=== PATIENT | female | born 1955 | race Asian ===

== ENCOUNTER 2019-12-13 16:19 | Inpatient (IN) | payer MEDICARE, OTHER ==
--- NOTE | 2019-12-13 16:52 | PDOC ---
History of Present Illness - General Chief Complaint: Dialysis Shunt Problem Stated Complaint: PICC Line Insertion Time Seen by Provider: 12/13/19 16:32 History Source: Retirement Records Exam Limitations: Clinical Condition (on a Ventilator) - History of Present Illness Initial Comments: Elizabeth jeong is a 64 F with a PMH of Epilepsy, HTN, dysphagia, hx of DVT of right LE, Afib, hypothyroidism, s/p thracheostomy on continuous ventilation, Dialysis dependence CKD, presents from [facility] for malfunctioning(thrombus) of her right port a cath. Patient received her last dialysis on Wednesday, only 200cc of 300cc is completed, unable to flush. PCP: Adalid Restrepo Nephro: Colin Castillo 12/13/19 17:08 12/13/19 17:11 12/13/19 21:10 Past History - Medical History Allergies/Adverse Reactions: Allergies Allergy/AdvReac Type Severity Reaction Status Date / Time No Known Allergies Allergy Verified 12/13/19 16:33 Cardiac Disorders: Yes (afib) CVA: (dysphagia) COPD: No HTN: Yes Seizures: Yes Thyroid Disease: Yes (hypo) Other medical history: rle dvt, tracheostomy - Reproductive History Is Patient Now?: No - Psycho-Social/Smoking History Smoking History: Smoker current status UNK Have you smoked in the past 12 months: No Information on smoking cessation initiated: No - Substance Abuse Hx (Audit-C & DAST Scrn) How often the patient has a drink containing alcohol: Never Score: In Men: 4 or > Positive; In Women: 3 or > Positive: 0 Screen Result (Pos requires Nsg. Audit-10AR): Negative In the last yr the pt used illegal drug/Rx for NonMed reason: No Score: Yes response is considered Positive: 0 Screen Result (Positive result requires Nsg. DAST-10): Negative Review of Systems - Review of Systems Able to Perform ROS?: No (pt is on a ventilator) *Physical Exam - Vital Signs Last Vital Signs Temp Pulse Resp BP Pulse Ox 98.4 F 96 H 16 101/56 L 99 12/13/19 16:36 12/13/19 16:36 12/13/19 16:36 12/13/19 16:36 12/13/19 16:36 - Physical Exam General Appearance: Yes: Thin. No: Apparent Distress HEENT: positive: LAURA. negative: Nasal Congestion, Rhinorrhea Neck: positive: Supple, Other (trach in place). negative: Carotid bruit Respiratory/Chest: positive: Lungs Clear, Normal Breath Sounds, Other (on a ventilator). negative: Respiratory Distress, Crackles, Rales, Rhonchi Cardiovascular: positive: Regular Rhythm, Regular Rate, S1, S2, Other (Perm cath R. upper chest wall). negative: Edema, JVD, Murmur Vascular Pulses: Carotid (R): 2+, Carotid (L): 2+, Dorsalis-Pedis (R): 1+, Doralis-Pedis (L): 1+ Gastrointestinal/Abdominal: positive: Normal Bowel Sounds, Flat, Other (peg tube in place). negative: Tender Musculoskeletal: positive: Other (Contracture of RUE, PICC line LUE) Extremity: negative: Swelling, Calf Tenderness Integumentary: positive: Dry, Warm, Other (2x1.5 sacral wound (s4)- no active bleeding). negative: Rash, Swelling, Bruising Neurologic: positive: Responsive ED Treatment Course - LABORATORY CBC & Chemistry Diagram: 12/13/19 18:25 12/13/19 18:25 Medical Decision Making - Medical Decision Making 64 F with a PMH of Epilepsy, HTN, dysphagia, hx of DVT of right LE, Afib, hypothyroidism, s/p thracheostomy on continuous ventilation, Dialysis dependence CKD, presents from [facility] for malfunctioning(thrombus) of her right port a cath. #perm Cath eval/replacement - HD catheter Tunnelled: Right IJ Vein - CBC: WBC 15.7 - CMP: Na 131, K 5.3 (hemolyzed), BUN/Crea 34.4/1.5 - PT(INR), PTT - CXR: L.effusion w/ L.base infiltrate and/or atelectasis - PCP: Adalid Nolen - will need admission for perm cath evaluation/replacement for HD Dispo: adm 12/13/19 19:54 12/13/19 20:06 12/13/19 20:09 12/13/19 21:11 Discharge - Discharge Information Problems reviewed: Yes Clinical Impression/Diagnosis: Pleural effusion, Pneumonia, Dialysis catheter clot or failure - Admission Yes - Follow up/Referral Referrals: Colin Holm MD [Staff Physician] - - Patient Discharge Instructions - Post Discharge Activity
--- NOTE | 2019-12-13 18:35 | PDOC ---
Documentation entered by Lamar Alvarez SCRIBE, acting as scribe for Cheri Ortega DO. Cheri Ortega, DO: This documentation has been prepared by the Antonio hudson Sydney, SCRIBE, under my direction and personally reviewed by me in its entirety. I confirm that the documentation accurately reflects all work, treatment, procedures, and medical decision making performed by me. Attending Attestation - Resident Resident Name: MarinoKacey - ED Attending Attestation I have performed the following: I have examined & evaluated the patient, The case was reviewed & discussed with the resident, I agree w/resident's findings & plan, Exceptions are as noted - HPI HPI: 12/13/19 16:50 Patient is a 64 year old female with a significant past medical history of dialysis (MWF) who presents to the ED by EMS from [facility] [place] for dialysis complications. As per EMS, the patient successfully completed her dialysis on Wednesday, but presents today secondary to a complication with her dialysis catheter. HPI is limited secondary to the patient's present symptoms. Allergies: NKDA PCP: Dr. Holm - Physicial Exam PE: 12/13/19 18:17 Gen: vented, awake, moaning neck: trach in place heart: +s1s2 reg lungs: cta b/l, perm cath R chest wall abd: soft, peg in place ext: contracted RUE, L arm with picc line in place, pulses intact, no edema - Medical Decision Making 12/13/19 18:17 a/p: 64yo female with chronic trach, vent, HD on // -sent for a clot in the perm cath that failed cathflow today at HD -nephro is Dr. Massey -pt from [facility] -PMD Dr. Soto -will send labs, ekg, cxr -covid swab -will need admission for perm cath replacement and failed HD access 12/13/19 19:49 labs reviewed hemolyzed k, at 5.3 wbc 15, pna on cxr will add blood cultures, vanco/zosyn will need admission pleural effusion on cxr 12/13/19 21:13 resident called [facility] and PMD is Dr. Adalid Soto microblog sent to [facility] case discussed with TIANA Armstrong who accepts pt to service Heart Score/ECG Review - ECG Intrepretation Comment:: 12/13/19 18:19 sinus tach at 102, t wave flattening inferior leads, baseline artifact, no acute st/t wave findings Discharge - Discharge Information Problems reviewed: Yes Clinical Impression/Diagnosis: Pleural effusion, Pneumonia, Dialysis catheter clot or failure - Admission Yes - Follow up/Referral Referrals: Colin Holm MD [Staff Physician] - - Patient Discharge Instructions - Post Discharge Activity
[2019-12-13 19:00] LABS: BASO % 0.1 % (0-2.0); EOS % 0.1 % (0-4.5); HEMATOCRIT 36.7 % (32.4-45.2); HEMOGLOBIN 11.7 GM/dL (10.7-15.3); LYMPH % 10.9 % (8-40); MCH 25.1 pg (25.7-33.7); MCHC 31.8 g/dl (32.0-36.0); MEAN PLT VOLUME 8.6 fl (7.5-11.1); MONO % 7.3 % (3.8-10.2); NEUT % 81.6 % (42.8-82.8); PLATELET COUNT 213 K/MM3 (134-434); RBC 4.65 M/mm3 (3.60-5.2); WHITE BLOOD COUNT 15.7 K/mm3 (4.0-10.0)
[2019-12-13 19:27] LABS: ALBUMIN 2.5 g/dl (3.4-5.0); BILIRUBIN,TOTAL 0.8 mg/dL (0.2-1); BLOOD UREA NITROGEN 34.4 mg/dL (7-18); CALCIUM 9.2 mg/dL (8.5-10.1); CREATININE 1.5 mg/dL (0.55-1.3); MAGNESIUM 2.2 mg/dL (1.8-2.4); POTASSIUM 5.3 mmol/L (3.5-5.1); TOT PROT 8.6 g/dl (6.4-8.2)
[2019-12-13 19:36] LABS: INR 1.02 (0.83-1.09)
[2019-12-13 19:38] LABS: ACTIVATED PTT 37.3 SECONDS (25.2-36.5)
[2019-12-13] MEDS ORDERED: VANCOMYCIN 1,000 MG in DEXTROSE 5%-WATER - 250 ML IVPB ONE (19:51)
[2019-12-13] MEDS ORDERED: PIPERACILLIN/TAZOB 4.5 GM 4.5 GM in DEXTROSE 5%-WATER 100 ML IVPB ONE (19:51)
[2019-12-13 20:03] LABS: ANISOCYTOSIS 2+; MACROCYTOSIS 2+
[2019-12-13] MEDS ORDERED: PIPERACILLIN/TAZOB 4.5 GM 4.5 GM/100 ML BAG IVPB ONE (21:49)
--- NOTE | 2019-12-13 22:25 | HP ---
Admitting History and Physical - Primary Care Physician PCP: Adalid Soto - Admission Chief Complaint: Permacath Clogged History of Present Illness: This is a 64 year old female from [facility] with a significant past medical history of ESRD (MWF), Respiratory Failure trach-vent dependent, Afib, HTN, Hypothyroid, Epilepsy, MDD. Who presents to the ED by EMS from [facility] for dialysis complications. per ED records: As per EMS, the patient successfully completed her dialysis on Wednesday, but presents today secondary to a complication with her dialysis catheter. HPI is limited secondary to the patient's present symptoms. 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 (Epilepsy) Cardiovascular: Yes: AFIB, HTN Pulmonary: Yes: Other (Respiratory Failure- trach- vent dependent) Renal/: Yes: Hemodialysis ...: No Psych: Yes: Depression Endocrine: Yes: Hypothyroidism - Past Surgical History Additional Past Surgical History: PEG Tracheostomy - Smoking History Smoking history: Smoker current status UNK Have you smoked in the past 12 months: No - Alcohol/Substance Use Hx Alcohol Use: No (unknown) History of Substance Use: reports: None - Social History Usual Living Arrangement: Yes: [place]way ADL: Support Services History of Recent Travel: No Home Medications - Allergies Allergies/Adverse Reactions: Allergies Allergy/AdvReac Type Severity Reaction Status Date / Time No Known Allergies Allergy Verified 12/13/19 16:33 - Home Medications Home Medications (free text): (med list verified with [facility] med list faxed to ED). amiodarone 100mg via peg tube QD. amlodipine 5mg via peg tube QD. baclofen 10mg via peg tube HS. levothyroxine 25mcg via peg AM. MVI 1 tablet via peg QD. clonazepam 0.5mg via peg BID. eliquis 2.5mg via peg BID. simethicone 40mg/0.6ml 0.6ml via peg BID. acetaminophen 650mg via peg Q6h prn pain Family Medical History Family History: Unable to Obtain Review of Systems Unable to obtain ROS, reason: Clinical Condition Physical Examination Vital Signs: Vital Signs Temperature 98.4 F 12/13/19 16:36 Pulse Rate 96 H 12/13/19 16:36 Respiratory Rate 21 H 12/13/19 19:56 Blood Pressure 101/56 L 12/13/19 16:36 O2 Sat by Pulse Oximetry (%) 97 12/13/19 18:00 Constitutional: Yes: Thin, Other (trach-vent dependent Non-verbal) Eyes: Yes: Conjunctiva Clear, PERRL HENT: Yes: Atraumatic, Normocephalic Neck: Yes: Supple, Other (trach) Cardiovascular: Yes: Regular Rate and Rhythm, S1, S2 Respiratory: Yes: Diminished, Rhonchi, Other (trach-vent) Gastrointestinal: Yes: Normal Bowel Sounds, Soft, Other (Peg) ...Rectal Exam: Yes: Deferred Renal/: Yes: Incontinence Breast(s): Yes: WNL Musculoskeletal: Yes: Other (contractures) Edema: No Peripheral Pulses WNL: Yes Neurological: Yes: Other (non-verbal) Labs: CBC, BMP 12/13/19 18:25 12/13/19 18:25 Imaging - Results Chest X-ray: Report Reviewed, Image Reviewed EKG: Image Reviewed Problem List - Problems (1) Dialysis catheter clot or failure Assessment/Plan: Appreciate IR consult Nephrology aware- per ED resident Code(s): YFG9660 - (2) Pneumonia Assessment/Plan: will treat for HAP CURB65 Score, 3 severe risk Blood Cultures -pending Urine Cultures-pending Urine Legionella Continue Vancomycin, Zosyn renal dosing Appreciate ID consult Leukocytosis without neutrophilia Monitor CBC, CMP Monitor Vitals Aspiration Precautions Code(s): J18.9 - PNEUMONIA, UNSPECIFIED ORGANISM (3) Pleural effusion Assessment/Plan: Chest Xray showed left pleural effusion with left base infiltrate and or atelectasis Appreciate Pulmonology consult Continue Lasix Monitor vitals Code(s): J90 - PLEURAL EFFUSION, NOT ELSEWHERE CLASSIFIED (4) Afib Assessment/Plan: EKG- Sinus Tachycardia, non-specific ST + T wave abnormality QTc 435 [id number] Continue home meds Code(s): I48.91 - UNSPECIFIED ATRIAL FIBRILLATION (5) ESRD (end stage renal disease) Assessment/Plan: ESRD- M,W,F Appreciate Nephrology consult- HD management Monitor CMP Monitor vitals Code(s): N18.6 - END STAGE RENAL DISEASE (6) Hypothyroid Assessment/Plan: Continue Levothyroxine Code(s): E03.9 - HYPOTHYROIDISM, UNSPECIFIED (7) HTN (hypertension) Assessment/Plan: stable Monitor BP Continue home meds with parameters Monitor renal function Code(s): I10 - ESSENTIAL (PRIMARY) HYPERTENSION (8) Epilepsy Assessment/Plan: stable No seizure activity Continue home meds Seizure Precautions Code(s): G40.909 - EPILEPSY, UNSP, NOT INTRACTABLE, WITHOUT STATUS EPILEPTICUS (9) MDD (major depressive disorder) Assessment/Plan: stable Continue home med Code(s): F32.9 - MAJOR DEPRESSIVE DISORDER, SINGLE EPISODE, UNSPECIFIED (10) Encounter for screening laboratory testing for COVID-19 virus Assessment/Plan: Low Risk Covid PCR-pending Isolation Precautions Code(s): Z11.59 - ENCOUNTER FOR SCREENING FOR OTHER VIRAL DISEASES Assessment/Plan This is a 64 year old female from [facility] with a significant past medical history of ESRD (MWF), Respiratory Failure trach-vent dependent, Afib, HTN, Hy pothyroid, Epilepsy, MDD. Admitted to [facility] for Permacath Clogged or non-working, Pneumonia, Pleural Effusion for further evaluation of their emergent condition. Plan: See Problem List FEN Hold Tube feedings Replete lytes prn Gentle IVF DVT ppx SCDs Continue Eliquis Code Status: Full Code Dispo: Requires Inpatient Care Visit type - Medication Review Med list reviewed for High Risk Meds patients 65 and older: Yes - Emergency Visit Emergency Visit: Yes ED Registration Date: 12/13/19 Care time: The patient presented to the Emergency Department on the above date and was hospitalized for further evaluation of their emergent condition. - New Patient This patient is new to me today: Yes Date on this admission: 12/13/19 - Critical Care Critical Care patient: No
[2019-12-14] MEDS ORDERED: VANCOMYCIN 1 GRAM (PRE-DOCKED) 1,000 MG/250 ML BAG IVPB ONE (01:40)
[2019-12-14] MEDS ORDERED: PIPERACILLIN/TAZOB 4.5 GM 4.5 GM in DEXTROSE 5%-WATER - 50 ML IVPB SCH (06:00)
[2019-12-14 06:47] LABS: BASO % 0.3 % (0-2.0); HEMATOCRIT 34.4 % (32.4-45.2); HEMOGLOBIN 10.8 GM/dL (10.7-15.3); LYMPH % 12.9 % (8-40); MCH 24.6 pg (25.7-33.7); MCHC 31.3 g/dl (32.0-36.0); MEAN CELL VOLUME 78.5 fl (80-96); MEAN PLT VOLUME 7.7 fl (7.5-11.1); MONO % 10.8 % (3.8-10.2); PLATELET COUNT 201 K/MM3 (134-434); RBC 4.38 M/mm3 (3.60-5.2); WHITE BLOOD COUNT 13.5 K/mm3 (4.0-10.0)
[2019-12-14] MEDS ORDERED: PIPERACILLIN/TAZOB 3.375 GM 3.375 GM/50 ML BAG IVPB ONE (06:53)
[2019-12-14 07:12] LABS: ALBUMIN 2.4 g/dl (3.4-5.0); BILIRUBIN,TOTAL 0.7 mg/dL (0.2-1); BLOOD UREA NITROGEN 45.6 mg/dL (7-18); CALCIUM 8.6 mg/dL (8.5-10.1); POTASSIUM 3.4 mmol/L (3.5-5.1); TOT PROT 7.7 g/dl (6.4-8.2)
[2019-12-14] MEDS ORDERED: ACETAMINOPHEN 650 MG/20.3 ML ORAL SOLUTION (CUPS) PEG PRN (07:51)
--- NOTE | 2019-12-14 10:38 | CON.NEP ---
Consult Consult Specialty:: nephrology Reason for Consultation:: esrd - History of Present Illness Chief Complaint: nonfunctioning pc History of Present Illness: This is a 64 year old female from [facility] with a significant past medical history of ESRD (MWF), Respiratory Failure trach-vent dependent, Afib, HTN, Hypothyroid, Epilepsy, MDD. She was sent in from [facility] since her [id number] is not working and we could not send to outpatient facility to replace catheter. 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 (Epilepsy) Cardio/Vascular: Yes: AFIB, HTN Pulmonary: Yes: Other (Respiratory Failure- trach- vent dependent) Renal/: Yes: Hemodialysis ...: No Psych: Yes: Depression Endocrine: Yes: Hypothyroidism - Alcohol/Substance Use Hx Alcohol Use: No (unknown) History of Substance Use: reports: None - Smoking History Smoking history: Smoker current status UNK Have you smoked in the past 12 months: No - Social History ADL: Support Services History of Recent Travel: No Home Medications - Allergies Allergies/Adverse Reactions: Allergies Allergy/AdvReac Type Severity Reaction Status Date / Time No Known Allergies Allergy Verified 12/13/19 16:33 Review of Systems Unable to obtain ROS, reason: trach Nephrology Consult - Height Height: 5 ft 2 in - Weight Weight: 90 lb - BMI Body Mass Index (BMI): 16.5 - Lab Results CBC,BMP: CBC, BMP 12/14/19 06:15 12/14/19 06:15 Anion Gap: Anion Gap Anion Gap 15 MMOL/L (8-16) 12/14/19 06:15 - Imaging Chest X-ray: Report Reviewed (left effusion) - Physical Examination Vital Signs: Vital Signs Temperature 99.5 F 12/14/19 06:52 Pulse Rate 79 12/14/19 06:52 Respiratory Rate 20 12/14/19 07:30 Blood Pressure 155/78 12/14/19 06:52 O2 Sat by Pulse Oximetry (%) 96 12/14/19 07:30 Constitutional: Yes: No Distress, Anxious Eyes: Yes: Conjunctiva Clear HENT: Yes: Atraumatic, Normocephalic, Other (trach) Neck: Yes: Supple, Trachea Midline Cardiovascular: Yes: Regular Rate and Rhythm Respiratory: Yes: Regular, Other (bilat air entry) Gastrointestinal: Yes: Normal Bowel Sounds, Other (PEG) Renal/: No: Bladder Distention Access for Hemodialysis: Permacath Musculoskeletal: Yes: WNL Extremities: Yes: WNL Edema: No Peripheral Pulses WNL: No Neurological: Yes: Alert Psychiatric: Yes: Alert, Oriented Assessment/Plan IMPRESSION ESRD- note low creat may be due to minimal muscle mass s/p cva s/p trach pleural eff PLAN needs vascular eval for new PC no emergent need for hd will need to evaluate residual renal function which may help reduce hd frequency MV
[2019-12-14] MEDS ORDERED: clonazePAM 0.5 MG TABLET ONE (10:43)
[2019-12-14] MEDS ORDERED: amLODIPine BESYLATE 5 MG TABLET (FP) ONE (10:44)
[2019-12-14] MEDS ORDERED: AMIODARONE HCL 200 MG TABLET ONE (10:44)
[2019-12-14] MEDS ORDERED: LEVOTHYROXINE NA 25 MCG TABLET (FP) ONE (10:44)
[2019-12-14] MEDS ORDERED: APIXABAN 2.5 MG TABLET ONE (10:44)
[2019-12-14] MEDS: AMIODARONE HCL 200 MG TABLET PEG SCH (10:45)
[2019-12-14] MEDS: clonazePAM 0.5 MG TABLET PEG SCH (10:45)
[2019-12-14] MEDS: amLODIPine BESYLATE 5 MG TABLET (FP) PEG SCH (10:45)
[2019-12-14] MEDS: APIXABAN 2.5 MG TABLET PEG SCH (10:45)
[2019-12-14] MEDS: LEVOTHYROXINE NA 25 MCG TABLET (FP) PEG SCH (10:45)
[2019-12-14] MEDS: SIMETHICONE 40 MG/0.6 ML BOTTLE PEG SCH (10:46)
--- NOTE | 2019-12-14 11:27 | PN ---
Progress Note (short form) - Note Progress Note: Pt examined in ER frail and cachetic awake baseline per NH notes-- she does follow commands, right hemiparesis Recent admission to [facility]-- s/p CVA, acute respiratory failure, ESRD on HD, Afib She currently has midline in left arm -- was on iv Zosyn for 7 days-- completed on 11/23 for sacral ulcer no distress Vital Signs - 24 hr 12/13/19 12/13/19 12/13/19 16:36 17:00 18:00 Temperature 98.4 F Pulse Rate 96 H Pulse Rate [ Apical] Respiratory 16 20 20 Rate Blood Pressure 101/56 L Blood Pressure [Right Arm] O2 Sat by Pulse 99 99 97 Oximetry (%) 12/13/19 12/13/19 12/13/19 19:56 20:15 21:00 Temperature Pulse Rate Pulse Rate [ 98 H Apical] Respiratory 21 H 23 H 16 Rate Blood Pressure Blood Pressure 148/90 [Right Arm] O2 Sat by Pulse 100 98 Oximetry (%) 12/14/19 12/14/19 12/14/19 00:00 04:04 06:52 Temperature 99.5 F Pulse Rate Pulse Rate [ 79 Apical] Respiratory 20 23 H 18 Rate Blood Pressure Blood Pressure 155/78 [Right Arm] O2 Sat by Pulse 98 100 Oximetry (%) 12/14/19 12/14/19 12/14/19 07:30 08:00 10:00 Temperature 98.2 F Pulse Rate 106 H Pulse Rate [ 81 Apical] Respiratory 20 20 Rate Blood Pressure Blood Pressure 148/82 [Right Arm] O2 Sat by Pulse 96 100 100 Oximetry (%) 12/14/19 12/14/19 12/14/19 11:11 11:14 11:35 Temperature 99.4 F Pulse Rate Pulse Rate [ 78 Apical] Respiratory 20 22 H Rate Blood Pressure Blood Pressure 155/74 [Right Arm] O2 Sat by Pulse 97 99 Oximetry (%) Current Medications Generic Name Dose Route Start Last Admin Trade Name Freq PRN Reason Stop Dose Admin Acetaminophen 650 mg 12/14/19 07:51 Tylenol Oral Solution - PEG Q6H PRN PAIN LEVEL 6-10 Amiodarone HCl 100 mg 12/14/19 10:00 12/14/19 10:45 Cordarone - PEG 100 mg DAILY ARLENE Administration Amlodipine Besylate 5 mg 12/14/19 10:00 12/14/19 10:45 Norvasc - PEG 5 mg DAILY ARLENE Administration Apixaban 2.5 mg 12/14/19 10:00 12/14/19 10:45 Eliquis - PEG 2.5 mg BID ARLENE Administration Baclofen 10 mg 12/14/19 22:00 Lioresal - PEG HS ARLENE Clonazepam 0.5 mg 12/14/19 10:00 12/14/19 10:45 Klonopin - PEG 0.5 mg BID ARLENE Administration Piperacillin Sod/Tazobactam 50 mls @ 100 mls/hr 12/14/19 18:00 Sod 2.25 gm/ Dextrose IVPB Q8H-IV ARLENE Protocol Levothyroxine Sodium 25 mcg 12/14/19 07:00 12/14/19 10:45 Synthroid - PEG 25 mcg DAILY@0700 ARLENE Administration Simethicone 40 mg 12/14/19 10:00 12/14/19 10:46 Mylicon Liquid - PEG 40 mg BID ARLENE Administration Laboratory Results - last 24 hr 12/13/19 12/13/19 12/13/19 18:25 18:25 18:25 WBC 15.7 H RBC 4.65 Hgb 11.7 Hct 36.7 MCV 79.0 L MCH 25.1 L MCHC 31.8 L RDW 25.0 H Plt Count 213 MPV 8.6 Absolute Neuts (auto) 12.8 H Neutrophils % 81.6 Lymphocytes % 10.9 Monocytes % 7.3 Eosinophils % 0.1 Basophils % 0.1 Nucleated RBC % 0 Anisocytosis 2+ Macrocytosis 2+ PT with INR 12.00 INR 1.02 PTT (Actin FS) 37.3 H Sodium 131 L Potassium 5.3 H Chloride 96 L Carbon Dioxide 24 Anion Gap 11 BUN 34.4 H Creatinine 1.5 H Est GFR (CKD-EPI)AfAm 41.94 Est GFR (CKD-EPI)NonAf 36.18 Random Glucose 82 Calcium 9.2 Magnesium 2.2 Total Bilirubin 0.8 AST 141 H ALT 39 Alkaline Phosphatase 237 H Total Protein 8.6 H Albumin 2.5 L Blood Type Antibody Screen 12/13/19 12/14/19 12/14/19 18:25 06:15 06:15 WBC 13.5 H RBC 4.38 Hgb 10.8 Hct 34.4 MCV 78.5 L MCH 24.6 L MCHC 31.3 L RDW 25.0 H Plt Count 201 MPV 7.7 D Absolute Neuts (auto) 10.2 H Neutrophils % 76.0 Lymphocytes % 12.9 Monocytes % 10.8 H Eosinophils % 0.0 D Basophils % 0.3 Nucleated RBC % 0 Anisocytosis Macrocytosis PT with INR INR PTT (Actin FS) Sodium 132 L Potassium 3.4 L Chloride 96 L Carbon Dioxide 22 Anion Gap 15 BUN 45.6 H Creatinine 2.0 H Est GFR (CKD-EPI)AfAm 29.62 Est GFR (CKD-EPI)NonAf 25.55 Random Glucose 111 H Calcium 8.6 Magnesium Total Bilirubin 0.7 AST 52 H ALT 29 Alkaline Phosphatase 173 H Total Protein 7.7 Albumin 2.4 L Blood Type B POSITIVE Antibody Screen Negative S1 s2 irregular trach + right chest wall permacath Lungs decreased abd- soft, NT, peg+ No edema right hemiparesis A/P clotted permacath sacral ulcer Pneumonia -- vascular eval for decloting -- spoke with ID -- dressing changes to sacral wound -- COVID pending -- continue with meds Problem List - Problems (1) Afib Code(s): I48.91 - UNSPECIFIED ATRIAL FIBRILLATION (2) Dialysis catheter clot or failure Code(s): UGT1415 - (3) ESRD (end stage renal disease) Code(s): N18.6 - END STAGE RENAL DISEASE (4) HTN (hypertension) Code(s): I10 - ESSENTIAL (PRIMARY) HYPERTENSION (5) Hypothyroid Code(s): E03.9 - HYPOTHYROIDISM, UNSPECIFIED (6) MDD (major depressive disorder) Code(s): F32.9 - MAJOR DEPRESSIVE DISORDER, SINGLE EPISODE, UNSPECIFIED
--- NOTE | 2019-12-14 13:23 | CON.ID ---
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 (Epilepsy) Cardio/Vascular: Yes: AFIB, HTN Pulmonary: Yes: Other (Respiratory Failure- trach- vent dependent) Renal/: Yes: Hemodialysis ...: No Psych: Yes: Depression Endocrine: Yes: Hypothyroidism - Past Surgical History Additional Surgical History: tracheostomy - Alcohol/Substance Use Hx Alcohol Use: No (unknown) History of Substance Use: reports: None - Smoking History Smoking history: Smoker current status UNK Have you smoked in the past 12 months: No - Social History Usual Living Arrangement: Skilled Nursing ADL: Support Services History of Recent Travel: No Home Medications - Allergies Allergies/Adverse Reactions: Allergies Allergy/AdvReac Type Severity Reaction Status Date / Time No Known Allergies Allergy Verified 12/13/19 16:33 Family Medical History Family History: Unable to Obtain Review of Systems Unable to obtain ROS, reason: unable to obtain Physical Exam Vital Signs: Vital Signs Temperature 99.4 F 12/14/19 11:14 Pulse Rate 78 12/14/19 11:11 Respiratory Rate 22 H 12/14/19 11:35 Blood Pressure 155/74 12/14/19 11:11 O2 Sat by Pulse Oximetry (%) 99 12/14/19 11:35 Constitutional: Yes: Well Nourished, No Distress Eyes: Yes: Conjunctiva Clear HENT: Yes: Atraumatic, Pharyngeal Erythema Neck: Yes: Other (trach) Cardiovascular: Yes: Regular Rate and Rhythm Respiratory: Yes: Regular, Diminished, Other (chest wall permacath no erythema) Gastrointestinal: Yes: Normal Bowel Sounds, Soft, Other (GT) Extremities: Yes: WNL, Other (+picc line) Edema: No Labs: CBC, BMP 12/14/19 06:15 12/14/19 06:15 blood cultures pending Imaging - Results Chest X-ray: Report Reviewed, Image Reviewed Problem List - Problems (1) Leukocytosis Code(s): D72.829 - ELEVATED WHITE BLOOD CELL COUNT, UNSPECIFIED (2) Dialysis catheter clot or failure Code(s): VKL5453 - (3) ESRD (end stage renal disease) Code(s): N18.6 - END STAGE RENAL DISEASE (4) Pneumonia Code(s): J18.9 - PNEUMONIA, UNSPECIFIED ORGANISM Assessment/Plan cannot r/o pneumonia- f/u cultures continue zosyn for now vanco level in am surgery to evaluate clotted permacath
[2019-12-14] MEDS: PIPERACILLIN/TAZOB 4.5 GM 4.5 GM in DEXTROSE 5%-WATER - 50 ML IVPB SCH ×2 (13:42→19:36)
--- NOTE | 2019-12-14 14:13 | HP ---
CHIEF COMPLAINT: PCP: HISTORY OF PRESENT ILLNESS: ER course was notable for: (1) (2) (3) Recent Travel: PAST MEDICAL HISTORY: PAST SURGICAL HISTORY: Social History: Smoking: Alcohol: Drugs: Allergies No Known Allergies Allergy (Verified 12/13/19 16:33) HOME MEDICATIONS: REVIEW OF SYSTEMS CONSTITUTIONAL: Absent: fever, chills, diaphoresis, generalized weakness, malaise, loss of appetite, weight change HEENT: Absent: rhinorrhea, nasal congestion, throat pain, throat swelling, difficulty swallowing, mouth swelling, ear pain, eye pain, visual changes CARDIOVASCULAR: Absent: chest pain, syncope, palpitations, irregular heart rate, lightheadedness, peripheral edema RESPIRATORY: Absent: cough, shortness of breath, dyspnea with exertion, orthopnea, wheezing, stridor, hemoptysis GASTROINTESTINAL: Absent: abdominal pain, abdominal distension, nausea, vomiting, diarrhea, constipation, melena, hematochezia GENITOURINARY: Absent: dysuria, frequency, urgency, hesitancy, hematuria, flank pain, genital pain MUSCULOSKELETAL: Absent: myalgia, arthralgia, joint swelling, back pain, neck pain SKIN: Absent: rash, itching, pallor HEMATOLOGIC/IMMUNOLOGIC: Absent: easy bleeding, easy bruising, lymphadenopathy, frequent infections ENDOCRINE: Absent: unexplained weight gain, unexplained weight loss, heat intolerance, cold intolerance NEUROLOGIC: Absent: headache, focal weakness or paresthesias, dizziness, unsteady gait, seizure, mental status changes, bladder or bowel incontinence PSYCHIATRIC: Absent: anxiety, depression, suicidal or homicidal ideation, hallucinations. PHYSICAL EXAMINATION Vital Signs - 24 hr 12/13/19 12/13/19 12/13/19 16:36 17:00 18:00 Temperature 98.4 F Pulse Rate 96 H Pulse Rate [ Apical] Respiratory 16 20 20 Rate Blood Pressure 101/56 L Blood Pressure [Right Arm] O2 Sat by Pulse 99 99 97 Oximetry (%) 12/13/19 12/13/19 12/13/19 19:56 20:15 21:00 Temperature Pulse Rate Pulse Rate [ 98 H Apical] Respiratory 21 H 23 H 16 Rate Blood Pressure Blood Pressure 148/90 [Right Arm] O2 Sat by Pulse 100 98 Oximetry (%) 12/14/19 12/14/19 12/14/19 00:00 04:04 06:52 Temperature 99.5 F Pulse Rate Pulse Rate [ 79 Apical] Respiratory 20 23 H 18 Rate Blood Pressure Blood Pressure 155/78 [Right Arm] O2 Sat by Pulse 98 100 Oximetry (%) 12/14/19 12/14/19 12/14/19 07:30 08:00 10:00 Temperature 98.2 F Pulse Rate 106 H Pulse Rate [ 81 Apical] Respiratory 20 20 Rate Blood Pressure Blood Pressure 148/82 [Right Arm] O2 Sat by Pulse 96 100 100 Oximetry (%) 12/14/19 12/14/19 12/14/19 11:11 11:14 11:35 Temperature 99.4 F Pulse Rate Pulse Rate [ 78 Apical] Respiratory 20 22 H Rate Blood Pressure Blood Pressure 155/74 [Right Arm] O2 Sat by Pulse 97 99 Oximetry (%) GENERAL: Awake, alert, and fully oriented, in no acute distress. HEAD: Normal with no signs of trauma. EYES: Pupils equal, round and reactive to light, extraocular movements intact, sclera anicteric, conjunctiva clear. No lid lag. EARS, NOSE, THROAT: Ears normal, nares patent, oropharynx clear without exudates. Moist mucous membranes. NECK: Normal range of motion, supple without lymphadenopathy, JVD, or masses. LUNGS: Breath sounds equal, clear to auscultation bilaterally. No wheezes, and no crackles. No accessory muscle use. HEART: Regular rate and rhythm, normal S1 and S2 without murmur, rub or gallop. ABDOMEN: Soft, nontender, not distended, normoactive bowel sounds, no guarding, no rebound, no masses. No hepatomegaly or splenomegaly. MUSCULOSKELETAL: Normal range of motion at all joints. No bony deformities or tenderness. No CVA tenderness. UPPER EXTREMITIES: 2+ pulses, warm, well-perfused. No cyanosis. No clubbing. No peripheral edema. LOWER EXTREMITIES: 2+ pulses, warm, well-perfused. No calf tenderness. No peripheral edema. NEUROLOGICAL: Cranial nerves II-XII intact. Normal speech. Normal gait. PSYCHIATRIC: Cooperative. Good eye contact. Appropriate mood and affect. SKIN: Warm, dry, normal turgor, no rashes or lesions noted, normal capillary refill. Laboratory Results - last 24 hr 12/13/19 12/13/19 12/13/19 18:25 18:25 18:25 WBC 15.7 H RBC 4.65 Hgb 11.7 Hct 36.7 MCV 79.0 L MCH 25.1 L MCHC 31.8 L RDW 25.0 H Plt Count 213 MPV 8.6 Absolute Neuts (auto) 12.8 H Neutrophils % 81.6 Lymphocytes % 10.9 Monocytes % 7.3 Eosinophils % 0.1 Basophils % 0.1 Nucleated RBC % 0 Anisocytosis 2+ Macrocytosis 2+ PT with INR 12.00 INR 1.02 PTT (Actin FS) 37.3 H Sodium 131 L Potassium 5.3 H Chloride 96 L Carbon Dioxide 24 Anion Gap 11 BUN 34.4 H Creatinine 1.5 H Est GFR (CKD-EPI)AfAm 41.94 Est GFR (CKD-EPI)NonAf 36.18 Random Glucose 82 Calcium 9.2 Magnesium 2.2 Total Bilirubin 0.8 AST 141 H ALT 39 Alkaline Phosphatase 237 H Total Protein 8.6 H Albumin 2.5 L Blood Type Antibody Screen 12/13/19 12/14/19 12/14/19 18:25 06:15 06:15 WBC 13.5 H RBC 4.38 Hgb 10.8 Hct 34.4 MCV 78.5 L MCH 24.6 L MCHC 31.3 L RDW 25.0 H Plt Count 201 MPV 7.7 D Absolute Neuts (auto) 10.2 H Neutrophils % 76.0 Lymphocytes % 12.9 Monocytes % 10.8 H Eosinophils % 0.0 D Basophils % 0.3 Nucleated RBC % 0 Anisocytosis Macrocytosis PT with INR INR PTT (Actin FS) Sodium 132 L Potassium 3.4 L Chloride 96 L Carbon Dioxide 22 Anion Gap 15 BUN 45.6 H Creatinine 2.0 H Est GFR (CKD-EPI)AfAm 29.62 Est GFR (CKD-EPI)NonAf 25.55 Random Glucose 111 H Calcium 8.6 Magnesium Total Bilirubin 0.7 AST 52 H ALT 29 Alkaline Phosphatase 173 H Total Protein 7.7 Albumin 2.4 L Blood Type B POSITIVE Antibody Screen Negative ASSESSMENT/PLAN:
--- NOTE | 2019-12-14 14:16 | CONSULT ---
- Consultation REQUESTING PROVIDER: Vascular Surgery -- Ari Fields CONSULT REQUEST: We have been asked to surgically evaluate this patient for rue phlebitis PCP: Remy Palmer History Source: Transfer Record Limitations to Obtaining History: Clinical Condition HPI: Called to nimisha 64 yo female w/ PMHx as noted below. Presents to [facility] ED for evaluation of her clotted permacatheter. ESRD on HD (m-w-f). Sent to via ambulance from [facility] [place]. Last full HD session was 12/11/19. PMHx: Seizure (Epilepsy), AFIB, HTN, Respiratory Failure (trach-vent dependent), Renal Failure on HD, Depression, Hypothyroidism, Afib, MDD PSHx: Trach. PEG. Permacatheter (Rt chest wall) Allergies; NKDA ROS: Unable to obtain secondary to clinical condition. PE: GEN: Non-verbal Eyes: Conjunctiva Clear, PERRL HENT: Atraumatic, Normocephalic Chest: Right chest wall permacatheter Neck: trach on vent : ncontinence/diapers Musculoskeletal: contracted Last Vital Signs Temp Pulse Resp BP Pulse Ox 99.4 F 78 22 H 155/74 99 12/14/19 11:14 12/14/19 11:11 12/14/19 11:35 12/14/19 11:11 12/14/19 11:35 CBC, BMP 12/14/19 06:15 12/14/19 06:15 INR, PTT INR 1.02 (0.83-1.09) 12/13/19 18:25 Serology Test 12/14/19 09:18 COVID-19 (MATTHEW) Pending Problem List - Problems (1) Dialysis catheter clot or failure Assessment/Plan: Monitor BUN/Cr & Potassium Attempt Cathflo Activase 2mg instilled into permacath, may repeat dose in 2 hours if remains clotted. - if this fails, she will need permacatheter exchange Renal following Medical management Covid pending; isolation precaution Above plan discussed with Dr. Fields and agrees. Code(s): [id number] - (2) ESRD (end stage renal disease) Code(s): N18.6 - END STAGE RENAL DISEASE (3) Afib Code(s): I48.91 - UNSPECIFIED ATRIAL FIBRILLATION (4) Epilepsy Code(s): G40.909 - EPILEPSY, UNSP, NOT INTRACTABLE, WITHOUT STATUS EPILEPTICUS (5) Hypothyroid Code(s): E03.9 - HYPOTHYROIDISM, UNSPECIFIED Visit type - Case Type Case Type: ED Admission - Emergency Emergency Visit: Yes ED Registration Date: 12/13/19 Care time: The patient presented to the Emergency Department on the above date and was hospitalized for further evaluation of their emergent condition. - New patient This patient is new to me today: Yes Date on this admission: 12/14/19
--- NOTE | 2019-12-14 14:28 | CON.PULM ---
Consult Consult Specialty:: PULM/CCM Referred by:: JEANNIE Reason for Consultation:: Ventilator dependent - History of Present Illness Chief Complaint: Vascular access complication History of Present Illness: 64 F, SNF resident, ESRD on HD via [facility] Permacath, (MWF), Chronic Respiratory Failure via Trach, Afib, HTN, Hypothyroid, Epilepsy, and MDD. Admitted via the ER from the HD center for apparent complications utilizing her Permacath. Patient seen the ICU. She is awake and vented. She is not able to follow commands. AC Mode of vent. NAD. CXR: Left effusion was associated atelectasis : No previous films for comparison - History Source History Provided By: Medical Record Limitations to Obtaining History: Clinical Condition - Past Medical History MORTGAGE CONSULTANT: Yes: Seizure (Epilepsy) Cardio/Vascular: Yes: AFIB, HTN Pulmonary: Yes: Other (Respiratory Failure- trach- vent dependent) Renal/: Yes: Hemodialysis ...: No Psych: Yes: Depression Endocrine: Yes: Hypothyroidism - Alcohol/Substance Use Hx Alcohol Use: No (unknown) History of Substance Use: reports: None - Smoking History Smoking history: Smoker current status UNK Have you smoked in the past 12 months: No - Social History ADL: Support Services History of Recent Travel: No Home Medications - Allergies Allergies/Adverse Reactions: Allergies Allergy/AdvReac Type Severity Reaction Status Date / Time No Known Allergies Allergy Verified 12/13/19 16:33 Review of Systems Unable to obtain ROS, reason: not able to provide Physical Exam Vital Sings: Vital Signs Temperature 99.4 F 12/14/19 11:14 Pulse Rate 78 12/14/19 11:11 Respiratory Rate 22 H 12/14/19 11:35 Blood Pressure 155/74 12/14/19 11:11 O2 Sat by Pulse Oximetry (%) 99 12/14/19 11:35 Constitutional: Yes: No Distress, Thin Eyes: Yes: Conjunctiva Clear, EOM Intact HENT: Yes: Atraumatic, Normocephalic Neck: Yes: Supple, Trachea Midline, Other (Tracheostomy intact ) Cardiovascular: Yes: Pulse Irregular Respiratory: Yes: Diminished, Mechanically Ventilated, Rhonchi. No: Accessory Muscle Use, Rales, SOB, SOB on Exertion, Stridor, Tachypnea, Wheezes ...Inspection: Yes: WNL ...Clubbing: No Gastrointestinal: Yes: Normal Bowel Sounds, Soft Musculoskeletal: Yes: WNL Extremities: Yes: WNL Edema: No Peripheral Pulses WNL: Yes Integumentary: Yes: WNL Neurological: Yes: Pre-Existing Deficit Labs: CBC, BMP 12/14/19 06:15 12/14/19 06:15 Imaging - Results Chest X-ray: Report Reviewed, Image Reviewed Problem List - Problems (1) Atelectasis Code(s): J98.11 - ATELECTASIS (2) Chronic respiratory failure Code(s): J96.10 - CHRONIC RESPIRATORY FAILURE, UNSP W HYPOXIA OR HYPERCAPNIA (3) Afib Code(s): I48.91 - UNSPECIFIED ATRIAL FIBRILLATION (4) Dialysis catheter clot or failure Code(s): DNP6482 - (5) ESRD (end stage renal disease) Code(s): N18.6 - END STAGE RENAL DISEASE (6) Epilepsy Code(s): G40.909 - EPILEPSY, UNSP, NOT INTRACTABLE, WITHOUT STATUS EPILEPTICUS (7) MDD (major depressive disorder) Code(s): F32.9 - MAJOR DEPRESSIVE DISORDER, SINGLE EPISODE, UNSPECIFIED (8) Pleural effusion Code(s): J90 - PLEURAL EFFUSION, NOT ELSEWHERE CLASSIFIED Assessment/Plan Settings : AC 14 / 400cc / 30% / PEEP 5 Do not suspect PNA or an acute respiratory infection BD TX PRN No indication for systemic steroids Will follow if admitted Thank you. Dr Stearns
[2019-12-14] MEDS ORDERED: ALTEPLASE 2 MG VIAL NR ONE (14:34)
--- NOTE | 2019-12-14 14:56 | EKG ---
Test Reason : Blood Pressure : / mmHG Vent. Rate : 102 BPM Atrial Rate : 102 BPM P-R Int : 154 ms QRS Dur : 090 ms QT Int : 334 ms P-R-T Axes : 016 034 -15 degrees QTc Int : 435 ms POOR DATA QUALITY, INTERPRETATION MAY BE ADVERSELY AFFECTED SINUS TACHYCARDIA NONSPECIFIC ST AND T WAVE ABNORMALITY ABNORMAL ECG NO PREVIOUS ECGS AVAILABLE Confirmed by FLAQUITA JARVIS MD ([id number]) on 12/14/2019 2:55:54 PM Referred By: Confirmed By:FLAQUITA JARVIS MD
[2019-12-14] MEDS: PIPERACILLIN/TAZOB 2.25 GM 2.25 GM in DEXTROSE 5%-WATER - 50 ML IVPB SCH (17:30)
[2019-12-14 20:53] VITALS: BMI 17.7
[2019-12-14] MEDS ORDERED: BACLOFEN 10 MG TABLET (FP) PEG SCH (22:00)
[2019-12-15] MEDS: clonazePAM 0.5 MG TABLET PEG SCH ×3 (00:09→21:45)
[2019-12-15] MEDS: APIXABAN 2.5 MG TABLET PEG SCH ×3 (00:10→21:45)
[2019-12-15] MEDS: SIMETHICONE 40 MG/0.6 ML BOTTLE PEG SCH ×3 (01:10→21:46)
[2019-12-15] MEDS ORDERED: VANCOMYCIN 750 MG in DEXTROSE 5%-WATER - 150 ML IVPB SCH (02:30)
[2019-12-15] MEDS ORDERED: PIPERACILLIN/TAZOBACTAM 2.25 GM VIAL IVPB ONE ×3 (02:52→17:04)
[2019-12-15] MEDS ORDERED: DEXTROSE 5%-WATER - 50 ML IVPB ONE ×3 (02:53→17:04)
[2019-12-15] MEDS: PIPERACILLIN/TAZOB 2.25 GM 2.25 GM in DEXTROSE 5%-WATER - 50 ML IVPB SCH ×3 (02:56→17:18)
[2019-12-15] MEDS: LEVOTHYROXINE NA 25 MCG TABLET (FP) PEG SCH (06:03)
--- NOTE | 2019-12-15 10:25 | PN ---
Progress Note, Physician History of Present Illness: pulmonarry awake on vent support ac mode,-resp distress - Current Medication List Current Medications: Active Medications Acetaminophen (Tylenol Oral Solution -) 650 mg PEG Q6H PRN PRN Reason: PAIN LEVEL 6-10 Amiodarone HCl (Cordarone -) 100 mg PEG DAILY [facility] Last Admin: 12/14/19 10:45 Dose: 100 mg Documented by: Amlodipine Besylate (Norvasc -) 5 mg PEG DAILY [facility] Last Admin: 12/14/19 10:45 Dose: 5 mg Documented by: Apixaban (Eliquis -) 2.5 mg PEG BID [facility] Last Admin: 12/15/19 00:10 Dose: 2.5 mg Documented by: Baclofen (Lioresal -) 10 mg PEG HS [facility] Last Admin: 12/15/19 00:09 Dose: 10 mg Documented by: Clonazepam (Klonopin -) 0.5 mg PEG BID [facility] Last Admin: 12/15/19 00:09 Dose: 0.5 mg Documented by: Piperacillin Sod/Tazobactam (Sod 2.25 gm/ Dextrose) 50 mls @ 100 mls/hr IVPB Q8H-IV [facility]; Protocol Last Admin: 12/15/19 02:56 Dose: 100 mls/hr Documented by: Levothyroxine Sodium (Synthroid -) 25 mcg PEG DAILY@0700 [facility] Last Admin: 12/15/19 06:03 Dose: 25 mcg Documented by: Simethicone (Mylicon Liquid -) 40 mg PEG BID [facility] Last Admin: 12/15/19 01:10 Dose: 40 mg Documented by: - Objective Vital Signs: Vital Signs Temperature 98.3 F 12/15/19 09:56 Pulse Rate 88 12/15/19 09:56 Respiratory Rate 16 12/15/19 09:56 Blood Pressure 132/79 12/15/19 09:56 O2 Sat by Pulse Oximetry (%) 98 12/15/19 09:56 Constitutional: Yes: Calm, Cachectic Eyes: Yes: WNL HENT: Yes: WNL Neck: Yes: Supple (trach) Cardiovascular: Yes: Pulse Irregular, S1, S2 Respiratory: Yes: Diminished Gastrointestinal: Yes: Normal Bowel Sounds, Soft Extremities: Yes: WNL Edema: No Labs: CBC, BMP 12/14/19 06:15 Assessment/Plan Problem List - Problems (1) Atelectasis Code(s): J98.11 - ATELECTASIS (2) Chronic respiratory failure Code(s): J96.10 - CHRONIC RESPIRATORY FAILURE, UNSP W HYPOXIA OR HYPERCAPNIA (3) Afib Code(s): I48.91 - UNSPECIFIED ATRIAL FIBRILLATION (4) Dialysis catheter clot or failure Code(s): [id number] - (5) ESRD (end stage renal disease) Code(s): N18.6 - END STAGE RENAL DISEASE (6) Epilepsy Code(s): G40.909 - EPILEPSY, UNSP, NOT INTRACTABLE, WITHOUT STATUS EPILEPTICUS (7) MDD (major depressive disorder) Code(s): F32.9 - MAJOR DEPRESSIVE DISORDER, SINGLE EPISODE, UNSPECIFIED (8) Pleural effusion Code(s): J90 - PLEURAL EFFUSION, NOT ELSEWHERE CLASSIFIED Assessment/Plan Vent support AC 14 / 400cc / 30% / PEEP 5 Do not suspect PNA or an acute respiratory infection BD TX PRN monitor lytes,renal function f/u chest x-ray DR DE LEON
[2019-12-15] MEDS: amLODIPine BESYLATE 5 MG TABLET (FP) PEG SCH (10:50)
[2019-12-15] MEDS: AMIODARONE HCL 200 MG TABLET PEG SCH (10:50)
--- NOTE | 2019-12-15 11:10 | PN ---
Progress Note (short form) - Note Progress Note: RENAL Pt is awake and alert makes eye contact appears comfortable Last Vital Signs Temp Pulse Resp BP Pulse Ox 98.3 F 88 16 132/79 98 12/15/19 09:56 12/15/19 09:56 12/15/19 09:56 12/15/19 09:56 12/15/19 09:56 lungs bilat air entry cvs s1s2 rr +sema bd soft ext no edema neuro a+ox3 CBC, BMP 12/14/19 06:15 12/14/19 06:15 Current Medications Generic Name Dose Route Start Last Admin Trade Name Freq PRN Reason Stop Dose Admin Acetaminophen 650 mg 12/14/19 07:51 Tylenol Oral Solution - PEG Q6H PRN PAIN LEVEL 6-10 Amiodarone HCl 100 mg 12/14/19 10:00 12/15/19 10:50 Cordarone - PEG Not Given DAILY [facility] Amlodipine Besylate 5 mg 12/14/19 10:00 12/15/19 10:50 Norvasc - PEG Not Given DAILY [facility] Apixaban 2.5 mg 12/14/19 10:00 12/15/19 10:50 Eliquis - PEG Not Given BID [facility] Baclofen 10 mg 12/14/19 22:00 12/15/19 00:09 Lioresal - PEG 10 mg HS [facility] Administration Clonazepam 0.5 mg 12/14/19 10:00 12/15/19 10:50 Klonopin - PEG Not Given BID [facility] Piperacillin Sod/Tazobactam 50 mls @ 100 mls/hr 12/14/19 18:00 12/15/19 10:45 Sod 2.25 gm/ Dextrose IVPB 100 mls/hr Q8H-IV [facility] Administration Protocol Levothyroxine Sodium 25 mcg 12/14/19 07:00 12/15/19 06:03 Synthroid - PEG 25 mcg DAILY@0700 [facility] Administration Simethicone 40 mg 12/14/19 10:00 12/15/19 10:50 Mylicon Liquid - PEG Not Given BID [facility] IMPRESSION esrd seizures s/p cva trach, vent dependent PLAN will have permcath exchange today can dialyze afterwards and possibly send back to half-way pulmonary does not believe she has pneumonia and cultures are neg MV
[2019-12-15] MEDS ORDERED: EPOETIN ALFA-EPBX 2,000 UNIT/ML VIAL SQ ONE ×2 (11:14→18:30)
[2019-12-15] MEDS ORDERED: SODIUM CHLORIDE 250 ML IV PRN ×2 (11:14→14:26)
[2019-12-15] MEDS ORDERED: HEPARIN NA (PORCINE) 5,000 UNITS/ML 1ML VIAL ONE (11:42)
--- NOTE | 2019-12-15 12:12 | PN ---
Progress Note, Physician History of Present Illness: pt seen/ examined chart reviewed awake/ comfortable no distress afebrile - Current Medication List Current Medications: Active Medications Acetaminophen (Tylenol Oral Solution -) 650 mg PEG Q6H PRN PRN Reason: PAIN LEVEL 6-10 Amiodarone HCl (Cordarone -) 100 mg PEG DAILY [facility] Last Admin: 12/15/19 10:50 Dose: Not Given Documented by: Amlodipine Besylate (Norvasc -) 5 mg PEG DAILY [facility] Last Admin: 12/15/19 10:50 Dose: Not Given Documented by: Apixaban (Eliquis -) 2.5 mg PEG BID [facility] Last Admin: 12/15/19 10:50 Dose: Not Given Documented by: Baclofen (Lioresal -) 10 mg PEG HS [facility] Last Admin: 12/15/19 00:09 Dose: 10 mg Documented by: Clonazepam (Klonopin -) 0.5 mg PEG BID [facility] Last Admin: 12/15/19 10:50 Dose: Not Given Documented by: Epoetin Victor Hugo-epbx (Retacrit) 2,000 unit SQ ONCE ONE Stop: 12/15/19 11:15 Piperacillin Sod/Tazobactam (Sod 2.25 gm/ Dextrose) 50 mls @ 100 mls/hr IVPB Q8H-IV [facility]; Protocol Last Admin: 12/15/19 10:45 Dose: 100 mls/hr Documented by: Sodium Chloride (Normal Saline -) 250 mls @ 3,000 mls/hr IV PRN PRN PRN Reason: Hypotension during Dialysis Stop: 12/16/19 11:14 Levothyroxine Sodium (Synthroid -) 25 mcg PEG DAILY@0700 [facility] Last Admin: 12/15/19 06:03 Dose: 25 mcg Documented by: Simethicone (Mylicon Liquid -) 40 mg PEG BID [facility] Last Admin: 12/15/19 10:50 Dose: Not Given Documented by: - Objective Vital Signs: Vital Signs Temperature 98.3 F 12/15/19 09:56 Pulse Rate 88 12/15/19 09:56 Respiratory Rate 16 12/15/19 09:56 Blood Pressure 132/79 12/15/19 09:56 O2 Sat by Pulse Oximetry (%) 98 12/15/19 09:56 Constitutional: Yes: No Distress, Calm Neck: Yes: Supple, Other (s/p trach- vent) Cardiovascular: Yes: Regular Rate and Rhythm Respiratory: Yes: Diminished Gastrointestinal: Yes: Soft, Other (s/p g tube) Edema: No Wound/Incision: Yes: Other (sacral decubitus) Neurological: Yes: Alert Labs: CBC, BMP 12/14/19 06:15 12/14/19 06:15 INR, PTT INR 1.02 (0.83-1.09) 12/13/19 18:25 Problem List - Problems (1) Dialysis catheter clot or failure Code(s): [id number] - (2) ESRD (end stage renal disease) Code(s): N18.6 - END STAGE RENAL DISEASE (3) HTN (hypertension) Code(s): I10 - ESSENTIAL (PRIMARY) HYPERTENSION (4) Pneumonia Code(s): J18.9 - PNEUMONIA, UNSPECIFIED ORGANISM Assessment/Plan Stable nonfunctioning permacath -for replacement today Continue present care Abx - per i/d will follow
--- NOTE | 2019-12-15 12:23 | PN ---
Progress Note (short form) - Note Progress Note: alert trach to vent Vital Signs Period Temp Pulse Resp BP Sys/Rick Pulse Ox Last 24 Hr 97.3 F-98.3 F 79-107 14-26 132-161/78-98 96-100 cor-rrr lungs clear posteriorly abd soft,nt +GT sacral ulcer stage 3 clean ext no edema CBC, BMP 12/14/19 06:15 12/14/19 06:15 Microbiology 12/14/19 09:20 Blood - Peripheral Venous Blood Culture - Preliminary NO GROWTH OBTAINED AFTER 24 HOURS, INCUBATION TO CONTINUE FOR 4 DAYS. 12/14/19 09:20 Blood - Peripheral Venous Blood Culture - Preliminary NO GROWTH OBTAINED AFTER 24 HOURS, INCUBATION TO CONTINUE FOR 4 DAYS. vanco trough 19.8 a/p nonfunctioning permacath -for replacement today sacral ulcer clean- continue local care less likley pneumonia- lungs clear on exam-can d/c zosyn-cxray d/w pulmonary esrd-hd for dialysis after permacath placement today s/p cva Problem List - Problems (1) Leukocytosis Code(s): D72.829 - ELEVATED WHITE BLOOD CELL COUNT, UNSPECIFIED (2) Dialysis catheter clot or failure Code(s): JXC4341 - (3) ESRD (end stage renal disease) Code(s): N18.6 - END STAGE RENAL DISEASE (4) Pneumonia Code(s): J18.9 - PNEUMONIA, UNSPECIFIED ORGANISM
[2019-12-15] MEDS ORDERED: LIDOCAINE HCL 1%, 10 MG/ML (20ML VIAL) PNB ONE (13:25)
[2019-12-15] MEDS ORDERED: ePHEDrine SULFATE 50 MG/1 ML AMPULE ONE (13:49)
--- NOTE | 2019-12-15 14:10 | OP ---
Operative Note - Note: Operative Date: 12/15/19 Pre-Operative Diagnosis: malfunctioning permacath Operation: Permacath exchange. Post-Operative Diagnosis: Same as Pre-op Surgeon: Ari Fields Anesthesia: MAC Estimated Blood Loss (mls): 10 Operative Report Dictated: Yes
[2019-12-15] MEDS: ACETAMINOPHEN 650 MG/20.3 ML ORAL SOLUTION (CUPS) PEG PRN (17:47)
[2019-12-15] MEDS ORDERED: PNEUMOC 13-VAL CONJ-DIP CRM/PF 0.5 ML DISP.SYRIN IM ONE (18:00)
[2019-12-15] MEDS ORDERED: ACETAMINOPHEN 1000 MG/100 ML VIAL (NON FORMULARY) IVPB ONE (18:48)
[2019-12-15] MEDS ORDERED: PT OWN MED DRAWER 7, Y5N ONE (20:35)
[2019-12-15] MEDS: BACLOFEN 10 MG TABLET (FP) PEG SCH (21:45)
[2019-12-16] MEDS: PIPERACILLIN/TAZOB 2.25 GM 2.25 GM in DEXTROSE 5%-WATER - 50 ML IVPB SCH ×3 (02:29→17:31)
[2019-12-16] MEDS ORDERED: DEXTROSE 5%-WATER - 50 ML IVPB ONE ×3 (03:28→16:57)
[2019-12-16] MEDS ORDERED: PIPERACILLIN/TAZOBACTAM 2.25 GM VIAL IVPB ONE ×3 (03:28→16:57)
[2019-12-16] MEDS: LEVOTHYROXINE NA 25 MCG TABLET (FP) PEG SCH (06:05)
--- NOTE | 2019-12-16 07:55 | PN ---
Progress Note, Physician History of Present Illness: PULMONARY NO CHANGE,ON VENT SUPPORT,AC MODE - Current Medication List Current Medications: Active Medications Acetaminophen (Tylenol Oral Solution -) 650 mg PEG Q6H PRN PRN Reason: PAIN LEVEL 6-10 Last Admin: 12/15/19 17:47 Dose: 650 mg Documented by: Amiodarone HCl (Cordarone -) 100 mg PEG DAILY [facility] Amlodipine Besylate (Norvasc -) 5 mg PEG DAILY [facility] Apixaban (Eliquis -) 2.5 mg PEG BID [facility] Last Admin: 12/15/19 21:45 Dose: 2.5 mg Documented by: Baclofen (Lioresal -) 10 mg PEG HS [facility] Last Admin: 12/15/19 21:45 Dose: 10 mg Documented by: Clonazepam (Klonopin -) 0.5 mg PEG BID [facility] Last Admin: 12/15/19 21:45 Dose: 0.5 mg Documented by: Fentanyl (Sublimaze Injection -) 25 mcg IVPUSH [id number] PRN PRN Reason: PAIN-PACU ORDER X 4 DOSES ONLY Piperacillin Sod/Tazobactam (Sod 2.25 gm/ Dextrose) 50 mls @ 100 mls/hr IVPB Q8H-IV [facility]; Protocol Last Admin: 12/16/19 02:29 Dose: 100 mls/hr Documented by: Sodium Chloride (Normal Saline -) 250 mls @ 3,000 mls/hr IV PRN PRN PRN Reason: Hypotension during Dialysis Stop: 12/16/19 11:14 Levothyroxine Sodium (Synthroid -) 25 mcg PEG DAILY@0700 [facility] Last Admin: 12/16/19 06:05 Dose: 25 mcg Documented by: Simethicone (Mylicon Liquid -) 40 mg PEG BID [facility] Last Admin: 12/15/19 21:46 Dose: 40 mg Documented by: - Objective Vital Signs: Vital Signs Temperature 97.4 F L 12/16/19 06:00 Pulse Rate 77 12/16/19 06:00 Respiratory Rate 18 12/16/19 06:00 Blood Pressure 130/83 12/16/19 06:00 O2 Sat by Pulse Oximetry (%) 100 12/16/19 06:00 Constitutional: Yes: Calm, Cachectic Eyes: Yes: WNL HENT: Yes: Other (TRACH) Cardiovascular: Yes: Pulse Irregular, S1, S2 Respiratory: Yes: Diminished Gastrointestinal: Yes: Normal Bowel Sounds, Soft Extremities: Yes: WNL Edema: No Labs: CBC, BMP Assessment/Plan Problem List - Problems (1) Atelectasis Code(s): J98.11 - ATELECTASIS (2) Chronic respiratory failure Code(s): J96.10 - CHRONIC RESPIRATORY FAILURE, UNSP W HYPOXIA OR HYPERCAPNIA (3) Afib Code(s): I48.91 - UNSPECIFIED ATRIAL FIBRILLATION (4) Dialysis catheter clot or failure Code(s): QPE4105 - (5) ESRD (end stage renal disease) Code(s): N18.6 - END STAGE RENAL DISEASE (6) Epilepsy Code(s): G40.909 - EPILEPSY, UNSP, NOT INTRACTABLE, WITHOUT STATUS EPILEPTICUS (7) MDD (major depressive disorder) Code(s): F32.9 - MAJOR DEPRESSIVE DISORDER, SINGLE EPISODE, UNSPECIFIED (8) Pleural effusion Code(s): J90 - PLEURAL EFFUSION, NOT ELSEWHERE CLASSIFIED Assessment/Plan Vent support AC 14 / 400cc / 30% / PEEP 5 Do not suspect PNA or an acute respiratory infection BD TX PRN monitor lytes,renal function f/u chest x-ray DR DE LEON
[2019-12-16] MEDS: clonazePAM 0.5 MG TABLET PEG SCH ×2 (09:03→21:01)
[2019-12-16] MEDS: APIXABAN 2.5 MG TABLET PEG SCH ×2 (09:04→21:01)
[2019-12-16] MEDS: AMIODARONE HCL 200 MG TABLET PEG SCH (09:04)
[2019-12-16] MEDS ORDERED: PT OWN MED DRAWER 7, Y5N ONE (09:16)
[2019-12-16] MEDS: SIMETHICONE 40 MG/0.6 ML BOTTLE PEG SCH ×2 (09:26→21:01)
[2019-12-16] MEDS ORDERED: amLODIPine BESYLATE 5 MG TABLET (FP) PEG SCH (10:00)
--- NOTE | 2019-12-16 10:45 | PN ---
Progress Note (short form) - Note Progress Note: Anesthesia postop note POD#1, S/P perma catheter exchange under MAC anesthesia. Patient with tracheostomy, non verbal with multiple systemic diseases. On vent support, increased FiO2. No change of patient's baseline status since yesterday. No apparent post anesthesia related complications.
--- NOTE | 2019-12-16 12:40 | PN ---
Progress Note (short form) - Note Progress Note: s/p permacath change could not complete dialysis yesterday due to low BP and hypoxic awake and alert not in distress motions that she has a headache Vital Signs - 24 hr 12/15/19 12/15/19 12/15/19 20:30 21:00 22:00 Temperature 98 F Pulse Rate 76 Respiratory 15 17 16 Rate Blood Pressure 114/68 O2 Sat by Pulse 97 99 99 Oximetry (%) 12/16/19 12/16/19 12/16/19 00:00 02:00 04:59 Temperature 97.0 F L Pulse Rate 74 Respiratory 17 18 18 Rate Blood Pressure 134/54 L O2 Sat by Pulse 100 100 100 Oximetry (%) 12/16/19 12/16/19 12/16/19 06:00 08:41 09:00 Temperature 97.4 F L Pulse Rate 77 72 76 Respiratory 18 14 16 Rate Blood Pressure 130/83 106/48 L O2 Sat by Pulse 100 99 100 Oximetry (%) 12/16/19 12/16/19 12/16/19 11:52 11:53 12:00 Temperature Pulse Rate 72 Respiratory 26 H 14 16 Rate Blood Pressure 94/52 L O2 Sat by Pulse 100 100 100 Oximetry (%) 12/16/19 12/16/19 12/16/19 14:00 15:36 18:00 Temperature 97.6 F 97.6 F Pulse Rate 77 75 Respiratory 16 15 14 Rate Blood Pressure 122/50 L 116/51 L O2 Sat by Pulse 100 99 100 Oximetry (%) Current Medications Generic Name Dose Route Start Last Admin Trade Name Freq PRN Reason Stop Dose Admin Acetaminophen 650 mg 12/15/19 14:26 12/15/19 17:47 Tylenol Oral Solution - PEG 650 mg Q6H PRN Administration PAIN LEVEL 6-10 Amiodarone HCl 100 mg 12/16/19 10:00 12/16/19 09:04 Cordarone - PEG Not Given DAILY ARLENE Apixaban 2.5 mg 12/15/19 22:00 12/16/19 09:04 Eliquis - PEG 2.5 mg BID ARLENE Administration Baclofen 10 mg 12/15/19 22:00 12/15/19 21:45 Lioresal - PEG 10 mg HS ARLENE Administration Clonazepam 0.5 mg 12/15/19 22:00 12/16/19 09:03 Klonopin - PEG 0.5 mg BID ARLENE Administration Fentanyl 25 mcg 12/15/19 14:26 Sublimaze Injection - IVPUSH [id number] PRN PAIN-PACU ORDER X 4 DOSES ONLY Piperacillin Sod/Tazobactam 50 mls @ 100 mls/hr 12/15/19 18:00 12/16/19 17:31 Sod 2.25 gm/ Dextrose IVPB 100 mls/hr Q8H-IV ARLENE Administration Protocol Potassium Chloride 10 meq in 100 mls @ 100 mls/hr 12/16/19 19:15 12/16/19 19:37 Potassium Chloride 10 Meq Premix Ivpb - IVPB 12/16/19 21:14 100 mls/hr Q60M ARLENE Administration Levothyroxine Sodium 25 mcg 12/16/19 07:00 12/16/19 06:05 Synthroid - PEG 25 mcg DAILY@0700 ARLENE Administration Simethicone 40 mg 12/15/19 22:00 12/16/19 09:26 Mylicon Liquid - PEG 40 mg BID ARLENE Administration Laboratory Results - last 24 hr 12/16/19 16:00 Sodium 135 L Potassium 2.6 L* Chloride 99 Carbon Dioxide 26 Anion Gap 10 BUN 59.2 H Creatinine 2.3 H Est GFR (CKD-EPI)AfAm 25.01 Est GFR (CKD-EPI)NonAf 21.58 Random Glucose 147 H Calcium 8.0 L S1 s2 irregular trach + right chest wall permacath Lungs decreased abd- soft, NT, peg+ No edema right hemiparesis A/P clotted permacath-- s/p change sacral ulcer h/o CVA -- dc antibiotics per ID -- no pneumonia -- sacral ulcer-->wound care -- replace potassium -- speech therapy eval for passe ross valve Problem List - Problems (1) Afib Code(s): I48.91 - UNSPECIFIED ATRIAL FIBRILLATION (2) Dialysis catheter clot or failure Code(s): JAI4019 - (3) ESRD (end stage renal disease) Code(s): N18.6 - END STAGE RENAL DISEASE (4) HTN (hypertension) Code(s): I10 - ESSENTIAL (PRIMARY) HYPERTENSION (5) Hypothyroid Code(s): E03.9 - HYPOTHYROIDISM, UNSPECIFIED (6) MDD (major depressive disorder) Code(s): F32.9 - MAJOR DEPRESSIVE DISORDER, SINGLE EPISODE, UNSPECIFIED
--- NOTE | 2019-12-16 13:56 | PN ---
Progress Note, Physician Chief Complaint: Dialysis catheter dysfunction History of Present Illness: Seen and examined at the bedside awake and alert on vent via trach s/p dialysis yesterday but it was stopped after about 1.5 hours due to low BP Pt also noted to be more hypoxic overnight and FiO2 was increased currently stable - Current Medication List Current Medications: Active Medications Acetaminophen (Tylenol Oral Solution -) 650 mg PEG Q6H PRN PRN Reason: PAIN LEVEL 6-10 Last Admin: 12/15/19 17:47 Dose: 650 mg Documented by: Amiodarone HCl (Cordarone -) 100 mg PEG DAILY [facility] Last Admin: 12/16/19 09:04 Dose: Not Given Documented by: Amlodipine Besylate (Norvasc -) 5 mg PEG DAILY [facility] Last Admin: 12/16/19 13:24 Dose: Not Given Documented by: Apixaban (Eliquis -) 2.5 mg PEG BID [facility] Last Admin: 12/16/19 09:04 Dose: 2.5 mg Documented by: Baclofen (Lioresal -) 10 mg PEG HS [facility] Last Admin: 12/15/19 21:45 Dose: 10 mg Documented by: Clonazepam (Klonopin -) 0.5 mg PEG BID [facility] Last Admin: 12/16/19 09:03 Dose: 0.5 mg Documented by: Fentanyl (Sublimaze Injection -) 25 mcg IVPUSH [id number] PRN PRN Reason: PAIN-PACU ORDER X 4 DOSES ONLY Piperacillin Sod/Tazobactam (Sod 2.25 gm/ Dextrose) 50 mls @ 100 mls/hr IVPB Q8H-IV ARLENE; Protocol Last Admin: 12/16/19 09:03 Dose: 100 mls/hr Documented by: Levothyroxine Sodium (Synthroid -) 25 mcg PEG DAILY@0700 [facility] Last Admin: 12/16/19 06:05 Dose: 25 mcg Documented by: Simethicone (Mylicon Liquid -) 40 mg PEG BID [facility] Last Admin: 12/16/19 09:26 Dose: 40 mg Documented by: - Objective Vital Signs: Vital Signs Temperature 97.4 F L 12/16/19 06:00 Pulse Rate 72 12/16/19 12:00 Respiratory Rate 16 12/16/19 12:00 Blood Pressure 94/52 L 12/16/19 12:00 O2 Sat by Pulse Oximetry (%) 100 12/16/19 12:00 Constitutional: Yes: No Distress, Calm HENT: Yes: Atraumatic Neck: Yes: Supple Cardiovascular: Yes: Regular Rate and Rhythm Respiratory: Yes: Regular, Mechanically Ventilated Gastrointestinal: Yes: Soft Edema: No Labs: CBC, BMP 12/14/19 06:15 12/14/19 06:15 INR, PTT INR 1.02 (0.83-1.09) 12/13/19 18:25 Assessment/Plan IMPRESSION esrd dialysis catheter dysfunction seizures s/p cva trach, vent dependent PLAN s/p tunneled catheter exchange, tolerated it well and catheter had good flow pt did not complete dialysis session yesterday, will need to check labs today Also will check CXR to ensure there is no worsening HF or congestion that would warrant UF Clinically stable will await labs results to determine if additional dialysis is needed today d/c amlodipine as BP is low Thank you Rich Stock DO
--- NOTE | 2019-12-16 15:19 | PN ---
Progress Note (short form) - Note Progress Note: alert trach to vent permacath replaced ysterday Vital Signs Period Temp Pulse Resp BP Sys/Rick Pulse Ox Last 24 Hr 97.0 F-98.0 F 57-110 14-29 83-137/48-95 96-100 cor-rrr lungs decreased bs at bases abd soft,nt ext noedema +gt CBC, BMP 12/14/19 06:15 12/14/19 06:15 Microbiology 12/14/19 09:20 Blood - Peripheral Venous Blood Culture - Preliminary NO GROWTH OBTAINED AFTER 48 HOURS, INCUBATION TO CONTINUE FOR 3 DAYS. 12/14/19 09:20 Blood - Peripheral Venous Blood Culture - Preliminary NO GROWTH OBTAINED AFTER 48 HOURS, INCUBATION TO CONTINUE FOR 3 DAYS. vanco trough 19.8 a/p permacath replaced sacral ulcer clean- continue local care less likley pneumonia-more likely atelectasis lungs clear on exam-can d/c zosyn- esrd-hd s/p cva Problem List - Problems (1) Leukocytosis Code(s): D72.829 - ELEVATED WHITE BLOOD CELL COUNT, UNSPECIFIED (2) Dialysis catheter clot or failure Code(s): FPV1371 - (3) ESRD (end stage renal disease) Code(s): N18.6 - END STAGE RENAL DISEASE (4) Pneumonia Code(s): J18.9 - PNEUMONIA, UNSPECIFIED ORGANISM
[2019-12-16 18:40] LABS: BLOOD UREA NITROGEN 59.2 mg/dL (7-18); CREATININE 2.3 mg/dL (0.55-1.3)
[2019-12-16 18:56] LABS: POTASSIUM 2.6 mmol/L (3.5-5.1)
[2019-12-16] MEDS ORDERED: POTASSIUM CHLORIDE ORAL LIQUID 20 MEQ/15 ML GT ONE (19:10)
[2019-12-16] MEDS: KCL 10 MEQ IVPB 10 MEQ/100 ML INFUS.BAG IVPB SCH ×2 (19:37→20:34)
[2019-12-16] MEDS: BACLOFEN 10 MG TABLET (FP) PEG SCH (21:01)
[2019-12-17] MEDS ORDERED: PIPERACILLIN/TAZOBACTAM 2.25 GM VIAL IVPB ONE ×2 (01:06→11:08)
[2019-12-17] MEDS ORDERED: DEXTROSE 5%-WATER - 50 ML IVPB ONE ×2 (01:07→11:08)
[2019-12-17] MEDS: PIPERACILLIN/TAZOB 2.25 GM 2.25 GM in DEXTROSE 5%-WATER - 50 ML IVPB SCH ×2 (01:47→11:21)
[2019-12-17] MEDS: LEVOTHYROXINE NA 25 MCG TABLET (FP) PEG SCH (06:01)
--- NOTE | 2019-12-17 07:10 | PN ---
Progress Note, Physician History of Present Illness: pulmonary comfortable on vent suppport ac mode,-resp distress - Current Medication List Current Medications: Active Medications Acetaminophen (Tylenol Oral Solution -) 650 mg PEG Q6H PRN PRN Reason: PAIN LEVEL 6-10 Last Admin: 12/15/19 17:47 Dose: 650 mg Documented by: Amiodarone HCl (Cordarone -) 100 mg PEG DAILY [facility] Last Admin: 12/16/19 09:04 Dose: Not Given Documented by: Apixaban (Eliquis -) 2.5 mg PEG BID [facility] Last Admin: 12/16/19 21:01 Dose: 2.5 mg Documented by: Baclofen (Lioresal -) 10 mg PEG HS [facility] Last Admin: 12/16/19 21:01 Dose: 10 mg Documented by: Clonazepam (Klonopin -) 0.5 mg PEG BID [facility] Last Admin: 12/16/19 21:01 Dose: 0.5 mg Documented by: Fentanyl (Sublimaze Injection -) 25 mcg IVPUSH [id number] PRN PRN Reason: PAIN-PACU ORDER X 4 DOSES ONLY Piperacillin Sod/Tazobactam (Sod 2.25 gm/ Dextrose) 50 mls @ 100 mls/hr IVPB Q8H-IV ARLENE; Protocol Last Admin: 12/17/19 01:47 Dose: 100 mls/hr Documented by: Levothyroxine Sodium (Synthroid -) 25 mcg PEG DAILY@0700 [facility] Last Admin: 12/17/19 06:01 Dose: 25 mcg Documented by: Simethicone (Mylicon Liquid -) 40 mg PEG BID [facility] - Objective Vital Signs: Vital Signs Temperature 98.1 F 12/17/19 06:00 Pulse Rate 69 12/17/19 06:00 Respiratory Rate 18 12/17/19 06:00 Blood Pressure 124/64 12/17/19 06:00 O2 Sat by Pulse Oximetry (%) 96 12/17/19 06:00 Constitutional: Yes: Calm, Thin Eyes: Yes: WNL HENT: Yes: WNL Neck: Yes: Supple (trach) Cardiovascular: Yes: Regular Rate and Rhythm, S1, S2 Respiratory: Yes: Diminished, Mechanically Ventilated Gastrointestinal: Yes: Normal Bowel Sounds, Soft Extremities: Yes: WNL Edema: No Labs: CBC, BMP 12/14/19 06:15 Assessment/Plan Problem List - Problems (1) Atelectasis Code(s): J98.11 - ATELECTASIS (2) Chronic respiratory failure Code(s): J96.10 - CHRONIC RESPIRATORY FAILURE, UNSP W HYPOXIA OR HYPERCAPNIA (3) Afib Code(s): I48.91 - UNSPECIFIED ATRIAL FIBRILLATION (4) Dialysis catheter clot or failure Code(s): DQO1538 - (5) ESRD (end stage renal disease) Code(s): N18.6 - END STAGE RENAL DISEASE (6) Epilepsy Code(s): G40.909 - EPILEPSY, UNSP, NOT INTRACTABLE, WITHOUT STATUS EPILEPTICUS (7) MDD (major depressive disorder) Code(s): F32.9 - MAJOR DEPRESSIVE DISORDER, SINGLE EPISODE, UNSPECIFIED (8) Pleural effusion Code(s): J90 - PLEURAL EFFUSION, NOT ELSEWHERE CLASSIFIED Assessment/Plan Vent support AC 14 / 400cc / 30% / PEEP 5 Do not suspect PNA or an acute respiratory infection BD TX PRN monitor lytes,renal function DR DE LEON
[2019-12-17 07:51] LABS: MEAN CELL VOLUME 80.3 fl (80-96)
[2019-12-17 08:02] LABS: BASO % 0.2 % (0-2.0); BLOOD UREA NITROGEN 67.6 mg/dL (7-18); CALCIUM 8.2 mg/dL (8.5-10.1); CREATININE 2.3 mg/dL (0.55-1.3); HEMATOCRIT 29.7 % (32.4-45.2); HEMOGLOBIN 9.2 GM/dL (10.7-15.3); LYMPH % 13.3 % (8-40); MCH 24.8 pg (25.7-33.7); MCHC 30.9 g/dl (32.0-36.0); MEAN PLT VOLUME 8.3 fl (7.5-11.1); MONO % 8.1 % (3.8-10.2); NEUT % 78.4 % (42.8-82.8); PLATELET COUNT 162 K/MM3 (134-434); POTASSIUM 3.5 mmol/L (3.5-5.1); RBC 3.69 M/mm3 (3.60-5.2); RDW 25.6 % (11.6-15.6); WHITE BLOOD COUNT 12.9 K/mm3 (4.0-10.0)
[2019-12-17] MEDS: SIMETHICONE 40 MG/0.6 ML BOTTLE PEG SCH ×2 (11:21→21:27)
[2019-12-17] MEDS: APIXABAN 2.5 MG TABLET PEG SCH ×2 (11:21→21:27)
[2019-12-17] MEDS: clonazePAM 0.5 MG TABLET PEG SCH ×2 (11:22→21:26)
[2019-12-17] MEDS: AMIODARONE HCL 200 MG TABLET PEG SCH (11:22)
[2019-12-17 12:44] LABS: ANISOCYTOSIS 1+; MACROCYTOSIS 0; PLATELET ESTIMATE NORMAL; TARGET CELLS 1+; TEAR DROP CELLS 1+
--- NOTE | 2019-12-17 13:26 | PN ---
Progress Note, Physician Chief Complaint: Dialysis catheter dysfunction History of Present Illness: Seen and examined at the bedside awake and alert on vent via trach FiO2 is 45% no overnight events - Current Medication List Current Medications: Active Medications Acetaminophen (Tylenol Oral Solution -) 650 mg PEG Q6H PRN PRN Reason: PAIN LEVEL 6-10 Last Admin: 12/15/19 17:47 Dose: 650 mg Documented by: Amiodarone HCl (Cordarone -) 100 mg PEG DAILY [facility] Last Admin: 12/17/19 11:22 Dose: 100 mg Documented by: Apixaban (Eliquis -) 2.5 mg PEG BID [facility] Last Admin: 12/17/19 11:21 Dose: 2.5 mg Documented by: Baclofen (Lioresal -) 10 mg PEG HS [facility] Last Admin: 12/16/19 21:01 Dose: 10 mg Documented by: Clonazepam (Klonopin -) 0.5 mg PEG BID [facility] Last Admin: 12/17/19 11:22 Dose: 0.5 mg Documented by: Fentanyl (Sublimaze Injection -) 25 mcg IVPUSH [id number] PRN PRN Reason: PAIN-PACU ORDER X 4 DOSES ONLY Piperacillin Sod/Tazobactam (Sod 2.25 gm/ Dextrose) 50 mls @ 100 mls/hr IVPB Q8H-IV ARLENE; Protocol Last Admin: 12/17/19 11:21 Dose: 100 mls/hr Documented by: Levothyroxine Sodium (Synthroid -) 25 mcg PEG DAILY@0700 [facility] Last Admin: 12/17/19 06:01 Dose: 25 mcg Documented by: Simethicone (Mylicon Liquid -) 40 mg PEG BID [facility] Last Admin: 12/17/19 11:21 Dose: 40 mg Documented by: - Objective Vital Signs: Vital Signs Temperature 98.1 F 12/17/19 06:00 Pulse Rate 68 12/17/19 10:00 Respiratory Rate 14 12/17/19 12:30 Blood Pressure 134/66 12/17/19 10:00 O2 Sat by Pulse Oximetry (%) 100 12/17/19 12:30 Constitutional: Yes: No Distress, Calm Neck: Yes: Supple Respiratory: Yes: Diminished, Mechanically Ventilated Extremities: No: Cyanosis Edema: No Labs: CBC, BMP 12/17/19 06:50 12/17/19 06:50 INR, PTT INR 1.02 (0.83-1.09) 12/13/19 18:25 Assessment/Plan IMPRESSION esrd dialysis catheter dysfunction seizures s/p cva trach, vent dependent PLAN No acute need for [employer]ER today, next planned dialysis is tomorrow with UF as toelrated Clinically stable will use 3k bath with Hd LAURA to be given with dialysis for anemia Thank you Rich Stock DO
--- NOTE | 2019-12-17 13:38 | PN ---
Progress Note (short form) - Note Progress Note: s/p permacath change not hypoxic awake and alert not in distress Vital Signs - 24 hr 12/16/19 12/16/19 12/16/19 18:00 19:30 20:00 Temperature 97.6 F Pulse Rate 75 87 Respiratory 14 15 Rate Blood Pressure 116/51 L O2 Sat by Pulse 100 100 98 Oximetry (%) 12/16/19 12/16/19 12/17/19 20:29 21:00 00:00 Temperature Pulse Rate 85 Respiratory 14 17 Rate Blood Pressure 122/71 O2 Sat by Pulse 100 100 Oximetry (%) 12/17/19 12/17/19 12/17/19 02:00 04:30 06:00 Temperature 99.0 F 98.1 F Pulse Rate 81 69 Respiratory 20 15 18 Rate Blood Pressure 127/72 124/64 O2 Sat by Pulse 100 96 Oximetry (%) 12/17/19 12/17/19 12/17/19 07:45 09:00 10:00 Temperature Pulse Rate 73 68 Respiratory 15 14 Rate Blood Pressure 134/66 O2 Sat by Pulse 100 100 100 Oximetry (%) 12/17/19 12/17/19 12/17/19 12:30 15:25 16:43 Temperature 97.8 F Pulse Rate 71 Respiratory 14 18 16 Rate Blood Pressure 111/70 O2 Sat by Pulse 100 99 99 Oximetry (%) Current Medications Generic Name Dose Route Start Last Admin Trade Name Freq PRN Reason Stop Dose Admin Acetaminophen 650 mg 12/15/19 14:26 12/15/19 17:47 Tylenol Oral Solution - PEG 650 mg Q6H PRN Administration PAIN LEVEL 6-10 Amiodarone HCl 100 mg 12/16/19 10:00 12/17/19 11:22 Cordarone - PEG 100 mg DAILY [facility] Administration Apixaban 2.5 mg 12/15/19 22:00 12/17/19 11:21 Eliquis - PEG 2.5 mg BID A[facility]ENE Administration Baclofen 10 mg 12/15/19 22:00 12/16/19 21:01 Lioresal - PEG 10 mg HS ARLENE Administration Clonazepam 0.5 mg 12/15/19 22:00 12/17/19 11:22 Klonopin - PEG 0.5 mg BID A[facility]ENE Administration Epoetin Victor Hugo 10,000 unit 12/18/19 06:00 Procrit - IVPUSH 12/18/19 06:01 ONCE ONE Fentanyl 25 mcg 12/15/19 14:26 Sublimaze Injection - IVPUSH [id number] PRN PAIN-PACU ORDER X 4 DOSES ONLY Sodium Chloride 250 mls @ 3,000 mls/hr 12/17/19 13:26 Normal Saline - IV 12/18/19 13:26 PRN PRN Hypotension during Dialysis Levothyroxine Sodium 25 mcg 12/16/19 07:00 12/17/19 06:01 Synthroid - PEG 25 mcg DAILY@0700 ARLENE Administration Simethicone 40 mg 12/16/19 23:25 12/17/19 11:21 Mylicon Liquid - PEG 40 mg BID ARLENE Administration Laboratory Results - last 24 hr 12/16/19 12/17/19 12/17/19 16:00 06:50 06:50 WBC 12.9 H RBC 3.69 Hgb 9.2 L Hct 29.7 L MCV 80.3 MCH 24.8 L MCHC 30.9 L RDW 25.6 H Plt Count 162 MPV 8.3 Absolute Neuts (auto) 10.1 H Neutrophils % 78.4 Lymphocytes % 13.3 Monocytes % 8.1 Eosinophils % 0.0 Basophils % 0.2 Nucleated RBC % 0 Hypochromia 0 Platelet Estimate Normal Platelet Comment Present Polychromasia 1+ Poikilocytosis 1+ Anisocytosis 1+ Microcytosis 1+ Macrocytosis 0 Target Cells 1+ Tear Drop Cells 1+ Joseph Cells 1+ Acanthocytes (Spur) 1+ Sodium 135 L 135 L Potassium 2.6 L* 3.5 Chloride 99 100 Carbon Dioxide 26 25 Anion Gap 10 9 BUN 59.2 H 67.6 H Creatinine 2.3 H 2.3 H Est GFR (CKD-EPI)AfAm 25.01 25.01 Est GFR (CKD-EPI)NonAf 21.58 21.58 Random Glucose 147 H 161 H Calcium 8.0 L 8.2 L S1 s2 irregular trach + right chest wall permacath Lungs decreased abd- soft, NT, peg+ No edema right hemiparesis A/P clotted permacath-- s/p change sacral ulcer h/o CVA -- dc antibiotics per ID -- no pneumonia -- sacral ulcer-->wound care -- replaced potassium -- speech therapy eval for passe ross valve tomorrow -- HD tomorrow, could not complete on Wednesday due to hypoxia and hypotension -- will dc midline upon discharge to [place] Problem List - Problems (1) Afib Code(s): I48.91 - UNSPECIFIED ATRIAL FIBRILLATION (2) Dialysis catheter clot or failure Code(s): [id number] - (3) ESRD (end stage renal disease) Code(s): N18.6 - END STAGE RENAL DISEASE (4) HTN (hypertension) Code(s): I10 - ESSENTIAL (PRIMARY) HYPERTENSION (5) Hypothyroid Code(s): E03.9 - HYPOTHYROIDISM, UNSPECIFIED (6) MDD (major depressive disorder) Code(s): F32.9 - MAJOR DEPRESSIVE DISORDER, SINGLE EPISODE, UNSPECIFIED
[2019-12-17] MEDS ORDERED: PT OWN MED DRAWER 7, Y5N ONE (21:25)
[2019-12-17] MEDS: BACLOFEN 10 MG TABLET (FP) PEG SCH (21:27)
[2019-12-18] MEDS: LEVOTHYROXINE NA 25 MCG TABLET (FP) PEG SCH (06:38)
[2019-12-18] MEDS ORDERED: SODIUM CHLORIDE 250 ML IV PRN (09:28)
[2019-12-18] MEDS ORDERED: EPOETIN ALFA 10,000 UNIT/1 ML VIAL IVPUSH ONE (09:30)
--- NOTE | 2019-12-18 10:28 | CONSULT ---
Admitting History and Physical - Admission History of Present Illness: 64 year old female from [facility] with a significant past medical history of ESRD (MWF), Respiratory Failure trach-vent dependent, Afib, HTN, Hypothyroid, Epilepsy, MDD. She was sent [facility] [place] [facility] since her permcath is not working Selected Entries 12/17/19 12/18/19 12/18/19 11:46 02:00 04:46 Breakfast NPO Temperature 97.1 F L Pulse Rate 67 Respiratory 16 16 Rate Blood Pressure 119/71 Oxygen Delivery Method Fraction of 45 Inspired Oxygen (FIO2) 12/18/19 12/18/19 06:00 08:05 Breakfast Temperature 97.7 F Pulse Rate 64 67 Respiratory 17 15 Rate Blood Pressure 148/73 Oxygen Delivery Mechanical Method Ventilator Fraction of 45 Inspired Oxygen (FIO2) Laboratory Tests 12/14/19 12/17/19 09:18 06:50 WBC 12.9 H COVID-19 (MATTHEW) Not detected TF Nepro First admission to [facility], referred for Passy ross valve evaluation. History Source: Medical Record Limitations to Obtaining History: Clinical Condition - Past Medical History [employer]: Yes: Seizure (Epilepsy) Cardiovascular: Yes: AFIB, HTN Pulmonary: Yes: Other (Respiratory Failure- trach- vent dependent) Renal/: Yes: Hemodialysis ...: No Psych: Yes: Depression Endocrine: Yes: Hypothyroidism - Past Surgical History Additional Past Surgical History: PEG Tracheostomy - Smoking History Smoking history: Smoker current status UNK Have you smoked in the past 12 months: No - Alcohol/Substance Use Hx Alcohol Use: No (unknown) History of Substance Use: reports: None - Social History ADL: Support Services History of Recent Travel: No History - Admission Reason For Visit: PNA,PLEURAL EFFUSION,DIALYSIS CATHETER CLOT OF - Diagnostics X-ray: Report Reviewed - General Mental Status: Confused Attention: Mild Impairment, Moderate Impairment Ability to Follow Directions: Poor (Closes eyes upon command. Shakes head no when asked to verbalize, open mouth, stick out tongue. Apraxia? Aphasia?) Speech Evaluation - Communication Communication: Yes: Non-Communicable Oral Expression Ability: Yes: Non-Verbal, Non-Vocal (on ventilator) - Swallow Evaluation/Bedside Assessment Current Nutritional Intake: G Tube Oral Secretions: Yes: Pooling (saliva in oral cavity) Dentition: Yes: Adequate Lingual Movement: Unable to Perform Laryngeal Movement: Unable to Palpate Recommendations - Speech Evaluation, Impression/Plan Impression: Closes eyes upon command. Shakes head no when asked to verbalize, open mouth, stick out tongue.Pt does not articulate any words spontaneously , upon command, or upon repetition. Apraxia? Aphasia? Some pooling of saliva. Reflexive swallow not demonstrated. - Disposition Discharge to: Retirement Facility - Dysphagia Impressions/Plan Swallowing Skills: Impaired Dysphagia Impressions: Ongoing Evaluation *Silent aspiration: cannot be R/O at bedside Recommendations: Passy [place] Valve (Not indicated at this time), Other (Follow up by [facility] at [facility]) - Recommendations Diet Consistency: NPO Liquids: NPO
[2019-12-18] MEDS ORDERED: PT OWN MED DRAWER 7, Y5N ONE ×2 (11:24→21:57)
[2019-12-18] MEDS: AMIODARONE HCL 200 MG TABLET PEG SCH (11:26)
[2019-12-18] MEDS: SIMETHICONE 40 MG/0.6 ML BOTTLE PEG SCH ×2 (11:27→22:00)
[2019-12-18] MEDS: APIXABAN 2.5 MG TABLET PEG SCH ×2 (11:27→21:59)
[2019-12-18] MEDS: clonazePAM 0.5 MG TABLET PEG SCH ×2 (11:27→21:59)
--- NOTE | 2019-12-18 11:36 | DS ---
Physical Examination Vital Signs: Vital Signs Temperature 97.7 F 12/18/19 06:00 Pulse Rate 67 12/18/19 08:05 Respiratory Rate 15 12/18/19 08:05 Blood Pressure 148/73 12/18/19 06:00 O2 Sat by Pulse Oximetry (%) 100 12/18/19 08:05 Findings/Remarks: patient seen and examined. Chart is reviewed. awake and comfortable No distress Constitutional: Yes: No Distress Eyes: Yes: Conjunctiva Clear Neck: Yes: Supple, Other (Trach--- Vent) Cardiovascular: Yes: Regular Rate and Rhythm Respiratory: Yes: Diminished Gastrointestinal: Yes: Soft Edema: No Wound/Incision: Yes: Other (sacral decubitus) Neurological: Yes: Alert Labs: CBC, BMP 12/17/19 06:50 12/17/19 06:50 Discharge Summary Problems reviewed: Yes Reason For Visit: PNA,PLEURAL EFFUSION,DIALYSIS CATHETER CLOT OF Current Active Problems Afib (Acute) Atelectasis (Acute) Chronic respiratory failure (Acute) Dialysis catheter clot or failure (Acute) ESRD (end stage renal disease) (Acute) Encounter for screening laboratory testing for COVID-19 virus (Acute) Epilepsy (Acute) HTN (hypertension) (Acute) Hypothyroid (Acute) Leukocytosis (Acute) MDD (major depressive disorder) (Acute) Pleural effusion (Acute) Pneumonia (Acute) Hospital Course: patient with extensive past medical history ----sent from [facility]----due to clogged permacath Admitted to the hospital Permacath changed Also given empiric antibiotics Stable Discharge back to care home----after dialysis today Midline to be removed before discharge Medications reconciled Discussed with nursing staff also Condition: Stable - Instructions Referrals: Adalid Soto [Primary Care Provider] - - Home Medications Comprehensive Discharge Medication List: Ambulatory Orders Acetaminophen Oral Solution [Tylenol Oral Solution -] 650 mg PEG Q6H PRN soln.oral 12/18/19 Amiodarone HCl [Cordarone -] 100 mg PEG DAILY tablet 12/18/19 Apixaban [Eliquis -] 2.5 mg PEG BID tablet 12/18/19 Baclofen [Lioresal -] 10 mg PEG HS tablet 12/18/19 Simethicone Liquid [Mylicon Liquid -] 40 mg PEG BID ml 12/18/19 clonazePAM [Klonopin -] 0.5 mg PEG BID tablet 12/18/19
[2019-12-18] MEDS: ACETAMINOPHEN 650 MG/20.3 ML ORAL SOLUTION (CUPS) PEG PRN (11:42)
--- NOTE | 2019-12-18 12:19 | PN ---
Progress Note (short form) - Note Progress Note: PULMONARY Vented, poorly responsive. Vital Signs Period Temp Pulse Resp BP Sys/Rick Pulse Ox Last 24 Hr 97.1 F-97.8 F 64-71 14-18 111-148/59-73 98-100 Gen: vented, poorly responsive Heart: RRR Lung: decreased breath sounds at the bases Abd: soft, nontender Ext: no edema CBC, BMP 12/17/19 06:50 12/17/19 06:50 Active Medications Acetaminophen (Tylenol Oral Solution -) 650 mg PEG Q6H PRN PRN Reason: PAIN LEVEL 6-10 Last Admin: 12/18/19 11:42 Dose: 650 mg Documented by: Amiodarone HCl (Cordarone -) 100 mg PEG DAILY [facility] Last Admin: 12/18/19 11:26 Dose: Not Given Documented by: Apixaban (Eliquis -) 2.5 mg PEG BID [facility] Last Admin: 12/18/19 11:27 Dose: 2.5 mg Documented by: Baclofen (Lioresal -) 10 mg PEG HS [facility] Last Admin: 12/17/19 21:27 Dose: 10 mg Documented by: Clonazepam (Klonopin -) 0.5 mg PEG BID [facility] Last Admin: 12/18/19 11:27 Dose: 0.5 mg Documented by: Fentanyl (Sublimaze Injection -) 25 mcg IVPUSH [id number] PRN PRN Reason: PAIN-PACU ORDER X 4 DOSES ONLY Levothyroxine Sodium (Synthroid -) 25 mcg PEG DAILY@0700 [facility] Last Admin: 12/18/19 06:38 Dose: 25 mcg Documented by: Simethicone (Mylicon Liquid -) 40 mg PEG BID [facility] Last Admin: 12/18/19 11:27 Dose: 40 mg Documented by: A/P Chronic Respiratory Failure Atrial Fibrillation ESRD on HD Atelectasis h/o CVA Hypothyroidism - rate control - continue anticoagulation - HD per renal - continue volume assist control - poor candidate for weaning due to mental status - enteral feeds - DVT/GI prophylaxis
--- NOTE | 2019-12-18 14:03 | PN ---
Progress Note, Physician History of Present Illness: Pt seen and examined at bedside. NO great change in status. - Current Medication List Current Medications: Active Medications Acetaminophen (Tylenol Oral Solution -) 650 mg PEG Q6H PRN PRN Reason: PAIN LEVEL 6-10 Last Admin: 12/18/19 11:42 Dose: 650 mg Documented by: Amiodarone HCl (Cordarone -) 100 mg PEG DAILY [facility] Last Admin: 12/18/19 11:26 Dose: Not Given Documented by: Apixaban (Eliquis -) 2.5 mg PEG BID [facility] Last Admin: 12/18/19 11:27 Dose: 2.5 mg Documented by: Baclofen (Lioresal -) 10 mg PEG HS [facility] Last Admin: 12/17/19 21:27 Dose: 10 mg Documented by: Clonazepam (Klonopin -) 0.5 mg PEG BID [facility] Last Admin: 12/18/19 11:27 Dose: 0.5 mg Documented by: Fentanyl (Sublimaze Injection -) 25 mcg IVPUSH [id number] PRN PRN Reason: PAIN-PACU ORDER X 4 DOSES ONLY Levothyroxine Sodium (Synthroid -) 25 mcg PEG DAILY@0700 [facility] Last Admin: 12/18/19 06:38 Dose: 25 mcg Documented by: Simethicone (Mylicon Liquid -) 40 mg PEG BID [facility] Last Admin: 12/18/19 11:27 Dose: 40 mg Documented by: - Objective Vital Signs: Vital Signs Temperature 97.7 F 12/18/19 06:00 Pulse Rate 68 12/18/19 11:46 Respiratory Rate 15 12/18/19 11:46 Blood Pressure 148/73 12/18/19 06:00 O2 Sat by Pulse Oximetry (%) 99 12/18/19 11:46 Constitutional: Yes: Calm Eyes: Yes: Conjunctiva Clear HENT: Yes: Atraumatic Neck: Yes: Supple Cardiovascular: Yes: S1, S2 Respiratory: Yes: Mechanically Ventilated Gastrointestinal: Yes: Soft Genitourinary: Yes: Incontinence Musculoskeletal: Yes: Muscle Weakness Edema: No Neurological: Yes: Pre-Existing Deficit Labs: CBC, BMP 12/17/19 06:50 12/17/19 06:50 INR, PTT INR 1.02 (0.83-1.09) 12/13/19 18:25 Assessment/Plan Current Medications Generic Name Dose Route Start Last Admin Trade Name Fneg PRN Reason Stop Dose Admin Acetaminophen 650 mg 12/15/19 14:26 12/18/19 11:42 Tylenol Oral Solution - PEG 650 mg Q6H PRN Administration PAIN LEVEL 6-10 Amiodarone HCl 100 mg 12/16/19 10:00 12/18/19 11:26 Cordarone - PEG Not Given DAILY [facility] Apixaban 2.5 mg 12/15/19 22:00 12/18/19 11:27 Eliquis - PEG 2.5 mg BID [facility] Administration Baclofen 10 mg 12/15/19 22:00 12/17/19 21:27 Lioresal - PEG 10 mg HS [facility] Administration Clonazepam 0.5 mg 12/15/19 22:00 12/18/19 11:27 Klonopin - PEG 0.5 mg BID [facility] Administration Fentanyl 25 mcg 12/15/19 14:26 Sublimaze Injection - IVPUSH [id number] PRN PAIN-PACU ORDER X 4 DOSES ONLY Levothyroxine Sodium 25 mcg 12/16/19 07:00 12/18/19 06:38 Synthroid - PEG 25 mcg DAILY@0700 [facility] Administration Simethicone 40 mg 12/16/19 23:25 12/18/19 11:27 Mylicon Liquid - PEG 40 mg BID [facility] Administration IMPRESSION esrd dialysis catheter dysfunction seizures s/p cva trach, vent dependent PLAN - HD today - vent support - monitor bp - 3 k bath on HD - pt on epogen
[2019-12-18 16:10] LABS: HEMATOCRIT 30.1 % (32.4-45.2); HEMOGLOBIN 9.6 GM/dL (10.7-15.3); MCH 25.7 pg (25.7-33.7); MCHC 31.9 g/dl (32.0-36.0); MEAN CELL VOLUME 80.5 fl (80-96); MEAN PLT VOLUME 8.3 fl (7.5-11.1); PLATELET COUNT 186 K/MM3 (134-434); RBC 3.74 M/mm3 (3.60-5.2); RDW 24.7 % (11.6-15.6); WHITE BLOOD COUNT 10.1 K/mm3 (4.0-10.0)
[2019-12-18 16:38] LABS: BLOOD UREA NITROGEN 83.5 mg/dL (7-18); CALCIUM 8.4 mg/dL (8.5-10.1); CREATININE 2.1 mg/dL (0.55-1.3); MAGNESIUM 2.3 mg/dL (1.8-2.4); PHOSPHOROUS 2.9 mg/dL (2.5-4.9); POTASSIUM 3.2 mmol/L (3.5-5.1)
[2019-12-18] MEDS: BACLOFEN 10 MG TABLET (FP) PEG SCH (21:59)
[2019-12-19] MEDS: LEVOTHYROXINE NA 25 MCG TABLET (FP) PEG SCH (06:17)
[2019-12-19] MEDS ORDERED: PT OWN MED DRAWER 7, Y5N ONE (09:57)
[2019-12-19] MEDS ORDERED: AMINO ACIDS/PROTEIN HYDROLYS 30 ML LIQUID.PKT GT SCH (10:00)
[2019-12-19 10:09] VITALS: BP 134/45; PULSE 72; TEMP 97.9
[2019-12-19] MEDS: APIXABAN 2.5 MG TABLET PEG SCH (10:12)
[2019-12-19] MEDS: clonazePAM 0.5 MG TABLET PEG SCH (10:12)
[2019-12-19] MEDS: AMIODARONE HCL 200 MG TABLET PEG SCH (10:12)
[2019-12-19] MEDS: SIMETHICONE 40 MG/0.6 ML BOTTLE PEG SCH (10:13)
--- NOTE | 2019-12-19 11:40 | PN ---
Progress Note, Physician History of Present Illness: PULMONARY ALERT,COMFORTABLE ON VENT SUPPORT AC MODE - Current Medication List Current Medications: Active Medications Acetaminophen (Tylenol Oral Solution -) 650 mg PEG Q6H PRN PRN Reason: PAIN LEVEL 6-10 Last Admin: 12/18/19 11:42 Dose: 650 mg Documented by: Amino Acids (Prosource No Carb Liquid Pkt) 30 ml GT DAILY [facility] Last Admin: 12/19/19 10:10 Dose: 30 ml Documented by: Amiodarone HCl (Cordarone -) 100 mg PEG DAILY [facility] Last Admin: 12/19/19 10:12 Dose: 100 mg Documented by: Apixaban (Eliquis -) 2.5 mg PEG BID [facility] Last Admin: 12/19/19 10:12 Dose: 2.5 mg Documented by: Baclofen (Lioresal -) 10 mg PEG HS [facility] Last Admin: 12/18/19 21:59 Dose: 10 mg Documented by: Clonazepam (Klonopin -) 0.5 mg PEG BID [facility] Last Admin: 12/19/19 10:12 Dose: 0.5 mg Documented by: Fentanyl (Sublimaze Injection -) 25 mcg IVPUSH [id number] PRN PRN Reason: PAIN-PACU ORDER X 4 DOSES ONLY Levothyroxine Sodium (Synthroid -) 25 mcg PEG DAILY@0700 [facility] Last Admin: 12/19/19 06:17 Dose: 25 mcg Documented by: Simethicone (Mylicon Liquid -) 40 mg PEG BID [facility] Last Admin: 12/19/19 10:13 Dose: 40 mg Documented by: - Objective Vital Signs: Vital Signs Temperature 97.9 F 12/19/19 09:00 Pulse Rate 72 12/19/19 09:00 Respiratory Rate 18 12/19/19 09:00 Blood Pressure 134/45 L 12/19/19 09:00 O2 Sat by Pulse Oximetry (%) 100 12/19/19 09:00 Constitutional: Yes: Calm, Thin Eyes: Yes: WNL HENT: Yes: WNL Neck: Yes: Supple (TRACH) Cardiovascular: Yes: Regular Rate and Rhythm, S1, S2 Respiratory: Yes: Diminished Gastrointestinal: Yes: Normal Bowel Sounds, Soft Extremities: Yes: WNL Edema: No Labs: CBC, BMP 12/18/19 15:15 Assessment/Plan Problem List - Problems (1) Atelectasis Code(s): J98.11 - ATELECTASIS (2) Chronic respiratory failure Code(s): J96.10 - CHRONIC RESPIRATORY FAILURE, UNSP W HYPOXIA OR HYPERCAPNIA (3) Afib Code(s): I48.91 - UNSPECIFIED ATRIAL FIBRILLATION (4) Dialysis catheter clot or failure Code(s): VXT2359 - (5) ESRD (end stage renal disease) Code(s): N18.6 - END STAGE RENAL DISEASE (6) Epilepsy Code(s): G40.909 - EPILEPSY, UNSP, NOT INTRACTABLE, WITHOUT STATUS EPILEPTICUS (7) MDD (major depressive disorder) Code(s): F32.9 - MAJOR DEPRESSIVE DISORDER, SINGLE EPISODE, UNSPECIFIED (8) Pleural effusion Code(s): J90 - PLEURAL EFFUSION, NOT ELSEWHERE CLASSIFIED Assessment/Plan Vent support AC 14 / 400cc / 30% / PEEP 5 Do not suspect PNA or an acute respiratory infection BD TX PRN monitor lytes,renal function DR DE LEON
--- NOTE | 2019-12-19 12:55 | PN ---
Problem List - Problems (1) Afib Code(s): I48.91 - UNSPECIFIED ATRIAL FIBRILLATION (2) Dialysis catheter clot or failure Code(s): TBD6823 - (3) ESRD (end stage renal disease) Code(s): N18.6 - END STAGE RENAL DISEASE (4) HTN (hypertension) Code(s): I10 - ESSENTIAL (PRIMARY) HYPERTENSION (5) Hypothyroid Code(s): E03.9 - HYPOTHYROIDISM, UNSPECIFIED (6) MDD (major depressive disorder) Code(s): F32.9 - MAJOR DEPRESSIVE DISORDER, SINGLE EPISODE, UNSPECIFIED
--- NOTE | 2019-12-19 14:57 | PN ---
Progress Note, Physician History of Present Illness: Pt seen and examined at bedside. No great change in status. She tolerated HD yesterday. - Objective Vital Signs: Vital Signs Temperature 97.9 F 12/19/19 09:00 Pulse Rate 72 12/19/19 09:00 Respiratory Rate 15 12/19/19 13:06 Blood Pressure 134/45 L 12/19/19 09:00 O2 Sat by Pulse Oximetry (%) 95 12/19/19 13:06 Constitutional: Yes: Calm Cardiovascular: Yes: S1, S2 Respiratory: Yes: Mechanically Ventilated Gastrointestinal: Yes: Soft Genitourinary: Yes: Incontinence Musculoskeletal: Yes: Muscle Weakness Edema: No Neurological: Yes: Pre-Existing Deficit Labs: CBC, BMP 12/18/19 15:15 12/18/19 15:15 INR, PTT INR 1.02 (0.83-1.09) 12/13/19 18:25 Assessment/Plan Current Medications Generic Name Dose Route Start Last Admin Trade Name Freq PRN Reason Stop Dose Admin Acetaminophen 650 mg 12/15/19 14:26 12/18/19 11:42 Tylenol Oral Solution - PEG 650 mg Q6H PRN Administration PAIN LEVEL 6-10 Amiodarone HCl 100 mg 12/16/19 10:00 12/18/19 11:26 Cordarone - PEG Not Given DAILY [facility] Apixaban 2.5 mg 12/15/19 22:00 12/18/19 11:27 Eliquis - PEG 2.5 mg BID [facility] Administration Baclofen 10 mg 12/15/19 22:00 12/17/19 21:27 Lioresal - PEG 10 mg HS [facility] Administration Clonazepam 0.5 mg 12/15/19 22:00 12/18/19 11:27 Klonopin - PEG 0.5 mg BID [facility] Administration Fentanyl 25 mcg 12/15/19 14:26 Sublimaze Injection - IVPUSH [id number] PRN PAIN-PACU ORDER X 4 DOSES ONLY Levothyroxine Sodium 25 mcg 12/16/19 07:00 12/18/19 06:38 Synthroid - PEG 25 mcg DAILY@0700 [facility] Administration Simethicone 40 mg 12/16/19 23:25 12/18/19 11:27 Mylicon Liquid - PEG 40 mg BID [facility] Administration IMPRESSION esrd dialysis catheter dysfunction seizures s/p cva resp failure - trach, vent dependent PLAN - pt last had HD yesterday - vent support - monitor bp - 3 k bath on HD - pt on epogen for anemia - she has HD set up as outpt
--- NOTE | 2019-12-20 14:06 | OP ---
DATE OF OPERATION: 12/15/2019 PREOPERATIVE DIAGNOSIS: Clotted PermCath. POSTOPERATIVE DIAGNOSIS: Clotted PermCath. PROCEDURE: PermCath exchange. SURGEON: Ari Manuel DO ANESTHESIA: Fractional. BLOOD LOSS: 10 mL. INDICATIONS: Patient is a 64-year-old ventilated patient that comes into the hospital with a clotted PermCath. Vascular Surgery was consulted for PermCath exchange. Patient was cleared by Cardiology. Patient was found to be COVID negative. Consent was obtained from the brother who consented for the procedure understanding all risks, benefits and alternatives. DESCRIPTION OF PROCEDURE: Patient was then taken to the operating room and laid on the operating table in the supine manner. We then went ahead and prepped and draped the right neck and chest in a sterile surgical manner. We then went ahead and injected 10 mL of lidocaine 1% at the cuff of the old catheter. We then dissected out the cuff and the catheter was freed. We then placed a 0.035 guidewire under fluoroscopy through the PermCath and the PermCath was removed. A new 23 PermCath was then placed over the wire which was prepped with Betadine under fluoroscopy and the PermCath was placed into the IVC. Neck of the catheter was nice and smooth. Tip of the catheter was located outside the SVC. We then martina back on each port of the catheter and there was good flow. Heparinized saline was injected and 2000 units of IV heparin were injected into each port. Biosyn 4-0 was used Biosyn and 2 simple stitches were placed around the cuff of the catheter where it exits. Nylon 3-0 sutures used and the catheter was attached to the skin. BIOPATCH, 4 x 4 and Tegaderm were placed. Patient tolerated the procedure with no complications. Patient transferred to PACU in stable condition where a chest x-ray will be obtained. ARI MANUEL DO SHREDDING MACHINE OPERATOR/[id number]
== END 2019-12-19 14:45 | DRG 314 ==
LOC: JER 16:19 → JERBED 19:56 → J5S 12-14 18:00
PROVIDERS: ADMIT Internal Medicine; ATTEND Internal Medicine
PROC: 5A1955Z Respiratory Ventilation, Greater than 96 Consecutive Hours (ICD-10-PCS; 2019-12-13)
PROC: 05HY33Z Insertion of Infusion Device into Upper Vein, Percutaneous Approach (ICD-10-PCS; 2019-12-15)
PROC: 3E033GC Introduction of Other Therapeutic Substance into Peripheral Vein, Percutaneous Approach (ICD-10-PCS; 2019-12-15)
PROC: 05PY33Z Removal of Infusion Device from Upper Vein, Percutaneous Approach (ICD-10-PCS; principal; 2019-12-15 14:00)
DX: T82.868A Thrombosis due to vascular prosthetic devices, implants and grafts, initial encounter (principal); L89.154 Pressure ulcer of sacral region, stage 4; N18.6 End stage renal disease; J90 Pleural effusion, not elsewhere classified; R64 Cachexia; Z68.1 Body mass index [BMI] 19.9 or less, adult; I69.351 Hemiplegia and hemiparesis following cerebral infarction affecting right dominant side; J98.11 Atelectasis; J96.10 Chronic respiratory failure, unspecified whether with hypoxia or hypercapnia; I13.11 Hypertensive heart and chronic kidney disease without heart failure, with stage 5 chronic kidney disease, or end stage renal disease; Z99.11 Dependence on respirator [ventilator] status; Y83.9 Surgical procedure, unspecified as the cause of abnormal reaction of the patient, or of later complication, without mention of misadventure at the time of the procedure; I48.91 Unspecified atrial fibrillation; E03.9 Hypothyroidism, unspecified; G40.909 Epilepsy, unspecified, not intractable, without status epilepticus; F32.9 Major depressive disorder, single episode, unspecified; D72.829 Elevated white blood cell count, unspecified; Z93.0 Tracheostomy status
CPT/HCPCS: 36415; 71045-TC-FY; 76000-TC-FY; 80048; 80053; 83735; 84100; 85025; 85027; 85610; 85730; 86803; 86850; 86900; 86901; 87040; 87340; 90670; 93005; 93010; 94002; 94760; 99285-25; G0480; J0131; J0475; J0885; J1644; Q5106; U0003

== ENCOUNTER 2020-01-17 19:52 | Inpatient (IN) | payer OTHER ==
--- NOTE | 2020-01-17 20:31 | PDOC ---
Attending Attestation - Resident Resident Name: Jairo Bashir - ED Attending Attestation I have performed the following: I have examined & evaluated the patient, The case was reviewed & discussed with the resident, I agree w/resident's findings & plan - HPI HPI: 01/17/20 20:30 see resident hpi - Physicial Exam PE: 01/17/20 20:30 see resident exam - Critical Care Time Total Critical Care Time: 60 Critical Care Statement: The care of this patient involved high complexity decision making to prevent further life threatening deterioration of the patient's condition and/or to evaluate & treat vital organ system(s) failure or risk of failure. - Medical Decision Making 01/17/20 22:36 64-year-old female trach dependent with end-stage renal disease status post hemodialysis earlier today with resulting shortness of breath EKG shows ST segment depressions in multiple leads new when compared to previous There is an elevation of patient's troponin which may be due to renal status though there is no old available for comparison Plan for admission to ICU for serial troponins and further management Cardiology and nephrology consults 01/17/20 22:38 Discharge - Discharge Information Problems reviewed: Yes Clinical Impression/Diagnosis: Acute dyspnea, Elevated troponin, Abnormal EKG, ESRD (end stage renal disease), Tracheostomy dependent - Follow up/Referral - Patient Discharge Instructions - Post Discharge Activity
[2020-01-17 20:52] LABS: BASO % 0.2 % (0-2.0); HEMATOCRIT 44.6 % (32.4-45.2); HEMOGLOBIN 14.4 GM/dL (10.7-15.3); LYMPH % 7.7 % (8-40); MCH 27.3 pg (25.7-33.7); MCHC 32.3 g/dl (32.0-36.0); MEAN CELL VOLUME 84.6 fl (80-96); MEAN PLT VOLUME 8.9 fl (7.5-11.1); MONO % 6.8 % (3.8-10.2); NEUT % 85.3 % (42.8-82.8); PLATELET COUNT 102 K/MM3 (134-434); RBC 5.28 M/mm3 (3.60-5.2)
[2020-01-17 21:32] LABS: ALBUMIN 2.2 g/dl (3.4-5.0); BILIRUBIN,TOTAL 0.2 mg/dL (0.2-1); BLOOD UREA NITROGEN 95.7 mg/dL (7-18); CALCIUM 8.7 mg/dL (8.5-10.1); CREATININE 1.4 mg/dL (0.55-1.3); MAGNESIUM 2.4 mg/dL (1.8-2.4); TOT PROT 7.6 g/dl (6.4-8.2)
[2020-01-17 22:03] LABS: ANISOCYTOSIS 3+; MACROCYTOSIS 0; OVALOCYTE 2+; PLATELET ESTIMATE DECREASED; TEAR DROP CELLS 1+
[2020-01-17 22:12] LABS: POTASSIUM 2.9 mmol/L (3.5-5.1)
[2020-01-17] MEDS ORDERED: POTASSIUM CHLORIDE ORAL LIQUID 20 MEQ/15 ML PO ONE ×2 (22:18→23:54)
--- NOTE | 2020-01-17 22:31 | CONSULT ---
Consultation: REQUESTING PROVIDER: Dr. Srivastava CONSULT REQUEST: We have been asked to medically evaluate this patient for cardiac monitoring of patient with troponin elevation and ekg changes. HISTORY OF PRESENT ILLNESS: This is a 64 year old female with a significant pmhx of ESRD (MWF), respiratory Failure trach-vented, Afib (on eliquis), HTN, Hypothyroid, Epilepsy, MDD, who was BIBEMS from [facility] for dialysis complications. As per EMS, the patient was receiving dialysis but was interrupted due to respiratory complications. Pt was found to be tachypneic (40's), tachycardic (110's) and the dialysis was stopped. Pt had just started her dialysis and was unable to continue. HPI is limited secondary to the patient's inability to verbalize. Call placed to Dr. Garcia who will be seeing patient in AM. Call placed to cardio (Dr. Fay lucas) for elevated troponin and new ST depressions in V4,V5,V6. Likely demand ischemia will rpt trops until peak and pt on eliquis 2.5 no further mgmt at this time. REVIEW OF SYSTEMS: unable to obtain PHYSICAL EXAMINATION Vital Signs - 24 hr 01/17/20 01/17/20 01/17/20 20:05 20:06 22:16 Temperature 97.7 F Pulse Rate 96 H Respiratory 22 H 20 Rate Blood Pressure 107/83 O2 Sat by Pulse 97 96 97 Oximetry (%) GENERAL: Awake, alert, nonverbal, in no acute distress. NECK: RIJ in place LUNGS: trach vented, Breath sounds reduced at left base, mild crackles at bases. No accessory muscle use. HEART: Regular rate and rhythm, normal S1 and S2 without murmur, rub or gallop. ABDOMEN: Soft, nontender, not distended. PEG TUBE in place, no erythema or drainage in area. LOWER EXTREMITIES: 2+ pulses, warm, well-perfused. No peripheral edema. PSYCHIATRIC: Cooperative. Good eye contact. SKIN: Warm, dry, normal turgor, no rashes or lesions noted. Laboratory Results - last 24 hr 01/17/20 01/17/20 20:40 20:40 WBC 16.0 H RBC 5.28 H Hgb 14.4 Hct 44.6 D MCV 84.6 MCH 27.3 MCHC 32.3 RDW 21.0 H Plt Count 102 L D MPV 8.9 Absolute Neuts (auto) 13.7 H Neutrophils % 85.3 H Lymphocytes % 7.7 L D Monocytes % 6.8 Eosinophils % 0.0 Basophils % 0.2 Nucleated RBC % 0 Sodium 138 Potassium 2.9 L* Chloride 101 Carbon Dioxide 26 Anion Gap 11 BUN 95.7 H Creatinine 1.4 H Est GFR (CKD-EPI)AfAm 45.58 Est GFR (CKD-EPI)NonAf 39.33 Random Glucose 105 Calcium 8.7 Magnesium 2.4 Total Bilirubin 0.2 AST 61 H ALT 28 Alkaline Phosphatase 229 H Troponin I 0.54 H Total Protein 7.6 Albumin 2.2 L Active Medications Generic Name Dose Route Start Last Admin Trade Name Freq PRN Reason Stop Dose Admin Chlorhexidine Gluconate 1 applic 01/18/20 22:00 Hibiclens For Decolonization - TP HS [facility] Mupirocin 1 applic 01/17/20 22:15 Bactroban Ointment (For Decolonization) - NS 01/22/20 22:14 BID [facility] ASSESSMENT/PLAN: This is a 64 year old female with a significant pmhx of ESRD (MWF), respiratory Failure trach-vented, Afib (on eliquis), HTN, Hypothyroid, Epilepsy, MDD, who was BIBEMS from [facility] for dialysis complications. #Neuro - Nonverbal, alert - trach vented #Pulm - trach vented - maintaining SaO2>90% - cxr showing LLL pneumonia - started on zosyn at CrCL 40 renal dose - parker cultured - covid pending #Nephrology - CKD on dialysis that was haulted for respiratory complications - renal consulted (Dr. Garcia) who will see pt in AM and assess need for dialysis as pt missed her dialysis today. (M,W,F). - Repleted K with 20 KCL through PEG tube as per renals recs. -IV NS at 50/hr given BUN>100/1.5 Cr with pre-renal azotemia and patient clinically looks hypovolemic. #Cardio - sinus tachycardia with new st depressions in V4-V5-V6 with subsequent troponin elevation - NSTEMI likely 2/2 demand ischemia from tachycardia, initil trop .54 second trop downtrended to 0.5 - cardio consulted and called by ED staff recommending monitoring and trending trops until peak - pt on eliquis 2.5 BID for AFib anticoagulation. Will continue eliquis as per cardios recs. #ID - leukocytosis likely reactive will rpt in AM - afebrile will obtain blood, urine, and sputum cultures - will give one dose of vanco and start zosyn given cxr shows persistent pneumonia in LLL with development of small Lt pleural effusion. - pt's wbc higher than upon dc last month for Rx of pna. - ID consulted in AM will assess need for continuation GI ppx: protonix DVT ppx: Eliquis 2.5bid Dispo: We will continue to follow the patient. Thank you for this consultative opportunity. Visit type - Medication Review Med list reviewed for High Risk Meds patients 65 and older: Yes - Emergency Visit Emergency Visit: Yes ED Registration Date: 01/17/20 Care time: The patient presented to the Emergency Department on the above date and was hospitalized for further evaluation of their emergent condition. - New Patient This patient is new to me today: Yes Date on this admission: 01/18/20 - Critical Care Critical Care patient: Yes Total Critical Care Time (in minutes): 35 Critical Care Statement: The care of this patient involved high complexity decision making to prevent further life threatening deterioration of the patient's condition and/or to evaluate & treat vital organ system(s) failure or risk of failure. ATTENDING PHYSICIAN STATEMENT I saw and evaluated the patient. I reviewed the resident's note and discussed the case with the resident. I agree with the resident's findings and plan as documented. SUBJECTIVE: OBJECTIVE: ASSESSMENT AND PLAN:
[2020-01-17] MEDS ORDERED: POTASSIUM CHLORIDE ORAL LIQUID 20 MEQ/15 ML ONE (22:37)
--- NOTE | 2020-01-17 22:57 | PDOC ---
History of Present Illness - General Chief Complaint: Shortness of Breath Stated Complaint: RESPIRATORY DISTRESS Time Seen by Provider: 01/17/20 20:29 - History of Present Illness Initial Comments: HPI 64 yo F with PMH of ESRD (MWF), respiratory failure trach-vented, Afib (on eliquis), HTN, Hypothyroid, Epilepsy, MDD, who was BIBEMS from [facility] for dialysis complications after about 1 hour of dialysis. As per EMS, the patient was receiving dialysis but was interrupted due to respiratory complications. Pt was found to be tachypneic (40's), tachycardic (110's) and in possible respiratory distress. Pt was oxygenating well at 97% on her vent settings when this occured. Dialysis was stopped and pt was sent to the ED for further eval. HPI is limited secondary to the patient's inability to verbalize. PMHX: as in HPI PSHX: as in HPI Meds: as per [place] chart Allergies: nkda Tob: denies Etoh: denies Rec drugs: denies ROS - limited due to nonverbal status GENERAL/CONSTITUTIONAL: No fever or chills. No weakness. HEAD, EYES, EARS, NOSE AND THROAT: No change in vision. No ear pain or discharge. No sore throat. CARDIOVASCULAR: No chest pain or shortness of breath + tachycardia RESPIRATORY: No cough, wheezing, or hemoptysis. + tachypnea GASTROINTESTINAL: No nausea, vomiting, diarrhea or constipation. GENITOURINARY: No dysuria, frequency, or change in urination. MUSCULOSKELETAL: No joint or muscle swelling or pain. No neck or back pain. SKIN: No rash NEUROLOGIC: No headache, vertigo, loss of consciousness, or change in strength/sensation. ENDOCRINE: No increased thirst. No abnormal weight change HEMATOLOGIC/LYMPHATIC: No anemia, easy bleeding, or history of blood clots. ALLERGIC/IMMUNOLOGIC: No hives or skin allergy. PE GENERAL: Awake, alert, and fully oriented, in no acute distress HEAD: No signs of trauma, normocephalic, atraumatic EYES: PERRLA, EOMI, sclera anicteric, conjunctiva clear ENT: Auricles normal inspection, hearing grossly normal, nares patent, oropharynx clear withoutexudates. Moist mucosa NECK: Normal ROM, supple, no lymphadenopathy, JVD, or masses LUNGS: No distress during examination, pt with crackles bilaterally; no longer with tachypnea HEART: Regular rate and rhythm, normal S1 and S2, no murmurs, rubs or gallops, peripheral pulses normal and equal bilaterally. ABDOMEN: Soft, nontender, normoactive bowel sounds. No guarding, no rebound. No masses EXTREMITIES : Normal inspection, Normal range of motion, no edema. No clubbing or cyanosis. NEUROLOGICAL: awake, alert, could not assess further neuro status d/t nonverbal status SKIN: Warm, Dry, normal turgor, no rashes or lesions noted 01/18/20 00:44 Past History - Medical History Allergies/Adverse Reactions: Allergies Allergy/AdvReac Type Severity Reaction Status Date / Time No Known Allergies Allergy Verified 01/17/20 20:07 Home Medications: Ambulatory Orders Acetaminophen Oral Solution [Tylenol Oral Solution -] 650 mg PEG Q6H PRN soln.oral 12/18/19 Amiodarone HCl [Cordarone -] 100 mg PEG DAILY tablet 12/18/19 Apixaban [Eliquis -] 2.5 mg PEG BID tablet 12/18/19 Baclofen [Lioresal -] 10 mg PEG HS tablet 12/18/19 Simethicone Liquid [Mylicon Liquid -] 40 mg PEG BID ml 12/18/19 clonazePAM [Klonopin -] 0.5 mg PEG BID tablet 12/18/19 Albuterol 2.5/Ipratropium 0.5 [Duoneb -] 1 neb IH QID PRN 01/17/20 Levothyroxine [Synthroid -] 25 mcg PEG DAILY 01/17/20 Multivitamin 1 each PEG DAILY 01/18/20 Cardiac Disorders: Yes (afib) CVA: (dysphagia) COPD: No HTN: Yes Seizures: Yes Thyroid Disease: Yes (hypo) - Psycho-Social/Smoking History Smoking History: Unknown if ever smoked Have you smoked in the past 12 months: No - Substance Abuse Hx (Audit-C & DAST Scrn) How often the patient has a drink containing alcohol: Never Score: In Men: 4 or > Positive; In Women: 3 or > Positive: 0 Screen Result (Pos requires Nsg. Audit-10AR): Negative In the last yr the pt used illegal drug/Rx for NonMed reason: No Score: Yes response is considered Positive: 0 Screen Result (Positive result requires Nsg. DAST-10): Negative *Physical Exam - Vital Signs Last Vital Signs Temp Pulse Resp BP Pulse Ox 97.7 F 95 H 20 126/87 97 01/17/20 20:05 01/17/20 22:48 01/17/20 22:48 01/17/20 22:48 01/17/20 22:48 ED Treatment Course - LABORATORY CBC & Chemistry Diagram: 01/18/20 05:40 01/18/20 01:50 - ADDITIONAL ORDERS Additional order review: Laboratory Results 01/17/20 20:40 Sodium 138 Potassium 2.9 L* Chloride 101 Carbon Dioxide 26 Anion Gap 11 BUN 95.7 H Creatinine 1.4 H Est GFR (CKD-EPI)AfAm 45.58 Est GFR (CKD-EPI)NonAf 39.33 Random Glucose 105 Calcium 8.7 Magnesium 2.4 Total Bilirubin 0.2 AST 61 H ALT 28 Alkaline Phosphatase 229 H Troponin I 0.54 H Total Protein 7.6 Albumin 2.2 L 01/17/20 20:40 RBC 5.28 H MCV 84.6 MCHC 32.3 RDW 21.0 H MPV 8.9 Neutrophils % 85.3 H Lymphocytes % 7.7 L D Monocytes % 6.8 Eosinophils % 0.0 Basophils % 0.2 Medical Decision Making - Medical Decision Making MDM 64 yo F with PMH of ESRD (MWF), respiratory failure trach-vented, Afib (on eliquis), HTN, Hypothyroid, Epilepsy, MDD, who was BIBEMS from [facility] for respiratory complications after about 1 hour of dialysis. DDX including but not limited to: r/o ACS, electrolye abnormalities, r/o pneumonia, W/U: - EKG showing possible ST depressions in V5 and V6 when compared to previous EKG - CXR with persistent left lower lobe consolidation but no interval change - WBC 16 - Initial trop .54 - Discussed case with cardiology (Dr. Askew) - recommended no AC for now, f/u trop level; suspect demand ischemia - Pt with K of 2.9 - Pt vent dependent; will admit to ICU - Attempted to get in touch with Nephrology regarding pt; ICU will assume care and discuss with nephrology regarding questions for pt's dialysis 01/18/20 01:24 - Pt admitted to the ICU. 09/10/20 02:00 Discharge - Discharge Information Problems reviewed: Yes Clinical Impression/Diagnosis: Acute dyspnea, Elevated troponin, Abnormal EKG, ESRD (end stage renal disease), Tracheostomy dependent - Admission Yes - Follow up/Referral - Patient Discharge Instructions - Post Discharge Activity
[2020-01-18] MEDS ORDERED: PIPERACILLIN/TAZOB 2.25 GM 2.25 GM in DEXTROSE 5%-WATER - 50 ML IVPB SCH
[2020-01-18] MEDS ORDERED: APIXABAN 2.5 MG TABLET PO SCH (00:30)
[2020-01-18] MEDS ORDERED: ALBUTEROL SO4 2.5/IPRATROPIUM 0.5 INH SOL 3 ML VIAL.NEB. NEB PRN ×2 (01:29→22:51)
[2020-01-18] MEDS ORDERED: DEXTROSE 5%-WATER - 50 ML IVPB ONE ×5 (01:44→21:13)
[2020-01-18] MEDS ORDERED: PIPERACILLIN/TAZOBACTAM 2.25 GM VIAL IVPB ONE ×5 (01:44→21:13)
[2020-01-18] MEDS: PIPERACILLIN/TAZOB 2.25 GM 2.25 GM in DEXTROSE 5%-WATER - 50 ML IVPB SCH ×5 (01:48→17:57)
[2020-01-18] MEDS: ACETAMINOPHEN 650 MG/20.3 ML ORAL SOLUTION (CUPS) PO PRN ×2 (01:48→22:04)
[2020-01-18 02:43] LABS: ALBUMIN 2.2 g/dl (3.4-5.0); BILIRUBIN,TOTAL 0.5 mg/dL (0.2-1); BLOOD UREA NITROGEN 103.1 mg/dL (7-18); CALCIUM 8.4 mg/dL (8.5-10.1); CREATININE 1.5 mg/dL (0.55-1.3); PHOSPHOROUS 3.7 mg/dL (2.5-4.9); POTASSIUM 3.9 mmol/L (3.5-5.1); TOT PROT 7.5 g/dl (6.4-8.2)
[2020-01-18] MEDS: MUPIROCIN 2% TOPICAL OINTMENT FOR DECOLONIZATION NS SCH ×3 (03:00→22:02)
[2020-01-18] MEDS ORDERED: SODIUM CHLORIDE 1,000 ML IV SCH ×3 (03:30→23:10)
[2020-01-18] MEDS ORDERED: VANCOMYCIN 1 GRAM (PRE-DOCKED) 1,000 MG/250 ML BAG IVPB ONE (03:34)
[2020-01-18 05:58] LABS: BASO % 0.2 % (0-2.0); HEMATOCRIT 42.5 % (32.4-45.2); HEMOGLOBIN 13.5 GM/dL (10.7-15.3); LYMPH % 10.6 % (8-40); MCH 26.7 pg (25.7-33.7); MCHC 31.8 g/dl (32.0-36.0); MEAN CELL VOLUME 83.7 fl (80-96); MEAN PLT VOLUME 9.3 fl (7.5-11.1); MONO % 6.2 % (3.8-10.2); PLATELET COUNT 100 K/MM3 (134-434); RBC 5.07 M/mm3 (3.60-5.2); RDW 21.2 % (11.6-15.6); WHITE BLOOD COUNT 15.8 K/mm3 (4.0-10.0)
[2020-01-18] MEDS ORDERED: HEPARIN NA (PORCINE) 5,000 UNITS/ML 1ML VIAL SQ SCH (06:00)
[2020-01-18] MEDS ORDERED: LEVOTHYROXINE NA 25 MCG TABLET (FP) PEG SCH (07:00)
[2020-01-18 09:19] LABS: BILIRUBIN,TOTAL 0.6 mg/dL (0.2-1); CALCIUM 8.3 mg/dL (8.5-10.1); CREATININE 1.6 mg/dL (0.55-1.3); POTASSIUM 3.4 mmol/L (3.5-5.1); TOT PROT 6.7 g/dl (6.4-8.2)
[2020-01-18] MEDS ORDERED: PT OWN MED DRAWER 7, Y5N ONE ×2 (09:35→21:13)
[2020-01-18] MEDS: APIXABAN 2.5 MG TABLET PEG SCH ×2 (09:37→22:02)
[2020-01-18] MEDS: SIMETHICONE 40 MG/0.6 ML BOTTLE PEG SCH ×3 (09:38→23:52)
[2020-01-18] MEDS: clonazePAM 0.5 MG TABLET PEG SCH ×2 (09:38→22:02)
--- NOTE | 2020-01-18 09:58 | CON.ID ---
Consult Consult Specialty:: infectious diseases Referred by:: Reason for Consultation:: sepsis,resp failure - History of Present Illness Chief Complaint: resp failure History of Present Illness: history obtained from the charts as the patient is intubated 64 yo F with PMH of ESRD (MWF), respiratory failure trach-vented, Afib (on eliquis), HTN, Hypothyroid, Epilepsy, MDD, who was BIBEMS from [facility] for dialysis complications after about 1 hour of dialysis. As per EMS, the patient was receiving dialysis but was interrupted due to respiratory complications. Pt was found to be tachypneic (40's), tachycardic (110's) and in possible respiratory distress. Pt was oxygenating well at 97% on her vent settings when this occured. Dialysis was stopped and pt was sent to the ED for further eval. 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 (Epilepsy) Cardio/Vascular: Yes: AFIB, HTN Pulmonary: Yes: Other (Respiratory Failure- trach- vent dependent) Renal/: Yes: Hemodialysis ...: No Psych: Yes: Depression Endocrine: Yes: Hypothyroidism - Alcohol/Substance Use Hx Alcohol Use: No (unknown) History of Substance Use: reports: None - Smoking History Smoking history: Unknown if ever smoked Have you smoked in the past 12 months: No - Social History Usual Living Arrangement: [facility] ADL: Support Services History of Recent Travel: No Home Medications - Allergies Allergies/Adverse Reactions: Allergies Allergy/AdvReac Type Severity Reaction Status Date / Time No Known Allergies Allergy Verified 01/17/20 20:07 - Home Medications Home Medications: Ambulatory Orders Acetaminophen Oral Solution [Tylenol Oral Solution -] 650 mg PEG Q6H PRN soln.oral 12/18/19 Amiodarone HCl [Cordarone -] 100 mg PEG DAILY tablet 12/18/19 Apixaban [Eliquis -] 2.5 mg PEG BID tablet 12/18/19 Baclofen [Lioresal -] 10 mg PEG HS tablet 12/18/19 Simethicone Liquid [Mylicon Liquid -] 40 mg PEG BID ml 12/18/19 clonazePAM [Klonopin -] 0.5 mg PEG BID tablet 12/18/19 Albuterol 2.5/Ipratropium 0.5 [Duoneb -] 1 neb IH QID PRN 01/17/20 Levothyroxine [Synthroid -] 25 mcg PEG DAILY 01/17/20 Multivitamin 1 each PEG DAILY 01/18/20 Review of Systems Unable to obtain ROS, reason: unable to obtain Physical Exam Vital Signs: Vital Signs Temperature 98 F 01/18/20 04:00 Pulse Rate 65 01/18/20 08:24 Respiratory Rate 14 01/18/20 08:24 Blood Pressure 105/81 01/18/20 08:00 O2 Sat by Pulse Oximetry (%) 100 01/18/20 08:24 Constitutional: Yes: Obese, Other Eyes: Yes: Conjunctiva Clear Neck: Yes: Supple, Trachea Midline Cardiovascular: Yes: Regular Rate and Rhythm Respiratory: Yes: Intubated, Mechanically Ventilated Gastrointestinal: Yes: Normal Bowel Sounds, Soft Musculoskeletal: Yes: WNL Extremities: Yes: Other Neurological: Yes: Other Labs: CBC, BMP 01/18/20 05:40 01/18/20 05:40 Imaging - Results Chest X-ray: Report Reviewed, Image Reviewed Assessment/Plan Chronic Respiratory Failure LLL PNA ESRD on HD (MWF) Afib (on eliquis) HTN Hypothyroid Epilepsy MDD plan will strt on abx resp support as per icu close watch await for all the results rest as per icu cc 40 min
[2020-01-18] MEDS ORDERED: MULTIVITAMINS (DAILY MVI) TABLET (FP) PO SCH (10:00)
[2020-01-18] MEDS ORDERED: AMIODARONE HCL 200 MG TABLET PEG SCH (10:00)
[2020-01-18] MEDS ORDERED: PANTOPRAZOLE SODIUM 40 MG VIAL IVPUSH SCH (10:00)
--- NOTE | 2020-01-18 10:17 | CON.NEP ---
Consult Consult Specialty:: nephrology - History of Present Illness History of Present Illness: This is a 64 year old female with a significant pmhx of ESRD (MWF), respiratory Failure trach-vented, Afib (on eliquis), HTN, Hypothyroid, Epilepsy, MDD, who was BIBEMS from [facility] for dialysis complications. As per EMS, the patient was receiving dialysis but was interrupted due to respiratory complications. Pt was found to be tachypneic (40's), tachycardic (110's) and the dialysis was stopped. Pt had just started her dialysis and was unable to continue. HPI is limited secondary to the patient's inability to verbalize. One hour into her treatment she became tachypneic. Her BP dropped and required fluids. She was restless and HD was terminated and pt sent back to [place] who subsequently called EMS. 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 (Epilepsy) Cardio/Vascular: Yes: AFIB, HTN Pulmonary: Yes: Other (Respiratory Failure- trach- vent dependent) Renal/: Yes: Hemodialysis ...: No Psych: Yes: Depression Endocrine: Yes: Hypothyroidism - Alcohol/Substance Use Hx Alcohol Use: No (unknown) History of Substance Use: reports: None - Smoking History Smoking history: Unknown if ever smoked Have you smoked in the past 12 months: No - Social History Usual Living Arrangement: [place] ADL: Support Services History of Recent Travel: No Home Medications - Allergies Allergies/Adverse Reactions: Allergies Allergy/AdvReac Type Severity Reaction Status Date / Time No Known Allergies Allergy Verified 01/17/20 20:07 - Home Medications Home Medications: Ambulatory Orders Acetaminophen Oral Solution [Tylenol Oral Solution -] 650 mg PEG Q6H PRN soln.oral 12/18/19 Amiodarone HCl [Cordarone -] 100 mg PEG DAILY tablet 12/18/19 Apixaban [Eliquis -] 2.5 mg PEG BID tablet 12/18/19 Baclofen [Lioresal -] 10 mg PEG HS tablet 12/18/19 Simethicone Liquid [Mylicon Liquid -] 40 mg PEG BID ml 12/18/19 clonazePAM [Klonopin -] 0.5 mg PEG BID tablet 12/18/19 Albuterol 2.5/Ipratropium 0.5 [Duoneb -] 1 neb IH QID PRN 01/17/20 Levothyroxine [Synthroid -] 25 mcg PEG DAILY 01/17/20 Multivitamin 1 each PEG DAILY 01/18/20 Review of Systems Unable to obtain ROS, reason: trach Nephrology Consult - Height Height: 5 ft 2 in - Weight Weight: 91 lb 8 oz - BMI Body Mass Index (BMI): 16.7 - Lab Results CBC,BMP: CBC, BMP 01/18/20 05:40 01/18/20 05:40 Anion Gap: Anion Gap Anion Gap 10 MMOL/L (8-16) 01/18/20 01:50 - Imaging Chest X-ray: Report Reviewed (r/o infiltrate in left lower lobe) - Physical Examination Vital Signs: Vital Signs Temperature 98 F 01/18/20 04:00 Pulse Rate 65 01/18/20 08:24 Respiratory Rate 14 01/18/20 08:24 Blood Pressure 105/81 01/18/20 08:00 O2 Sat by Pulse Oximetry (%) 100 01/18/20 08:24 Constitutional: Yes: No Distress, Calm Eyes: Yes: Conjunctiva Clear HENT: Yes: Atraumatic, Normocephalic Neck: Yes: Supple, Trachea Midline Cardiovascular: Yes: Regular Rate and Rhythm Respiratory: Yes: Regular, CTA Bilaterally Gastrointestinal: Yes: Normal Bowel Sounds Access for Hemodialysis: Permacath Extremities: Yes: WNL, Other (cold, left DP palpable) Peripheral Pulses WNL: No (left DP palpable) Wound/Incision: Yes: Clean/Dry Neurological: Yes: Other (trach, does respond to questions) Psychiatric: Yes: Alert Assessment/Plan IMPRESSION 64 year old woman with multiple medical problems who presents with what appears to be a pneumonia though line infection needs to be ruled out. She is unable to give a history. This is not a dialysis complication per se though if its a line infection it can certainly be related to dialysis PLAN no need to hd today monitor urine output kcl replaced overnight does not need LAURA since hemoglobin is over 11 will need to be pancultured and monitored during dialysis again tomorrow for possible recurrence of symptoms MV
[2020-01-18 10:24] LABS: BLOOD UREA NITROGEN 104.8 mg/dL (7-18)
[2020-01-18 10:37] LABS: ANISOCYTOSIS 2+; MACROCYTOSIS 1+; PLATELET ESTIMATE DECREASED
--- NOTE | 2020-01-18 12:14 | CON.CARD ---
Consult Consult Specialty:: Cardiology Referred by:: Hospitalist Reason for Consultation:: Elevated troponin - History of Present Illness Chief Complaint: SOB History of Present Illness: 64 year old woman pmh ESRD on HD, chronic respiratory failure s/p trach on vent, h/o Pafib on eliquis, HTN, hypothyroid, epilepsy, MDD, [place], admitted [place] for SOB, tachypnea, tachycardia, hypotension that occurred during HD. Noted to have possible PNA, mildly elevated troponin with no sig CK elevation, abnl ekg. Pt seen and examined nad. Breathing comfortably. No reported chest pain. No pnd, orthopnea, or LE edema. 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 (Epilepsy) Cardio/Vascular: Yes: AFIB, HTN Pulmonary: Yes: Other (Respiratory Failure- trach- vent dependent) Renal/: Yes: Hemodialysis ...: No Psych: Yes: Depression Endocrine: Yes: Hypothyroidism - Alcohol/Substance Use Hx Alcohol Use: No (unknown) History of Substance Use: reports: None - Smoking History Smoking history: Unknown if ever smoked Have you smoked in the past 12 months: No - Social History Usual Living Arrangement: [facility] ADL: Support Services History of Recent Travel: No Home Medications - Allergies Allergies/Adverse Reactions: Allergies Allergy/AdvReac Type Severity Reaction Status Date / Time No Known Allergies Allergy Verified 01/17/20 20:07 - Home Medications Home Medications: Ambulatory Orders Acetaminophen Oral Solution [Tylenol Oral Solution -] 650 mg PEG Q6H PRN soln.oral 12/18/19 Amiodarone HCl [Cordarone -] 100 mg PEG DAILY tablet 12/18/19 Apixaban [Eliquis -] 2.5 mg PEG BID tablet 12/18/19 Baclofen [Lioresal -] 10 mg PEG HS tablet 12/18/19 Simethicone Liquid [Mylicon Liquid -] 40 mg PEG BID ml 12/18/19 clonazePAM [Klonopin -] 0.5 mg PEG BID tablet 12/18/19 Albuterol 2.5/Ipratropium 0.5 [Duoneb -] 1 neb IH QID PRN 01/17/20 Levothyroxine [Synthroid -] 25 mcg PEG DAILY 01/17/20 Multivitamin 1 each PEG DAILY 01/18/20 Family Medical History Family History: Denies Review of Systems - Review of Systems Constitutional: denies: No Symptoms, Chills, Diaphoresis, Fever, Lethargy, Loss of Appetite, Malaise, Night Sweats, Unintentional Wgt. Loss, Weakness, Other Eyes: denies: No Symptoms, Blind Spots, Blurred Vision, Double Vision, Eye Pain, Floaters, Photophobia, Recent Change in Vision, Other HENT: denies: No Symptoms, Difficult Swallowing, Ear Discharge, Ear Pain, Epistaxis, Gingival Bleeding, Hearing Loss, Mouth Swelling, Nasal Congestion, Ocular Prosthesis, Throat Pain, Toothache, Ringing in Ears, Other Neck: denies: No Symptoms, Decreased ROM, Lumps, Pain on Movement, Stiffness, Swollen Glands, Tenderness, Other Cardiovascular: reports: Shortness of Breath. denies: No Symptoms, Chest Pain, Edema, Palpitations, Other Respiratory: reports: SOB. denies: No Symptoms, Cough, Exercise Intolerance, Hemoptysis, Orthopnea, PND, Snoring, SOB on Exertion, Wheezing, Other Gastrointestinal: denies: No Symptoms, Abdominal Pain, Bloating, Constipation, Diarrhea, Dysphagia, Indigestion, Melena, Nausea, Rectal Bleeding, Vomiting, Vomiting Blood, Other Genitourinary: denies: No Symptoms, Burning, Discharge, Dysuria, Flank Pain, Frequency, Hematuria, Incontinence, Lesions, Menses, Pain, Testicular Mass, Testicular Pain, Testicular Swelling, Urgency, Vaginal Bleeding, Other Breasts: denies: No Symptoms Reported, See HPI, Breast Implants, Discharge from Nipple, Lumps, Pain, Skin Changes, Other Musculoskeletal: denies: No Symptoms, Back Pain, Crepitus, Decreased ROM, Extremity Pain, Joint Pain, Joint Swelling, Muscle Pain, Muscle Cramps, Muscle Weakness, Other Integumentary: denies: No Symptoms, Blister, Bruising, Change in Color, Eczema, Erythema, Incision, Lesions, Lump, Pallor, Pruritis, Rash, Wound, Other Neurological: denies: No Symptoms, Change in LOC, Change in Speech, Confusion, Dizziness, Headache, Incoordination, Numbness, Parasthesia, Pre-Existing Deficit, Seizure, Syncope, Tremors, Unsteady Gait, Weakness, Other Endocrine: denies: No Symptoms, Excessive Sweating, Flushing, Increased Hunger, Increased Thirst, Intolerance to Cold, Intolerance to Heat, Unexplained Weight Gain, Unexplained Weight Loss, Other Hematology/Lymphatic: denies: No Symptoms, Easily Bruised, Excessive Bleeding, Swollen Glands, Other Psychiatric: denies: No Symptoms, Altered Sleep Pattern, Anxiety, Depression, Hallucinations, Panic, Paranoia, Suicidal, Other - Risk Factors Known Risk Factors: Yes: Physical Inactivity Vital Signs: Vital Signs Temperature 97.9 F 01/18/20 10:00 Pulse Rate 65 01/18/20 10:00 Respiratory Rate 14 01/18/20 11:31 Blood Pressure 122/79 01/18/20 10:00 O2 Sat by Pulse Oximetry (%) 100 01/18/20 11:31 Constitutional: Yes: No Distress, Calm Eyes: Yes: Conjunctiva Clear, EOM Intact HENT: Yes: Atraumatic, Normocephalic Neck: Yes: Other (tracheostomy) Respiratory: Yes: Regular, Diminished, Mechanically Ventilated, Other. No: Rales, Rhonchi, SOB, Wheezes Gastrointestinal: Yes: Normal Bowel Sounds Cardiovascular: Yes: Regular Rate and Rhythm. No: Bradycardia, Tachycardia, Pulse Irregular, Gallop, Rub, Varicosities JVD: No Carotid Bruit: No PMI: Non-Displaced Heart Sounds: Yes: S1, S2. No: Split S2, S3, S4, Clicks, Gallop, Rub, Bruit Murmur: No: Systolic Murmur, Diastolic Murmur Musculoskeletal: Yes: Muscle Weakness Edema: No Peripheral Pulses WNL: Yes Neurological: Yes: Alert Psychiatric: Yes: Alert - Other Data Labs, Other Data: CBC, BMP 01/18/20 05:40 01/18/20 05:40 Troponin, BNP 01/17/20 01/18/20 01/18/20 20:40 01:50 05:40 Troponin I 0.54 H 0.50 H 0.38 H Troponin, BNP 01/17/20 01/18/20 01/18/20 20:40 01:50 05:40 Troponin I 0.54 H 0.50 H 0.38 H ekg sinus tach, ST depression v4, v5, v6 Imaging - Results Chest X-ray: Report Reviewed, Image Reviewed EKG: Report Reviewed, Image Reviewed Other: Report Reviewed, Image Reviewed (tele-nsr, apcs, brief psvt) Assessment/Plan 64 year old woman pmh ESRD on HD, chronic respiratory failure s/p trach on vent, h/o Pafib on eliquis, HTN, hypothyroid, epilepsy, MDD, [place], [place] for [place], tachypnea, tachycardia, hypotension that occurred during HD. Noted to have possible PNA, mildly elevated troponin with no sig CK elevation, abnl ekg. Pt seen and examined nad. Breathing comfortably. No reported chest pain. No pnd, orthopnea, or LE edema. tele-NSR, apcs, brief psvt Elevated troponin -mildly elevated and did not trend up, has trended down -ck not sig elevated -most likely c/w demand ischemia in setting of sob, tachypnea, tachycardia, hypotension with possible PNA -check echo to evaluate LV function -would not pursue further ischemic work up at this time. Afib-presume Pafib -SR on admission and on tele -brief episode PSVT on tele -cont home amiodarone and eliquis
--- NOTE | 2020-01-18 12:37 | EKG ---
Test Reason : Blood Pressure : / mmHG Vent. Rate : 096 BPM Atrial Rate : 096 BPM P-R Int : 138 ms QRS Dur : 088 ms QT Int : 354 ms P-R-T Axes : 042 021 198 degrees QTc Int : 447 ms SINUS RHYTHM WITH PREMATURE ATRIAL COMPLEXES LEFT VENTRICULAR HYPERTROPHY WITH REPOLARIZATION ABNORMALITY ABNORMAL ECG WHEN COMPARED WITH ECG OF 13-DEC-2019 16:47, PREMATURE ATRIAL COMPLEXES ARE NOW PRESENT ST MORE DEPRESSED LATERAL LEADS T WAVE INVERSION NOW EVIDENT IN LATERAL LEADS Confirmed by FLAQUITA JARVIS MD ([id number]) on 01/18/2020 12:36:50 PM Referred By: Confirmed By:FLAQUITA JARVIS MD
--- NOTE | 2020-01-18 13:11 | PN ---
Progress Note (short form) - Note Progress Note: This is a 64 year old female with a significant pmhx of ESRD (MWF), respiratory Failure trach-vented, Afib (on eliquis), HTN, Hypothyroid, Epilepsy, MDD, who was BIBEMS from [facility] for dialysis complications. As per EMS, the patient was receiving dialysis but was interrupted due to respiratory complications. Pt was found to be tachypneic (40's), tachycardic (110's) and the dialysis was stopped. Pt had just started her dialysis and was unable to continue. HPI is limited secondary to the patient's inability to verbalize. PT was admitted to ICU due to increased troponin requiring telemetry bed and pt being trached. Pt troponin has trended downward most likely secondary to demand ischemia. Pt now able to be transferred to [address] [place] [address]. PE: GENERAL: Awake, alert, nonverbal, in no acute distress. NECK: RIJ in place LUNGS: trach vented, RHonchi bilaterally HEART: Regular rate and rhythm, normal S1 and S2 without murmur, rub or gallop. ABDOMEN: Soft, nontender, not distended. PEG TUBE in place, no erythema or drainage in area. LOWER EXTREMITIES: 2+ pulses, warm, well-perfused. No peripheral edema. Upper ext: no edema SKIN: Warm, dry, normal turgor, no rashes or lesions noted.
--- NOTE | 2020-01-18 14:59 | PN ---
Progress Note (short form) - Note Progress Note: 64 year old female PMH ESRD (HD MWF), chronic respiratory failure (trached to vent), Afib (on eliquis), HTN, Hypothyroidism, Epilepsy, HTN, MDD, who was BIBEMS from [facility] (nonverbal) who presented with tachypnea, tachycarda and hypotension during HD session on 01/17/20. Was found to have elevated troponins on admission; patient was admitted to ICU for continued telemetry monitoring while on ventilator. Found to also have LLL consolidation, possible PNA. Last Vital Signs Temp Pulse Resp BP Pulse Ox 97.6 F 65 14 94/72 100 01/18/20 14:00 01/18/20 14:00 01/18/20 15:40 01/18/20 14:00 01/18/20 15:40 PE: GEN: lying in bed, nonverbal HEENT: trached to vent, trach site c/d/i PULM: b/l base rhonchi L>R CV: S1S2 wnl no m/r/g ABD: PEG tube in place no signs of infection SKIN: R chest permacath in place c/d/i Plan: #Sepsis 2/2 acute on chronic resp failure, R/o LLL pneumonia -s/p 1 dose vanc, continued on zosyn -f/u final blood & sputum cultures -Vent settings: 400/// -ID Dr. Sanchez consulted -c/w nila prn #Elevated trops -Troponins have been downtrending, likely d/t demand ischemia -f/u echo -cardio Dr. Bledsoe following -telemetry #ESRD -no HD today -renal following -monitor h&h -panculture tomorrow during HD -renal following #Afib -c/w amio, eliquis Dispo: Will accept patient [facility] floor
--- NOTE | 2020-01-18 15:24 | PN ---
Teaching Attending Note Name of Resident: Rahat Ghotra ATTENDING PHYSICIAN STATEMENT I saw and evaluated the patient. I reviewed the resident's note and discussed the case with the resident. I agree with the resident's findings and plan as documented. SUBJECTIVE: Patient seen and examined in the ICU. Lethargic but responsive on AC Mode. No pressors. Troponin decreasing. Intake & Output 01/15/20 01/16/20 01/17/20 01/18/20 23:59 23:59 23:59 23:59 Intake Total 460 Output Total 2 Balance 458 Weight 91 lb 8 oz 91 lb Last Vital Signs Temp Pulse Resp BP Pulse Ox 97.6 F 65 14 94/72 96 01/18/20 14:00 01/18/20 14:00 01/18/20 14:00 01/18/20 14:00 01/18/20 14:00 Active Medications Acetaminophen (Tylenol Oral Solution -) 650 mg PO Q6H PRN PRN Reason: FEVER Last Admin: 01/18/20 01:48 Dose: 650 mg Documented by: Albuterol/Ipratropium (Duoneb -) 1 amp NEB QID PRN PRN Reason: SHORTNESS OF BREATH Amiodarone HCl (Cordarone -) 100 mg PEG DAILY [facility] Last Admin: 01/18/20 09:37 Dose: 100 mg Documented by: Apixaban (Eliquis -) 2.5 mg PEG BID [facility] Last Admin: 01/18/20 09:37 Dose: 2.5 mg Documented by: Baclofen (Lioresal -) 10 mg PEG HS [facility] Chlorhexidine Gluconate (Hibiclens For Decolonization -) 1 applic TP HS [facility] Clonazepam (Klonopin -) 0.5 mg PEG BID [facility] Last Admin: 01/18/20 09:38 Dose: 0.5 mg Documented by: Sodium Chloride (Normal Saline -) 1,000 mls @ 50 mls/hr IV ASDIR [facility] Stop: 01/19/20 03:28 Last Admin: 01/18/20 05:00 Dose: 50 mls/hr Documented by: Piperacillin Sod/Tazobactam (Sod 2.25 gm/ Dextrose) 50 mls @ 100 mls/hr IVPB Q8H-IV ARLENE; Protocol Levothyroxine Sodium (Synthroid -) 25 mcg PEG ACBK [facility] Last Admin: 01/18/20 06:06 Dose: 25 mcg Documented by: Multivitamins/Minerals/Vitamin C (Tab-A-Vit -) 1 tab PO DAILY [facility] Last Admin: 01/18/20 09:37 Dose: 1 tab Documented by: Mupirocin (Bactroban Ointment (For Decolonization) -) 1 applic NS BID [facility] Stop: 01/23/20 00:29 Last Admin: 01/18/20 09:37 Dose: 1 applic Documented by: Pantoprazole Sodium (Protonix Iv) 40 mg IVPUSH DAILY [facility] Last Admin: 01/18/20 09:36 Dose: 40 mg Documented by: Simethicone (Mylicon Liquid -) 40 mg PEG BID [facility] Last Admin: 01/18/20 09:38 Dose: 40 mg Documented by: GENERAL: Vented, NAD NECK: Trach intact LUNGS: vented, diminished with scattered rhonchi at the bases. No accessory muscle use. HEART: Regular rate and rhythm, normal S1 and S2 without murmur, rub or gallop. ABDOMEN: Soft, nontender, not distended. PEG TUBE in place, no erythema or drainage in area. LOWER EXTREMITIES: 2+ pulses, warm, well-perfused. No peripheral edema. PSYCHIATRIC: Cooperative. Good eye contact. SKIN: Warm, dry, normal turgor, no rashes or lesions noted. Laboratory Results - last 24 hr 01/17/20 01/17/20 01/18/20 20:40 20:40 01:50 WBC 16.0 H RBC 5.28 H Hgb 14.4 Hct 44.6 D MCV 84.6 MCH 27.3 MCHC 32.3 RDW 21.0 H Plt Count 102 L D MPV 8.9 Absolute Neuts (auto) 13.7 H Neutrophils % 85.3 H Neutrophils % (Manual) 81.2 Band Neutrophils % 2.0 Lymphocytes % 7.7 L D Lymphocytes % (Manual) 6.9 L Monocytes % 6.8 Monocytes % (Manual) 6 Eosinophils % 0.0 Eosinophils % (Manual) 0.0 Basophils % 0.2 Basophils % (Manual) 0.0 Myelocytes % (Man) 0 Promyelocytes % (Man) 0 Blast Cells % (Manual) 0 Nucleated RBC % 0 Metamyelocytes 2 Hypochromia 0 Platelet Estimate Decreased Polychromasia 1+ Poikilocytosis 2+ Anisocytosis 3+ Microcytosis 3+ Macrocytosis 0 Tear Drop Cells 1+ Ovalocytes 2+ Sodium 138 138 Potassium 2.9 L* 3.9 Chloride 101 102 Carbon Dioxide 26 25 Anion Gap 11 10 BUN 95.7 H 103.1 H Creatinine 1.4 H 1.5 H Est GFR (CKD-EPI)AfAm 45.58 41.94 Est GFR (CKD-EPI)NonAf 39.33 36.18 Random Glucose 105 107 H Calcium 8.7 8.4 L Phosphorus 3.7 Magnesium 2.4 Total Bilirubin 0.2 0.5 AST 61 H 98 H ALT 28 29 Alkaline Phosphatase 229 H 180 H Creatine Kinase Troponin I 0.54 H 0.50 H Total Protein 7.6 7.5 Albumin 2.2 L 2.2 L 01/18/20 01/18/20 05:40 05:40 WBC 15.8 H RBC 5.07 Hgb 13.5 Hct 42.5 MCV 83.7 MCH 26.7 MCHC 31.8 L RDW 21.2 H Plt Count 100 L MPV 9.3 Absolute Neuts (auto) 13.1 H Neutrophils % 83.0 H Neutrophils % (Manual) 82.8 Band Neutrophils % 0.0 Lymphocytes % 10.6 D Lymphocytes % (Manual) 11.1 D Monocytes % 6.2 Monocytes % (Manual) 6 Eosinophils % 0.0 Eosinophils % (Manual) 0.0 Basophils % 0.2 Basophils % (Manual) 0.0 Myelocytes % (Man) 0 Promyelocytes % (Man) 0 Blast Cells % (Manual) 0 Nucleated RBC % 1 H Metamyelocytes 0 D Hypochromia 0 Platelet Estimate Decreased Polychromasia 0 Poikilocytosis 0 Anisocytosis 2+ Microcytosis 0 Macrocytosis 1+ Tear Drop Cells Ovalocytes Sodium 139 Potassium 3.4 L Chloride 105 Carbon Dioxide 22 Anion Gap 12 BUN 104.8 H* Creatinine 1.6 H Est GFR (CKD-EPI)AfAm 38.79 Est GFR (CKD-EPI)NonAf 33.47 Random Glucose 133 H Calcium 8.3 L Phosphorus Magnesium Total Bilirubin 0.6 AST 54 H ALT 25 Alkaline Phosphatase 153 H Creatine Kinase 54 Troponin I 0.38 H Total Protein 6.7 Albumin 2.0 L ASSESSMENT/PLAN: Chronic Respiratory Failure R/O LLL PNA ESRD on HD (MWF) Afib (on eliquis) HTN Hypothyroid Epilepsy MDD ID evaluation IVF AC Mode of vent Castellano-culture VTE prophylaxis HD per Renal Eliquis Vent floor monitoring Dr Stearns
[2020-01-18] MEDS ORDERED: CHLORHEXIDINE GLUCONATE 4% CLEANSER FOR DECOLONIZATION TP SCH (22:00)
[2020-01-18] MEDS ORDERED: BACLOFEN 10 MG TABLET (FP) PEG SCH (22:00)
[2020-01-18] MEDS ORDERED: ACETAMINOPHEN 650 MG/20.3 ML ORAL SOLUTION (CUPS) PO PRN ×2 (22:51→23:10)
[2020-01-18] MEDS: BACLOFEN 10 MG TABLET (FP) PEG SCH (23:50)
[2020-01-19] MEDS ORDERED: PIPERACILLIN/TAZOB 2.25 GM 2.25 GM in DEXTROSE 5%-WATER - 50 ML IVPB SCH (02:00)
[2020-01-19] MEDS ORDERED: DEXTROSE 5%-WATER - 50 ML IVPB ONE ×3 (02:18→18:03)
[2020-01-19] MEDS ORDERED: PIPERACILLIN/TAZOBACTAM 2.25 GM VIAL IVPB ONE ×3 (02:18→18:03)
[2020-01-19] MEDS: PIPERACILLIN/TAZOB 2.25 GM 2.25 GM in DEXTROSE 5%-WATER - 50 ML IVPB SCH ×3 (02:41→18:12)
[2020-01-19] MEDS: LEVOTHYROXINE NA 25 MCG TABLET (FP) PEG SCH (06:23)
[2020-01-19 06:29] LABS: EPI CELLS 14 /uL (0-25.1); HYALINE CASTS 12 /uL (0-3.1); URINE APPEARANCE CLOUDY; URINE BACTERIA 4 /uL (0-1359); URINE BILIRUBIN NEGATIVE (NEGATIVE); URINE COLOR YELLOW; URINE GLUCOSE (UA) NEGATIVE (NEGATIVE); URINE KETONE NEGATIVE (NEGATIVE); URINE LEUK ESTERASE TRACE (NEGATIVE); URINE NITRITE NEGATIVE (NEGATIVE); URINE PROTEIN TRACE (NEGATIVE); URINE UROBILINOGEN 0.2 mg/dL (0.2-1.0); URINE WBC 10 /uL (0-25.8)
[2020-01-19] MEDS ORDERED: LEVOTHYROXINE NA 25 MCG TABLET (FP) PEG SCH (07:00)
[2020-01-19 07:24] LABS: URINE RBC 389.8 /uL (0-23.9); YEAST NON SEEN (NEGATIVE)
[2020-01-19 08:14] LABS: BASO % 0.1 % (0-2.0); HEMATOCRIT 41.1 % (32.4-45.2); HEMOGLOBIN 13.3 GM/dL (10.7-15.3); LYMPH % 11.2 % (8-40); MCH 27.4 pg (25.7-33.7); MCHC 32.5 g/dl (32.0-36.0); MEAN CELL VOLUME 84.4 fl (80-96); MEAN PLT VOLUME 9.2 fl (7.5-11.1); MONO % 7.9 % (3.8-10.2); NEUT % 80.8 % (42.8-82.8); PLATELET COUNT 103 K/MM3 (134-434); RBC 4.86 M/mm3 (3.60-5.2); WHITE BLOOD COUNT 12.1 K/mm3 (4.0-10.0)
[2020-01-19 08:29] LABS: ALBUMIN 1.9 g/dl (3.4-5.0); BILIRUBIN,TOTAL 0.4 mg/dL (0.2-1); BLOOD UREA NITROGEN 98.3 mg/dL (7-18); CALCIUM 8.5 mg/dL (8.5-10.1); CREATININE 1.9 mg/dL (0.55-1.3)
[2020-01-19 08:30] LABS: TOT PROT 6.6 g/dl (6.4-8.2)
[2020-01-19 09:19] LABS: POTASSIUM 2.7 mmol/L (3.5-5.1)
[2020-01-19] MEDS ORDERED: APIXABAN 2.5 MG TABLET PEG SCH (10:00)
[2020-01-19] MEDS ORDERED: MULTIVITAMINS (DAILY MVI) TABLET (FP) PO SCH (10:00)
[2020-01-19] MEDS ORDERED: PANTOPRAZOLE SODIUM 40 MG VIAL IVPUSH SCH (10:00)
[2020-01-19] MEDS ORDERED: SIMETHICONE 40 MG/0.6 ML BOTTLE PEG SCH ×2 (10:00)
[2020-01-19] MEDS ORDERED: MUPIROCIN 2% TOPICAL OINTMENT FOR DECOLONIZATION NS SCH (10:00)
[2020-01-19] MEDS ORDERED: clonazePAM 0.5 MG TABLET PEG SCH (10:00)
[2020-01-19] MEDS ORDERED: AMIODARONE HCL 200 MG TABLET PEG SCH (10:00)
--- NOTE | 2020-01-19 10:11 | PN ---
Progress Note (short form) - Note Progress Note: RENAL pt awake and alert appears comfortable Last Vital Signs Temp Pulse Resp BP Pulse Ox 97.6 F 59 L 18 117/72 99 01/19/20 06:00 01/19/20 06:00 01/19/20 06:00 01/19/20 06:00 01/19/20 06:00 trach bilat air entry abd soft ext no edema neuro a+o skin no lesions CBC, BMP 01/19/20 07:35 01/19/20 07:35 Current Medications Generic Name Dose Route Start Last Admin Trade Name Freq PRN Reason Stop Dose Admin Acetaminophen 650 mg 01/18/20 23:10 Tylenol Oral Solution - PO Q6H PRN FEVER Albuterol/Ipratropium 1 amp 01/18/20 23:10 Duoneb - NEB QID PRN SHORTNESS OF BREATH Amiodarone HCl 100 mg 01/19/20 10:00 Cordarone - PEG DAILY [facility] Apixaban 2.5 mg 01/19/20 10:00 Eliquis - PEG BID [facility] Baclofen 10 mg 01/18/20 23:45 01/18/20 23:50 Lioresal - PEG 10 mg HS [facility] Administration Clonazepam 0.5 mg 01/19/20 10:00 Klonopin - PEG BID [facility] Piperacillin Sod/Tazobactam 50 mls @ 100 mls/hr 01/19/20 02:00 01/19/20 02:41 Sod 2.25 gm/ Dextrose IVPB 100 mls/hr Q8H-IV [facility] Administration Protocol Levothyroxine Sodium 25 mcg 01/19/20 07:00 01/19/20 06:23 Synthroid - PEG 25 mcg ACBK [facility] Administration Multivitamins/Minerals/Vitamin C 1 tab 01/19/20 10:00 Tab-A-Vit - PO DAILY [facility] Pantoprazole Sodium 40 mg 01/19/20 10:00 Protonix Iv IVPUSH DAILY [facility] Simethicone 40 mg 01/18/20 23:45 01/18/20 23:52 Mylicon Liquid - PEG 40 mg BID [facility] Administration IMPRESSION esrd vent dependence pneumonia malnutrition PLAN will dialyze today no darshan necessary 3k bath abx per id MV
[2020-01-19] MEDS ORDERED: ALBUTEROL SO4 2.5/IPRATROPIUM 0.5 INH SOL 3 ML VIAL.NEB. NEB PRN (10:29)
--- NOTE | 2020-01-19 10:40 | PN ---
Progress Note, Physician History of Present Illness: pt seen and evaluated this am in nad. receiving HD. no overnight events. no new complaints. - Current Medication List Current Medications: Active Medications Acetaminophen (Tylenol Oral Solution -) 650 mg PO Q6H PRN PRN Reason: FEVER Albuterol/Ipratropium (Duoneb -) 1 amp NEB QID PRN PRN Reason: SHORTNESS OF BREATH Amiodarone HCl (Cordarone -) 100 mg PEG DAILY [facility] Apixaban (Eliquis -) 2.5 mg PEG BID [facility] Baclofen (Lioresal -) 10 mg PEG HS [facility] Last Admin: 01/18/20 23:50 Dose: 10 mg Documented by: Clonazepam (Klonopin -) 0.5 mg PEG BID [facility] Piperacillin Sod/Tazobactam (Sod 2.25 gm/ Dextrose) 50 mls @ 100 mls/hr IVPB Q8H-IV [facility]; Protocol Last Admin: 01/19/20 02:41 Dose: 100 mls/hr Documented by: Sodium Chloride (Normal Saline -) 250 mls @ 3,000 mls/hr IV PRN PRN PRN Reason: Hypotension during Dialysis Stop: 01/20/20 10:12 Levothyroxine Sodium (Synthroid -) 25 mcg PEG ACBK [facility] Last Admin: 01/19/20 06:23 Dose: 25 mcg Documented by: Multivitamins/Minerals/Vitamin C (Tab-A-Vit -) 1 tab PO DAILY [facility] Pantoprazole Sodium (Protonix Iv) 40 mg IVPUSH DAILY [facility] Simethicone (Mylicon Liquid -) 40 mg PEG BID [facility] Last Admin: 01/18/20 23:52 Dose: 40 mg Documented by: - Objective Vital Signs: Vital Signs Temperature 97.6 F 01/19/20 06:00 Pulse Rate 69 01/19/20 07:45 Respiratory Rate 14 01/19/20 07:45 Blood Pressure 117/72 01/19/20 06:00 O2 Sat by Pulse Oximetry (%) 99 01/19/20 07:45 Constitutional: Yes: No Distress, Calm Eyes: Yes: Conjunctiva Clear, EOM Intact HENT: Yes: Atraumatic, Normocephalic Neck: Yes: Supple, Trachea Midline Cardiovascular: Yes: Regular Rate and Rhythm, S1, S2. No: Bradycardia, Tachycardia, Pulse Irregular, Bruit, JVD, Gallop, Murmur, Rub, S3, S4, Varicosities Respiratory: Yes: Regular, Mechanically Ventilated. No: Rales, Rhonchi, SOB Gastrointestinal: Yes: Normal Bowel Sounds, Soft Musculoskeletal: Yes: Muscle Weakness Edema: No Peripheral Pulses WNL: Yes Neurological: Yes: Alert Psychiatric: Yes: Alert Labs: CBC, BMP 01/19/20 07:35 01/19/20 07:35 - ....Imaging Chest X-ray: Report Reviewed, Image Reviewed EKG: Report Reviewed, Image Reviewed Other: Report Reviewed, Image Reviewed Assessment/Plan 64 year old woman pmh ESRD on HD, chronic respiratory failure s/p trach on vent, h/o Pafib on eliquis, HTN, hypothyroid, epilepsy, MDD, [place] resident, admitted from [place] for SOB, tachypnea, tachycardia, hypotension that occurred during HD. Noted to have possible PNA, mildly elevated troponin with no sig CK elevation, abnl ekg. Pt seen and examined nad. Breathing comfortably. No reported chest pain. No pnd, orthopnea, or LE edema. tele-NSR, apcs, brief psvt Elevated troponin -mildly elevated and did not trend up, has trended down -ck not sig elevated -most likely c/w demand ischemia in setting of sob, tachypnea, tachycardia, hypotension with possible PNA -can check echo to evaluate LV function but would not global climate change analyst at this time, pt is not a candidate for invasive cardiac work up at this time. -would not pursue further ischemic work up at this time. Afib-presume Pafib -SR on admission and on tele -brief episode PSVT on tele -cont home amiodarone and eliquis Please call with any questions.
[2020-01-19] MEDS: AMIODARONE HCL 200 MG TABLET PEG SCH (11:18)
[2020-01-19] MEDS: APIXABAN 2.5 MG TABLET PEG SCH ×2 (11:30→22:23)
[2020-01-19] MEDS: clonazePAM 0.5 MG TABLET PEG SCH ×2 (11:30→22:23)
[2020-01-19] MEDS: PANTOPRAZOLE SODIUM 40 MG VIAL IVPUSH SCH (11:30)
[2020-01-19] MEDS: SIMETHICONE 40 MG/0.6 ML BOTTLE PEG SCH ×2 (11:33→22:26)
[2020-01-19] MEDS: MULTIVITAMINS (DAILY MVI) TABLET (FP) PO SCH (11:34)
--- NOTE | 2020-01-19 11:51 | PN ---
Progress Note (short form) - Note Progress Note: PULMONARY CHART REVIEWED UNDERGOING HD/0.5 KG'S TO BE REMOVED A/C MODE 14/VT 400CC/FIO2 21%/PEEP 5/SPO2 99% VSS/AFEBRILE GENERAL: Vented, NAD NECK: Trach intact LUNGS: vented, diminished with scattered rhonchi at the bases. No accessory muscle use. HEART: Regular rate and rhythm, normal S1 and S2 without murmur, rub or gallop. ABDOMEN: Soft, nontender, not distended. PEG TUBE in place, no erythema or drainage in area. LOWER EXTREMITIES: 2+ pulses, warm, well-perfused. No peripheral edema. PSYCHIATRIC: Cooperative. Good eye contact. SKIN: Warm, dry, normal turgor, no rashes or lesions noted. LABS/MEDS/IMAGES REVIEWED ASSESSMENT/PLAN: Chronic Respiratory Failure R/O LLL PNA ESRD on HD (MWF) Afib (on eliquis) HTN Hypothyroid Epilepsy MDD ID evaluation IVF AC Mode of vent Castellano-culture VTE prophylaxis HD per Renal Eliquis Vent floor monitoring Bruna DAVIS MD
--- NOTE | 2020-01-19 12:01 | PN ---
Progress Note, Physician History of Present Illness: continues to be vented being dialyzed - Current Medication List Current Medications: Active Medications Acetaminophen (Tylenol Oral Solution -) 650 mg PO Q6H PRN PRN Reason: FEVER Albuterol/Ipratropium (Duoneb -) 1 amp NEB QID PRN PRN Reason: SHORTNESS OF BREATH Amiodarone HCl (Cordarone -) 100 mg PEG DAILY [facility] Last Admin: 01/19/20 11:18 Dose: Not Given Documented by: Apixaban (Eliquis -) 2.5 mg PEG BID [facility] Last Admin: 01/19/20 11:30 Dose: 2.5 mg Documented by: Baclofen (Lioresal -) 10 mg PEG HS [facility] Last Admin: 01/18/20 23:50 Dose: 10 mg Documented by: Clonazepam (Klonopin -) 0.5 mg PEG BID [facility] Last Admin: 01/19/20 11:30 Dose: 0.5 mg Documented by: Piperacillin Sod/Tazobactam (Sod 2.25 gm/ Dextrose) 50 mls @ 100 mls/hr IVPB Q8H-IV [facility]; Protocol Last Admin: 01/19/20 11:35 Dose: 100 mls/hr Documented by: Sodium Chloride (Normal Saline -) 250 mls @ 3,000 mls/hr IV PRN PRN PRN Reason: Hypotension during Dialysis Stop: 01/20/20 10:12 Levothyroxine Sodium (Synthroid -) 25 mcg PEG ACBK [facility] Last Admin: 01/19/20 06:23 Dose: 25 mcg Documented by: Multivitamins/Minerals/Vitamin C (Tab-A-Vit -) 1 tab PO DAILY [facility] Last Admin: 01/19/20 11:34 Dose: 1 tab Documented by: Pantoprazole Sodium (Protonix Iv) 40 mg IVPUSH DAILY [facility] Last Admin: 01/19/20 11:30 Dose: 40 mg Documented by: Simethicone (Mylicon Liquid -) 40 mg PEG BID [facility] Last Admin: 01/19/20 11:33 Dose: 40 mg Documented by: - Objective Vital Signs: Vital Signs Temperature 97.6 F 01/19/20 06:00 Pulse Rate 69 01/19/20 07:45 Respiratory Rate 14 01/19/20 07:45 Blood Pressure 117/72 01/19/20 06:00 O2 Sat by Pulse Oximetry (%) 99 01/19/20 07:45 Constitutional: Yes: No Distress, Calm Cardiovascular: Yes: S1, S2 Respiratory: Yes: Mechanically Ventilated, Other (trach in place) Gastrointestinal: Yes: Normal Bowel Sounds, Soft Musculoskeletal: Yes: WNL Extremities: Yes: WNL Neurological: Yes: Alert Psychiatric: Yes: Alert Labs: CBC, BMP 01/19/20 07:35 01/19/20 07:35 Assessment/Plan Chronic Respiratory Failure LLL PNA ESRD on HD (MWF) Afib (on eliquis) HTN Hypothyroid Epilepsy MDD plan abx resp support dialysis' nutrition rest as per the team
[2020-01-19] MEDS ORDERED: SODIUM CHLORIDE 250 ML IV PRN (14:44)
--- NOTE | 2020-01-19 19:32 | ECHO ---
Version: 1 Name: SUREKHA MORGAN Exam: Adult Echocardiogram Study Date: 01/19/2020, 4:13 PM Age: 64 Years MMode/2D Measurements & Calculations IVSd: 1.00 cm LVIDs: 2.46 cm LVIDd: 3.6 cm LVPWd: 1.08 cm ACS: 1.39 cm Ao root diam: 2.6 cm LVOT diam: 1.96 cm LA dimension: 2.9 cm Doppler Measurements & Calculations MV E max destin: 87.2 cm/sec MVA(VTI): 1.30 cm MV A max destin: 128.3 cm/sec MV V2 max: 138.5 cm/sec MV mean P.0 mmHg MV max P.7 mmHg MV E/A: 0.68 Med E/e': 29.8 Lat E/e': 23.5 Med Peak E' Destin: 2.9 cm/sec Lat Peak E' Destin: 3.7 cm/sec Ao max P.0 mmHg HUY(I,D): 2.9 cm Ao mean P.52 mmHg LV V1 mean: 49.5 cm/sec Ao V2 max: 98.6 cm/sec LV V1 mean P.18 mmHg TR max destin: 236.9 cm/sec TR max P.5 mmHg Procedure The study was technically difficult with many images being suboptimal in quality. Left Ventricle There is mild concentric left ventricular hypertrophy. Left ventricular systolic function is normal. Ejection Fraction = 55-60%. The transmitral spectral Doppler flow pattern is suggestive of impaired LV relaxa tion. Right Ventricle The right ventricle is normal in size and function. Atria Borderline left atrial enlargement. Mitral Valve Severely thickened mitral valve with restricted motion of the posterior leaflet. Mitral valve leafle ts appear rheumatic. There is mild mitral stenosis. Tricuspid Valve The tricuspid valve is not well visualized, but is grossly normal. There is mild tricuspid regurgita tion. Aortic Valve The aortic valve opens well. No hemodynamically significant valvular aortic stenosis. No aortic regu rgitation is present. Pulmonic Valve The pulmonic valve is not well seen, but is grossly normal. Great Vessels The aortic root is normal size. Pericardium/Pleura Small pericardial effusion (<1cm). Tech Comments TDS. Patient trached and scanned slightly sitting up. Summary Statements The study was technically difficult with many images being suboptimal in quality. There is mild concentric left ventricular hypertrophy. Left ventricular systolic function is normal. Ejection Fraction = 55-60%. The transmitral spectral Doppler flow pattern is suggestive of impaired LV relaxation. Borderline left atrial enlargement. Severely thickened mitral valve with restricted motion of the posterior leaflet. Mitral valve leafle ts appear rheumatic. There is mild mitral stenosis. There is mild tricuspid regurgitation. No hemodynamically significant valvular aortic stenosis. Small pericardial effusion (<1cm) MD Epstein *Josh 01/19/2020, 7:31 PM Ordering Physician: Jai Bledsoe Referring Physician: JAI BLEDSOE Performed By: Kimberlee Dejesus
[2020-01-19] MEDS ORDERED: CHLORHEXIDINE GLUCONATE 4% CLEANSER FOR DECOLONIZATION TP SCH (22:00)
[2020-01-19] MEDS ORDERED: BACLOFEN 10 MG TABLET (FP) PEG SCH ×2 (22:00)
[2020-01-19] MEDS: BACLOFEN 10 MG TABLET (FP) PEG SCH (22:23)
[2020-01-19] MEDS ORDERED: PT OWN MED DRAWER 7, Y5N ONE (22:25)
[2020-01-19 23:39] LABS: BILIRUBIN,TOTAL 0.5 mg/dL (0.2-1); CALCIUM 8.5 mg/dL (8.5-10.1); CREATININE 1.1 mg/dL (0.55-1.3); TOT PROT 6.7 g/dl (6.4-8.2)
[2020-01-19 23:42] LABS: BLOOD UREA NITROGEN 33.9 mg/dL (7-18)
[2020-01-19 23:45] LABS: POTASSIUM 2.6 mmol/L (3.5-5.1)
[2020-01-20] MEDS: KCL 10 MEQ IVPB 10 MEQ/100 ML INFUS.BAG IVPB SCH ×2 (00:17→02:13)
[2020-01-20] MEDS ORDERED: DEXTROSE 5%-WATER - 50 ML IVPB ONE ×3 (01:14→17:07)
[2020-01-20] MEDS ORDERED: PIPERACILLIN/TAZOBACTAM 2.25 GM VIAL IVPB ONE ×3 (01:14→17:07)
[2020-01-20] MEDS: PIPERACILLIN/TAZOB 2.25 GM 2.25 GM in DEXTROSE 5%-WATER - 50 ML IVPB SCH ×3 (01:52→17:17)
[2020-01-20] MEDS: LEVOTHYROXINE NA 25 MCG TABLET (FP) PEG SCH (06:10)
[2020-01-20 10:00] LABS: BLOOD UREA NITROGEN 45.5 mg/dL (7-18); CALCIUM 8.2 mg/dL (8.5-10.1)
[2020-01-20 10:04] LABS: CREATININE 1.4 mg/dL (0.55-1.3); TOT PROT 6.6 g/dl (6.4-8.2)
[2020-01-20] MEDS ORDERED: PT OWN MED DRAWER 7, Y5N ONE (10:05)
[2020-01-20] MEDS: AMIODARONE HCL 200 MG TABLET PEG SCH (10:17)
[2020-01-20] MEDS: MULTIVITAMINS (DAILY MVI) TABLET (FP) PO SCH (10:17)
[2020-01-20] MEDS: PANTOPRAZOLE SODIUM 40 MG VIAL IVPUSH SCH (10:17)
[2020-01-20] MEDS: SIMETHICONE 40 MG/0.6 ML BOTTLE PEG SCH ×2 (10:17→22:33)
[2020-01-20] MEDS: clonazePAM 0.5 MG TABLET PEG SCH ×2 (10:17→22:32)
[2020-01-20 10:20] LABS: POTASSIUM 2.8 mmol/L (3.5-5.1)
[2020-01-20] MEDS ORDERED: POTASSIUM CHLORIDE ORAL LIQUID 20 MEQ/15 ML PO ONE (12:45)
--- NOTE | 2020-01-20 12:54 | PN ---
Progress Note, Physician Chief Complaint: Acute on chronic respiratory failure Hypokalemia ESRD Severe protein calorie malnutrition History of Present Illness: This is a 64 year old female with a significant pmhx of ESRD (MWF), respiratory Failure trach-vented, Afib (on eliquis), HTN, Hypothyroid, Epilepsy, MDD, who was BIBEMS from [facility] for dialysis complications. As per EMS, the patient was receiving dialysis but was interrupted due to respiratory complications. Pt was found to be tachypneic (40's), tachycardic (110's) and the dialysis was stopped. Pt had just started her dialysis and was unable to continue. HPI is limited secondary to the patient's inability to verbalize. - Current Medication List Current Medications: Active Medications Acetaminophen (Tylenol Oral Solution -) 650 mg PO Q6H PRN PRN Reason: FEVER Albuterol/Ipratropium (Duoneb -) 1 amp NEB QID PRN PRN Reason: SHORTNESS OF BREATH Amiodarone HCl (Cordarone -) 100 mg PEG DAILY [facility] Last Admin: 01/20/20 10:17 Dose: 100 mg Documented by: Apixaban (Eliquis -) 2.5 mg PEG BID [facility] Last Admin: 01/19/20 22:23 Dose: 2.5 mg Documented by: Baclofen (Lioresal -) 10 mg PEG HS [facility] Last Admin: 01/19/20 22:23 Dose: 10 mg Documented by: Clonazepam (Klonopin -) 0.5 mg PEG BID [facility] Last Admin: 01/20/20 10:17 Dose: 0.5 mg Documented by: Piperacillin Sod/Tazobactam (Sod 2.25 gm/ Dextrose) 50 mls @ 100 mls/hr IVPB Q8H-IV [facility]; Protocol Last Admin: 01/20/20 10:17 Dose: 100 mls/hr Documented by: Sodium Chloride (Normal Saline -) 250 mls @ 3,000 mls/hr IV PRN PRN PRN Reason: Hypotension during Dialysis Stop: 01/20/20 14:43 Levothyroxine Sodium (Synthroid -) 25 mcg PEG ACBK [facility] Last Admin: 01/20/20 06:10 Dose: 25 mcg Documented by: Multivitamins/Minerals/Vitamin C (Tab-A-Vit -) 1 tab PO DAILY [facility] Last Admin: 01/20/20 10:17 Dose: 1 tab Documented by: Pantoprazole Sodium (Protonix Iv) 40 mg IVPUSH DAILY [facility] Last Admin: 01/20/20 10:17 Dose: 40 mg Documented by: Simethicone (Mylicon Liquid -) 40 mg PEG BID [facility] Last Admin: 01/20/20 10:17 Dose: 40 mg Documented by: - Objective Vital Signs: Vital Signs Temperature 98.2 F 01/20/20 10:00 Pulse Rate 65 01/20/20 10:00 Respiratory Rate 15 01/20/20 11:58 Blood Pressure 110/47 L 01/20/20 10:00 O2 Sat by Pulse Oximetry (%) 931 H 01/20/20 11:58 Constitutional: Yes: No Distress, Cachectic Labs: CBC, BMP 01/19/20 07:35 01/20/20 08:52 Problem List - Problems (1) Acute on chronic respiratory failure Assessment/Plan: -Mech vent -Pulmonary consult Problems reviewed: Yes Code(s): J96.20 - ACUTE AND CHR RESP FAILURE, UNSP W HYPOXIA OR HYPERCAPNIA (2) ESRD (end stage renal disease) Assessment/Plan: -Nephrology on board -HD as per nephrology Problems reviewed: Yes Code(s): N18.6 - END STAGE RENAL DISEASE (3) Afib Assessment/Plan: -Continue Eliquis 2.5 mg Problems reviewed: Yes Code(s): I48.91 - UNSPECIFIED ATRIAL FIBRILLATION (4) Pneumonia Assessment/Plan: -LLL pne -ID consult -IV zosyn -Pulmonary consult -COVID 19 PCR negative Problems reviewed: Yes Code(s): J18.9 - PNEUMONIA, UNSPECIFIED ORGANISM (5) Hypokalemia Assessment/Plan: -Received KCl 40 meq GT today -Nephrology to address Problems reviewed: Yes Code(s): E87.6 - HYPOKALEMIA Assessment/Plan See problem list
[2020-01-20] MEDS: APIXABAN 2.5 MG TABLET PEG SCH ×2 (13:12→22:32)
--- NOTE | 2020-01-20 13:58 | PN ---
Progress Note, Physician History of Present Illness: Pt seen and examined. She is awake. - Current Medication List Current Medications: Active Medications Acetaminophen (Tylenol Oral Solution -) 650 mg PO Q6H PRN PRN Reason: FEVER Albuterol/Ipratropium (Duoneb -) 1 amp NEB QID PRN PRN Reason: SHORTNESS OF BREATH Amiodarone HCl (Cordarone -) 100 mg PEG DAILY [facility] Last Admin: 01/20/20 10:17 Dose: 100 mg Documented by: Apixaban (Eliquis -) 2.5 mg PEG BID [facility] Last Admin: 01/20/20 13:12 Dose: 2.5 mg Documented by: Baclofen (Lioresal -) 10 mg PEG HS [facility] Last Admin: 01/19/20 22:23 Dose: 10 mg Documented by: Clonazepam (Klonopin -) 0.5 mg PEG BID [facility] Last Admin: 01/20/20 10:17 Dose: 0.5 mg Documented by: Famotidine (Pepcid) 20 mg PEG DAILY [facility] Piperacillin Sod/Tazobactam (Sod 2.25 gm/ Dextrose) 50 mls @ 100 mls/hr IVPB Q8H-IV [facility]; Protocol Last Admin: 01/20/20 10:17 Dose: 100 mls/hr Documented by: Sodium Chloride (Normal Saline -) 250 mls @ 3,000 mls/hr IV PRN PRN PRN Reason: Hypotension during Dialysis Stop: 01/20/20 14:43 Levothyroxine Sodium (Synthroid -) 25 mcg PEG ACBK [facility] Last Admin: 01/20/20 06:10 Dose: 25 mcg Documented by: Multivitamins/Minerals/Vitamin C (Tab-A-Vit -) 1 tab PO DAILY [facility] Last Admin: 01/20/20 10:17 Dose: 1 tab Documented by: Simethicone (Mylicon Liquid -) 40 mg PEG BID [facility] Last Admin: 01/20/20 10:17 Dose: 40 mg Documented by: - Objective Vital Signs: Vital Signs Temperature 98.2 F 01/20/20 10:00 Pulse Rate 65 01/20/20 10:00 Respiratory Rate 15 01/20/20 11:58 Blood Pressure 110/47 L 01/20/20 10:00 O2 Sat by Pulse Oximetry (%) 931 H 01/20/20 11:58 Constitutional: Yes: Calm, Cachectic Neck: Yes: Other (trache) Cardiovascular: Yes: S1, S2 Respiratory: Yes: Mechanically Ventilated Gastrointestinal: Yes: Soft, Other (peg) Genitourinary: Yes: Incontinence Edema: No Neurological: No: Other (awake) Labs: CBC, BMP 01/19/20 07:35 01/20/20 08:52 Assessment/Plan Current Medications Generic Name Dose Route Start Last Admin Trade Name Freq PRN Reason Stop Dose Admin Acetaminophen 650 mg 01/18/20 23:10 Tylenol Oral Solution - PO Q6H PRN FEVER Albuterol/Ipratropium 1 amp 01/19/20 10:29 Duoneb - NEB QID PRN SHORTNESS OF BREATH Amiodarone HCl 100 mg 01/19/20 10:00 01/20/20 10:17 Cordarone - PEG 100 mg DAILY [facility] Administration Apixaban 2.5 mg 01/19/20 10:00 01/20/20 13:12 Eliquis - PEG 2.5 mg BID [facility] Administration Baclofen 10 mg 01/18/20 23:45 01/19/20 22:23 Lioresal - PEG 10 mg HS [facility] Administration Clonazepam 0.5 mg 01/19/20 10:00 01/20/20 10:17 Klonopin - PEG 0.5 mg BID [facility] Administration Famotidine 20 mg 01/21/20 10:00 Pepcid PEG DAILY [facility] Piperacillin Sod/Tazobactam 50 mls @ 100 mls/hr 01/19/20 02:00 01/20/20 10:17 Sod 2.25 gm/ Dextrose IVPB 100 mls/hr Q8H-IV [facility] Administration Protocol Sodium Chloride 250 mls @ 3,000 mls/hr 01/19/20 14:44 Normal Saline - IV 01/20/20 14:43 PRN PRN Hypotension during Dialysis Levothyroxine Sodium 25 mcg 01/19/20 07:00 01/20/20 06:10 Synthroid - PEG 25 mcg ACBK [facility] Administration Multivitamins/Minerals/Vitamin C 1 tab 01/19/20 10:00 01/20/20 10:17 Tab-A-Vit - PO 1 tab DAILY [facility] Administration Simethicone 40 mg 01/18/20 23:45 01/20/20 10:17 Mylicon Liquid - PEG 40 mg BID [facility] Administration IMPRESSION esrd vent dependence pneumonia malnutrition hypokalemia PLAN - pt had hd yesterday - replace potassium - repeat labs in am - next HD Wednesday - 3 k bath on hd
--- NOTE | 2020-01-20 14:25 | PN ---
Progress Note, Physician History of Present Illness: Pt is alert, responsive, without distress. - Current Medication List Current Medications: Active Medications Acetaminophen (Tylenol Oral Solution -) 650 mg PO Q6H PRN PRN Reason: FEVER Albuterol/Ipratropium (Duoneb -) 1 amp NEB QID PRN PRN Reason: SHORTNESS OF BREATH Amiodarone HCl (Cordarone -) [address] [facility] Last Admin: 01/20/20 10:17 Dose: 100 mg Documented by: Apixaban (Eliquis -) 2.[address] [facility] Last Admin: 01/20/20 13:12 Dose: 2.5 mg Documented by: Baclofen (Lioresal -) [address] [facility] Last Admin: 01/19/20 22:23 Dose: 10 mg Documented by: Clonazepam (Klonopin -) 0.[address] [facility] Last Admin: 01/20/20 10:17 Dose: 0.5 mg Documented by: Famotidine (Pepcid) [address] [facility] Piperacillin Sod/Tazobactam (Sod 2.25 gm/ Dextrose) 50 mls @ 100 mls/hr IVPB Q8H-IV [facility]; Protocol Last Admin: 01/20/20 10:17 Dose: 100 mls/hr Documented by: Sodium Chloride (Normal Saline -) 250 mls @ 3,000 mls/hr IV PRN PRN PRN Reason: Hypotension during Dialysis Stop: 01/20/20 14:43 Levothyroxine Sodium (Synthroid -) [address] [facility] Last Admin: 01/20/20 06:10 Dose: 25 mcg Documented by: Multivitamins/Minerals/Vitamin C (Tab-A-Vit -) [address] [facility] Last Admin: 01/20/20 10:17 Dose: 1 tab Documented by: Simethicone (Mylicon Liquid -) [address] [facility] Last Admin: 01/20/20 10:17 Dose: 40 mg Documented by: - Objective Vital Signs: Vital Signs Temperature 98.2 F 01/20/20 10:00 Pulse Rate 65 01/20/20 10:00 Respiratory Rate 15 01/20/20 11:58 Blood Pressure 110/47 L 01/20/20 10:00 O2 Sat by Pulse Oximetry (%) 931 H 01/20/20 11:58 Constitutional: Yes: No Distress, Calm Eyes: Yes: Conjunctiva Clear Neck: Yes: Other (+trach) Cardiovascular: Yes: Regular Rate and Rhythm Respiratory: Yes: Regular, Mechanically Ventilated Gastrointestinal: Yes: Normal Bowel Sounds, Soft Genitourinary: Yes: WNL Extremities: Yes: WNL Integumentary: Yes: WNL Neurological: Yes: Alert Labs: CBC, BMP 01/19/20 07:35 01/20/20 08:52 Microbiology 01/18/20 06:00 Sputum - Endotrachea Suction/Ventilator Gram Stain - Final 01/18/20 06:00 Sputum - Endotrachea Suction/Ventilator Sputum Culture - Final Pseudomonas Aeruginosa 01/19/20 04:00 Urine - Urine - Catheterized Urine Culture - Final NO GROWTH OBTAINED 01/17/20 22:40 Blood - Peripheral Venous Blood Culture - Preliminary NO GROWTH OBTAINED AFTER 48 HOURS, INCUBATION TO CONTINUE FOR 3 DAYS. 01/17/20 22:40 Blood - Peripheral Venous Blood Culture - Preliminary NO GROWTH OBTAINED AFTER 48 HOURS, INCUBATION TO CONTINUE FOR 3 DAYS. - ....Imaging Chest X-ray: Report Reviewed Problem List - Problems (1) Acute on chronic respiratory failure Code(s): J96.20 - ACUTE AND CHR RESP FAILURE, UNSP W HYPOXIA OR HYPERCAPNIA (2) ESRD (end stage renal disease) Code(s): N18.6 - END STAGE RENAL DISEASE (3) Hypokalemia Code(s): E87.6 - HYPOKALEMIA (4) 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 - TRACHEOSTOMY STATUS (5) Afib Code(s): I48.91 - UNSPECIFIED ATRIAL FIBRILLATION (6) Epilepsy Code(s): G40.909 - EPILEPSY, UNSP, NOT INTRACTABLE, WITHOUT STATUS EPILEPTICUS (7) HTN (hypertension) Code(s): I10 - ESSENTIAL (PRIMARY) HYPERTENSION (8) Hypothyroid Code(s): E03.9 - HYPOTHYROIDISM, UNSPECIFIED (9) MDD (major depressive disorder) Code(s): F32.9 - MAJOR DEPRESSIVE DISORDER, SINGLE EPISODE, UNSPECIFIED (10) Pneumonia Code(s): J18.9 - PNEUMONIA, UNSPECIFIED ORGANISM (11) Leukocytosis Code(s): D72.829 - ELEVATED WHITE BLOOD CELL COUNT, UNSPECIFIED Assessment/Plan Acute on chronic resp failure -trach/MV Possible LLL PNA Leukocytosis ESRD on HD AFIB Hypothyroidism MDD Epilepsy -- resp culture +Pseudomonas -- continue Zosyn -- wbc trending down, vitals stable, afebrile -- continue monitor
--- NOTE | 2020-01-20 14:31 | PN ---
Progress Note (short form) - Note Progress Note: Awake on AC Mode of vent. No acute events overnight. Intake & Output 01/17/20 01/18/20 01/19/20 01/20/20 23:59 23:59 23:59 23:59 Intake Total 1090 1275 650 Output Total 2 2104 200 Balance 1088 -829 450 Weight 91 lb 8 oz 102 lb 8 oz 102 lb 8 oz 97 lb 12.8 oz Last Vital Signs Temp Pulse Resp BP Pulse Ox 98.2 F 65 15 110/47 L 931 H 01/20/20 10:00 01/20/20 10:00 01/20/20 11:58 01/20/20 10:00 01/20/20 11:58 Active Medications Acetaminophen (Tylenol Oral Solution -) 650 mg PO Q6H PRN PRN Reason: FEVER Albuterol/Ipratropium (Duoneb -) 1 amp NEB QID PRN PRN Reason: SHORTNESS OF BREATH Amiodarone HCl (Cordarone -) 100 mg PEG DAILY [facility] Last Admin: 01/20/20 10:17 Dose: 100 mg Documented by: Apixaban (Eliquis -) 2.5 mg PEG BID [facility] Last Admin: 01/20/20 13:12 Dose: 2.5 mg Documented by: Baclofen (Lioresal -) 10 mg PEG HS [facility] Last Admin: 01/19/20 22:23 Dose: 10 mg Documented by: Clonazepam (Klonopin -) 0.5 mg PEG BID [facility] Last Admin: 01/20/20 10:17 Dose: 0.5 mg Documented by: Famotidine (Pepcid) 20 mg PEG DAILY [facility] Piperacillin Sod/Tazobactam (Sod 2.25 gm/ Dextrose) 50 mls @ 100 mls/hr IVPB Q8H-IV [facility]; Protocol Last Admin: 01/20/20 10:17 Dose: 100 mls/hr Documented by: Sodium Chloride (Normal Saline -) 250 mls @ 3,000 mls/hr IV PRN PRN PRN Reason: Hypotension during Dialysis Stop: 01/20/20 14:43 Levothyroxine Sodium (Synthroid -) 25 mcg PEG ACBK [facility] Last Admin: 01/20/20 06:10 Dose: 25 mcg Documented by: Multivitamins/Minerals/Vitamin C (Tab-A-Vit -) 1 tab PO DAILY [facility] Last Admin: 01/20/20 10:17 Dose: 1 tab Documented by: Simethicone (Mylicon Liquid -) 40 mg PEG BID [facility] Last Admin: 01/20/20 10:17 Dose: 40 mg Documented by: GENERAL: Vented, NAD NECK: Trach intact LUNGS: vented, diminished with scattered rhonchi at the bases. No accessory muscle use. HEART: Regular rate and rhythm, normal S1 and S2 without murmur, rub or gallop. ABDOMEN: Soft, nontender, not distended. PEG TUBE in place, no erythema or drainage in area. LOWER EXTREMITIES: 2+ pulses, warm, well-perfused. No peripheral edema. PSYCHIATRIC: Cooperative. Good eye contact. SKIN: Warm, dry, normal turgor, no rashes or lesions noted. Laboratory Results - last 24 hr 01/19/20 01/20/20 21:55 08:52 Sodium 141 139 Potassium 2.6 L* 2.8 L* Chloride 104 102 Carbon Dioxide 29 27 Anion Gap 8 10 BUN 33.9 H 45.5 H Creatinine 1.1 1.4 H Est GFR (CKD-EPI)AfAm 61.01 45.58 Est GFR (CKD-EPI)NonAf 52.64 39.33 Random Glucose 100 131 H Calcium 8.5 8.2 L Total Bilirubin 0.5 1.0 AST 36 37 ALT 20 23 Alkaline Phosphatase 137 H 159 H Total Protein 6.7 6.6 Albumin 2.0 L 2.0 L ASSESSMENT/PLAN: Chronic Respiratory Failure LLL PNA ESRD on HD (MWF) Afib (on eliquis) HTN Hypothyroid Epilepsy MDD ABX per ID IVF AC Mode of vent Follow cultures VTE prophylaxis HD per Renal Eliquis Dr Stearns
[2020-01-20] MEDS: BACLOFEN 10 MG TABLET (FP) PEG SCH (22:32)
[2020-01-21] MEDS ORDERED: DEXTROSE 5%-WATER - 50 ML IVPB ONE ×3 (01:29→16:58)
[2020-01-21] MEDS ORDERED: PIPERACILLIN/TAZOBACTAM 2.25 GM VIAL IVPB ONE ×3 (01:29→16:58)
[2020-01-21] MEDS: PIPERACILLIN/TAZOB 2.25 GM 2.25 GM in DEXTROSE 5%-WATER - 50 ML IVPB SCH ×3 (02:01→18:18)
[2020-01-21] MEDS: LEVOTHYROXINE NA 25 MCG TABLET (FP) PEG SCH (06:04)
[2020-01-21] MEDS ORDERED: FAMOTIDINE 40 MG/5 ML ORAL SUSPENSION PEG SCH (10:00)
[2020-01-21 10:03] LABS: BASO % 0.2 % (0-2.0); HEMATOCRIT 39.9 % (32.4-45.2); HEMOGLOBIN 12.7 GM/dL (10.7-15.3); LYMPH % 14.9 % (8-40); MCH 26.9 pg (25.7-33.7); MCHC 31.8 g/dl (32.0-36.0); MEAN CELL VOLUME 84.5 fl (80-96); MEAN PLT VOLUME 9.2 fl (7.5-11.1); MONO % 7.8 % (3.8-10.2); NEUT % 77.1 % (42.8-82.8); PLATELET COUNT 131 K/MM3 (134-434); RBC 4.72 M/mm3 (3.60-5.2); RDW 19.9 % (11.6-15.6); WHITE BLOOD COUNT 10.4 K/mm3 (4.0-10.0)
[2020-01-21 10:19] LABS: ALBUMIN 1.8 g/dl (3.4-5.0); BLOOD UREA NITROGEN 52.3 mg/dL (7-18); CALCIUM 8.6 mg/dL (8.5-10.1); CREATININE 1.5 mg/dL (0.55-1.3); MAGNESIUM 2.3 mg/dL (1.8-2.4)
[2020-01-21 10:21] LABS: BILIRUBIN,TOTAL 0.4 mg/dL (0.2-1)
--- NOTE | 2020-01-21 10:34 | PN ---
Progress Note, Physician Chief Complaint: Acute on chronic respiratory failure Hypokalemia ESRD Severe protein calorie malnutrition History of Present Illness: This is a 64 year old female with a significant pmhx of ESRD (MWF), respiratory Failure trach-vented, Afib (on eliquis), HTN, Hypothyroid, Epilepsy, MDD, who was BIBEMS from [facility] for dialysis complications. As per EMS, the patient was receiving dialysis but was interrupted due to respiratory complications. Pt was found to be tachypneic (40's), tachycardic (110's) and the dialysis was stopped. Pt had just started her dialysis and was unable to continue. HPI is limited secondary to the patient's inability to verbalize. NAD On mech vent Non verbal, cachetic, contracted GT clogged, nursing unable to unclog with declogger - Current Medication List Current Medications: Active Medications Acetaminophen (Tylenol Oral Solution -) 650 mg PO Q6H PRN PRN Reason: FEVER Albuterol/Ipratropium (Duoneb -) 1 amp NEB QID PRN PRN Reason: SHORTNESS OF BREATH Amiodarone HCl (Cordarone -) 100 mg PEG DAILY [facility] Last Admin: 01/20/20 10:17 Dose: 100 mg Documented by: Apixaban (Eliquis -) 2.5 mg PEG BID [facility] Last Admin: 01/20/20 22:32 Dose: 2.5 mg Documented by: Baclofen (Lioresal -) 10 mg PEG HS [facility] Last Admin: 01/20/20 22:32 Dose: 10 mg Documented by: Clonazepam (Klonopin -) 0.5 mg PEG BID [facility] Last Admin: 01/20/20 22:32 Dose: 0.5 mg Documented by: Famotidine (Pepcid) 20 mg PEG DAILY [facility] Piperacillin Sod/Tazobactam (Sod 2.25 gm/ Dextrose) 50 mls @ 100 mls/hr IVPB Q8H-IV [facility]; Protocol Last Admin: 01/21/20 02:01 Dose: 100 mls/hr Documented by: Levothyroxine Sodium (Synthroid -) 25 mcg PEG ACBK [facility] Last Admin: 01/21/20 06:04 Dose: 25 mcg Documented by: Multivitamins/Minerals/Vitamin C (Tab-A-Vit -) 1 tab PO DAILY [facility] Last Admin: 01/20/20 10:17 Dose: 1 tab Documented by: Simethicone (Mylicon Liquid -) 40 mg PEG BID [facility] Last Admin: 01/20/20 22:33 Dose: 40 mg Documented by: - Objective Vital Signs: Vital Signs Temperature 97.8 F 01/21/20 06:00 Pulse Rate 74 01/21/20 06:00 Respiratory Rate 14 01/21/20 07:58 Blood Pressure 154/67 01/21/20 06:00 O2 Sat by Pulse Oximetry (%) 100 01/21/20 07:58 Constitutional: Yes: No Distress, Calm, Cachectic Cardiovascular: Yes: Regular Rate and Rhythm Respiratory: Yes: Regular, Mechanically Ventilated, Rhonchi (diffuse) Gastrointestinal: Yes: Normal Bowel Sounds, Soft Genitourinary: Yes: Incontinence Musculoskeletal: Yes: Muscle Weakness Extremities: Yes: Other (generalized atrophy) Edema: No Peripheral Pulses WNL: Yes Neurological: Yes: Pre-Existing Deficit Labs: CBC, BMP 01/21/20 09:08 01/21/20 09:08 Problem List - Problems (1) Acute on chronic respiratory failure Assessment/Plan: -Mech vent -Pulmonary consult -Not a candidate for weaning at this time Problems reviewed: Yes Code(s): J96.20 - ACUTE AND CHR RESP FAILURE, UNSP W HYPOXIA OR HYPERCAPNIA (2) ESRD (end stage renal disease) Assessment/Plan: -Nephrology on board -HD as per nephrology Problems reviewed: Yes Code(s): N18.6 - END STAGE RENAL DISEASE (3) Afib Assessment/Plan: -Continue Eliquis 2.5 mg BID when GT replaced Problems reviewed: Yes Code(s): I48.91 - UNSPECIFIED ATRIAL FIBRILLATION (4) Pneumonia Assessment/Plan: -LLL pne -ID consult -IV zosyn -Pulmonary consult -COVID 19 PCR negative Problems reviewed: Yes Code(s): J18.9 - PNEUMONIA, UNSPECIFIED ORGANISM (5) Hypokalemia Assessment/Plan: -K+ hemolyzed this AM -monitor labs daily -Nephrology to address Problems reviewed: Yes Code(s): E87.6 - HYPOKALEMIA Assessment/Plan See problem list Return to [facility] once stable
[2020-01-21] MEDS ORDERED: PT OWN MED DRAWER 7, Y5N ONE (11:02)
[2020-01-21 11:03] LABS: TOT PROT 7.2 g/dl (6.4-8.2)
[2020-01-21] MEDS ORDERED: ACETAMINOPHEN 650 MG SUPP.RECT RC PRN (11:51)
--- NOTE | 2020-01-21 12:16 | PN ---
Progress Note, Physician History of Present Illness: Pt seen and examined at bedside. She appears comfortable. - Current Medication List Current Medications: Active Medications Acetaminophen (Tylenol Suppository -) 650 mg RC Q4H PRN PRN Reason: FEVER Albuterol/Ipratropium (Duoneb -) 1 amp NEB QID PRN PRN Reason: SHORTNESS OF BREATH Amiodarone HCl (Cordarone -) 100 mg PEG DAILY [facility] Last Admin: 01/20/20 10:17 Dose: 100 mg Documented by: Apixaban (Eliquis -) 2.5 mg PEG BID [facility] Last Admin: 01/20/20 22:32 Dose: 2.5 mg Documented by: Baclofen (Lioresal -) 10 mg PEG HS [facility] Last Admin: 01/20/20 22:32 Dose: 10 mg Documented by: Piperacillin Sod/Tazobactam (Sod 2.25 gm/ Dextrose) 50 mls @ 100 mls/hr IVPB Q8H-IV [facility]; Protocol Last Admin: 01/21/20 02:01 Dose: 100 mls/hr Documented by: Famotidine/Sodium Chloride (Pepcid 20 Mg Premixed Ivpb -) 20 mg in 50 mls @ 100 mls/hr IVPB BID [facility] Levothyroxine Sodium (Synthroid Injection -) 12.5 mcg IVPUSH DAILY [facility] Lorazepam (Ativan Injection -) 0.5 mg IVPUSH BID [facility] Multivitamins/Minerals/Vitamin C (Tab-A-Vit -) 1 tab PO DAILY [facility] Last Admin: 01/20/20 10:17 Dose: 1 tab Documented by: Simethicone (Mylicon Liquid -) 40 mg PEG BID [facility] Last Admin: 01/20/20 22:33 Dose: 40 mg Documented by: - Objective Vital Signs: Vital Signs Temperature 98.1 F 01/21/20 10:00 Pulse Rate 66 01/21/20 10:00 Respiratory Rate 14 01/21/20 12:02 Blood Pressure 151/56 L 01/21/20 10:00 O2 Sat by Pulse Oximetry (%) 93 L 01/21/20 12:02 Constitutional: Yes: Calm Eyes: Yes: Conjunctiva Clear HENT: Yes: Atraumatic Neck: Yes: Supple Cardiovascular: Yes: S1, S2 Respiratory: Yes: Mechanically Ventilated Gastrointestinal: Yes: Soft Genitourinary: Yes: Incontinence Musculoskeletal: Yes: Muscle Weakness Edema: No Labs: CBC, BMP 01/21/20 09:08 01/21/20 09:08 Assessment/Plan Current Medications Generic Name Dose Route Start Last Admin Trade Name Feng PRN Reason Stop Dose Admin Acetaminophen 650 mg 01/21/20 11:51 Tylenol Suppository - RC Q4H PRN FEVER Albuterol/Ipratropium 1 amp 01/19/20 10:29 Duoneb - NEB QID PRN SHORTNESS OF BREATH Amiodarone HCl 100 mg 01/19/20 10:00 01/20/20 10:17 Cordarone - PEG 100 mg DAILY [facility] Administration Apixaban 2.5 mg 01/19/20 10:00 01/20/20 22:32 Eliquis - PEG 2.5 mg BID [facility] Administration Baclofen 10 mg 01/18/20 23:45 01/20/20 22:32 Lioresal - PEG 10 mg HS [facility] Administration Piperacillin Sod/Tazobactam 50 mls @ 100 mls/hr 01/19/20 02:00 01/21/20 02:01 Sod 2.25 gm/ Dextrose IVPB 100 mls/hr Q8H-IV [facility] Administration Protocol Famotidine/Sodium Chloride 20 mg in 50 mls @ 100 mls/hr 01/21/20 12:00 Pepcid 20 Mg Premixed Ivpb - IVPB BID [facility] Levothyroxine Sodium 12.5 mcg 01/22/20 10:00 Synthroid Injection - IVPUSH DAILY [facility] Lorazepam 0.5 mg 01/21/20 12:00 Ativan Injection - IVPUSH BID [facility] Multivitamins/Minerals/Vitamin C 1 tab 01/19/20 10:00 01/20/20 10:17 Tab-A-Vit - PO 1 tab DAILY [facility] Administration Simethicone 40 mg 01/18/20 23:45 01/20/20 22:33 Mylicon Liquid - PEG 40 mg BID [facility] Administration IMPRESSION esrd vent dependence pneumonia malnutrition hypokalemia PLAN - HD tomorrow - potassium improved - will use 3 k bath on hd - cont vent support
[2020-01-21] MEDS: clonazePAM 0.5 MG TABLET PEG SCH (12:17)
[2020-01-21] MEDS: LORazepam 2 MG/ML SDV VIAL IVPUSH SCH ×2 (12:23→21:49)
[2020-01-21] MEDS: FAMOTIDINE 20 MG/50 ML IVPB 20 MG/50 ML MG IVPB SCH ×2 (12:26→21:48)
[2020-01-21] MEDS: MULTIVITAMINS (DAILY MVI) TABLET (FP) PO SCH (12:26)
[2020-01-21] MEDS: APIXABAN 2.5 MG TABLET PEG SCH ×2 (12:27→21:46)
[2020-01-21] MEDS: AMIODARONE HCL 200 MG TABLET PEG SCH (12:27)
[2020-01-21] MEDS: SIMETHICONE 40 MG/0.6 ML BOTTLE PEG SCH ×2 (12:27→21:47)
--- NOTE | 2020-01-21 13:10 | PN ---
Progress Note (short form) - Note Progress Note: Awake on AC Mode of vent. No acute events overnight. Intake & Output 01/18/20 01/19/20 01/20/20 01/21/20 23:59 23:59 23:59 23:59 Intake Total 1090 1275 650 Output Total 2 2104 200 Balance 1088 -829 450 Weight 102 lb 8 oz 102 lb 8 oz 97 lb 12.8 oz Last Vital Signs Temp Pulse Resp BP Pulse Ox 98.1 F 66 14 151/56 L 93 L 01/21/20 10:00 01/21/20 10:00 01/21/20 12:02 01/21/20 10:00 01/21/20 12:02 Active Medications Acetaminophen (Tylenol Suppository -) 650 mg RC Q4H PRN PRN Reason: FEVER Albuterol/Ipratropium (Duoneb -) 1 amp NEB QID PRN PRN Reason: SHORTNESS OF BREATH Amiodarone HCl (Cordarone -) 100 mg PEG DAILY [facility] Last Admin: 01/21/20 12:27 Dose: Not Given Documented by: Apixaban (Eliquis -) 2.5 mg PEG BID [facility] Last Admin: 01/21/20 12:27 Dose: Not Given Documented by: Baclofen (Lioresal -) 10 mg PEG HS [facility] Last Admin: 01/20/20 22:32 Dose: 10 mg Documented by: Piperacillin Sod/Tazobactam (Sod 2.25 gm/ Dextrose) 50 mls @ 100 mls/hr IVPB Q8H-IV [facility]; Protocol Last Admin: 01/21/20 12:23 Dose: 100 mls/hr Documented by: Famotidine/Sodium Chloride (Pepcid 20 Mg Premixed Ivpb -) 20 mg in 50 mls @ 100 mls/hr IVPB BID [facility] Last Admin: 01/21/20 12:26 Dose: 100 mls/hr Documented by: Sodium Chloride (Normal Saline -) 250 mls @ 3,000 mls/hr IV PRN PRN PRN Reason: Hypotension during Dialysis Stop: 01/22/20 12:17 Levothyroxine Sodium (Synthroid Injection -) 12.5 mcg IVPUSH DAILY [facility] Lorazepam (Ativan Injection -) 0.5 mg IVPUSH BID [facility] Last Admin: 01/21/20 12:23 Dose: 0.5 mg Documented by: Multivitamins/Minerals/Vitamin C (Tab-A-Vit -) 1 tab PO DAILY [facility] Last Admin: 01/21/20 12:26 Dose: Not Given Documented by: Simethicone (Mylicon Liquid -) 40 mg PEG BID [facility] Last Admin: 01/21/20 12:27 Dose: Not Given Documented by: GENERAL: Vented, NAD NECK: Trach intact LUNGS: vented, diminished with scattered rhonchi at the bases. No accessory muscle use. HEART: Regular rate and rhythm, normal S1 and S2 without murmur, rub or gallop. ABDOMEN: Soft, nontender, not distended. PEG TUBE in place, no erythema or drainage in area. LOWER EXTREMITIES: 2+ pulses, warm, well-perfused. No peripheral edema. PSYCHIATRIC: Cooperative. Good eye contact. SKIN: Warm, dry, normal turgor, no rashes or lesions noted. Laboratory Results - last 24 hr 01/21/20 01/21/20 09:08 09:08 WBC 10.4 H RBC 4.72 Hgb 12.7 Hct 39.9 MCV 84.5 MCH 26.9 MCHC 31.8 L RDW 19.9 H Plt Count 131 L D MPV 9.2 Absolute Neuts (auto) 8.0 Neutrophils % 77.1 Lymphocytes % 14.9 D Monocytes % 7.8 Eosinophils % 0.0 Basophils % 0.2 Nucleated RBC % 0 Sodium 139 Potassium 4.0 Chloride 104 Carbon Dioxide 27 Anion Gap 8 BUN 52.3 H Creatinine 1.5 H Est GFR (CKD-EPI)AfAm 41.94 Est GFR (CKD-EPI)NonAf 36.18 Random Glucose 89 Calcium 8.6 Magnesium 2.3 Total Bilirubin 0.4 AST 48 H ALT 21 Alkaline Phosphatase 149 H Total Protein 7.2 Albumin 1.8 L ASSESSMENT/PLAN: Chronic Respiratory Failure LLL PNA ESRD on HD (MWF) Afib (on eliquis) HTN Hypothyroid Epilepsy MDD ABX per ID IVF AC Mode of vent Follow cultures VTE prophylaxis HD per Renal Eliquis Dr Stearns
--- NOTE | 2020-01-21 14:29 | PN ---
Progress Note, Physician History of Present Illness: Pt alert and responsive, comfortable. Remains afebrile. - Current Medication List Current Medications: Active Medications Acetaminophen (Tylenol Suppository -) 650 mg RC Q4H PRN PRN Reason: FEVER Albuterol/Ipratropium (Duoneb -) 1 amp NEB QID PRN PRN Reason: SHORTNESS OF BREATH Amiodarone HCl (Cordarone -) 100 mg PEG DAILY [facility] Last Admin: 01/21/20 12:27 Dose: Not Given Documented by: Apixaban (Eliquis -) 2.5 mg PEG BID [facility] Last Admin: 01/21/20 12:27 Dose: Not Given Documented by: Baclofen (Lioresal -) 10 mg PEG HS [facility] Last Admin: 01/20/20 22:32 Dose: 10 mg Documented by: Piperacillin Sod/Tazobactam (Sod 2.25 gm/ Dextrose) 50 mls @ 100 mls/hr IVPB Q8H-IV [facility]; Protocol Last Admin: 01/21/20 12:23 Dose: 100 mls/hr Documented by: Famotidine/Sodium Chloride (Pepcid 20 Mg Premixed Ivpb -) 20 mg in 50 mls @ 100 mls/hr IVPB BID [facility] Last Admin: 01/21/20 12:26 Dose: 100 mls/hr Documented by: Sodium Chloride (Normal Saline -) 250 mls @ 3,000 mls/hr IV PRN PRN PRN Reason: Hypotension during Dialysis Stop: 01/22/20 12:17 Levothyroxine Sodium (Synthroid Injection -) 12.5 mcg IVPUSH DAILY [facility] Lorazepam (Ativan Injection -) 0.5 mg IVPUSH BID [facility] Last Admin: 01/21/20 12:23 Dose: 0.5 mg Documented by: Multivitamins/Minerals/Vitamin C (Tab-A-Vit -) 1 tab PO DAILY [facility] Last Admin: 01/21/20 12:26 Dose: Not Given Documented by: Simethicone (Mylicon Liquid -) 40 mg PEG BID [facility] Last Admin: 01/21/20 12:27 Dose: Not Given Documented by: - Objective Vital Signs: Vital Signs Temperature 98.1 F 01/21/20 10:00 Pulse Rate 66 01/21/20 10:00 Respiratory Rate 14 09/13/20 12:02 Blood Pressure 151/56 L 01/21/20 10:00 O2 Sat by Pulse Oximetry (%) 93 L 01/21/20 12:02 Constitutional: Yes: No Distress, Calm Cardiovascular: Yes: Regular Rate and Rhythm Respiratory: Yes: Regular, Mechanically Ventilated Gastrointestinal: Yes: Normal Bowel Sounds, Soft Genitourinary: Yes: WNL Extremities: Yes: WNL Neurological: Yes: Alert Labs: CBC, BMP 01/21/20 09:08 01/21/20 09:08 Problem List - Problems (1) Acute on chronic respiratory failure Code(s): J96.20 - ACUTE AND CHR RESP FAILURE, UNSP W HYPOXIA OR HYPERCAPNIA (2) ESRD (end stage renal disease) Code(s): N18.6 - END STAGE RENAL DISEASE (3) Hypokalemia Code(s): E87.6 - HYPOKALEMIA (4) 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 - TRACHEOSTOMY STATUS (5) Afib Code(s): I48.91 - UNSPECIFIED ATRIAL FIBRILLATION (6) Epilepsy Code(s): G40.909 - EPILEPSY, UNSP, NOT INTRACTABLE, WITHOUT STATUS EPILEPTICUS (7) HTN (hypertension) Code(s): I10 - ESSENTIAL (PRIMARY) HYPERTENSION (8) Hypothyroid Code(s): E03.9 - HYPOTHYROIDISM, UNSPECIFIED (9) MDD (major depressive disorder) Code(s): F32.9 - MAJOR DEPRESSIVE DISORDER, SINGLE EPISODE, UNSPECIFIED (10) Pneumonia Code(s): J18.9 - PNEUMONIA, UNSPECIFIED ORGANISM (11) Leukocytosis Code(s): D72.829 - ELEVATED WHITE BLOOD CELL COUNT, UNSPECIFIED Assessment/Plan Acute on chronic resp failure -trach/MV Possible LLL PNA Leukocytosis ESRD on HD AFIB Hypothyroidism MDD Epilepsy -- resp culture +Pseudomonas -- continue Zosyn -- wbc trend down to normal, afebrile -- continue monitor
[2020-01-21] MEDS: BACLOFEN 10 MG TABLET (FP) PEG SCH (21:46)
[2020-01-22] MEDS ORDERED: DEXTROSE 5%-WATER - 50 ML IVPB ONE ×3 (02:18→17:49)
[2020-01-22] MEDS ORDERED: PIPERACILLIN/TAZOBACTAM 2.25 GM VIAL IVPB ONE ×3 (02:18→17:49)
[2020-01-22] MEDS: PIPERACILLIN/TAZOB 2.25 GM 2.25 GM in DEXTROSE 5%-WATER - 50 ML IVPB SCH ×3 (03:01→18:18)
[2020-01-22] MEDS ORDERED: SODIUM CHLORIDE 250 ML IV PRN (07:50)
--- NOTE | 2020-01-22 08:14 | PN ---
Progress Note, Physician Chief Complaint: EVENTS AND NOTES REVIEWED IN BED IN DISTRESS - Current Medication List Current Medications: Active Medications Acetaminophen (Tylenol Suppository -) 650 mg RC Q4H PRN PRN Reason: FEVER Last Admin: 01/21/20 21:57 Dose: 650 mg Documented by: Albuterol/Ipratropium (Duoneb -) 1 amp NEB QID PRN PRN Reason: SHORTNESS OF BREATH Amiodarone HCl (Cordarone -) 100 mg PEG DAILY [facility] Last Admin: 01/21/20 12:27 Dose: Not Given Documented by: Apixaban (Eliquis -) 2.5 mg PEG BID [facility] Last Admin: 01/21/20 21:46 Dose: Not Given Documented by: Baclofen (Lioresal -) 10 mg PEG HS [facility] Last Admin: 01/21/20 21:46 Dose: Not Given Documented by: Piperacillin Sod/Tazobactam (Sod 2.25 gm/ Dextrose) 50 mls @ 100 mls/hr IVPB Q8H-IV [facility]; Protocol Last Admin: 01/22/20 03:01 Dose: 100 mls/hr Documented by: Famotidine/Sodium Chloride (Pepcid 20 Mg Premixed Ivpb -) 20 mg in 50 mls @ 100 mls/hr IVPB BID [facility] Last Admin: 01/21/20 21:48 Dose: 100 mls/hr Documented by: Levothyroxine Sodium (Synthroid Injection -) 12.5 mcg IVPUSH DAILY [facility] Lorazepam (Ativan Injection -) 0.5 mg IVPUSH BID [facility] Last Admin: 01/21/20 21:49 Dose: 0.5 mg Documented by: Multivitamins/Minerals/Vitamin C (Tab-A-Vit -) 1 tab PO DAILY [facility] Last Admin: 01/21/20 12:26 Dose: Not Given Documented by: Simethicone (Mylicon Liquid -) 40 mg PEG BID [facility] Last Admin: 01/21/20 21:47 Dose: Not Given Documented by: - Objective Vital Signs: Vital Signs Temperature 98.2 F 01/22/20 07:10 Pulse Rate 58 L 01/22/20 07:45 Respiratory Rate 14 01/22/20 07:45 Blood Pressure 125/82 01/22/20 07:45 O2 Sat by Pulse Oximetry (%) 94 L 01/22/20 06:00 Constitutional: Yes: Moderate Distress Cardiovascular: Yes: Pulse Irregular Respiratory: Yes: Mechanically Ventilated Gastrointestinal: Yes: Other (FEEDING TUBE) Genitourinary: Yes: Chin Present Musculoskeletal: Yes: Muscle Weakness Wound/Incision: Yes: Dressing Dry and Intact Neurological: Yes: Pre-Existing Deficit Labs: CBC, BMP 01/21/20 09:08 01/21/20 09:08 Problem List - Problems (1) Acute dyspnea Code(s): R06.00 - DYSPNEA, UNSPECIFIED (2) Acute on chronic respiratory failure Code(s): J96.20 - ACUTE AND CHR RESP FAILURE, UNSP W HYPOXIA OR HYPERCAPNIA (3) ESRD (end stage renal disease) Code(s): N18.6 - END STAGE RENAL DISEASE (4) Elevated troponin Code(s): R79.89 - OTHER SPECIFIED ABNORMAL FINDINGS OF BLOOD CHEMISTRY (5) Hypokalemia Code(s): E87.6 - HYPOKALEMIA (6) 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 - TRACHEOSTOMY STATUS (7) Afib Code(s): I48.91 - UNSPECIFIED ATRIAL FIBRILLATION (8) Chronic respiratory failure Code(s): J96.10 - CHRONIC RESPIRATORY FAILURE, UNSP W HYPOXIA OR HYPERCAPNIA (9) HTN (hypertension) Code(s): I10 - ESSENTIAL (PRIMARY) HYPERTENSION (10) Hypothyroid Code(s): E03.9 - HYPOTHYROIDISM, UNSPECIFIED (11) Leukocytosis Code(s): D72.829 - ELEVATED WHITE BLOOD CELL COUNT, UNSPECIFIED (12) MDD (major depressive disorder) Code(s): F32.9 - MAJOR DEPRESSIVE DISORDER, SINGLE EPISODE, UNSPECIFIED (13) Pneumonia Code(s): J18.9 - PNEUMONIA, UNSPECIFIED ORGANISM Assessment/Plan IV ABX PER ID RENAL EVAL FOR HD REPLETE KCL NEBS CHIN GTUBE WAS DISLODGED BY GI CHECK LABS DC PLANNING
[2020-01-22 08:41] LABS: BASO % 0.2 % (0-2.0); HEMATOCRIT 40.6 % (32.4-45.2); HEMOGLOBIN 13.1 GM/dL (10.7-15.3); LYMPH % 7.4 % (8-40); MCH 27.6 pg (25.7-33.7); MCHC 32.2 g/dl (32.0-36.0); MEAN CELL VOLUME 85.7 fl (80-96); MEAN PLT VOLUME 9.1 fl (7.5-11.1); MONO % 4.4 % (3.8-10.2); PLATELET COUNT 160 K/MM3 (134-434); RBC 4.74 M/mm3 (3.60-5.2)
[2020-01-22 09:08] LABS: BILIRUBIN,TOTAL 0.8 mg/dL (0.2-1); BLOOD UREA NITROGEN 48.8 mg/dL (7-18); CALCIUM 8.5 mg/dL (8.5-10.1); CREATININE 1.6 mg/dL (0.55-1.3); TOT PROT 6.8 g/dl (6.4-8.2)
[2020-01-22 09:11] LABS: POTASSIUM 2.9 mmol/L (3.5-5.1)
[2020-01-22] MEDS ORDERED: POTASSIUM CHLORIDE TABS 20 MEQ TABLET.ER (FP) PO ONE (10:33)
--- NOTE | 2020-01-22 10:33 | PN ---
Progress Note (short form) - Note Progress Note: RENAL pt awake and alert appears comfortable was just dialyzed Last Vital Signs Temp Pulse Resp BP Pulse Ox 98.2 F 82 14 94/64 94 L 01/22/20 07:10 01/22/20 08:45 01/22/20 08:45 01/22/20 08:45 01/22/20 06:00 trach bilat air entry abd soft ext no edema, some cyanosis neuro a+o skin no lesions CBC, BMP 01/22/20 07:15 01/22/20 07:15 Current Medications Generic Name Dose Route Start Last Admin Trade Name Freq PRN Reason Stop Dose Admin Acetaminophen 650 mg 01/21/20 11:51 01/21/20 21:57 Tylenol Suppository - RC 650 mg Q4H PRN Administration FEVER Albuterol/Ipratropium 1 amp 01/19/20 10:29 Duoneb - NEB QID PRN SHORTNESS OF BREATH Amiodarone HCl 100 mg 01/19/20 10:00 01/21/20 12:27 Cordarone - PEG Not Given DAILY [facility] Apixaban 2.5 mg 01/19/20 10:00 01/21/20 21:46 Eliquis - PEG Not Given BID [facility] Baclofen 10 mg 01/18/20 23:45 01/21/20 21:46 Lioresal - PEG Not Given HS [facility] Piperacillin Sod/Tazobactam 50 mls @ 100 mls/hr 01/19/20 02:00 01/22/20 03:01 Sod 2.25 gm/ Dextrose IVPB 100 mls/hr Q8H-IV [facility] Administration Protocol Famotidine/Sodium Chloride 20 mg in 50 mls @ 100 mls/hr 01/21/20 12:00 01/21/20 21:48 Pepcid 20 Mg Premixed Ivpb - IVPB 100 mls/hr BID [facility] Administration Levothyroxine Sodium 12.5 mcg 01/22/20 10:00 Synthroid Injection - IVPUSH DAILY [facility] Lorazepam 0.5 mg 01/21/20 12:00 01/21/20 21:49 Ativan Injection - IVPUSH 0.5 mg BID [facility] Administration Multivitamins/Minerals/Vitamin C 1 tab 01/19/20 10:00 01/21/20 12:26 Tab-A-Vit - PO Not Given DAILY [facility] Simethicone 40 mg 01/18/20 23:45 01/21/20 21:47 Mylicon Liquid - PEG Not Given BID [facility] IMPRESSION esrd vent dependence pneumonia malnutrition PLAN will dialyze today no darshan necessary 3k bath abx per id MV
[2020-01-22] MEDS: AMIODARONE HCL 200 MG TABLET PEG SCH (11:01)
[2020-01-22] MEDS: APIXABAN 2.5 MG TABLET PEG SCH ×2 (11:01→22:03)
[2020-01-22] MEDS: MULTIVITAMINS (DAILY MVI) TABLET (FP) PO SCH (11:03)
[2020-01-22] MEDS ORDERED: POTASSIUM CHLORIDE ORAL LIQUID 20 MEQ/15 ML PO ONE (11:15)
[2020-01-22] MEDS: SIMETHICONE 40 MG/0.6 ML BOTTLE PEG SCH ×2 (12:09→22:03)
[2020-01-22] MEDS: LEVOTHYROXINE SODIUM 100 MCG VIAL IVPUSH SCH (12:15)
[2020-01-22] MEDS: LORazepam 2 MG/ML SDV VIAL IVPUSH SCH ×2 (12:20→22:04)
[2020-01-22] MEDS: FAMOTIDINE 20 MG/50 ML IVPB 20 MG/50 ML MG IVPB SCH ×2 (12:29→22:03)
--- NOTE | 2020-01-22 13:06 | PN ---
Progress Note, Physician History of Present Illness: stable comfortable wbc has jumped up - Current Medication List Current Medications: Active Medications Acetaminophen (Tylenol Suppository -) 650 mg RC Q4H PRN PRN Reason: FEVER Last Admin: 01/21/20 21:57 Dose: 650 mg Documented by: Albuterol/Ipratropium (Duoneb -) 1 amp NEB QID PRN PRN Reason: SHORTNESS OF BREATH Amiodarone HCl (Cordarone -) 100 mg PEG DAILY [facility] Last Admin: 01/22/20 11:01 Dose: 100 mg Documented by: Apixaban (Eliquis -) 2.5 mg PEG BID [facility] Last Admin: 01/22/20 11:01 Dose: 2.5 mg Documented by: Baclofen (Lioresal -) 10 mg PEG HS [facility] Last Admin: 01/21/20 21:46 Dose: Not Given Documented by: Piperacillin Sod/Tazobactam (Sod 2.25 gm/ Dextrose) 50 mls @ 100 mls/hr IVPB Q8H-IV [facility]; Protocol Last Admin: 01/22/20 11:00 Dose: 100 mls/hr Documented by: Famotidine/Sodium Chloride (Pepcid 20 Mg Premixed Ivpb -) 20 mg in 50 mls @ 100 mls/hr IVPB BID [facility] Last Admin: 01/22/20 12:29 Dose: 100 mls/hr Documented by: Levothyroxine Sodium (Synthroid Injection -) 12.5 mcg IVPUSH DAILY [facility] Last Admin: 01/22/20 12:15 Dose: 12.5 mcg Documented by: Lorazepam (Ativan Injection -) 0.5 mg IVPUSH BID [facility] Last Admin: 01/22/20 12:20 Dose: 0.5 mg Documented by: Multivitamins/Minerals/Vitamin C (Tab-A-Vit -) 1 tab PO DAILY [facility] Last Admin: 01/22/20 11:03 Dose: 1 tab Documented by: Simethicone (Mylicon Liquid -) 40 mg PEG BID [facility] Last Admin: 01/22/20 12:09 Dose: 40 mg Documented by: - Objective Vital Signs: Vital Signs Temperature 98.2 F 01/22/20 07:10 Pulse Rate 60 01/22/20 10:30 Respiratory Rate 14 01/22/20 12:00 Blood Pressure 122/60 01/22/20 10:30 O2 Sat by Pulse Oximetry (%) 95 01/22/20 12:00 Constitutional: Yes: No Distress, Calm Cardiovascular: Yes: S1 Respiratory: Yes: Mechanically Ventilated, Other (trach) Gastrointestinal: Yes: Normal Bowel Sounds, Soft Musculoskeletal: Yes: WNL Extremities: Yes: WNL Neurological: Yes: Alert, Oriented Psychiatric: Yes: Alert, Oriented Labs: CBC, BMP 01/22/20 07:15 01/22/20 07:15 Assessment/Plan Problem List - Problems (1) Acute on chronic respiratory failure Code(s): J96.20 - ACUTE AND CHR RESP FAILURE, UNSP W HYPOXIA OR HYPERCAPNIA (2) ESRD (end stage renal disease) Code(s): N18.6 - END STAGE RENAL DISEASE (3) Hypokalemia Code(s): E87.6 - HYPOKALEMIA (4) 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 - TRACHEOSTOMY STATUS (5) Afib Code(s): I48.91 - UNSPECIFIED ATRIAL FIBRILLATION (6) Epilepsy Code(s): G40.909 - EPILEPSY, UNSP, NOT INTRACTABLE, WITHOUT STATUS EPILEPTICUS (7) HTN (hypertension) Code(s): I10 - ESSENTIAL (PRIMARY) HYPERTENSION (8) Hypothyroid Code(s): E03.9 - HYPOTHYROIDISM, UNSPECIFIED (9) MDD (major depressive disorder) Code(s): F32.9 - MAJOR DEPRESSIVE DISORDER, SINGLE EPISODE, UNSPECIFIED (10) Pneumonia Code(s): J18.9 - PNEUMONIA, UNSPECIFIED ORGANISM (11) Leukocytosis Code(s): D72.829 - ELEVATED WHITE BLOOD CELL COUNT, UNSPECIFIED Assessment/Plan Acute on chronic resp failure -trach/MV Possible LLL PNA Leukocytosis ESRD on HD AFIB Hypothyroidism MDD Epilepsy -- resp culture +Pseudomonas -- continue Zosyn wbc has increased suctioning if needed
--- NOTE | 2020-01-22 13:41 | PN ---
Progress Note (short form) - Note Progress Note: Awake on AC Mode of vent. RN having difficulty measuring O2 saturation. Comfortable. No acute events overnight. Intake & Output 01/19/20 01/20/20 01/21/20 01/22/20 23:59 23:59 23:59 23:59 Intake Total 1275 650 400 Output Total 2104 200 5602 Balance -829 450 -5202 Weight 102 lb 8 oz 97 lb 12.8 oz 95 lb 6.4 oz Last Vital Signs Temp Pulse Resp BP Pulse Ox 98.2 F 60 14 122/60 95 01/22/20 07:10 01/22/20 10:30 01/22/20 12:00 01/22/20 10:30 01/22/20 12:00 Active Medications Acetaminophen (Tylenol Suppository -) 650 mg RC Q4H PRN PRN Reason: FEVER Last Admin: 01/21/20 21:57 Dose: 650 mg Documented by: Albuterol/Ipratropium (Duoneb -) 1 amp NEB QID PRN PRN Reason: SHORTNESS OF BREATH Amiodarone HCl (Cordarone -) 100 mg PEG DAILY [facility] Last Admin: 01/22/20 11:01 Dose: 100 mg Documented by: Apixaban (Eliquis -) 2.5 mg PEG BID [facility] Last Admin: 01/22/20 11:01 Dose: 2.5 mg Documented by: Baclofen (Lioresal -) 10 mg PEG HS [facility] Last Admin: 01/21/20 21:46 Dose: Not Given Documented by: Piperacillin Sod/Tazobactam (Sod 2.25 gm/ Dextrose) 50 mls @ 100 mls/hr IVPB Q8H-IV [facility]; Protocol Last Admin: 01/22/20 11:00 Dose: 100 mls/hr Documented by: Famotidine/Sodium Chloride (Pepcid 20 Mg Premixed Ivpb -) 20 mg in 50 mls @ 100 mls/hr IVPB BID [facility] Last Admin: 01/22/20 12:29 Dose: 100 mls/hr Documented by: Levothyroxine Sodium (Synthroid Injection -) 12.5 mcg IVPUSH DAILY [facility] Last Admin: 01/22/20 12:15 Dose: 12.5 mcg Documented by: Lorazepam (Ativan Injection -) 0.5 mg IVPUSH BID [facility] Last Admin: 01/22/20 12:20 Dose: 0.5 mg Documented by: Multivitamins/Minerals/Vitamin C (Tab-A-Vit -) 1 tab PO DAILY [facility] Last Admin: 01/22/20 11:03 Dose: 1 tab Documented by: Simethicone (Mylicon Liquid -) 40 mg PEG BID [facility] Last Admin: 01/22/20 12:09 Dose: 40 mg Documented by: GENERAL: Vented, NAD NECK: Trach intact LUNGS: vented, diminished with scattered rhonchi at the bases. No accessory muscle use. HEART: Regular rate and rhythm, normal S1 and S2 without murmur, rub or gallop. ABDOMEN: Soft, nontender, not distended. PEG TUBE in place, no erythema or drainage in area. LOWER EXTREMITIES: 2+ pulses, warm, well-perfused. No peripheral edema. PSYCHIATRIC: Cooperative. Good eye contact. SKIN: Warm, dry, normal turgor, no rashes or lesions noted. Laboratory Results - last 24 hr 01/22/20 01/22/20 07:15 07:15 WBC 16.0 H RBC 4.74 Hgb 13.1 Hct 40.6 MCV 85.7 MCH 27.6 MCHC 32.2 RDW 20.0 H Plt Count 160 D MPV 9.1 Absolute Neuts (auto) 14.0 H Neutrophils % 88.0 H Lymphocytes % 7.4 L D Monocytes % 4.4 Eosinophils % 0.0 Basophils % 0.2 Nucleated RBC % 0 Sodium 142 Potassium 2.9 L* Chloride 106 Carbon Dioxide 26 Anion Gap 10 BUN 48.8 H Creatinine 1.6 H Est GFR (CKD-EPI)AfAm 38.79 Est GFR (CKD-EPI)NonAf 33.47 Random Glucose 68 L Calcium 8.5 Total Bilirubin 0.8 AST 34 ALT 20 Alkaline Phosphatase 118 H Total Protein 6.8 Albumin 2.0 L ASSESSMENT/PLAN: Chronic Respiratory Failure LLL PNA ESRD on HD (MW) Afib (on eliquis) HTN Hypothyroid Epilepsy MDD ABX per ID IVF AC Mode of vent Follow cultures VTE prophylaxis HD per Renal Eliquis Dr Stearns
[2020-01-22 14:35] VITALS: BMI 17.4
--- NOTE | 2020-01-22 15:22 | PN ---
Progress Note (short form) - Note Progress Note: Called by Nurse to evaluate malfunctioning G-Tube. 18Fr. balloon gastrostomy tube in place. It flushed well and aspirated back gastric contents. G-Tube seems to be working. Advise: Resume feeds Flush G-tube with 30cc water after meds/feeds Aspiration precautions. Keep head of bed elevated 35 degrees at all times Recall as needed
[2020-01-22] MEDS: BACLOFEN 10 MG TABLET (FP) PEG SCH (22:03)
[2020-01-23] MEDS ORDERED: PIPERACILLIN/TAZOBACTAM 2.25 GM VIAL IVPB ONE ×3 (00:51→17:54)
[2020-01-23] MEDS ORDERED: DEXTROSE 5%-WATER - 50 ML IVPB ONE ×3 (00:52→17:54)
[2020-01-23] MEDS: PIPERACILLIN/TAZOB 2.25 GM 2.25 GM in DEXTROSE 5%-WATER - 50 ML IVPB SCH ×3 (01:35→18:09)
[2020-01-23 08:11] LABS: BASO % 0.1 % (0-2.0); HEMATOCRIT 40.5 % (32.4-45.2); HEMOGLOBIN 12.8 GM/dL (10.7-15.3); LYMPH % 11.6 % (8-40); MCH 26.8 pg (25.7-33.7); MCHC 31.6 g/dl (32.0-36.0); MEAN CELL VOLUME 84.6 fl (80-96); MEAN PLT VOLUME 8.9 fl (7.5-11.1); MONO % 6.4 % (3.8-10.2); NEUT % 81.9 % (42.8-82.8); PLATELET COUNT 167 K/MM3 (134-434); RBC 4.78 M/mm3 (3.60-5.2); RDW 19.7 % (11.6-15.6); WHITE BLOOD COUNT 12.9 K/mm3 (4.0-10.0)
--- NOTE | 2020-01-23 08:33 | PN ---
Progress Note, Physician History of Present Illness: stable wbc trending down - Current Medication List Current Medications: Active Medications Acetaminophen (Tylenol Suppository -) 650 mg RC Q4H PRN PRN Reason: FEVER Last Admin: 01/21/20 21:57 Dose: 650 mg Documented by: Albuterol/Ipratropium (Duoneb -) 1 amp NEB QID PRN PRN Reason: SHORTNESS OF BREATH Amiodarone HCl (Cordarone -) 100 mg PEG DAILY [facility] Last Admin: 01/22/20 11:01 Dose: 100 mg Documented by: Apixaban (Eliquis -) 2.5 mg PEG BID [facility] Last Admin: 01/22/20 22:03 Dose: 2.5 mg Documented by: Baclofen (Lioresal -) 10 mg PEG HS [facility] 234 [facility]EDS AT [facility] Last Admin: 01/22/20 22:03 Dose: 10 mg Documented by: Piperacillin Sod/Tazobactam (Sod 2.25 gm/ Dextrose) 50 mls @ 100 mls/hr IVPB Q8H-IV [facility]; Protocol Last Admin: 01/23/20 01:35 Dose: 100 mls/hr Documented by: Famotidine/Sodium Chloride (Pepcid 20 Mg Premixed Ivpb -) 20 mg in 50 mls @ 100 mls/hr IVPB BID [facility] Last Admin: 01/22/20 22:03 Dose: 100 mls/hr Documented by: Levothyroxine Sodium (Synthroid Injection -) 12.5 mcg IVPUSH DAILY [facility] Last Admin: 01/22/20 12:15 Dose: 12.5 mcg Documented by: Lorazepam (Ativan Injection -) 0.5 mg IVPUSH BID [facility]S [facility] Last Admin: 01/22/20 22:04 Dose: 0.5 mg Documented by: Multivitamins/Minerals/Vitamin C (Tab-A-Vit -) 1 tab PO DAILY [facility]S [facility] Last Admin: 01/22/20 11:03 Dose: 1 tab Documented by: Simethicone (Mylicon Liquid -) 40 mg PEG BID [facility]S [facility] Last Admin: 01/22/20 22:03 Dose: 40 mg Documented by: - Objective Vital Signs: Vital Signs Temperature 98.5 F 01/23/20 06:00 Pulse Rate 89 01/23/20 06:00 Respiratory Rate 18 01/23/20 06:00 Blood Pressure 156/65 01/23/20 06:00 O2 Sat by Pulse Oximetry (%) 96 01/23/20 06:00 Constitutional: Yes: No Distress, Calm Cardiovascular: Yes: S1, S2 Respiratory: Yes: Mechanically Ventilated, Other (trach) Gastrointestinal: Yes: Normal Bowel Sounds, Soft Musculoskeletal: Yes: WNL Extremities: Yes: WNL Neurological: Yes: Alert Psychiatric: Yes: Alert Labs: CBC, BMP 01/23/20 07:36 Assessment/Plan Problem List - Problems (1) Acute on chronic respiratory failure Code(s): J96.20 - ACUTE AND CHR RESP FAILURE, UNSP W HYPOXIA OR HYPERCAPNIA (2) ESRD (end stage renal disease) Code(s): N18.6 - END STAGE RENAL DISEASE (3) Hypokalemia Code(s): E87.6 - HYPOKALEMIA (4) 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 - TRACHEOSTOMY STATUS (5) Afib Code(s): I48.91 - UNSPECIFIED ATRIAL FIBRILLATION (6) Epilepsy Code(s): G40.909 - EPILEPSY, UNSP, NOT INTRACTABLE, WITHOUT STATUS EPILEPTICUS (7) HTN (hypertension) Code(s): I10 - ESSENTIAL (PRIMARY) HYPERTENSION (8) Hypothyroid Code(s): E03.9 - HYPOTHYROIDISM, UNSPECIFIED (9) MDD (major depressive disorder) Code(s): F32.9 - MAJOR DEPRESSIVE DISORDER, SINGLE EPISODE, UNSPECIFIED (10) Pneumonia Code(s): J18.9 - PNEUMONIA, UNSPECIFIED ORGANISM (11) Leukocytosis Code(s): D72.829 - ELEVATED WHITE BLOOD CELL COUNT, UNSPECIFIED Assessment/Plan Acute on chronic resp failure -trach/MV Possible LLL PNA Leukocytosis ESRD on HD AFIB Hypothyroidism MDD Epilepsy -- resp culture +Pseudomonas -- continue Zosyn wbc has increased suctioning if needed
[2020-01-23 08:45] LABS: BILIRUBIN,TOTAL 0.3 mg/dL (0.2-1); BLOOD UREA NITROGEN 33.1 mg/dL (7-18); CREATININE 1.7 mg/dL (0.55-1.3); POTASSIUM 3.4 mmol/L (3.5-5.1); TOT PROT 6.8 g/dl (6.4-8.2)
--- NOTE | 2020-01-23 10:44 | PN ---
Progress Note, Physician Chief Complaint: Acute on chronic respiratory failure Hypokalemia ESRD Severe protein calorie malnutrition History of Present Illness: This is a 64 year old female with a significant pmhx of ESRD (MWF), respiratory Failure trach-vented, Afib (on eliquis), HTN, Hypothyroid, Epilepsy, MDD, who was BIBEMS from [facility] for dialysis complications. As per EMS, the patient was receiving dialysis but was interrupted due to respiratory complications. Pt was found to be tachypneic (40's), tachycardic (110's) and the dialysis was stopped. Pt had just started her dialysis and was unable to continue. HPI is limited secondary to the patient's inability to verbalize. [facility] Non verbal, cachetic, contracted G tube functioning well now - Current Medication List Current Medications: Active Medications Acetaminophen (Tylenol Suppository -) 650 mg RC Q4H PRN PRN Reason: FEVER Last Admin: 01/21/20 21:57 Dose: 650 mg Documented by: Albuterol/Ipratropium (Duoneb -) 1 amp NEB QID PRN PRN Reason: SHORTNESS OF BREATH Amiodarone HCl (Cordarone -) 100 mg PEG DAILY [facility] Last Admin: 01/22/20 11:01 Dose: 100 mg Documented by: Apixaban (Eliquis -) 2.5 mg PEG BID [facility] Last Admin: 01/22/20 22:03 Dose: 2.5 mg Documented by: Baclofen (Lioresal -) 10 mg PEG HS [facility] Last Admin: 01/22/20 22:03 Dose: 10 mg Documented by: Piperacillin Sod/Tazobactam (Sod 2.25 gm/ Dextrose) 50 mls @ 100 mls/hr IVPB Q8H-IV [facility]; Protocol Last Admin: 01/23/20 01:35 Dose: 100 mls/hr Documented by: Famotidine/Sodium Chloride (Pepcid 20 Mg Premixed Ivpb -) 20 mg in 50 mls @ 100 mls/hr IVPB BID [facility] Last Admin: 01/22/20 22:03 Dose: 100 mls/hr Documented by: Levothyroxine Sodium (Synthroid Injection -) 12.5 mcg IVPUSH DAILY [facility] Last Admin: 01/22/20 12:15 Dose: 12.5 mcg Documented by: Lorazepam (Ativan Injection -) 0.5 mg IVPUSH BID [facility] Last Admin: 01/22/20 22:04 Dose: 0.5 mg Documented by: Multivitamins/Minerals/Vitamin C (Tab-A-Vit -) 1 tab PO DAILY [facility] Last Admin: 01/22/20 11:03 Dose: 1 tab Documented by: Simethicone (Mylicon Liquid -) 40 mg PEG BID [facility] Last Admin: 01/22/20 22:03 Dose: 40 mg Documented by: - Objective Vital Signs: Vital Signs Temperature 98.5 F 01/23/20 06:00 Pulse Rate 89 01/23/20 06:00 Respiratory Rate 15 01/23/20 08:30 Blood Pressure 156/65 01/23/20 06:00 O2 Sat by Pulse Oximetry (%) 95 01/23/20 08:30 Constitutional: Yes: No Distress, Calm, Cachectic Cardiovascular: Yes: Regular Rate and Rhythm Respiratory: Yes: Regular, CTA Bilaterally, Mechanically Ventilated Gastrointestinal: Yes: Normal Bowel Sounds, Soft Genitourinary: Yes: Incontinence Musculoskeletal: Yes: Muscle Weakness Extremities: Yes: Other (contracted) Edema: No Peripheral Pulses WNL: Yes Neurological: Yes: Other Labs: CBC, BMP 01/23/20 07:36 01/23/20 07:36 Problem List - Problems (1) Acute on chronic respiratory failure Assessment/Plan: -Mech vent -Pulmonary consult -Not a candidate for weaning at this time Problems reviewed: Yes Code(s): J96.20 - ACUTE AND CHR RESP FAILURE, UNSP W HYPOXIA OR HYPERCAPNIA (2) ESRD (end stage renal disease) Assessment/Plan: -Nephrology on board -HD as per nephrology Problems reviewed: Yes Code(s): N18.6 - END STAGE RENAL DISEASE (3) Afib Assessment/Plan: -Continue Eliquis 2.5 mg BID Problems reviewed: Yes Code(s): I48.91 - UNSPECIFIED ATRIAL FIBRILLATION (4) Pneumonia Assessment/Plan: -LLL pne -ID consult -IV zosyn -Pulmonary consult -COVID 19 PCR negative Problems reviewed: Yes Code(s): J18.9 - PNEUMONIA, UNSPECIFIED ORGANISM (5) Hypokalemia Assessment/Plan: -monitor labs daily -Nephrology to address Problems reviewed: Yes Code(s): E87.6 - HYPOKALEMIA (6) Severe protein-calorie malnutrition Assessment/Plan: -Multivitamin Problems reviewed: Yes Code(s): E43 - UNSPECIFIED SEVERE PROTEIN-CALORIE MALNUTRITION (7) PEG tube malfunction Assessment/Plan: -resolved -resume feeding Problems reviewed: Yes Code(s): K94.23 - GASTROSTOMY MALFUNCTION Assessment/Plan See problem list
--- NOTE | 2020-01-23 10:49 | PN ---
Progress Note, Physician History of Present Illness: PULMONARY DROWSY,AROUSABLE ON VENT SUPPORT AC MODE,-RESP DISTRESS - Current Medication List Current Medications: Active Medications Acetaminophen (Tylenol Suppository -) 650 mg RC Q4H PRN PRN Reason: FEVER Last Admin: 01/21/20 21:57 Dose: 650 mg Documented by: Albuterol/Ipratropium (Duoneb -) 1 amp NEB QID PRN PRN Reason: SHORTNESS OF BREATH Amiodarone HCl (Cordarone -) 100 mg PEG DAILY [facility] Last Admin: 01/22/20 11:01 Dose: 100 mg Documented by: Apixaban (Eliquis -) 2.5 mg PEG BID [facility] Last Admin: 01/22/20 22:03 Dose: 2.5 mg Documented by: Baclofen (Lioresal -) 10 mg PEG HS [facility] Last Admin: 01/22/20 22:03 Dose: 10 mg Documented by: Piperacillin Sod/Tazobactam (Sod 2.25 gm/ Dextrose) 50 mls @ 100 mls/hr IVPB Q8H-IV [facility]; Protocol Last Admin: 01/23/20 01:35 Dose: 100 mls/hr Documented by: Famotidine/Sodium Chloride (Pepcid 20 Mg Premixed Ivpb -) 20 mg in 50 mls @ 100 mls/hr IVPB BID [facility] Last Admin: 01/22/20 22:03 Dose: 100 mls/hr Documented by: Levothyroxine Sodium (Synthroid Injection -) 12.5 mcg IVPUSH DAILY [facility] Last Admin: 01/22/20 12:15 Dose: 12.5 mcg Documented by: Lorazepam (Ativan Injection -) 0.5 mg IVPUSH BID [facility] Last Admin: 01/22/20 22:04 Dose: 0.5 mg Documented by: Multivitamins/Minerals/Vitamin C (Tab-A-Vit -) 1 tab PO DAILY [facility] Last Admin: 01/22/20 11:03 Dose: 1 tab Documented by: Simethicone (Mylicon Liquid -) 40 mg PEG BID [facility] Last Admin: 01/22/20 22:03 Dose: 40 mg Documented by: - Objective Vital Signs: Vital Signs Temperature 98.5 F 01/23/20 06:00 Pulse Rate 89 01/23/20 06:00 Respiratory Rate 15 01/23/20 08:30 Blood Pressure 156/65 01/23/20 06:00 O2 Sat by Pulse Oximetry (%) 95 01/23/20 08:30 Constitutional: Yes: Calm, Cachectic Eyes: Yes: WNL HENT: Yes: WNL Neck: Yes: Supple (TRACH) Cardiovascular: Yes: Pulse Irregular, S1, S2 Respiratory: Yes: Diminished Gastrointestinal: Yes: Normal Bowel Sounds, Soft Extremities: Yes: WNL Edema: No Labs: CBC, BMP 01/23/20 07:36 01/23/20 07:36 Assessment/Plan SSESSMENT/PLAN: Chronic Respiratory Failure LLL PNA ESRD on HD (MWF) Afib (on eliquis) HTN Hypothyroid Epilepsy MDD ABX per ID IVF AC Mode of vent VTE prophylaxis HD per Renal Eliquis DR DE LEON
[2020-01-23] MEDS: AMIODARONE HCL 200 MG TABLET PEG SCH (11:05)
[2020-01-23] MEDS: SIMETHICONE 40 MG/0.6 ML BOTTLE PEG SCH ×2 (11:06→22:17)
[2020-01-23] MEDS: MULTIVITAMINS (DAILY MVI) TABLET (FP) PO SCH (11:06)
[2020-01-23] MEDS: FAMOTIDINE 20 MG/50 ML IVPB 20 MG/50 ML MG IVPB SCH (11:06)
[2020-01-23] MEDS: LORazepam 2 MG/ML SDV VIAL IVPUSH SCH (11:06)
[2020-01-23] MEDS: APIXABAN 2.5 MG TABLET PEG SCH ×2 (11:06→22:17)
[2020-01-23] MEDS: LEVOTHYROXINE SODIUM 100 MCG VIAL IVPUSH SCH (11:07)
[2020-01-23] MEDS ORDERED: PT OWN MED DRAWER 7, Y5N ONE (11:08)
--- NOTE | 2020-01-23 11:51 | PN ---
Progress Note (short form) - Note Progress Note: RENAL pt awake and alert appears comfortable Last Vital Signs Temp Pulse Resp BP Pulse Ox 98.5 F 89 15 156/65 95 01/23/20 06:00 01/23/20 06:00 01/23/20 08:30 01/23/20 06:00 01/23/20 08:30 trach bilat air entry abd soft ext no edema, some cyanosis neuro a+o skin no lesions CBC, BMP 01/23/20 07:36 01/23/20 07:36 Current Medications Generic Name Dose Route Start Last Admin Trade Name Freq PRN Reason Stop Dose Admin Acetaminophen 650 mg 01/21/20 11:51 01/21/20 21:57 Tylenol Suppository - RC 650 mg Q4H PRN Administration FEVER Albuterol/Ipratropium 1 amp 01/19/20 10:29 Duoneb - NEB QID PRN SHORTNESS OF BREATH Amiodarone HCl 100 mg 01/19/20 10:00 01/23/20 11:05 Cordarone - PEG 100 mg DAILY [facility] Administration Apixaban 2.5 mg 01/19/20 10:00 01/23/20 11:06 Eliquis - PEG 2.5 mg BID [facility] Administration Baclofen 10 mg 01/18/20 23:45 01/22/20 22:03 Lioresal - PEG 10 mg HS [facility] Administration Piperacillin Sod/Tazobactam 50 mls @ 100 mls/hr 01/19/20 02:00 01/23/20 11:06 Sod 2.25 gm/ Dextrose IVPB 100 mls/hr Q8H-IV [facility] Administration Protocol Famotidine/Sodium Chloride 20 mg in 50 mls @ 100 mls/hr 01/21/20 12:00 01/23/20 11:06 Pepcid 20 Mg Premixed Ivpb - IVPB 100 mls/hr BID [facility] Administration Levothyroxine Sodium 12.5 mcg 01/22/20 10:00 01/23/20 11:07 Synthroid Injection - IVPUSH 12.5 mcg DAILY [facility] Administration Lorazepam 0.5 mg 01/21/20 12:00 01/23/20 11:06 Ativan Injection - IVPUSH 0.5 mg BID [facility] Administration Multivitamins/Minerals/Vitamin C 1 tab 01/19/20 10:00 01/23/20 11:06 Tab-A-Vit - PO 1 tab DAILY [facility] Administration Simethicone 40 mg 01/18/20 23:45 01/23/20 11:06 Mylicon Liquid - PEG 40 mg BID [facility] Administration IMPRESSION esrd vent dependence pneumonia malnutrition hypokalemia PLAN will dialyze tomorrow no darshan necessary 3k bath abx per id adjust diet to increase potassium intake MV
[2020-01-23] MEDS ORDERED: ACETAMINOPHEN 160 MG/5 ML *Children Solution GT PRN (14:32)
[2020-01-23] MEDS ORDERED: ACETAMINOPHEN 650 MG/20.3 ML ORAL SOLUTION (CUPS) GT PRN (14:46)
[2020-01-23] MEDS: BACLOFEN 10 MG TABLET (FP) PEG SCH (22:17)
[2020-01-23] MEDS: LORazepam 0.5 MG TABLET GT SCH (22:18)
[2020-01-24] MEDS ORDERED: PIPERACILLIN/TAZOBACTAM 2.25 GM VIAL IVPB ONE ×4 (00:59→17:39)
[2020-01-24] MEDS ORDERED: DEXTROSE 5%-WATER - 50 ML IVPB ONE ×3 (00:59→17:39)
[2020-01-24] MEDS: PIPERACILLIN/TAZOB 2.25 GM 2.25 GM in DEXTROSE 5%-WATER - 50 ML IVPB SCH ×3 (01:11→17:42)
[2020-01-24] MEDS: LEVOTHYROXINE NA 25 MCG TABLET (FP) PO SCH (06:26)
--- NOTE | 2020-01-24 10:08 | PN ---
Progress Note, Physician History of Present Illness: pulmonary awake,comfortable on vent support,ac mode -resp distress - Current Medication List Current Medications: Active Medications Acetaminophen (Tylenol Oral Solution -) 650 mg GT Q4H PRN PRN Reason: FEVER Albuterol/Ipratropium (Duoneb -) 1 amp NEB QID PRN PRN Reason: SHORTNESS OF BREATH Amiodarone HCl (Cordarone -) 100 mg PEG DAILY [facility] Last Admin: 01/23/20 11:05 Dose: 100 mg Documented by: Apixaban (Eliquis -) 2.5 mg PEG BID [facility] Last Admin: 01/23/20 22:17 Dose: 2.5 mg Documented by: Baclofen (Lioresal -) 10 mg PEG HS [facility] Last Admin: 01/23/20 22:17 Dose: 10 mg Documented by: Famotidine (Pepcid) 20 mg PEG DAILY [facility] Piperacillin Sod/Tazobactam (Sod 2.25 gm/ Dextrose) 50 mls @ 100 mls/hr IVPB Q8H-IV [facility]; Protocol Last Admin: 01/24/20 01:11 Dose: 100 mls/hr Documented by: Levothyroxine Sodium (Synthroid -) 25 mcg PO DAILY@0700 [facility] Last Admin: 01/24/20 06:26 Dose: 25 mcg Documented by: Lorazepam (Ativan -) 0.5 mg GT BID [facility] Last Admin: 01/23/20 22:18 Dose: Not Given Documented by: Multivitamins/Minerals/Vitamin C (Tab-A-Vit -) 1 tab PO DAILY [facility] Last Admin: 01/23/20 11:06 Dose: 1 tab Documented by: Simethicone (Mylicon Liquid -) 40 mg PEG BID [facility] Last Admin: 01/23/20 22:17 Dose: 40 mg Documented by: - Objective Vital Signs: Vital Signs Temperature 98.2 F 01/24/20 06:00 Pulse Rate 72 01/24/20 06:00 Respiratory Rate 14 01/24/20 08:00 Blood Pressure 155/87 01/24/20 06:00 O2 Sat by Pulse Oximetry (%) 98 01/24/20 08:00 Constitutional: Yes: Calm, Cachectic Eyes: Yes: WNL HENT: Yes: WNL Neck: Yes: Supple (trach) Cardiovascular: Yes: Pulse Irregular, S1, S2 Respiratory: Yes: Diminished Gastrointestinal: Yes: Normal Bowel Sounds, Soft Extremities: Yes: WNL Edema: No Labs: CBC, BMP - ....Imaging Chest X-ray: Report Reviewed, Image Reviewed Assessment/Plan SSESSMENT/PLAN: Chronic Respiratory Failure LLL PNA ESRD on HD (MWF) Afib (on eliquis) HTN Hypothyroid Epilepsy MDD ABX per ID AC Mode of vent VTE prophylaxis HD per Renal Eliquis DR DE LEON
--- NOTE | 2020-01-24 10:26 | PN ---
Progress Note, Physician Chief Complaint: Acute on chronic respiratory failure Hypokalemia ESRD Severe protein calorie malnutrition History of Present Illness: This is a 64 year old female with a significant pmhx of ESRD (MWF), respiratory Failure trach-vented, Afib (on eliquis), HTN, Hypothyroid, Epilepsy, MDD, who was BIBEMS from [facility] for dialysis complications. As per EMS, the patient was receiving dialysis but was interrupted due to respiratory complications. Pt was found to be tachypneic (40's), tachycardic (110's) and the dialysis was stopped. Pt had just started her dialysis and was unable to continue. HPI is limited secondary to the patient's inability to verbalize. [facility] Non verbal, cachetic, contracted Tube feeding changed to perative from nepro - Current Medication List Current Medications: Active Medications Acetaminophen (Tylenol Oral Solution -) 650 mg GT Q4H PRN PRN Reason: FEVER Albuterol/Ipratropium (Duoneb -) 1 amp NEB QID PRN PRN Reason: SHORTNESS OF BREATH Amiodarone HCl (Cordarone -) 100 mg PEG DAILY [facility] Last Admin: 01/23/20 11:05 Dose: 100 mg Documented by: Apixaban (Eliquis -) 2.5 mg PEG BID [facility] Last Admin: 01/23/20 22:17 Dose: 2.5 mg Documented by: Baclofen (Lioresal -) 10 mg PEG HS [facility] Last Admin: 01/23/20 22:17 Dose: 10 mg Documented by: Famotidine (Pepcid) 20 mg PEG DAILY [facility] Piperacillin Sod/Tazobactam (Sod 2.25 gm/ Dextrose) 50 mls @ 100 mls/hr IVPB Q8H-IV [facility]; Protocol Last Admin: 01/24/20 01:11 Dose: 100 mls/hr Documented by: Levothyroxine Sodium (Synthroid -) 25 mcg PO DAILY@0700 [facility] Last Admin: 01/24/20 06:26 Dose: 25 mcg Documented by: Lorazepam (Ativan -) 0.5 mg GT BID [facility] Last Admin: 01/23/20 22:18 Dose: Not Given Documented by: Multivitamins/Minerals/Vitamin C (Tab-A-Vit -) 1 tab PO DAILY [facility] Last Admin: 01/23/20 11:06 Dose: 1 tab Documented by: Simethicone (Mylicon Liquid -) 40 mg PEG BID [facility] Last Admin: 01/23/20 22:17 Dose: 40 mg Documented by: - Objective Vital Signs: Vital Signs Temperature 98.2 F 01/24/20 06:00 Pulse Rate 72 01/24/20 06:00 Respiratory Rate 14 01/24/20 08:00 Blood Pressure 155/87 01/24/20 06:00 O2 Sat by Pulse Oximetry (%) 98 01/24/20 08:00 Constitutional: Yes: No Distress, Cachectic, Moderate Distress Cardiovascular: Yes: Regular Rate and Rhythm Respiratory: Yes: Regular, CTA Bilaterally, Mechanically Ventilated Gastrointestinal: Yes: Normal Bowel Sounds, Soft Genitourinary: Yes: Incontinence Musculoskeletal: Yes: Muscle Weakness Extremities: Yes: Other (contracted) Edema: No Peripheral Pulses WNL: Yes Neurological: Yes: Pre-Existing Deficit Labs: CBC, BMP 01/23/20 07:36 01/23/20 07:36 Problem List - Problems (1) Acute on chronic respiratory failure Assessment/Plan: -Mech vent -Pulmonary consult -Not a candidate for weaning at this time Problems reviewed: Yes Code(s): J96.20 - ACUTE AND CHR RESP FAILURE, UNSP W HYPOXIA OR HYPERCAPNIA (2) ESRD (end stage renal disease) Assessment/Plan: -Nephrology on board -HD as per nephrology Problems reviewed: Yes Code(s): N18.6 - END STAGE RENAL DISEASE (3) Afib Assessment/Plan: -Continue Eliquis 2.5 mg BID Problems reviewed: Yes Code(s): I48.91 - UNSPECIFIED ATRIAL FIBRILLATION (4) Pneumonia Assessment/Plan: -LLL pne -ID consult -IV zosynfor another 48 hours -Pulmonary consult -COVID 19 PCR negative Problems reviewed: Yes Code(s): J18.9 - PNEUMONIA, UNSPECIFIED ORGANISM (5) Hypokalemia Assessment/Plan: -monitor labs daily, repeat labs pending -Nephrology on borad -TF changed from nepro to perative Problems reviewed: Yes Code(s): E87.6 - HYPOKALEMIA (6) Severe protein-calorie malnutrition Assessment/Plan: -Multivitamin -Prosource Problems reviewed: Yes Code(s): E43 - UNSPECIFIED SEVERE PROTEIN-CALORIE MALNUTRITION (7) PEG tube malfunction Assessment/Plan: -resolved -tolerating TF well Problems reviewed: Yes Code(s): K94.23 - GASTROSTOMY MALFUNCTION Assessment/Plan See problem list
--- NOTE | 2020-01-24 10:29 | PN ---
Progress Note, Physician History of Present Illness: stable no new issues - Current Medication List Current Medications: Active Medications Acetaminophen (Tylenol Oral Solution -) 650 mg GT Q4H PRN PRN Reason: FEVER Albuterol/Ipratropium (Duoneb -) 1 amp NEB QID PRN PRN Reason: SHORTNESS OF BREATH Amino Acids (Prosource No Carb Liquid Pkt) 30 ml PO BID@0800,1730 [facility] Amiodarone HCl (Cordarone -) 100 mg PEG DAILY [facility] Last Admin: 01/23/20 11:05 Dose: 100 mg Documented by: Apixaban (Eliquis -) 2.5 mg PEG BID [facility] Last Admin: 01/23/20 22:17 Dose: 2.5 mg Documented by: Baclofen (Lioresal -) 10 mg PEG HS [facility] Last Admin: 01/23/20 22:17 Dose: 10 mg Documented by: Famotidine (Pepcid) 20 mg PEG DAILY [facility] Piperacillin Sod/Tazobactam (Sod 2.25 gm/ Dextrose) 50 mls @ 100 mls/hr IVPB Q8H-IV [facility]; Protocol Last Admin: 01/24/20 01:11 Dose: 100 mls/hr Documented by: Levothyroxine Sodium (Synthroid -) 25 mcg PO DAILY@0700 [facility] Last Admin: 01/24/20 06:26 Dose: 25 mcg Documented by: Lorazepam (Ativan -) 0.5 mg GT BID [facility] Last Admin: 01/23/20 22:18 Dose: Not Given Documented by: Multivitamins/Minerals/Vitamin C (Tab-A-Vit -) 1 tab PO DAILY [facility] Last Admin: 01/23/20 11:06 Dose: 1 tab Documented by: Simethicone (Mylicon Liquid -) 40 mg PEG BID [facility] Last Admin: 01/23/20 22:17 Dose: 40 mg Documented by: - Objective Vital Signs: Vital Signs Temperature 98.2 F 01/24/20 06:00 Pulse Rate 72 01/24/20 06:00 Respiratory Rate 14 01/24/20 08:00 Blood Pressure 155/87 01/24/20 06:00 O2 Sat by Pulse Oximetry (%) 98 01/24/20 08:00 Constitutional: Yes: No Distress, Calm Cardiovascular: Yes: S1, S2 Respiratory: Yes: Regular, Other (trach in place) Gastrointestinal: Yes: Normal Bowel Sounds, Soft Musculoskeletal: Yes: WNL Labs: CBC, BMP 01/23/20 07:36 01/23/20 07:36 Assessment/Plan Problem List - Problems (1) Acute on chronic respiratory failure Code(s): J96.20 - ACUTE AND CHR RESP FAILURE, UNSP W HYPOXIA OR HYPERCAPNIA (2) ESRD (end stage renal disease) Code(s): N18.6 - END STAGE RENAL DISEASE (3) Hypokalemia Code(s): E87.6 - HYPOKALEMIA (4) 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 - TRACHEOSTOMY STATUS (5) Afib Code(s): I48.91 - UNSPECIFIED ATRIAL FIBRILLATION (6) Epilepsy Code(s): G40.909 - EPILEPSY, UNSP, NOT INTRACTABLE, WITHOUT STATUS EPILEPTICUS (7) HTN (hypertension) Code(s): I10 - ESSENTIAL (PRIMARY) HYPERTENSION (8) Hypothyroid Code(s): E03.9 - HYPOTHYROIDISM, UNSPECIFIED (9) MDD (major depressive disorder) Code(s): F32.9 - MAJOR DEPRESSIVE DISORDER, SINGLE EPISODE, UNSPECIFIED (10) Pneumonia Code(s): J18.9 - PNEUMONIA, UNSPECIFIED ORGANISM (11) Leukocytosis Code(s): D72.829 - ELEVATED WHITE BLOOD CELL COUNT, UNSPECIFIED Assessment/Plan Acute on chronic resp failure -trach/MV Possible LLL PNA Leukocytosis ESRD on HD AFIB Hypothyroidism MDD Epilepsy -- resp culture +Pseudomonas -- continue Zosyn
[2020-01-24] MEDS ORDERED: PT OWN MED DRAWER 7, Y5N ONE ×2 (10:34→21:31)
[2020-01-24] MEDS: AMINO ACIDS/PROTEIN HYDROLYS 30 ML LIQUID.PKT PO SCH ×2 (10:50→17:42)
[2020-01-24] MEDS: AMIODARONE HCL 200 MG TABLET PEG SCH (10:51)
[2020-01-24] MEDS: MULTIVITAMINS (DAILY MVI) TABLET (FP) PO SCH (10:51)
[2020-01-24] MEDS: LORazepam 0.5 MG TABLET GT SCH ×2 (10:51→21:32)
[2020-01-24] MEDS: APIXABAN 2.5 MG TABLET PEG SCH ×2 (10:52→21:32)
[2020-01-24] MEDS: FAMOTIDINE 40 MG/5 ML ORAL SUSPENSION PEG SCH (10:52)
[2020-01-24] MEDS: SIMETHICONE 40 MG/0.6 ML BOTTLE PEG SCH ×2 (10:52→21:33)
[2020-01-24 13:24] LABS: BASO % 0.3 % (0-2.0); HEMATOCRIT 40.3 % (32.4-45.2); HEMOGLOBIN 12.9 GM/dL (10.7-15.3); MCH 27.5 pg (25.7-33.7); MCHC 32.1 g/dl (32.0-36.0); MEAN CELL VOLUME 85.6 fl (80-96); MEAN PLT VOLUME 8.9 fl (7.5-11.1); MONO % 7.1 % (3.8-10.2); NEUT % 81.6 % (42.8-82.8); PLATELET COUNT 159 K/MM3 (134-434); RBC 4.71 M/mm3 (3.60-5.2); RDW 19.7 % (11.6-15.6); WHITE BLOOD COUNT 12.7 K/mm3 (4.0-10.0)
[2020-01-24 14:04] LABS: ALBUMIN 1.8 g/dl (3.4-5.0); BILIRUBIN,TOTAL 0.3 mg/dL (0.2-1); BLOOD UREA NITROGEN 51.1 mg/dL (7-18); CREATININE 1.7 mg/dL (0.55-1.3); POTASSIUM 3.1 mmol/L (3.5-5.1); TOT PROT 6.6 g/dl (6.4-8.2)
--- NOTE | 2020-01-24 15:32 | PN ---
Progress Note (short form) - Note Progress Note: RENAL pt awake and alert appears comfortable currently on hemodialysis Last Vital Signs Temp Pulse Resp BP Pulse Ox 98.1 F 84 14 110/79 95 01/24/20 11:36 01/24/20 14:45 01/24/20 14:45 01/24/20 14:45 01/24/20 14:20 trach bilat air entry abd soft ext no edema, some cyanosis neuro a+o skin no lesions CBC, BMP 01/24/20 12:27 01/24/20 12:27 Generic Name Dose Route Start Last Admin Trade Name Freq PRN Reason Stop Dose Admin Acetaminophen 650 mg 01/21/20 11:51 01/21/20 21:57 Tylenol Suppository - RC 650 mg Q4H PRN Administration FEVER Albuterol/Ipratropium 1 amp 01/19/20 10:29 Duoneb - NEB QID PRN SHORTNESS OF BREATH Amiodarone HCl 100 mg 01/19/20 10:00 01/23/20 11:05 Cordarone - PEG 100 mg DAILY [facility] Administration Apixaban 2.5 mg 01/19/20 10:00 01/23/20 11:06 Eliquis - PEG 2.5 mg BID [facility] Administration Baclofen 10 mg 01/18/20 23:45 01/22/20 22:03 Lioresal - PEG 10 mg HS [facility] Administration Piperacillin Sod/Tazobactam 50 mls @ 100 mls/hr 01/19/20 02:00 01/23/20 11:06 Sod 2.25 gm/ Dextrose IVPB 100 mls/hr Q8H-IV [facility] Administration Protocol Famotidine/Sodium Chloride 20 mg in 50 mls @ 100 mls/hr 01/21/20 12:00 01/23/20 11:06 Pepcid 20 Mg Premixed Ivpb - IVPB 100 mls/hr BID [facility] Administration Levothyroxine Sodium 12.5 mcg 01/22/20 10:00 01/23/20 11:07 Synthroid Injection - IVPUSH 12.5 mcg DAILY [facility] Administration Lorazepam 0.5 mg 01/21/20 12:00 01/23/20 11:06 Ativan Injection - IVPUSH 0.5 mg BID [facility] Administration Multivitamins/Minerals/Vitamin C 1 tab 01/19/20 10:00 01/23/20 11:06 Tab-A-Vit - PO 1 tab DAILY [facility] Administration Simethicone 40 mg 01/18/20 23:45 01/23/20 11:06 Mylicon Liquid - PEG 40 mg BID [facility] Administration IMPRESSION esrd vent dependence pneumonia malnutrition hypokalemia has some peripheral cyanosis PLAN being dialyzed now no darshan necessary 3k bath abx per id monitor k MV
[2020-01-24] MEDS: BACLOFEN 10 MG TABLET (FP) PEG SCH (21:32)
[2020-01-25] MEDS ORDERED: DEXTROSE 5%-WATER - 50 ML IVPB ONE ×2 (00:50→09:59)
[2020-01-25] MEDS ORDERED: PIPERACILLIN/TAZOBACTAM 2.25 GM VIAL IVPB ONE ×2 (00:50→09:59)
[2020-01-25] MEDS: PIPERACILLIN/TAZOB 2.25 GM 2.25 GM in DEXTROSE 5%-WATER - 50 ML IVPB SCH ×2 (01:31→10:36)
[2020-01-25] MEDS: LEVOTHYROXINE NA 25 MCG TABLET (FP) PO SCH (06:06)
[2020-01-25 09:10] LABS: BASO % 0.1 % (0-2.0); HEMATOCRIT 37.4 % (32.4-45.2); LYMPH % 15.6 % (8-40); MCH 27.1 pg (25.7-33.7); MCHC 31.9 g/dl (32.0-36.0); MEAN CELL VOLUME 84.8 fl (80-96); MEAN PLT VOLUME 8.8 fl (7.5-11.1); NEUT % 76.3 % (42.8-82.8); PLATELET COUNT 160 K/MM3 (134-434); RBC 4.41 M/mm3 (3.60-5.2); RDW 19.1 % (11.6-15.6); WHITE BLOOD COUNT 9.8 K/mm3 (4.0-10.0)
--- NOTE | 2020-01-25 09:50 | PN ---
Progress Note (short form) - Note Progress Note: RENAL pt awake and alert appears comfortable Last Vital Signs Temp Pulse Resp BP Pulse Ox 97.9 F 80 15 123/69 98 01/25/20 06:00 01/25/20 06:00 01/25/20 08:35 01/25/20 06:00 01/25/20 08:35 trach bilat air entry abd soft ext no edema, some cyanosis neuro a+o skin no lesions CBC, BMP 01/25/20 08:34 Current Medications Generic Name Dose Route Start Last Admin Trade Name Freq PRN Reason Stop Dose Admin Acetaminophen 650 mg 01/23/20 14:46 Tylenol Oral Solution - GT Q4H PRN FEVER Albuterol/Ipratropium 1 amp 01/19/20 10:29 Duoneb - NEB QID PRN SHORTNESS OF BREATH Amino Acids 30 ml 01/24/20 10:25 01/24/20 17:42 Prosource No Carb Liquid Pkt PO 30 ml BID@0800,1730 [facility] Administration Amiodarone HCl 100 mg 01/19/20 10:00 01/24/20 10:51 Cordarone - PEG 100 mg DAILY [facility] Administration Apixaban 2.5 mg 01/19/20 10:00 01/24/20 21:32 Eliquis - PEG 2.5 mg BID [facility] Administration Baclofen 10 mg 01/18/20 23:45 01/24/20 21:32 Lioresal - PEG 10 mg HS [facility] Administration Famotidine 20 mg 01/24/20 10:00 01/24/20 10:52 Pepcid PEG 20 mg DAILY [facility] Administration Piperacillin Sod/Tazobactam 50 mls @ 100 mls/hr 01/19/20 02:00 01/25/20 01:31 Sod 2.25 gm/ Dextrose IVPB 100 mls/hr Q8H-IV [facility] Administration Protocol Levothyroxine Sodium 25 mcg 01/24/20 07:00 01/25/20 06:06 Synthroid - PO 25 mcg DAILY@0700 [facility] Administration Lorazepam 0.5 mg 01/23/20 22:00 01/24/20 21:32 Ativan - GT 0.5 mg BID [facility] Administration Multivitamins/Minerals/Vitamin C 1 tab 01/19/20 10:00 01/24/20 10:51 Tab-A-Vit - PO 1 tab DAILY [facility] Administration Simethicone 40 mg 01/18/20 23:45 01/24/20 21:33 Mylicon Liquid - PEG 40 mg BID [facility] Administration IMPRESSION esrd vent dependence pneumonia malnutrition hypokalemia has some peripheral cyanosis PLAN no darshan necessary 3k bath abx per id monitor k MV
[2020-01-25 09:57] LABS: POTASSIUM 3.1 mmol/L (3.5-5.1)
[2020-01-25] MEDS ORDERED: PT OWN MED DRAWER 7, Y5N ONE (09:59)
[2020-01-25 10:07] LABS: ALBUMIN 1.8 g/dl (3.4-5.0); BLOOD UREA NITROGEN 42.3 mg/dL (7-18); CALCIUM 7.7 mg/dL (8.5-10.1); CREATININE 1.3 mg/dL (0.55-1.3); TOT PROT 6.2 g/dl (6.4-8.2)
[2020-01-25 10:09] LABS: BILIRUBIN,TOTAL 0.2 mg/dL (0.2-1)
--- NOTE | 2020-01-25 10:27 | DS ---
Physical Examination Vital Signs: Vital Signs Temperature 97.9 F 01/25/20 06:00 Pulse Rate 80 01/25/20 06:00 Respiratory Rate 15 01/25/20 08:35 Blood Pressure 123/69 01/25/20 06:00 O2 Sat by Pulse Oximetry (%) 98 01/25/20 08:35 Findings/Remarks: 64 yo F with PMH of ESRD (MWF), respiratory failure trach-vented, Afib (on eliquis), HTN, Hypothyroid, Epilepsy, MDD, who was BIBEMS from [facility] for acute respiratory distress and tachycardia during dialysis. Upon evaluation, pt was found to be septic secondary to LLL pneumonia, was treated with IV Zosyn. Tube feeding was changed from nepro to Perative 2/2 to persistent hypokalemia. (1) Acute on chronic respiratory failure Assessment/Plan: -Mech vent -Pulmonary consult -Wean as tolerated Problems reviewed: Yes Code(s): J96.20 - ACUTE AND CHR RESP FAILURE, UNSP W HYPOXIA OR HYPERCAPNIA (2) ESRD (end stage renal disease) Assessment/Plan: -Nephrology on board -HD-MWF Problems reviewed: Yes Code(s): N18.6 - END STAGE RENAL DISEASE (3) Afib Assessment/Plan: -Continue Eliquis 2.5 mg BID Problems reviewed: Yes Code(s): I48.91 - UNSPECIFIED ATRIAL FIBRILLATION (4) Pneumonia Assessment/Plan: -LLL pne -ID consult -IV zosyn--->transition to Levaquin 250 mg Q48H for another 5 doses -Repeat CBC/CMP in 1 week -Pulmonary consult -COVID 19 PCR negative Problems reviewed: Yes Code(s): J18.9 - PNEUMONIA, UNSPECIFIED ORGANISM (5) Hypokalemia Assessment/Plan: -monitor labs daily, repeat labs pending -Nephrology on borad -TF changed from nepro to perative Problems reviewed: Yes Code(s): E87.6 - HYPOKALEMIA (6) Severe protein-calorie malnutrition Assessment/Plan: -Multivitamin -Prosource Problems reviewed: Yes Code(s): E43 - UNSPECIFIED SEVERE PROTEIN-CALORIE MALNUTRITION (7) PEG tube malfunction Assessment/Plan: -resolved -tolerating TF well Problems reviewed: Yes Code(s): K94.23 - GASTROSTOMY MALFUNCTION Assessment/Plan See problem list Constitutional: Yes: No Distress, Calm, Cachectic Cardiovascular: Yes: Regular Rate and Rhythm Respiratory: Yes: Regular, Mechanically Ventilated Gastrointestinal: Yes: Normal Bowel Sounds, Soft Renal/: Yes: Incontinence Musculoskeletal: Yes: Muscle Weakness Extremities: Yes: Other (contracted) Edema: No Peripheral Pulses WNL: Yes Neurological: Yes: Aphasia, Pre-Existing Deficit, Other (opens her eyes to verba l stimuli) Labs: CBC, BMP 01/25/20 08:34 01/25/20 08:34 Discharge Summary Problems reviewed: Yes Reason For Visit: ATRIAL FIBRILLATION,ACUTE CORONARY SYNDROME Current Active Problems Abnormal EKG (Acute) Acute dyspnea (Acute) Acute on chronic respiratory failure (Acute) ESRD (end stage renal disease) (Acute) Elevated troponin (Acute) Hypokalemia (Acute) PEG tube malfunction (Acute) Severe protein-calorie malnutrition (Acute) Tracheostomy dependent (Acute) Condition: Stable - Instructions Diet, Activity, Other Instructions: Tube feeding perative at 48 cc /hr with additional 10 cc of waterfor 24 hours Dialysis MWF KCL 20 meq GT daily Recheck CBC/CMP in 1 week LEVAQUIN 250 MG Q48H FOR 5 DOSES Disposition: LONG TERM FACILITY - Home Medications Comprehensive Discharge Medication List: Ambulatory Orders Acetaminophen Oral Solution [Tylenol Oral Solution -] 650 mg PEG Q6H PRN soln.oral 12/18/19 Amiodarone HCl [Cordarone -] 100 mg PEG DAILY tablet 12/18/19 Apixaban [Eliquis -] 2.5 mg PEG BID tablet 12/18/19 Baclofen [Lioresal -] 10 mg PEG HS tablet 12/18/19 Simethicone Liquid [Mylicon Liquid -] 40 mg PEG BID ml 12/18/19 Albuterol 2.5/Ipratropium 0.5 [Duoneb -] 1 neb IH QID PRN 01/17/20 Levothyroxine [Synthroid -] 25 mcg PEG DAILY 01/17/20 Multivitamin 1 each PEG DAILY 01/18/20 Acetaminophen Oral Solution [Tylenol Oral Solution -] 650 mg GT Q4H PRN soln.oral 01/25/20 Amino Acids/Protein Hydrolys [Prosource No Carb Liquid Pkt] 30 ml PO BID@0800,1730 packet 09/17/20 Famotidine [Pepcid] 20 mg PEG DAILY oral.susp 01/25/20 LORazepam [Ativan] 0.5 mg GT BID tablet 01/25/20 Levothyroxine [Synthroid -] 25 mcg PO DAILY@0700 tablet 01/25/20 Potassium Chloride [Potassium Chloride Oral Liquid] 20 meq PO DAILY cup 01/25/20 levoFLOXacin [Levaquin -] 250 mg PO Q48H #5 tablet 01/25/20 Prescription Drug Monitoring Program (I-STOP) results: I-STOP reviewed and no issues identified
[2020-01-25] MEDS: AMINO ACIDS/PROTEIN HYDROLYS 30 ML LIQUID.PKT PO SCH (10:33)
[2020-01-25] MEDS: LORazepam 0.5 MG TABLET GT SCH (10:33)
[2020-01-25] MEDS: APIXABAN 2.5 MG TABLET PEG SCH (10:34)
[2020-01-25] MEDS: AMIODARONE HCL 200 MG TABLET PEG SCH (10:34)
[2020-01-25] MEDS: FAMOTIDINE 40 MG/5 ML ORAL SUSPENSION PEG SCH (10:35)
[2020-01-25] MEDS: MULTIVITAMINS (DAILY MVI) TABLET (FP) PO SCH (10:35)
[2020-01-25] MEDS: SIMETHICONE 40 MG/0.6 ML BOTTLE PEG SCH (10:39)
[2020-01-25] MEDS ORDERED: POTASSIUM CHLORIDE ORAL LIQUID 20 MEQ/15 ML PO SCH (12:00)
[2020-01-25 13:01] VITALS: BP 128/61; PULSE 77; TEMP 98.4
--- NOTE | 2020-01-25 13:07 | PN ---
Progress Note (short form) - Note Progress Note: Awake on AC Mode of vent. Comfortable. No acute events overnight. Intake & Output 01/22/20 01/23/20 01/24/20 01/25/20 23:59 23:59 23:59 23:59 Intake Total 649 481 9232 730 Output Total 5602 300 8776 Balance -5059 170 -2097 733 Weight 95 lb 6.4 oz 92 lb 4.8 oz 90 lb 1.6 oz Last Vital Signs Temp Pulse Resp BP Pulse Ox 98.4 F 77 14 128/61 99 01/25/20 10:00 01/25/20 10:00 01/25/20 12:18 01/25/20 10:00 01/25/20 12:18 Active Medications Acetaminophen (Tylenol Oral Solution -) 650 mg GT Q4H PRN PRN Reason: FEVER Albuterol/Ipratropium (Duoneb -) 1 amp NEB QID PRN PRN Reason: SHORTNESS OF BREATH Amino Acids (Prosource No Carb Liquid Pkt) 30 ml PO BID@0800,1730 [facility] Last Admin: 01/25/20 10:33 Dose: 30 ml Documented by: Amiodarone HCl (Cordarone -) 100 mg PEG DAILY [facility] Last Admin: 01/25/20 10:34 Dose: 100 mg Documented by: Apixaban (Eliquis -) 2.5 mg PEG BID [facility] Last Admin: 01/25/20 10:34 Dose: 2.5 mg Documented by: Baclofen (Lioresal -) 10 mg PEG HS [facility] Last Admin: 01/24/20 21:32 Dose: 10 mg Documented by: Famotidine (Pepcid) 20 mg PEG DAILY [facility] Last Admin: 01/25/20 10:35 Dose: 20 mg Documented by: Piperacillin Sod/Tazobactam (Sod 2.25 gm/ Dextrose) 50 mls @ 100 mls/hr IVPB Q8H-IV [facility]; Protocol Last Admin: 01/25/20 10:36 Dose: 100 mls/hr Documented by: Levothyroxine Sodium (Synthroid -) 25 mcg PO DAILY@0700 [facility] Last Admin: 01/25/20 06:06 Dose: 25 mcg Documented by: Lorazepam (Ativan -) 0.5 mg GT BID [facility] Last Admin: 01/25/20 10:33 Dose: 0.5 mg Documented by: Multivitamins/Minerals/Vitamin C (Tab-A-Vit -) 1 tab PO DAILY [facility] Last Admin: 01/25/20 10:35 Dose: 1 tab Documented by: Potassium Chloride (Potassium Chloride Oral Liquid) 20 meq PO DAILY [facility] Last Admin: 01/25/20 12:11 Dose: 20 meq Documented by: Simethicone (Mylicon Liquid -) 40 mg PEG BID [facility] Last Admin: 01/25/20 10:39 Dose: 40 mg Documented by: GENERAL: Vented, NAD NECK: Trach intact LUNGS: vented, diminished with scattered rhonchi at the bases. No accessory muscle use. HEART: Regular rate and rhythm, normal S1 and S2 without murmur, rub or gallop. ABDOMEN: Soft, nontender, not distended. PEG TUBE in place, no erythema or drainage in area. LOWER EXTREMITIES: 2+ pulses, warm, well-perfused. No peripheral edema. PSYCHIATRIC: Cooperative. Good eye contact. SKIN: Warm, dry, normal turgor, no rashes or lesions noted. Laboratory Results - last 24 hr 01/22/20 01/24/20 01/24/20 07:15 12:27 12:27 WBC 12.7 H RBC 4.71 Hgb 12.9 Hct 40.3 MCV 85.6 MCH 27.5 MCHC 32.1 RDW 19.7 H Plt Count 159 MPV 8.9 Absolute Neuts (auto) 10.3 H Neutrophils % 81.6 Lymphocytes % 11.0 Monocytes % 7.1 Eosinophils % 0.0 Basophils % 0.3 Nucleated RBC % 0 Sodium 140 Potassium 3.1 L Chloride 107 Carbon Dioxide 24 Anion Gap 9 BUN 51.1 H Creatinine 1.7 H Est GFR (CKD-EPI)AfAm 36.05 Est GFR (CKD-EPI)NonAf 31.10 Random Glucose 74 Calcium 8.0 L Total Bilirubin 0.3 AST 36 ALT 19 Alkaline Phosphatase 122 H Total Protein 6.6 Albumin 1.8 L Hep Bs Antigen Negative 01/25/20 01/25/20 08:34 08:34 WBC 9.8 RBC 4.41 Hgb 12.0 Hct 37.4 MCV 84.8 MCH 27.1 MCHC 31.9 L RDW 19.1 H Plt Count 160 MPV 8.8 Absolute Neuts (auto) 7.4 Neutrophils % 76.3 Lymphocytes % 15.6 D Monocytes % 8.0 Eosinophils % 0.0 Basophils % 0.1 Nucleated RBC % 0 Sodium 137 Potassium 3.1 L Chloride 102 Carbon Dioxide 27 Anion Gap 9 BUN 42.3 H Creatinine 1.3 Est GFR (CKD-EPI)AfAm 49.86 Est GFR (CKD-EPI)NonAf 43.02 Random Glucose 155 H Calcium 7.7 L Total Bilirubin 0.2 AST 33 ALT 17 Alkaline Phosphatase 116 Total Protein 6.2 L Albumin 1.8 L Hep Bs Antigen ASSESSMENT/PLAN: Chronic Respiratory Failure LLL PNA ESRD on HD (MWF) Afib (on eliquis) HTN Hypothyroid Epilepsy MDD AC Mode of vent HD per Renal Eliquis DC planning Dr Stearns
--- NOTE | 2020-01-25 13:21 | PN ---
Progress Note, Physician History of Present Illness: stable no new issues - Current Medication List Current Medications: Active Medications Acetaminophen (Tylenol Oral Solution -) 650 mg GT Q4H PRN PRN Reason: FEVER Albuterol/Ipratropium (Duoneb -) 1 amp NEB QID PRN PRN Reason: SHORTNESS OF BREATH Amino Acids (Prosource No Carb Liquid Pkt) 30 ml PO BID@0800,1730 [facility] Last Admin: 01/25/20 10:33 Dose: 30 ml Documented by: Amiodarone HCl (Cordarone -) 100 mg PEG DAILY [facility] Last Admin: 01/25/20 10:34 Dose: 100 mg Documented by: Apixaban (Eliquis -) 2.5 mg PEG BID [facility] Last Admin: 01/25/20 10:34 Dose: 2.5 mg Documented by: Baclofen (Lioresal -) 10 mg PEG HS [facility] Last Admin: 01/24/20 21:32 Dose: 10 mg Documented by: Famotidine (Pepcid) 20 mg PEG DAILY [facility] Last Admin: 01/25/20 10:35 Dose: 20 mg Documented by: Piperacillin Sod/Tazobactam (Sod 2.25 gm/ Dextrose) 50 mls @ 100 mls/hr IVPB Q8H-IV [facility]; Protocol Last Admin: 01/25/20 10:36 Dose: 100 mls/hr Documented by: Levothyroxine Sodium (Synthroid -) 25 mcg PO DAILY@0700 [facility] Last Admin: 01/25/20 06:06 Dose: 25 mcg Documented by: Lorazepam (Ativan -) 0.5 mg GT BID [facility] Last Admin: 01/25/20 10:33 Dose: 0.5 mg Documented by: Multivitamins/Minerals/Vitamin C (Tab-A-Vit -) 1 tab PO DAILY [facility] Last Admin: 01/25/20 10:35 Dose: 1 tab Documented by: Potassium Chloride (Potassium Chloride Oral Liquid) 20 meq PO DAILY [facility] Last Admin: 01/25/20 12:11 Dose: 20 meq Documented by: Simethicone (Mylicon Liquid -) 40 mg PEG BID [facility] Last Admin: 01/25/20 10:39 Dose: 40 mg Documented by: - Objective Vital Signs: Vital Signs Temperature 98.4 F 01/25/20 10:00 Pulse Rate 77 01/25/20 10:00 Respiratory Rate 14 01/25/20 12:18 Blood Pressure 128/61 01/25/20 10:00 O2 Sat by Pulse Oximetry (%) 99 01/25/20 12:18 Constitutional: Yes: No Distress, Calm Cardiovascular: Yes: S1, S2 Respiratory: Yes: Regular, CTA Bilaterally Gastrointestinal: Yes: Normal Bowel Sounds, Soft Musculoskeletal: Yes: WNL Extremities: Yes: WNL Neurological: Yes: Alert, Oriented Psychiatric: Yes: Alert, Oriented Labs: CBC, BMP 01/25/20 08:34 01/25/20 08:34 Assessment/Plan Problem List - Problems (1) Acute on chronic respiratory failure Code(s): J96.20 - ACUTE AND CHR RESP FAILURE, UNSP W HYPOXIA OR HYPERCAPNIA (2) ESRD (end stage renal disease) Code(s): N18.6 - END STAGE RENAL DISEASE (3) Hypokalemia Code(s): E87.6 - HYPOKALEMIA (4) 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 - TRACHEOSTOMY STATUS (5) Afib Code(s): I48.91 - UNSPECIFIED ATRIAL FIBRILLATION (6) Epilepsy Code(s): G40.909 - EPILEPSY, UNSP, NOT INTRACTABLE, WITHOUT STATUS EPILEPTICUS (7) HTN (hypertension) Code(s): I10 - ESSENTIAL (PRIMARY) HYPERTENSION (8) Hypothyroid Code(s): E03.9 - HYPOTHYROIDISM, UNSPECIFIED (9) MDD (major depressive disorder) Code(s): F32.9 - MAJOR DEPRESSIVE DISORDER, SINGLE EPISODE, UNSPECIFIED (10) Pneumonia Code(s): J18.9 - PNEUMONIA, UNSPECIFIED ORGANISM (11) Leukocytosis Code(s): D72.829 - ELEVATED WHITE BLOOD CELL COUNT, UNSPECIFIED Assessment/Plan Acute on chronic resp failure -trach/MV Possible LLL PNA Leukocytosis ESRD on HD AFIB Hypothyroidism MDD Epilepsy -- resp culture +Pseudomonas -- continue Zosyn can stop abx after todays
== END 2020-01-25 15:15 | DRG 870 ==
LOC: JER 19:52 → JERBED 21:58 → JICU 01-18 00:11 → J5S 01-18 22:57
PROVIDERS: ADMIT Internal Medicine Pulmonary Disease; ATTEND Family Medicine
PROC: 5A1955Z Respiratory Ventilation, Greater than 96 Consecutive Hours (ICD-10-PCS; principal; 2020-01-17)
PROC: 5A1D70Z Performance of Urinary Filtration, Intermittent, Less than 6 Hours Per Day (ICD-10-PCS; 2020-01-24)
DX: A41.9 Sepsis, unspecified organism (principal); J18.9 Pneumonia, unspecified organism; N18.6 End stage renal disease; J96.20 Acute and chronic respiratory failure, unspecified whether with hypoxia or hypercapnia; E43 Unspecified severe protein-calorie malnutrition; I13.11 Hypertensive heart and chronic kidney disease without heart failure, with stage 5 chronic kidney disease, or end stage renal disease; Z68.1 Body mass index [BMI] 19.9 or less, adult; I24.8 Other forms of acute ischemic heart disease; J90 Pleural effusion, not elsewhere classified; K94.23 Gastrostomy malfunction; R64 Cachexia; Z99.11 Dependence on respirator [ventilator] status; Z93.0 Tracheostomy status; Z93.1 Gastrostomy status; I48.0 Paroxysmal atrial fibrillation; E03.9 Hypothyroidism, unspecified; G40.909 Epilepsy, unspecified, not intractable, without status epilepticus; F32.9 Major depressive disorder, single episode, unspecified; D72.829 Elevated white blood cell count, unspecified; E87.6 Hypokalemia
CPT/HCPCS: 36415; 71045-TC-FY; 80048; 80053; 81003; 82550; 83735; 84100; 84484; 85025; 86803; 87040; 87070; 87086; 87186; 87205; 87340; 93005; 93010; 93306-TC; 94002; 99291; J0475; U0003

== ENCOUNTER 2020-02-02 14:10 | Emergency (ER) | payer OTHER ==
[2020-02-02 14:34] VITALS: TEMP 98.2; BMI 17.1
--- NOTE | 2020-02-02 14:58 | PDOC ---
History of Present Illness - General Chief Complaint: Trach Tube Replacement Stated Complaint: BROKEN TRACH Time Seen by Provider: 02/02/20 14:48 Past History - Medical History Allergies/Adverse Reactions: Allergies Allergy/AdvReac Type Severity Reaction Status Date / Time No Known Allergies Allergy Verified 01/17/20 20:07 Home Medications: Ambulatory Orders Acetaminophen Oral Solution [Tylenol Oral Solution -] 650 mg PEG Q6H PRN soln.oral 12/18/19 Amiodarone HCl [Cordarone -] 100 mg PEG DAILY tablet 12/18/19 Apixaban [Eliquis -] 2.5 mg PEG BID tablet 12/18/19 Baclofen [Lioresal -] 10 mg PEG HS tablet 12/18/19 Simethicone Liquid [Mylicon Liquid -] 40 mg PEG BID ml 12/18/19 Albuterol 2.5/Ipratropium 0.5 [Duoneb -] 1 neb IH QID PRN 01/17/20 Levothyroxine [Synthroid -] 25 mcg PEG DAILY 01/17/20 Multivitamin 1 each PEG DAILY 01/18/20 Acetaminophen Oral Solution [Tylenol Oral Solution -] 650 mg GT Q4H PRN soln.oral 01/25/20 Amino Acids/Protein Hydrolys [Prosource No Carb Liquid Pkt] 30 ml PO BID@0800,1730 packet 01/25/20 Famotidine [Pepcid] 20 mg PEG DAILY oral.susp 01/25/20 LORazepam [Ativan] 0.5 mg GT BID tablet 01/25/20 Levothyroxine [Synthroid -] 25 mcg PO DAILY@0700 tablet 01/25/20 Potassium Chloride [Potassium Chloride Oral Liquid] 20 meq PO DAILY cup 01/25/20 levoFLOXacin [Levaquin -] 250 mg PO Q48H #5 tablet 01/25/20 Cardiac Disorders: Yes (afib) CVA: (dysphagia) COPD: No Dementia: Yes HTN: Yes Seizures: Yes Thyroid Disease: Yes (hypo) Other medical history: VENT DEPENDENT - Reproductive History Is Patient Now?: No - Psycho-Social/Smoking History Smoking History: Smoker current status UNK Have you smoked in the past 12 months: No Information on smoking cessation initiated: No - Substance Abuse Hx (Audit-C & DAST Scrn) How often the patient has a drink containing alcohol: Never Score: In Men: 4 or > Positive; In Women: 3 or > Positive: 0 Screen Result (Pos requires Nsg. Audit-10AR): Negative In the last yr the pt used illegal drug/Rx for NonMed reason: No Score: Yes response is considered Positive: 0 Screen Result (Positive result requires Nsg. DAST-10): Negative *Physical Exam - Vital Signs Last Vital Signs Temp Pulse Resp BP Pulse Ox 98.2 F 101 H 15 144/99 96 02/02/20 14:27 02/02/20 14:27 02/02/20 14:49 02/02/20 14:27 02/02/20 14:49 Discharge - Discharge Information Problems reviewed: Yes Clinical Impression/Diagnosis: Tracheostomy complication Qualifiers: Tracheostomy complication: unspecified Qualified Code(s): J95.00 - Unspecified tracheostomy complication Condition: Stable Disposition: HOME - Admission No - Follow up/Referral Referrals: Adalid Soto [Primary Care Provider] - - Patient Discharge Instructions Patient Printed Discharge Instructions: How to Take Care of a Tracheostomy Additional Instructions: You were seen in the ED for tracheostomy replacement. In the ED you were evaluated with neck xray, and tracheostomy was replaced. There does not appear to be an acute need for immediate hospitalization. You are advised to follow up with your Primary Care Physician within 1 week. Return to the ED immediately if you experience displacement of the tracheostomy. - Post Discharge Activity
--- NOTE | 2020-02-02 16:25 | PDOC ---
Documentation entered by Tamika Barajas SCRIBE, acting as scribe for Oumou Carranza MD. Oumou Carranza MD: This documentation has been prepared by the scribe, Tamika Barajas SCRIBE, under my direction and personally reviewed by me in its entirety. I confirm that the documentation accurately reflects all work, treatment, procedures, and medical decision making performed by me. Attending Attestation - Resident Resident Name: Enzo Childers - ED Attending Attestation I have performed the following: I have examined & evaluated the patient, The case was reviewed & discussed with the resident, I agree w/resident's findings & plan, Exceptions are as noted - HPI HPI: 02/02/20 15:41 The patient is a 64 year old female with past medical history significant for ESRD (on HD M, W, F), Afib (on Eliquis), HTN, hypothyroidism, MDD and respiratory failure trach vented who presents to the emergency department from [facility] for broken tracheostomy piece. - Physicial Exam PE: 02/02/20 16:16 General: well appearing Chest: equal BS b/l, good air entry, mechanically ventilated, no bleeding from trach site - Medical Decision Making 02/02/20 16:17 64 yo F ehre for trach replacement for broken flange from trach but otherwise no other issues, patient ventilating well with current trach. Plan: -xray neck -replace trach -anticipate d/c back with return precautions and PMD f/u This clinical encounter is taking place during a federal and state health care emergency attributable to the novel Du Virus pandemic. The [place] of the Department of Health and Human Services has declared, pursuant to the Public Health Service Act 319F-3 (42 U.S.C. 247d-6d), that a covered persons activities related to medical countermeasures against COVID-19 will be immune from liability under Federal and State law. Pt. signed out to incoming team. Discharge - Discharge Information Problems reviewed: Yes Clinical Impression/Diagnosis: Tracheostomy complication Qualifiers: Tracheostomy complication: unspecified Qualified Code(s): J95.00 - Unspecified tracheostomy complication Condition: Stable Disposition: HOME - Follow up/Referral Referrals: Adalid Soto [Primary Care Provider] - - Patient Discharge Instructions Patient Printed Discharge Instructions: How to Take Care of a Tracheostomy Additional Instructions: You were seen in the ED for tracheostomy replacement. In the ED you were evaluated with neck xray, and tracheostomy was replaced. There does not appear to be an acute need for immediate hospitalization. You are advised to follow up with your Primary Care Physician within 1 week. Return to the ED immediately if you experience displacement of the tracheostomy. - Post Discharge Activity
[2020-02-02] MEDS ORDERED: RAPID SEQUENCE INTUBATION KIT NR ONE (18:45)
[2020-02-02] MEDS ORDERED: MIDAZOLAM HCL 2 MG/2 ML SINGLE DOSE VIAL ONE (18:51)
[2020-02-02 19:15] VITALS: BP 127/83; PULSE 82
--- NOTE | 2020-02-02 20:27 | PDOC ---
*Physical Exam - Vital Signs Last Vital Signs Temp Pulse Resp BP Pulse Ox 98.2 F 82 18 127/83 97 02/02/20 14:27 02/02/20 18:50 02/02/20 19:15 02/02/20 18:50 02/02/20 18:55 - Physical Exam 02/02/20 20:26 awake alert lungs clear bilat trachin place. broken collar peice, detached from cannulus. otherwise stoma, clear no erythema. heart rrr on mrg pt awake alert can nod yes and no. Medical Decision Making - Medical Decision Making 02/02/20 20:23 64 yo F h/o ESRD (on HD M, W, F), Afib (on Eliquis), HTN, hypothyroidism, MDD and respiratory failure trach here with broken trach cuff. seen by prior attending, pending xray neck xray obtained. trach intact. collar peice broken. 7.0 cuffed ET tube replaced at bedside. no complications. dc back to facility. pt tolerated well. Discharge - Discharge Information Problems reviewed: Yes Clinical Impression/Diagnosis: Tracheostomy complication Qualifiers: Tracheostomy complication: unspecified Qualified Code(s): J95.00 - Unspecified tracheostomy complication Condition: Stable Disposition: HOME - Follow up/Referral Referrals: Adalid Soto [Primary Care Provider] - - Patient Discharge Instructions Patient Printed Discharge Instructions: How to Take Care of a Tracheostomy Additional Instructions: You were seen in the ED for tracheostomy replacement. In the ED you were evaluated with neck xray, and tracheostomy was replaced. There does not appear to be an acute need for immediate hospitalization. You are advised to follow up with your Primary Care Physician within 1 week. Return to the ED immediately if you experience displacement of the tracheostomy. - Post Discharge Activity
== END 2020-02-02 21:00 | disposition home or self-care (01) ==
LOC: JER 14:10
DX: J95.00 Unspecified tracheostomy complication (principal)
CPT/HCPCS: 70360-TC-FY; 99285-25

== ENCOUNTER 2020-02-12 14:01 | Inpatient (IN) | payer OTHER ==
[2020-02-12] MEDS ORDERED: LORazepam 2 MG/ML SDV VIAL ONE (14:12)
[2020-02-12] MEDS ORDERED: dilTIAZem HCL 125 MG/25 ML - 25 ML VIAL ONE (14:19)
[2020-02-12] MEDS ORDERED: SODIUM CHLORIDE 500 ML IV STA (14:22)
[2020-02-12] MEDS ORDERED: dilTIAZem HCL 50 MG/10 ML - 10 ML VIAL IVPUSH ONE (14:22)
--- NOTE | 2020-02-12 15:30 | PDOC ---
Documentation entered by El Schmidt SCRIBE, acting as scribe for Darlene Weeks MD. Darlene Weeks MD: This documentation has been prepared by the scribe, El Schmidt SCRIBE, under my direction and personally reviewed by me in its entirety. I confirm that the documentation accurately reflects all work, treatment, procedures, and medical decision making performed by me. Attending Attestation - Resident Resident Name: Luiz Ghotraison - ED Attending Attestation I have performed the following: I have examined & evaluated the patient, The case was reviewed & discussed with the resident, I agree w/resident's findings & plan, Exceptions are as noted - HPI HPI: 02/12/20 14:48 The patient is a year old female with a significant past medical history of respiratory failure trach vented, ESRD (on HD M, W, F), Afib (on Eliquis), hypothyroidism, MDD and HTN who presents to the emergency department, [facility] from [facility], for cessation of breathing and suspected cardiac arrest. The p mara received CPR by EMS, down for a total of 15 minutes, before once again breathing on her own. The following medications were given in the ED: 14:07 2 doses of Ativan 14:09 Calcium 14:10 Bicarb 14:13 2 doses of Ativan Allergies: NKA - Physicial Exam PE: 02/12/20 14:29 GENERAL: Awake, alert, and fully oriented, in no acute distress HEAD: No signs of trauma EYES: PERRLA, EOMI, sclera anicteric, conjunctiva clear ENT: Auricles normal inspection, hearing grossly normal, nares patent, oropharynx clear without exudates. Moist mucosa NECK: Normal ROM, supple, no lymphadenopathy, JVD, or masses LUNGS: Breath sounds equal, clear to auscultation bilaterally. No wheezes, and no crackles HEART: Regular rate and rhythm, normal S1 and S2, no murmurs, rubs or gallops ABDOMEN: Soft, nontender, normoactive bowel sounds. No guarding, no rebound. No masses EXTREMITIES: Normal range of motion, no edema. No clubbing or cyanosis. No cords, erythema, or tenderness NEUROLOGICAL: Cranial nerves II through XII grossly intact. Normal speech, normal gait SKIN: Warm, Dry, normal turgor, no rashes or lesions noted. - Medical Decision Making 02/12/20 15:07 Late entry. Patient arrived after ROSC, was answering questions on arrival in resus room. She subsequently developed seizure activity in ED, given ativan via IO access to L leg, in place from EMS. Initially with improvement, then started to seize again, then improved with second dose of ativan. She was also found to be in rapid afib (has history of afib per MD records). She was given cardizem with some improvement in HR. Very difficult IV access- multiple attempts, veins were difficult to cannulate and would infiltrate quickly. Patient forms large hematomas quickly, as well. Will place central line to femoral vein- will not use IJ or subclavian as they are not easily compressible. IJs were both small on ultrasound, and patient has scarring to R neck (?CEA in the past?). Safest access while she is coagulopathic would be femoral. Will send blood samples from central line, as we have been unable to butterfly peripherally. Discharge - Discharge Information Problems reviewed: Yes Clinical Impression/Diagnosis: Cardiac arrest Sepsis Qualifiers: Sepsis type: sepsis due to unspecified organism Sepsis acute organ dysfunction status: unspecified Qualified Code(s): A41.9 - Sepsis, unspecified organism Condition: Critical - Follow up/Referral - Patient Discharge Instructions - Post Discharge Activity
--- NOTE | 2020-02-12 16:25 | PDOC ---
History of Present Illness - General Chief Complaint: Cardiac Arrest Stated Complaint: UNRESPONSIVE Time Seen by Provider: 02/12/20 14:21 - History of Present Illness Initial Comments: 02/12/20 18:21 64 yo female with PMH of ESRD on HD, respiratory failure trach-vented, Afib (on eliquis), HTN, Hypothyroid, Epilepsy, MDD brought into the ED for cardiac arrest that occurred earlier today. Pt according to EMS was found unresponsive in [facility] dialysis. 15 minutes of chest compression were done and no medications were given. Pt pulse returned. Pt at the ED had a irregular tachycardia and was seizing. Pt was given 2 of ativan but continued to seize so gave 2 more of ativan. Pt also received calcium and bicarb due to dialysis and possible hyperkalemia. Pt was also given diltiazem 10mg for rapid afib 134 HR. Pt has known pneumonitis due to aspiratoin which is being treated with levaquin. PMH: ESRD (MWF), respiratory failure trach-vented, Afib (on eliquis), HTN, Hypothyroid, Epilepsy, MDD Meds: eliquis 2.5 mg, simethicone 40mg, acetaminophen 35 mg, lorazepam .5mg, KCL 10meq, levaquin 250mg every 2 days, santyl 250 unit (FROM [facility] CHART) Allergies: NKA Social: [facility] dialysis and NH PCP: Arely Souza PCP: Dr. Mehta Nephrology: Dr. Holm Past History - Medical History Allergies/Adverse Reactions: Allergies Allergy/AdvReac Type Severity Reaction Status Date / Time No Known Allergies Allergy Verified 02/12/20 14:05 Home Medications: Ambulatory Orders Amiodarone HCl [Cordarone -] 100 mg PEG DAILY tablet 12/18/19 Apixaban [Eliquis -] 2.5 mg PEG BID tablet 12/18/19 Baclofen [Lioresal -] 10 mg PEG HS tablet 12/18/19 Simethicone Liquid [Mylicon Liquid -] 40 mg PEG BID ml 12/18/19 Levothyroxine [Synthroid -] 25 mcg PEG DAILY 01/17/20 Multivitamin 1 each PEG DAILY 01/18/20 Amino Acids/Protein Hydrolys [Prosource No Carb Liquid Pkt] 30 ml PO BID@0800,1730 packet 01/25/20 Famotidine [Pepcid] 20 mg PEG DAILY oral.susp 01/25/20 LORazepam [Ativan] 0.5 mg GT BID tablet 01/25/20 levoFLOXacin [Levaquin -] 250 mg PO Q48H #5 tablet 01/25/20 Acetaminophen [Tylenol] 2 tab PO Q6H PRN 02/12/20 Collagenase Clostridium Hist. [Santyl] 1 applic TP DAILY 02/12/20 Ipratropium/Albuterol Sulfate [Iprat-Albut 0.5-3(2.5) mg/3 ml] 3 ml IH Q6H PRN 02/12/20 Potassium Chloride [K-Dur -] 20 meq PO BID 02/12/20 Cardiac Disorders: Yes (afib) CVA: (dysphagia) COPD: No Dementia: Yes HTN: Yes Seizures: Yes Thyroid Disease: Yes (hypo) - Reproductive History Is Patient Now?: No - Psycho-Social/Smoking History Smoking History: Smoker current status UNK Have you smoked in the past 12 months: No Information on smoking cessation initiated: No - Substance Abuse Hx (Audit-C & DAST Scrn) How often the patient has a drink containing alcohol: Never Score: In Men: 4 or > Positive; In Women: 3 or > Positive: 0 Screen Result (Pos requires Nsg. Audit-10AR): Negative Review of Systems - Review of Systems Able to Perform ROS?: No (Unresponsive) *Physical Exam - Vital Signs Last Vital Signs Temp Pulse Resp BP Pulse Ox 149 H 43 H 0/0 L 100 02/12/20 14:20 02/12/20 14:20 02/12/20 14:05 02/12/20 14:20 - Physical Exam 02/12/20 19:15 GENERAL: Awake, alert, and only responsive to stimuli HEAD: No signs of trauma, normocephalic, atraumatic EYES: Eyes fixed upward ENT: Auricles normal inspection, NECK: Trached and vented no ulcers noted LUNGS: Pt trached and vented with rhonchi bilaterally HEART: Irregular rate and rhythm. Pt has dialysis cath on right side. ABDOMEN: Soft with G tube in place EXTREMITIES :No edema. Cold on all four ext. 2+ pulses upper ext 1+ pulses bilateral lower ext. Heart Score/ECG Review - ECG Impressions Comment:: 02/13/20 00:17 Irregular rate and rhythm at 135 bpm No acute ischemic changes ED Treatment Course - LABORATORY CBC & Chemistry Diagram: 02/13/20 06:00 02/13/20 06:00 - Medications Given in the ED: ED Medications Discontinued Medications Generic Name Dose Route Start Last Admin Trade Name Feng PRN Reason Stop Dose Admin Diltiazem HCl 10 mg 02/12/20 14:22 02/12/20 14:12 Cardizem Injection - IVPUSH 02/12/20 14:23 10 mg ONCE ONE Administration Sodium Chloride 500 mls @ 500 mls/hr 02/12/20 14:22 02/12/20 16:00 Normal Saline - IV 02/12/20 15:21 500 mls/hr ASDIR STA Administration Lorazepam 2 mg 02/12/20 14:22 02/12/20 14:09 Ativan Injection - IVPUSH 02/12/20 14:23 2 mg ONCE ONE Administration Medical Decision Making - Medical Decision Making 64 yo female with PMH of ESRD (MWF), respiratory failure trach-vented, Afib (on eliquis), HTN, Hypothyroid, Epilepsy, MDD brought into the ED for cardiac arrest. Pt according to EMS was found unresponsive in [facility] dialysis. 15 minutes of chest compression were done. Pt pulse returned. Pt at the ED had a pulse and was seizing. Pt was given 2 of ativan but continued to seize so gave2 more of ativan. Pt also received calcium and bicarb due to dialysis and possible hyperkalemia. Pt was also given diltiazem 10mg for rapid afib 134 HR. Pt left femoral central line placed due to difficulty obtaining labs. Will get CT scan of head to rule out head bleed .ill get cbc, cmp, cardiac enzymes, lactate, mg, phos, ekg, chest xray. Will admit to ICU for post cardiac arrest. 02/12/20 17:59 Pt elevated WBC was given vanc, zosyn, and 500 LR due to ESRD. 02/12/20 18:34 Elevated trop to .[address] Andrew was consult in tube conversion technician for Dr. Rakan duarte. Nothing to be done currently just track troponin. Pt history and ED course was discussed with ICU team and ICU accepted admission Discharge - Discharge Information Problems reviewed: Yes Clinical Impression/Diagnosis: Cardiac arrest Sepsis Qualifiers: Sepsis type: sepsis due to unspecified organism Sepsis acute organ dysfunction status: unspecified Qualified Code(s): A41.9 - Sepsis, unspecified organism Condition: Critical - Admission Yes - Follow up/Referral - Patient Discharge Instructions - Post Discharge Activity
[2020-02-12 16:39] LABS: BASO % 0.3 % (0-2.0); HEMATOCRIT 41.1 % (32.4-45.2); HEMOGLOBIN 13.2 GM/dL (10.7-15.3); LYMPH % 2.6 % (8-40); MCH 27.4 pg (25.7-33.7); MEAN CELL VOLUME 85.4 fl (80-96); MEAN PLT VOLUME 8.5 fl (7.5-11.1); MONO % 6.2 % (3.8-10.2); NEUT % 90.9 % (42.8-82.8); PLATELET COUNT 131 K/MM3 (134-434); RBC 4.81 M/mm3 (3.60-5.2); RDW 17.3 % (11.6-15.6)
[2020-02-12 16:43] LABS: WHITE BLOOD COUNT 33.5 K/mm3 (4.0-10.0)
[2020-02-12 16:44] LABS: INR 1.13 (0.83-1.09); PROTHROMBIN TIME (PATIENT) 13.4 SEC (9.7-13.0)
[2020-02-12 16:47] LABS: ACTIVATED PTT 30.1 SECONDS (25.2-36.5)
[2020-02-12] MEDS ORDERED: PIPERACILLIN/TAZOB 2.25 GM 2.25 GM in DEXTROSE 5%-WATER - 50 ML IVPB ONE (17:27)
[2020-02-12] MEDS ORDERED: VANCOMYCIN 1 GM in D5W (PRE-DOCKED) 1,000 MG/250 ML IVPB ONE (17:27)
[2020-02-12] MEDS ORDERED: LACTATED RINGERS SOLUTION 1000 ML INFUS.BAG IV ONE (17:29)
[2020-02-12 17:55] LABS: BILIRUBIN,TOTAL 0.3 mg/dL (0.2-1); BLOOD UREA NITROGEN 62.1 mg/dL (7-18); CALCIUM 10.1 mg/dL (8.5-10.1); CREATININE 1.2 mg/dL (0.55-1.3); POTASSIUM 3.3 mmol/L (3.5-5.1); TOT PROT 7.1 g/dl (6.4-8.2)
[2020-02-12 18:39] LABS: ANISOCYTOSIS 0; PLATELET ESTIMATE DECREASED
[2020-02-12] MEDS ORDERED: KCL 10 MEQ IVPB 10 MEQ/100 ML INFUS.BAG IVPB SCH (18:45)
[2020-02-12] MEDS ORDERED: SODIUM BICARBONATE 8.4% 50 MEQ/50 ML DISP.SYRIN IVPUSH ONE (19:03)
[2020-02-12] MEDS ORDERED: CALCIUM CHLORIDE 1 GM/10 ML *DISP.SYRIN IVPUSH ONE (19:03)
[2020-02-12] MEDS ORDERED: PIPERACILLIN/TAZOB 2.25 GM 2.25 GM/50 ML BAG IVPB ONE (19:23)
[2020-02-12] MEDS ORDERED: VANCOMYCIN 500 MG VIAL (RESTRICTED TO ID ONLY) ONE (20:04)
[2020-02-12] MEDS ORDERED: LORazepam 2 MG/ML SDV VIAL IVPUSH PRN (20:40)
[2020-02-12] MEDS ORDERED: ACETAMINOPHEN 325 MG TABLET (FP) PO PRN (21:51)
--- NOTE | 2020-02-12 21:52 | HP ---
CHIEF COMPLAINT: PCP: PCP: Arely Souza PCP: Dr. Mehta Nephrology: Dr. Vallejo HISTORY OF PRESENT ILLNESS: Patient is a 64 YO F with PMH of HTN, afib (on eliquis), hypothyroidism, chronic respiratory failure (trach vented), ESRD (dialysis MWF), epilepsy, and anxiety was brought in for cardiac arrest. While in [facility] dialysis, patient was found to be unresponsive. After 15 minutes of chest compressions were performed, her pulse returned and she began breathing on her own again. EMS inserted IO access in Left leg. Upon arrival to the ED, the patient had a pulse, but started seizing. She was given 2 mg ativan. However, she continued to seize, so she received another 2 mg of ativan, which stopped the seizures. ED gave calcium and bicarb due to dialysis. She was also found to have rapid afib 134 bpm and given diltiazem 10 mg. Femoral line was inserted due to difficult access. (b/l IJ s were small on ultrasound). CT scan of head was ordered by ED to rule out head bleed due to horizontal gaze deviation. Recent Travel: none PAST MEDICAL HISTORY: HTN, afib (on eliquis), hypothyroidism, chronic respiratory failure (trach vented), ESRD (dialysis MWF), epilepsy, and anxiety PAST SURGICAL HISTORY: peg, tracheostomy Social History: Smoking: unknown given patient's mental status Alcohol: unknown given patient's mental status Drugs: unknown given patient's mental status Allergies No Known Allergies Allergy (Verified 02/12/20 14:05) HOME MEDICATIONS: Home Medications Medication Instructions Recorded Amiodarone HCl [Cordarone -] 100 mg PEG DAILY tablet 12/18/19 Apixaban [Eliquis -] 2.5 mg PEG BID tablet 12/18/19 Baclofen [Lioresal -] 10 mg PEG HS tablet 12/18/19 Simethicone Liquid [Mylicon Liquid 40 mg PEG BID ml 12/18/19 -] Levothyroxine [Synthroid -] 25 mcg PEG DAILY 01/17/20 Multivitamin 1 each PEG DAILY 01/18/20 Amino Acids/Protein Hydrolys 30 ml PO BID@0800,1730 packet 01/25/20 [Prosource No Carb Liquid Pkt] Famotidine [Pepcid] 20 mg PEG DAILY oral.susp 01/25/20 LORazepam [Ativan] 0.5 mg GT BID tablet 01/25/20 levoFLOXacin [Levaquin -] 250 mg PO Q48H #5 tablet 01/25/20 Acetaminophen [Tylenol] 2 tab PO Q6H PRN 02/12/20 Collagenase Clostridium Hist. 1 applic TP DAILY 02/12/20 [Santyl] Ipratropium/Albuterol Sulfate 3 ml IH Q6H PRN 02/12/20 [Iprat-Albut 0.5-3(2.5) mg/3 ml] Potassium Chloride [K-Dur -] 20 meq PO BID 02/12/20 REVIEW OF SYSTEMS unable to obtain given patient's mental status PHYSICAL EXAMINATION Vital Signs - 24 hr 02/12/20 02/12/20 02/12/20 14:01 14:05 14:20 Temperature 100.5 F H Pulse Rate 135 H 0 L 149 H Pulse Rate [ Apical] Respiratory 22 H 0 L 43 H Rate Blood Pressure 135/88 0/0 L Blood Pressure [Right Arm] O2 Sat by Pulse 100 100 Oximetry (%) 02/12/20 02/12/20 02/12/20 18:29 19:48 20:55 Temperature Pulse Rate 87 Pulse Rate [ 94 H Apical] Respiratory 15 14 14 Rate Blood Pressure Blood Pressure 103/85 [Right Arm] O2 Sat by Pulse 100 100 100 Oximetry (%) GENERAL: Awake. Not oriented. no acute distress. HEENT: Normal with no signs of trauma. PERRL. dry mucous membranes. NECK: No JVD LUNGS: Breath sounds equal, clear to auscultation bilaterally. No wheezes, and no crackles. No accessory muscle use. HEART: irregular rate, normal S1 and S2 without murmur, rub or gallop. R upper chest hemodialysis catheter ABDOMEN: Soft, nontender, not distended, normoactive bowel sounds, no guarding, no rebound. PEG tube UPPER EXTREMITIES: 2+ pulses, cold, No peripheral edema. LOWER EXTREMITIES: 1+ pulses, cold, No peripheral edema. IV on Left foot. IO on left leg. Left femoral central catheter NEUROLOGICAL: unable to assess given pt's mental status. SKIN: stage 4 sacral ulcer Laboratory Results - last 24 hr 02/12/20 02/12/20 02/12/20 16:15 16:15 16:15 WBC 33.5 H* RBC 4.81 Hgb 13.2 Hct 41.1 MCV 85.4 MCH 27.4 MCHC 32.0 RDW 17.3 H Plt Count 131 L MPV 8.5 Absolute Neuts (auto) 30.5 H Neutrophils % 90.9 H Neutrophils % (Manual) 77.8 Band Neutrophils % 7.1 Lymphocytes % 2.6 L D Lymphocytes % (Manual) 0.0 L Monocytes % 6.2 Monocytes % (Manual) 6 Eosinophils % 0.0 Eosinophils % (Manual) 0.0 Basophils % 0.3 Basophils % (Manual) 0.0 Myelocytes % (Man) 4 H D Promyelocytes % (Man) 0 Blast Cells % (Manual) 0 Nucleated RBC % 0 Metamyelocytes 5 H D Hypochromia 0 Platelet Estimate Decreased Polychromasia 1+ Poikilocytosis 0 Anisocytosis 0 Microcytosis 0 PT with INR 13.40 H INR 1.13 H PTT (Actin FS) 30.1 Sodium 139 Potassium 3.3 L Chloride 102 Carbon Dioxide 27 Anion Gap 11 BUN 62.1 H Creatinine 1.2 Est GFR (CKD-EPI)AfAm 54.92 Est GFR (CKD-EPI)NonAf 47.39 Random Glucose 105 Lactic Acid Calcium 10.1 Total Bilirubin 0.3 AST 228 H ALT 123 H Alkaline Phosphatase 182 H Troponin I 0.60 H Total Protein 7.1 Albumin 2.0 L 02/12/20 16:15 WBC RBC Hgb Hct MCV MCH MCHC RDW Plt Count MPV Absolute Neuts (auto) Neutrophils % Neutrophils % (Manual) Band Neutrophils % Lymphocytes % Lymphocytes % (Manual) Monocytes % Monocytes % (Manual) Eosinophils % Eosinophils % (Manual) Basophils % Basophils % (Manual) Myelocytes % (Man) Promyelocytes % (Man) Blast Cells % (Manual) Nucleated RBC % Metamyelocytes Hypochromia Platelet Estimate Polychromasia Poikilocytosis Anisocytosis Microcytosis PT with INR INR PTT (Actin FS) Sodium Potassium Chloride Carbon Dioxide Anion Gap BUN Creatinine Est GFR (CKD-EPI)AfAm Est GFR (CKD-EPI)NonAf Random Glucose Lactic Acid 3.3 H* Calcium Total Bilirubin AST ALT Alkaline Phosphatase Troponin I Total Protein Albumin ASSESSMENT/PLAN: Patient is a 64 YO F with PMH of HTN, afib (on eliquis), hypothyroidism, chronic respiratory failure (trach vented), ESRD (dialysis MWF), epilepsy, and anxiety was brought in for cardiac arrest. Found to have rapid afib s/p diltiazem and seizures in ED s/p ativan. Admitted to ICU for further monitoring. Neuro -non-verbal. Awake. -called mother & son, but call went straight to voicemail. Spoke to Arely [place], who endorsed that at her mental base line, the baseline is able to wave yes and no to questions & able to follow simple commands -restart home baclofen 10 mg daily for back muscle spasm -acetaminophen 650 mg Q6H for pain #Epilepsy -seizure in ED. s/p 4 doses of ativan. 1 mg IV push Q6H PRN for seizures -f/u neuro consult #CVA Hx CTH: no acute pathology Left middle cerebral artery territory encephalomalacia/chronic infarct. Focal low-attenuation density in Right frontal high convexity. #Anxiety Cardio #HTN #Afib (on eliquis 2.5 mg BID) Will hold Amiodarone 100 mg Daily give LFTs #s/p Cardiac arrest -EKG: Sinus tachycardia, LVH, vent rate 134 bpm, QTC 448 -Lactic acid 3.3. Will trend lactic acid -troponin : 0.6. Will trend troponin -ED discussed with cardio. Recommended current medical management. Pulm #Chronic Respiratory Failure -trach to vent - maintain SaO2>90% #Pneumonitis per [facility]. Possible aspiration PNA from seizure -CXR (02/11): dense Left base compatible with atelectasis and/or fluid --Leukocytosis: WBCs 33.5, 100.5 F -on levaquin 250 Q48H in [facility] -s/p vanc 1 gm & zosyn 2.25 gm in ED -zosyn 2.25 gm Q6 H -f/u ID consult -f/u blood cx, UA, urine cx, sputum cx -f/u vanc level Renal #ESRD (dialysis MWF) -[facility] Long-Term Hemodialysis double lumen catheter (Implanted 12/15/2019) -f/u renal consult (Dr. vallejo) ID #Pneumonitis per [facility]. Possible aspiration PNA from seizure -CXR (02/11): dense Left base compatible with atelectasis and/or fluid --Leukocytosis: WBCs 33.5, 100.5 F -on levaquin 250 Q48H in [facility] -s/p vanc 1 gm & zosyn 2.25 gm in ED -zosyn 2.25 gm Q6 H -f/u ID consult -f/u blood cx, UA, urine cx, sputum cx -f/u vanc level GI #Transaminitis -AST/ALT: 228/123 -likely 2/2 amiodarone use vs hypoperfusion -f/u hep panel Heme #Leukocytosis: WBCs 33.5 #Thrombocytopenia: Plt 131 Endo #Hypothyroidism -restart home dose levothyroxine 25 mcg daily DVT PPX eliquis 2.5 mg BID FEN monitor lytes consult dietary Lines Left IO Left femoral central catheter Left IV on foot ATTENDING PHYSICIAN STATEMENT I saw and evaluated the patient. I reviewed the resident's note and discussed the case with the resident. I agree with the resident's findings and plan as documented. SUBJECTIVE: OBJECTIVE: ASSESSMENT AND PLAN:
[2020-02-12] MEDS: MUPIROCIN 2% TOPICAL OINTMENT FOR DECOLONIZATION NS SCH (22:37)
[2020-02-12] MEDS: CHLORHEXIDINE GLUCONATE 4% CLEANSER FOR DECOLONIZATION TP SCH (22:37)
[2020-02-12] MEDS: APIXABAN 2.5 MG TABLET PEG SCH (23:39)
[2020-02-13] MEDS ORDERED: PIPERACILLIN/TAZOBACTAM 2.25 GM VIAL IVPB ONE ×4 (02:01→20:43)
[2020-02-13] MEDS ORDERED: DEXTROSE 5%-WATER - 50 ML IVPB ONE ×4 (02:01→20:44)
[2020-02-13] MEDS: PIPERACILLIN/TAZOB 2.25 GM 2.25 GM in DEXTROSE 5%-WATER - 50 ML IVPB SCH ×7 (02:05→22:08)
[2020-02-13 02:12] LABS: EPI CELLS 7 /uL (0-25.1); HYALINE CASTS 4 /uL (0-3.1); URINE APPEARANCE CLOUDY; URINE BACTERIA 3 /uL (0-1359); URINE BILIRUBIN NEGATIVE (NEGATIVE); URINE COLOR YELLOW; URINE GLUCOSE (UA) NEGATIVE (NEGATIVE); URINE KETONE NEGATIVE (NEGATIVE); URINE LEUK ESTERASE 1+ (NEGATIVE); URINE NITRITE NEGATIVE (NEGATIVE); URINE PROTEIN 1+ (NEGATIVE); URINE UROBILINOGEN 0.2 mg/dL (0.2-1.0); URINE WBC 38 /uL (0-25.8)
[2020-02-13 03:16] LABS: URINE RBC 2 /uL (0-23.9)
[2020-02-13] MEDS: LEVOTHYROXINE NA 25 MCG TABLET (FP) PEG SCH (06:45)
[2020-02-13 07:30] LABS: HEMATOCRIT 32.6 % (32.4-45.2); HEMOGLOBIN 10.6 GM/dL (10.7-15.3); MCH 27.2 pg (25.7-33.7); MCHC 32.7 g/dl (32.0-36.0); MEAN CELL VOLUME 83.1 fl (80-96); PLATELET COUNT 85 K/MM3 (134-434); RBC 3.92 M/mm3 (3.60-5.2); RDW 17.1 % (11.6-15.6); WHITE BLOOD COUNT 15.8 K/mm3 (4.0-10.0)
[2020-02-13 07:51] LABS: ALBUMIN 1.7 g/dl (3.4-5.0); BILIRUBIN,TOTAL 0.4 mg/dL (0.2-1); BLOOD UREA NITROGEN 78.7 mg/dL (7-18); CALCIUM 8.4 mg/dL (8.5-10.1); CREATININE 1.5 mg/dL (0.55-1.3); MAGNESIUM 1.8 mg/dL (1.8-2.4); PHOSPHOROUS 2.9 mg/dL (2.5-4.9); POTASSIUM 4.2 mmol/L (3.5-5.1); TOT PROT 5.8 g/dl (6.4-8.2)
--- NOTE | 2020-02-13 08:54 | CON.CARD ---
Consult Consult Specialty:: Cardiology Referred by:: Jinny Reason for Consultation:: cardiac arrest - History of Present Illness Chief Complaint: cardiac arrest History of Present Illness: 64 year old woman pmh ESRD on HD, chronic respiratory failure s/p trach on vent, h/o Pafib on eliquis, HTN, hypothyroid, epilepsy, MDD, [place], [place] for SOB, tachypnea, tachycardia, recently admitted with PNA, mildly elev ated troponin with no sig CK elevation, abnl ekg managed medically now admitted after cardiac arrest in [facility] HD, CPR for 15 minutes with ROSC. ER course complicated for seizures, PAF with RVR. Now unresponsive on ventilator in the ICU. Cannot obtain history. 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 (Epilepsy) Cardio/Vascular: Yes: AFIB, HTN Pulmonary: Yes: Other (Respiratory Failure- trach- vent dependent) Renal/: Yes: Hemodialysis ...: No Psych: Yes: Depression Endocrine: Yes: Hypothyroidism - Alcohol/Substance Use Hx Alcohol Use: No (unknown) History of Substance Use: reports: None - Smoking History Smoking history: Smoker current status UNK Have you smoked in the past 12 months: No - Social History Usual Living Arrangement: Senior Living ADL: Support Services History of Recent Travel: No Home Medications - Allergies Allergies/Adverse Reactions: Allergies Allergy/AdvReac Type Severity Reaction Status Date / Time No Known Allergies Allergy Verified 02/12/20 14:05 - Home Medications Home Medications: Ambulatory Orders Amiodarone HCl [Cordarone -] 100 mg PEG DAILY tablet 12/18/19 Apixaban [Eliquis -] 2.5 mg PEG BID tablet 12/18/19 Baclofen [Lioresal -] 10 mg PEG HS tablet 12/18/19 Simethicone Liquid [Mylicon Liquid -] 40 mg PEG BID ml 12/18/19 Levothyroxine [Synthroid -] 25 mcg PEG DAILY 01/17/20 Multivitamin 1 each PEG DAILY 01/18/20 Amino Acids/Protein Hydrolys [Prosource No Carb Liquid Pkt] 30 ml PO BID@0800,1730 packet 01/25/20 Famotidine [Pepcid] 20 mg PEG DAILY oral.susp 01/25/20 LORazepam [Ativan] 0.5 mg GT BID tablet 01/25/20 levoFLOXacin [Levaquin -] 250 mg PO Q48H #5 tablet 01/25/20 Acetaminophen [Tylenol] 2 tab PO Q6H PRN 02/12/20 Collagenase Clostridium Hist. [Santyl] 1 applic TP DAILY 02/12/20 Ipratropium/Albuterol Sulfate [Iprat-Albut 0.5-3(2.5) mg/3 ml] 3 ml IH Q6H PRN 02/12/20 Potassium Chloride [K-Dur -] 20 meq PO BID 02/12/20 Vital Signs: Vital Signs Temperature 98.6 F 02/13/20 06:00 Pulse Rate 74 02/13/20 06:00 Respiratory Rate 14 02/13/20 08:41 Blood Pressure 81/54 L 02/13/20 06:00 O2 Sat by Pulse Oximetry (%) 100 02/13/20 06:00 Constitutional: Yes: Calm Eyes: Yes: Conjunctiva Clear, EOM Intact HENT: Yes: Atraumatic, Normocephalic Neck: Yes: Trachea Midline, Other (tracheostomy) Respiratory: Yes: Mechanically Ventilated Gastrointestinal: Yes: Normal Bowel Sounds, Soft Cardiovascular: Yes: Regular Rate and Rhythm JVD: Yes Carotid Bruit: No PMI: Non-Displaced Heart Sounds: Yes: S1, S2 Extremities: Yes: WNL Edema: No Peripheral Pulses WNL: Yes - Other Data Labs, Other Data: CBC, BMP 02/13/20 06:00 02/13/20 06:00 INR, PTT INR 1.13 (0.83-1.09) H 02/12/20 16:15 Troponin, BNP 02/12/20 02/12/20 02/13/20 16:15 22:51 02:00 Troponin I 0.60 H 0.98 H* 0.94 H* 02/13/20 06:00 Troponin I 0.73 H* Troponin, BNP 02/12/20 02/12/20 02/13/20 16:15 22:51 02:00 Troponin I 0.60 H 0.98 H* 0.94 H* 02/13/20 06:00 Troponin I 0.73 H* Imaging - Results Chest X-ray: Report Reviewed EKG: Report Reviewed Assessment/Plan 64 year old woman pmh ESRD on HD, chronic respiratory failure s/p trach on vent, h/o Pafib on eliquis, HTN, hypothyroid, epilepsy, MDD, [place], [place], tachypnea, tachycardia, recently admitted with PNA, mildly elevated troponin with no sig CK elevation, abnl ekg managed medically now admitted after cardiac arrest in [facility] HD, CPR for 15 minutes with ROSC. ER course complicated for seizures, PAF with RVR. Now unresponsive on ventilator in the ICU. Cannot obtain history. Echo 01/19/20: LVH normal EF, small pericardial effusion, mild MS, mild TR Cardiac Arrest -unclear etiology at this point. -her neurologic and poor functional status limits her cardiac workup at present. -prognosis is very poor. -hold amiodarone for now given elevated LFT's from shock liver -continue eliquis for now but if INR rises would also hold. -not a candidate for cardiac workup unless her neurologic status improves. Would not repeat echo at this point as it will not change clinical decision making. -would pursue goals of care discussion.
[2020-02-13] MEDS ORDERED: SODIUM CHLORIDE 250 ML IV STA (10:00)
[2020-02-13] MEDS ORDERED: PT OWN MED DRAWER 7, Y5N ONE ×2 (10:01→21:57)
--- NOTE | 2020-02-13 10:28 | PN ---
Physical Exam: SUBJECTIVE: Patient seen and examined. Febrile at 100.1F at 21:31 yesterday evening. No pressors OBJECTIVE: Vital Signs Period Temp Pulse Resp BP Sys/Rick Pulse Ox Last 24 Hr 98.6 F-100.5 F 0-149 0-43 0-135/0-88 97-100 GENERAL: Awake. Not oriented. no acute distress. HEENT: Normal with no signs of trauma. PERRL. dry mucous membranes. NECK: No JVD LUNGS: Breath sounds equal, clear to auscultation bilaterally. No wheezes, and no crackles. No accessory muscle use. HEART: irregular rate, normal S1 and S2 without murmur, rub or gallop. R upper chest hemodialysis catheter ABDOMEN: Soft, nontender, not distended, normoactive bowel sounds, no guarding, no rebound. PEG tube UPPER EXTREMITIES: 2+ pulses, cold, No peripheral edema. LOWER EXTREMITIES: 1+ pulses, cold, No peripheral edema. IV on Left foot. Left femoral central catheter NEUROLOGICAL: unable to assess given pt's mental status. SKIN: stage 4 sacral ulcer Laboratory Results - last 24 hr 02/12/20 02/12/20 02/12/20 16:15 16:15 16:15 WBC 33.5 H* RBC 4.81 Hgb 13.2 Hct 41.1 MCV 85.4 MCH 27.4 MCHC 32.0 RDW 17.3 H Plt Count 131 L MPV 8.5 Absolute Neuts (auto) 30.5 H Neutrophils % 90.9 H Neutrophils % (Manual) 77.8 Band Neutrophils % 7.1 Lymphocytes % 2.6 L D Lymphocytes % (Manual) 0.0 L Monocytes % 6.2 Monocytes % (Manual) 6 Eosinophils % 0.0 Eosinophils % (Manual) 0.0 Basophils % 0.3 Basophils % (Manual) 0.0 Myelocytes % (Man) 4 H D Promyelocytes % (Man) 0 Blast Cells % (Manual) 0 Nucleated RBC % 0 Metamyelocytes 5 H D Hypochromia 0 Platelet Estimate Decreased Polychromasia 1+ Poikilocytosis 0 Anisocytosis 0 Microcytosis 0 PT with INR 13.40 H INR 1.13 H PTT (Actin FS) 30.1 Sodium 139 Potassium 3.3 L Chloride 102 Carbon Dioxide 27 Anion Gap 11 BUN 62.1 H Creatinine 1.2 Est GFR (CKD-EPI)AfAm 54.92 Est GFR (CKD-EPI)NonAf 47.39 Random Glucose 105 Lactic Acid Calcium 10.1 Phosphorus Magnesium Total Bilirubin 0.3 AST 228 H ALT 123 H Alkaline Phosphatase 182 H Creatine Kinase Troponin I 0.60 H Total Protein 7.1 Albumin 2.0 L Urine Color Urine Appearance Urine pH Ur Specific [place] Urine Protein Urine Glucose (UA) Urine Ketones Urine Blood Urine Nitrite Urine Bilirubin Urine Urobilinogen Ur Leukocyte Esterase Urine WBC (Auto) Urine RBC (Auto) Urine Casts (Auto) U Epithel Cells (Auto) Urine Bacteria (Auto) Urine Yeast (Auto) Random Vancomycin 02/12/20 02/12/20 02/12/20 16:15 19:50 20:20 WBC RBC Hgb Hct MCV MCH MCHC RDW Plt Count MPV Absolute Neuts (auto) Neutrophils % Neutrophils % (Manual) Band Neutrophils % Lymphocytes % Lymphocytes % (Manual) Monocytes % Monocytes % (Manual) Eosinophils % Eosinophils % (Manual) Basophils % Basophils % (Manual) Myelocytes % (Man) Promyelocytes % (Man) Blast Cells % (Manual) Nucleated RBC % Metamyelocytes Hypochromia Platelet Estimate Polychromasia Poikilocytosis Anisocytosis Microcytosis PT with INR INR PTT (Actin FS) Sodium Potassium Chloride Carbon Dioxide Anion Gap BUN Creatinine Est GFR (CKD-EPI)AfAm Est GFR (CKD-EPI)NonAf Random Glucose Lactic Acid 3.3 H* 2.2 H* Calcium Phosphorus Magnesium Total Bilirubin AST ALT Alkaline Phosphatase Creatine Kinase Troponin I Total Protein Albumin Urine Color Yellow Urine Appearance Cloudy Urine pH 5.0 Ur Specific [place] 1.015 Urine Protein 1+ H Urine Glucose (UA) Negative Urine Ketones Negative Urine Blood 3+ H Urine Nitrite Negative Urine Bilirubin Negative Urine Urobilinogen 0.2 Ur Leukocyte Esterase 1+ H Urine WBC (Auto) 38 Urine RBC (Auto) 2 Urine Casts (Auto) 4 U Epithel Cells (Auto) 7 Urine Bacteria (Auto) 3 Urine Yeast (Auto) present Random Vancomycin 02/12/20 02/13/20 02/13/20 22:51 02:00 06:00 WBC RBC Hgb Hct MCV MCH MCHC RDW Plt Count MPV Absolute Neuts (auto) Neutrophils % Neutrophils % (Manual) Band Neutrophils % Lymphocytes % Lymphocytes % (Manual) Monocytes % Monocytes % (Manual) Eosinophils % Eosinophils % (Manual) Basophils % Basophils % (Manual) Myelocytes % (Man) Promyelocytes % (Man) Blast Cells % (Manual) Nucleated RBC % Metamyelocytes Hypochromia Platelet Estimate Polychromasia Poikilocytosis Anisocytosis Microcytosis PT with INR INR PTT (Actin FS) Sodium Potassium Chloride Carbon Dioxide Anion Gap BUN Creatinine Est GFR (CKD-EPI)AfAm Est GFR (CKD-EPI)NonAf Random Glucose Lactic Acid Calcium Phosphorus Magnesium Total Bilirubin AST ALT Alkaline Phosphatase Creatine Kinase 138 Troponin I 0.98 H* 0.94 H* Total Protein Albumin Urine Color Urine Appearance Urine pH Ur Specific [place] Urine Protein Urine Glucose (UA) Urine Ketones Urine Blood Urine Nitrite Urine Bilirubin Urine Urobilinogen Ur Leukocyte Esterase Urine WBC (Auto) Urine RBC (Auto) Urine Casts (Auto) U Epithel Cells (Auto) Urine Bacteria (Auto) Urine Yeast (Auto) Random Vancomycin 24.4 02/13/20 02/13/20 02/13/20 06:00 06:00 06:00 WBC 15.8 H RBC 3.92 Hgb 10.6 L Hct 32.6 D MCV 83.1 MCH 27.2 MCHC 32.7 RDW 17.1 H Plt Count 85 L D MPV 9.0 Absolute Neuts (auto) Neutrophils % Neutrophils % (Manual) Band Neutrophils % Lymphocytes % Lymphocytes % (Manual) Monocytes % Monocytes % (Manual) Eosinophils % Eosinophils % (Manual) Basophils % Basophils % (Manual) Myelocytes % (Man) Promyelocytes % (Man) Blast Cells % (Manual) Nucleated RBC % Metamyelocytes Hypochromia Platelet Estimate Polychromasia Poikilocytosis Anisocytosis Microcytosis PT with INR INR PTT (Actin FS) Sodium 137 Potassium 4.2 Chloride 104 Carbon Dioxide 24 Anion Gap 9 BUN 78.7 H Creatinine 1.5 H Est GFR (CKD-EPI)AfAm 41.94 Est GFR (CKD-EPI)NonAf 36.18 Random Glucose 87 Lactic Acid 1.3 Calcium 8.4 L Phosphorus 2.9 Magnesium 1.8 Total Bilirubin 0.4 AST 131 H ALT 82 H Alkaline Phosphatase 124 H Creatine Kinase Troponin I 0.73 H* Total Protein 5.8 L Albumin 1.7 L Urine Color Urine Appearance Urine pH Ur Specific [place] Urine Protein Urine Glucose (UA) Urine Ketones Urine Blood Urine Nitrite Urine Bilirubin Urine Urobilinogen Ur Leukocyte Esterase Urine WBC (Auto) Urine RBC (Auto) Urine Casts (Auto) U Epithel Cells (Auto) Urine Bacteria (Auto) Urine Yeast (Auto) Random Vancomycin Active Medications Generic Name Dose Route Start Last Admin Trade Name Freq PRN Reason Stop Dose Admin Acetaminophen 650 mg 02/12/20 21:51 Tylenol - PO Q6H PRN FEVER Apixaban 2.5 mg 02/12/20 22:45 02/12/20 23:39 Eliquis - PEG 2.5 mg BID ARLENE Administration Baclofen 10 mg 02/13/20 22:00 Lioresal - PEG HS ARLENE Chlorhexidine Gluconate 1 applic 02/12/20 22:00 02/12/20 22:37 Hibiclens For Decolonization - TP 1 applic HS ARLENE Administration Piperacillin Sod/Tazobactam 50 mls @ 100 mls/hr 02/13/20 09:00 Sod 2.25 gm/ Dextrose IVPB Q6H-IV ARLENE Protocol Piperacillin Sod/Tazobactam 50 mls @ 100 mls/hr 02/13/20 03:00 02/13/20 02:05 Sod 2.25 gm/ Dextrose IVPB 02/13/20 15:29 100 mls/hr Q6H-IV ARLENE Administration Protocol Sodium Chloride 250 mls @ 250 mls/hr 02/13/20 10:00 Normal Saline - IV 02/13/20 10:59 ASDIR STA Levothyroxine Sodium 25 mcg 02/13/20 07:00 02/13/20 06:45 Synthroid - PEG 25 mcg ACBK ARLENE Administration Lorazepam 1 mg 02/12/20 20:40 Ativan Injection - IVPUSH Q6H PRN SEIZURES Multivitamins/Minerals/Vitamin C 1 tab 02/13/20 10:00 Tab-A-Vit - PO DAILY ARLENE Mupirocin 1 applic 02/12/20 22:00 02/12/20 22:37 Bactroban Ointment (For Decolonization) - NS 02/17/20 21:59 1 applic BID ARLENE Administration ASSESSMENT/PLAN: Patient is a 64 YO F with PMH of HTN, afib (on eliquis), hypothyroidism, chronic respiratory failure (trach vented), ESRD (dialysis MWF), epilepsy, and anxiety was brought in for cardiac arrest. Found to have rapid afib s/p diltiazem and seizures in ED s/p ativan. Admitted to ICU for further monitoring. Neuro -non-verbal. Awake and alert. Able to follow simple commands. Waves yes or no to simple questions. -continue with home baclofen 10 mg daily for back muscle spasm -acetaminophen 650 mg Q6H for pain #Epilepsy -seizure in ED. s/p 4 doses of ativan. 1 mg IV push Q6H PRN for seizures -neuro consult appreciated. EEG and keppra 750 mg IV BID - supportive care #CVA Hx CTH: no acute pathology Left middle cerebral artery territory encephalomalacia/chronic infarct. Focal low-attenuation density in Right frontal high convexity. #Anxiety Cardio #HTN #Afib (on eliquis 2.5 mg BID) Will hold Amiodarone 100 mg Daily given elevated LFTs from shock liver. Stop eliquis if INR rises #s/p Cardiac arrest -EKG: Sinus tachycardia, LVH, vent rate 134 bpm, QTC 448 -Lactic acid downtrended from 3.3>2.2>1.3 -troponin downtrended from 0.98>0.94>0.73 -cardio consult appreciated. Would not benefit from repeat echo as it would not alter clinical decisions. Not a candidate for cardiac workup until her mental status improves. Pulm #Chronic Respiratory Failure -trach to vent - maintain SaO2>90% -rate 14, TV 400, FIO2 60%, PEEP 5, Plat 20 #Pneumonitis per [facility]. Possible aspiration PNA from seizure -CXR (02/11): dense Left base compatible with atelectasis and/or fluid --Leukocytosis: WBCs 33.5, 100.5 F -on levaquin 250 Q48H in [facility] -s/p vanc 1 gm & zosyn 2.25 gm in ED -zosyn 2.25 gm Q6 H -f/u ID consult -f/u blood cx, UA, urine cx, sputum cx -f/u vanc level Renal #ESRD (dialysis MWF) -[employer] X[facility] Long-Term Hemodialysis double lumen catheter (Implanted 12/15/2019) -f/u renal consult (Dr. vallejo) -BUN/Cr worsened from 62.1/1.2 to 78.7/1.5 -only 30 cc's urine overnight -UA: 1+ protein, 1+ leukoesterase, 3+ blood, 2 RBCs, but Cr kinase is WNL at 138 -nephro consult appreciated. will dialyze again tomorrow if stable ID #Pneumonitis per [facility]. Possible aspiration PNA from seizure -CXR (02/11): dense Left base compatible with atelectasis and/or fluid --Leukocytosis: WBCs 33.5, 100.5 F -on levaquin 250 Q48H in [facility] -s/p vanc 1 gm & zosyn 2.25 gm in ED -random vanc: 24.4 -ID consult appreciated. continue with zosyn 2.25 gm Q6 H -f/u blood cx, urine cx, sputum cx GI #Transaminitis -AST/ALT: 228/123 improved to 131/82 -likely 2/2 amiodarone use vs hypoperfusion (Shock Liver) -f/u hep panel Heme #Leukocytosis: WBCs 33.5 >15.8 #Thrombocytopenia: Plt 131> 85 #Anemia: 13.2>10.6 likely 2/2 dilution as all her cells are decreased. patient received fluids in ED after the initial labs were drawn Endo #Hypothyroidism -continue with home dose levothyroxine 25 mcg daily DVT PPX eliquis 2.5 mg BID Stop eliquis if INR rises FEN 250 NS bolus ordered monitor lytes consult dietary Lines Left IO was removed overnight. Left femoral central catheter removed today IV inserted in Right hand DISPO transfer to med surg ATTENDING PHYSICIAN STATEMENT I saw and evaluated the patient. I reviewed the resident's note and discussed the case with the resident. I agree with the resident's findings and plan as documented. SUBJECTIVE: OBJECTIVE: ASSESSMENT AND PLAN:
[2020-02-13] MEDS: APIXABAN 2.5 MG TABLET PEG SCH ×2 (10:36→22:11)
[2020-02-13] MEDS: MUPIROCIN 2% TOPICAL OINTMENT FOR DECOLONIZATION NS SCH ×2 (10:36→22:11)
[2020-02-13] MEDS: MULTIVITAMINS (DAILY MVI) TABLET (FP) PO SCH (10:41)
--- NOTE | 2020-02-13 10:46 | CON.NEP ---
Consult Consult Specialty:: nephrology Reason for Consultation:: esrd - History of Present Illness Chief Complaint: s/p code History of Present Illness: Patient is a 64 YO F with PMH of HTN, afib (on eliquis), hypothyroidism, chronic respiratory failure (trach vented), ESRD (dialysis MWF), epilepsy, and anxiety was brought in for cardiac arrest. While in [facility] dialysis, patient was found to be unresponsive. After 15 minutes of chest compressions were performed, she came back. She was being dialyzed at the time. She had 2 hours of dialysis and had been dialyzed wednesday last week as well. She also seized last night and had a ct scan done. 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 (Epilepsy) Cardio/Vascular: Yes: AFIB, HTN Pulmonary: Yes: Other (Respiratory Failure- trach- vent dependent) Renal/: Yes: Hemodialysis ...: No Psych: Yes: Depression Endocrine: Yes: Hypothyroidism - Alcohol/Substance Use Hx Alcohol Use: No (unknown) History of Substance Use: reports: None - Smoking History Smoking history: Smoker current status UNK Have you smoked in the past 12 months: No - Social History Usual Living Arrangement: Shelter ADL: Support Services History of Recent Travel: No Home Medications - Allergies Allergies/Adverse Reactions: Allergies Allergy/AdvReac Type Severity Reaction Status Date / Time No Known Allergies Allergy Verified 02/12/20 14:05 - Home Medications Home Medications: Ambulatory Orders Amiodarone HCl [Cordarone -] 100 mg PEG DAILY tablet 12/18/19 Apixaban [Eliquis -] 2.5 mg PEG BID tablet 12/18/19 Baclofen [Lioresal -] 10 mg PEG HS tablet 12/18/19 Simethicone Liquid [Mylicon Liquid -] 40 mg PEG BID ml 12/18/19 Levothyroxine [Synthroid -] 25 mcg PEG DAILY 01/17/20 Multivitamin 1 each PEG DAILY 01/18/20 Amino Acids/Protein Hydrolys [Prosource No Carb Liquid Pkt] 30 ml PO BID@0800,1730 packet 01/25/20 Famotidine [Pepcid] 20 mg PEG DAILY oral.susp 01/25/20 LORazepam [Ativan] 0.5 mg GT BID tablet 01/25/20 levoFLOXacin [Levaquin -] 250 mg PO Q48H #5 tablet 01/25/20 Acetaminophen [Tylenol] 2 tab PO Q6H PRN 02/12/20 Collagenase Clostridium Hist. [Santyl] 1 applic TP DAILY 02/12/20 Ipratropium/Albuterol Sulfate [Iprat-Albut 0.5-3(2.5) mg/3 ml] 3 ml IH Q6H PRN 02/12/20 Potassium Chloride [K-Dur -] 20 meq PO BID 02/12/20 Review of Systems Unable to obtain ROS, reason: trach Nephrology Consult - Height Height: 5 ft - Weight Weight: 97 lb 12.8 oz - BMI Body Mass Index (BMI): 19.1 - Lab Results CBC,BMP: CBC, BMP 02/13/20 06:00 02/13/20 06:00 Anion Gap: Anion Gap Anion Gap 9 MMOL/L (8-16) 02/13/20 06:00 - Imaging Chest X-ray: Report Reviewed - Physical Examination Vital Signs: Vital Signs Temperature 98.6 F 02/13/20 06:00 Pulse Rate 74 02/13/20 06:00 Respiratory Rate 14 02/13/20 08:41 Blood Pressure 81/54 L 02/13/20 06:00 O2 Sat by Pulse Oximetry (%) 100 02/13/20 06:00 Constitutional: Yes: No Distress, Anxious, Thin Eyes: Yes: Conjunctiva Clear HENT: Yes: Atraumatic, Normocephalic Neck: Yes: Supple, Trachea Midline Cardiovascular: Yes: Regular Rate and Rhythm Respiratory: Yes: Regular, CTA Bilaterally Gastrointestinal: Yes: Normal Bowel Sounds Access for Hemodialysis: Permacath Musculoskeletal: Yes: Muscle Weakness Edema: No Integumentary: Yes: WNL Neurological: Yes: Alert Psychiatric: Yes: Alert Assessment/Plan IMPRESSION ESRD low creat due to very low muscle mass leukocytosis- r/o line sepsis vs pneumonia lactic acidosis PLAN will dialyze again tomorrow, preferably in the icu neuro eval cultures so far negative- broad spectrum antibiotics MV
--- NOTE | 2020-02-13 12:26 | EKG ---
Test Reason : Blood Pressure : / mmHG Vent. Rate : 134 BPM Atrial Rate : 134 BPM P-R Int : 152 ms QRS Dur : 086 ms QT Int : 300 ms P-R-T Axes : 000 028 224 degrees QTc Int : 448 ms SINUS TACHYCARDIA LEFT VENTRICULAR HYPERTROPHY WITH REPOLARIZATION ABNORMALITY ABNORMAL ECG WHEN COMPARED WITH ECG OF 17-JAN-2020 20:58, PREMATURE ATRIAL COMPLEXES ARE NO LONGER PRESENT T WAVE INVERSION MORE EVIDENT IN INFERIOR LEADS Confirmed by Chris Andrew ([id number]) on 02/13/2020 12:26:28 PM Referred By: Confirmed By:Chris Andrew
--- NOTE | 2020-02-13 12:26 | EKG ---
Test Reason : Blood Pressure : / mmHG Vent. Rate : 096 BPM Atrial Rate : 096 BPM P-R Int : 136 ms QRS Dur : 088 ms QT Int : 370 ms P-R-T Axes : 065 029 179 degrees QTc Int : 467 ms SINUS RHYTHM WITH PREMATURE ATRIAL COMPLEXES LEFT VENTRICULAR HYPERTROPHY WITH REPOLARIZATION ABNORMALITY ABNORMAL ECG WHEN COMPARED WITH ECG OF 17-JAN-2020 20:58, NO SIGNIFICANT CHANGE WAS FOUND Confirmed by Chris Andrew ([id number]) on 02/13/2020 12:26:24 PM Referred By: Confirmed By:Chris Andrew
[2020-02-13 12:58] VITALS: BMI 18.9
--- NOTE | 2020-02-13 13:48 | CON.ID ---
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 (Epilepsy) Cardio/Vascular: Yes: AFIB, HTN Pulmonary: Yes: Other (Respiratory Failure- trach- vent dependent) Renal/: Yes: Hemodialysis ...: No Psych: Yes: Depression Endocrine: Yes: Hypothyroidism - Alcohol/Substance Use Hx Alcohol Use: No (unknown) History of Substance Use: reports: None - Smoking History Smoking history: Smoker current status UNK Have you smoked in the past 12 months: No - Social History Usual Living Arrangement: Jail ADL: Support Services History of Recent Travel: No Home Medications - Allergies Allergies/Adverse Reactions: Allergies Allergy/AdvReac Type Severity Reaction Status Date / Time No Known Allergies Allergy Verified 02/12/20 14:05 - Home Medications Home Medications: Ambulatory Orders Amiodarone HCl [Cordarone -] 100 mg PEG DAILY tablet 12/18/19 Apixaban [Eliquis -] 2.5 mg PEG BID tablet 12/18/19 Baclofen [Lioresal -] 10 mg PEG HS tablet 12/18/19 Simethicone Liquid [Mylicon Liquid -] 40 mg PEG BID ml 12/18/19 Levothyroxine [Synthroid -] 25 mcg PEG DAILY 01/17/20 Multivitamin 1 each PEG DAILY 01/18/20 Amino Acids/Protein Hydrolys [Prosource No Carb Liquid Pkt] 30 ml PO BID@0800,1730 packet 01/25/20 Famotidine [Pepcid] 20 mg PEG DAILY oral.susp 01/25/20 LORazepam [Ativan] 0.5 mg GT BID tablet 01/25/20 levoFLOXacin [Levaquin -] 250 mg PO Q48H #5 tablet 01/25/20 Acetaminophen [Tylenol] 2 tab PO Q6H PRN 02/12/20 Collagenase Clostridium Hist. [Santyl] 1 applic TP DAILY 02/12/20 Ipratropium/Albuterol Sulfate [Iprat-Albut 0.5-3(2.5) mg/3 ml] 3 ml IH Q6H PRN 02/12/20 Potassium Chloride [K-Dur -] 20 meq PO BID 02/12/20 Physical Exam Vital Signs: Vital Signs Temperature 98.6 F 02/13/20 06:00 Pulse Rate 74 02/13/20 06:00 Respiratory Rate 14 02/13/20 12:22 Blood Pressure 81/54 L 02/13/20 06:00 O2 Sat by Pulse Oximetry (%) 100 02/13/20 06:00 Labs: CBC, BMP 02/13/20 06:00 02/13/20 06:00
--- NOTE | 2020-02-13 13:57 | HOSP ---
Physical Examination Vital Signs: Vital Signs Temperature 98.6 F 02/13/20 06:00 Pulse Rate 74 02/13/20 06:00 Respiratory Rate 14 02/13/20 12:22 Blood Pressure 81/54 L 02/13/20 06:00 O2 Sat by Pulse Oximetry (%) 100 02/13/20 06:00 Constitutional: Yes: No Distress HENT: Yes: Atraumatic, Normocephalic, Other (dry Mucous membrane) Cardiovascular: Yes: Pulse Irregular, S1, S2 Gastrointestinal: Yes: Normal Bowel Sounds, Other (peg) Extremities: Yes: Cool Edema: LLE: 1+, RLE: 1+ Integumentary: Yes: Pressure Ulcer (stage 4 sacral ulcer) Labs: CBC, BMP 02/13/20 06:00 02/13/20 06:00 Hospitalist Encounter Assessment: Patient is a 64 YO F with PMH of HTN, afib (on eliquis), hypothyroidism, chronic respiratory failure (trach vented), ESRD (dialysis MWF), epilepsy, and anxiety was brought in for cardiac arrest. While in [facility] dialysis, patient was found to be unresponsive. After 15 minutes of chest compressions were performed, her pulse returned and she began breathing on her own again. EMS inserted IO access in Left leg. Upon arrival to the ED, the patient had a pulse, but started seizing. She was given 2 mg ativan. However, she continued to seize, so she received another 2 mg of ativan, which stopped the seizures. ED gave calcium and bicarb due to dialysis. She was also found to have rapid afib 134 bpm and given diltiazem 10 mg. Femoral line was inserted due to difficult access. (b/l IJ s were small on ultrasound). CT scan of head was ordered by ED to rule out head bleed due to horizontal gaze deviation. CTH showed no acute pathology. It showed left middle cerebral artery territory encephalomalacia/chronic infarct. Focal low-attenuation density in Right frontal high convexity. Yesterday, patient was unresponsive to questions. However, her mental status improved. Today she is awake and alert and able to follow simple commands and waves yes or no to simple questions. This is her baseline according to [facility]. Patient's troponin peaked at 0.98 overnight, but has downtrended to 0.73 now. Lactic acidosis has now resolved. EKG showed Sinus tachycardia, LVH, vent rate 134 bpm, QTC 448. Cardiology recommended continuing current medical management and did not recommend a repeat echo as it would not change clinical decision making. Her afib is being managed with eliquis 2.5 mg BID, but her home amiodarone 100 mg is being held given her elevated LFTs. Her transaminitis is likely 2/2 shock liver from hypoperfusion vs amiodarone use. Hep panel was ordered. Her AST/ALT: 228/123 improved to 131/82 Patient has chronic Respiratory Failure, with trach to vent. Patient had pneumonitis at her [facility], and was given levaquin 250 Q48H in [facility]. On arrival to the ED, her WBCs were 33.5 and temperature is 100.5 F. She is s/p vanc 1 gm & zosyn 2.25 gm in ED, and currently receiving zosyn 2.25 gm Q6 H. -CXR (02/11): dense Left base compatible with atelectasis and/or fluid. Patient is stable for discharge to tele
--- NOTE | 2020-02-13 15:27 | PN ---
Teaching Attending Note Name of Resident: Alberto Frye ATTENDING PHYSICIAN STATEMENT I saw and evaluated the patient. I reviewed the resident's note and discussed the case with the resident. I agree with the resident's findings and plan as documented. SUBJECTIVE: 64 F, known to me from previous hospital admissions. HTN, AFib (on eliquis), hypothyroidism, chronic respiratory failure (trach vented), ESRD (dialysis MWF), epilepsy, and anxiety. Admitted via the ER after an apparent cardiac arrest. Apparently during HD she was found to be unresponsive. ROSC documented after 15 minutes. Seizure activity noted post-resuscitation. CT Head (-) Now seen in the ICU. Vented via Trach. Awake and responsive. 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 No pressors. Recent Travel: none PAST MEDICAL HISTORY: HTN, afib (on eliquis), hypothyroidism, chronic respiratory failure (trach vented), ESRD (dialysis MWF), epilepsy, and anxiety PAST SURGICAL HISTORY: peg, tracheostomy Social History: Smoking: unknown given patient's mental status Alcohol: unknown given patient's mental status Drugs: unknown given patient's mental status Allergies No Known Allergies Allergy (Verified 02/12/20 14:05) HOME MEDICATIONS: Home Medications Medication Instructions Recorded Amiodarone HCl [Cordarone -] 100 mg PEG DAILY tablet 12/18/19 Apixaban [Eliquis -] 2.5 mg PEG BID tablet 12/18/19 Baclofen [Lioresal -] 10 mg PEG HS tablet 12/18/19 Simethicone Liquid [Mylicon Liquid 40 mg PEG BID ml 12/18/19 -] Levothyroxine [Synthroid -] 25 mcg PEG DAILY 01/17/20 Multivitamin 1 each PEG DAILY 01/18/20 Amino Acids/Protein Hydrolys 30 ml PO BID@0800,1730 packet 01/25/20 [Prosource No Carb Liquid Pkt] Famotidine [Pepcid] 20 mg PEG DAILY oral.susp 01/25/20 LORazepam [Ativan] 0.5 mg GT BID tablet 01/25/20 levoFLOXacin [Levaquin -] 250 mg PO Q48H #5 tablet 01/25/20 Acetaminophen [Tylenol] 2 tab PO Q6H PRN 02/12/20 Collagenase Clostridium Hist. 1 applic TP DAILY 02/12/20 [Santyl] Ipratropium/Albuterol Sulfate 3 ml IH Q6H PRN 02/12/20 [Iprat-Albut 0.5-3(2.5) mg/3 ml] Potassium Chloride [K-Dur -] 20 meq PO BID 02/12/20 PHYSICAL EXAMINATION Laboratory Results - last 24 hr 02/12/20 02/12/20 02/12/20 16:15 16:15 16:15 WBC 33.5 H* RBC 4.81 Hgb 13.2 Hct 41.1 MCV 85.4 MCH 27.4 MCHC 32.0 RDW 17.3 H Plt Count 131 L MPV 8.5 Absolute Neuts (auto) 30.5 H Neutrophils % 90.9 H Neutrophils % (Manual) 77.8 Band Neutrophils % 7.1 Lymphocytes % 2.6 L D Lymphocytes % (Manual) 0.0 L Monocytes % 6.2 Monocytes % (Manual) 6 Eosinophils % 0.0 Eosinophils % (Manual) 0.0 Basophils % 0.3 Basophils % (Manual) 0.0 Myelocytes % (Man) 4 H D Promyelocytes % (Man) 0 Blast Cells % (Manual) 0 Nucleated RBC % 0 Metamyelocytes 5 H D Hypochromia 0 Platelet Estimate Decreased Polychromasia 1+ Poikilocytosis 0 Anisocytosis 0 Microcytosis 0 PT with INR 13.40 H INR 1.13 H PTT (Actin FS) 30.1 Sodium 139 Potassium 3.3 L Chloride 102 Carbon Dioxide 27 Anion Gap 11 BUN 62.1 H Creatinine 1.2 Est GFR (CKD-EPI)AfAm 54.92 Est GFR (CKD-EPI)NonAf 47.39 Random Glucose 105 Lactic Acid Calcium 10.1 Phosphorus Magnesium Total Bilirubin 0.3 AST 228 H ALT 123 H Alkaline Phosphatase 182 H Creatine Kinase Troponin I 0.60 H Total Protein 7.1 Albumin 2.0 L Urine Color Urine Appearance Urine pH Ur Specific [place] Urine Protein Urine Glucose (UA) Urine Ketones Urine Blood Urine Nitrite Urine Bilirubin Urine Urobilinogen Ur Leukocyte Esterase Urine WBC (Auto) Urine RBC (Auto) Urine Casts (Auto) U Epithel Cells (Auto) Urine Bacteria (Auto) Urine Yeast (Auto) Random Vancomycin 02/12/20 02/12/20 02/12/20 16:15 19:50 20:20 WBC RBC Hgb Hct MCV MCH MCHC RDW Plt Count MPV Absolute Neuts (auto) Neutrophils % Neutrophils % (Manual) Band Neutrophils % Lymphocytes % Lymphocytes % (Manual) Monocytes % Monocytes % (Manual) Eosinophils % Eosinophils % (Manual) Basophils % Basophils % (Manual) Myelocytes % (Man) Promyelocytes % (Man) Blast Cells % (Manual) Nucleated RBC % Metamyelocytes Hypochromia Platelet Estimate Polychromasia Poikilocytosis Anisocytosis Microcytosis PT with INR INR PTT (Actin FS) Sodium Potassium Chloride Carbon Dioxide Anion Gap BUN Creatinine Est GFR (CKD-EPI)AfAm Est GFR (CKD-EPI)NonAf Random Glucose Lactic Acid 3.3 H* 2.2 H* Calcium Phosphorus Magnesium Total Bilirubin AST ALT Alkaline Phosphatase Creatine Kinase Troponin I Total Protein Albumin Urine Color Yellow Urine Appearance Cloudy Urine pH 5.0 Ur Specific [place] 1.015 Urine Protein 1+ H Urine Glucose (UA) Negative Urine Ketones Negative Urine Blood 3+ H Urine Nitrite Negative Urine Bilirubin Negative Urine Urobilinogen 0.2 Ur Leukocyte Esterase 1+ H Urine WBC (Auto) 38 Urine RBC (Auto) 2 Urine Casts (Auto) 4 U Epithel Cells (Auto) 7 Urine Bacteria (Auto) 3 Urine Yeast (Auto) present Random Vancomycin 02/12/20 02/13/20 02/13/20 22:51 02:00 06:00 WBC RBC Hgb Hct MCV MCH MCHC RDW Plt Count MPV Absolute Neuts (auto) Neutrophils % Neutrophils % (Manual) Band Neutrophils % Lymphocytes % Lymphocytes % (Manual) Monocytes % Monocytes % (Manual) Eosinophils % Eosinophils % (Manual) Basophils % Basophils % (Manual) Myelocytes % (Man) Promyelocytes % (Man) Blast Cells % (Manual) Nucleated RBC % Metamyelocytes Hypochromia Platelet Estimate Polychromasia Poikilocytosis Anisocytosis Microcytosis PT with INR INR PTT (Actin FS) Sodium Potassium Chloride Carbon Dioxide Anion Gap BUN Creatinine Est GFR (CKD-EPI)AfAm Est GFR (CKD-EPI)NonAf Random Glucose Lactic Acid Calcium Phosphorus Magnesium Total Bilirubin AST ALT Alkaline Phosphatase Creatine Kinase 138 Troponin I 0.98 H* 0.94 H* Total Protein Albumin Urine Color Urine Appearance Urine pH Ur Specific [place] Urine Protein Urine Glucose (UA) Urine Ketones Urine Blood Urine Nitrite Urine Bilirubin Urine Urobilinogen Ur Leukocyte Esterase Urine WBC (Auto) Urine RBC (Auto) Urine Casts (Auto) U Epithel Cells (Auto) Urine Bacteria (Auto) Urine Yeast (Auto) Random Vancomycin 24.4 02/13/20 02/13/20 02/13/20 06:00 06:00 06:00 WBC 15.8 H RBC 3.92 Hgb 10.6 L Hct 32.6 D MCV 83.1 MCH 27.2 MCHC 32.7 RDW 17.1 H Plt Count 85 L D MPV 9.0 Absolute Neuts (auto) Neutrophils % Neutrophils % (Manual) Band Neutrophils % Lymphocytes % Lymphocytes % (Manual) Monocytes % Monocytes % (Manual) Eosinophils % Eosinophils % (Manual) Basophils % Basophils % (Manual) Myelocytes % (Man) Promyelocytes % (Man) Blast Cells % (Manual) Nucleated RBC % Metamyelocytes Hypochromia Platelet Estimate Polychromasia Poikilocytosis Anisocytosis Microcytosis PT with INR INR PTT (Actin FS) Sodium 137 Potassium 4.2 Chloride 104 Carbon Dioxide 24 Anion Gap 9 BUN 78.7 H Creatinine 1.5 H Est GFR (CKD-EPI)AfAm 41.94 Est GFR (CKD-EPI)NonAf 36.18 Random Glucose 87 Lactic Acid 1.3 Calcium 8.4 L Phosphorus 2.9 Magnesium 1.8 Total Bilirubin 0.4 AST 131 H ALT 82 H Alkaline Phosphatase 124 H Creatine Kinase Troponin I 0.73 H* Total Protein 5.8 L Albumin 1.7 L Urine Color Urine Appearance Urine pH Ur Specific [place] Urine Protein Urine Glucose (UA) Urine Ketones Urine Blood Urine Nitrite Urine Bilirubin Urine Urobilinogen Ur Leukocyte Esterase Urine WBC (Auto) Urine RBC (Auto) Urine Casts (Auto) U Epithel Cells (Auto) Urine Bacteria (Auto) Urine Yeast (Auto) Random Vancomycin GENERAL: Awake. Vented. No acute distress. HEENT: Normal with no signs of trauma. PERRL. dry mucous membranes. NECK: No JVD, Trach intact LUNGS: Vented, clear to auscultation bilaterally. No wheezes, and no crackles. No accessory muscle use. HEART: irregular rate, normal S1 and S2 without murmur, rub or gallop. R upper chest hemodialysis catheter ABDOMEN: Soft, nontender, not distended, normoactive bowel sounds, no guarding, no rebound. PEG tube UPPER EXTREMITIES: 2+ pulses, cold, No peripheral edema. LOWER EXTREMITIES: 1+ pulses, cold, No peripheral edema. IV on Left foot. IO on left leg. Left femoral central catheter NEUROLOGICAL: Old right weakness, contracted SKIN: stage 4 sacral ulcer Laboratory Results - last 24 hr 02/12/20 02/12/20 02/12/20 16:15 16:15 16:15 WBC 33.5 H* RBC 4.81 Hgb 13.2 Hct 41.1 MCV 85.4 MCH 27.4 MCHC 32.0 RDW 17.3 H Plt Count 131 L MPV 8.5 Absolute Neuts (auto) 30.5 H Neutrophils % 90.9 H Neutrophils % (Manual) 77.8 Band Neutrophils % 7.1 Lymphocytes % 2.6 L D Lymphocytes % (Manual) 0.0 L Monocytes % 6.2 Monocytes % (Manual) 6 Eosinophils % 0.0 Eosinophils % (Manual) 0.0 Basophils % 0.3 Basophils % (Manual) 0.0 Myelocytes % (Man) 4 H D Promyelocytes % (Man) 0 Blast Cells % (Manual) 0 Nucleated RBC % 0 Metamyelocytes 5 H D Hypochromia 0 Platelet Estimate Decreased Polychromasia 1+ Poikilocytosis 0 Anisocytosis 0 Microcytosis 0 PT with INR 13.40 H INR 1.13 H PTT (Actin FS) 30.1 Sodium 139 Potassium 3.3 L Chloride 102 Carbon Dioxide 27 Anion Gap 11 BUN 62.1 H Creatinine 1.2 Est GFR (CKD-EPI)AfAm 54.92 Est GFR (CKD-EPI)NonAf 47.39 Random Glucose 105 Lactic Acid Calcium 10.1 Phosphorus Magnesium Total Bilirubin 0.3 AST 228 H ALT 123 H Alkaline Phosphatase 182 H Creatine Kinase Troponin I 0.60 H Total Protein 7.1 Albumin 2.0 L Urine Color Urine Appearance Urine pH Ur Specific [place] Urine Protein Urine Glucose (UA) Urine Ketones Urine Blood Urine Nitrite Urine Bilirubin Urine Urobilinogen Ur Leukocyte Esterase Urine WBC (Auto) Urine RBC (Auto) Urine Casts (Auto) U Epithel Cells (Auto) Urine Bacteria (Auto) Urine Yeast (Auto) Random Vancomycin 02/12/20 02/12/20 02/12/20 16:15 19:50 20:20 WBC RBC Hgb Hct MCV MCH MCHC RDW Plt Count MPV Absolute Neuts (auto) Neutrophils % Neutrophils % (Manual) Band Neutrophils % Lymphocytes % Lymphocytes % (Manual) Monocytes % Monocytes % (Manual) Eosinophils % Eosinophils % (Manual) Basophils % Basophils % (Manual) Myelocytes % (Man) Promyelocytes % (Man) Blast Cells % (Manual) Nucleated RBC % Metamyelocytes Hypochromia Platelet Estimate Polychromasia Poikilocytosis Anisocytosis Microcytosis PT with INR INR PTT (Actin FS) Sodium Potassium Chloride Carbon Dioxide Anion Gap BUN Creatinine Est GFR (CKD-EPI)AfAm Est GFR (CKD-EPI)NonAf Random Glucose Lactic Acid 3.3 H* 2.2 H* Calcium Phosphorus Magnesium Total Bilirubin AST ALT Alkaline Phosphatase Creatine Kinase Troponin I Total Protein Albumin Urine Color Yellow Urine Appearance Cloudy Urine pH 5.0 Ur Specific [place] 1.015 Urine Protein 1+ H Urine Glucose (UA) Negative Urine Ketones Negative Urine Blood 3+ H Urine Nitrite Negative Urine Bilirubin Negative Urine Urobilinogen 0.2 Ur Leukocyte Esterase 1+ H Urine WBC (Auto) 38 Urine RBC (Auto) 2 Urine Casts (Auto) 4 U Epithel Cells (Auto) 7 Urine Bacteria (Auto) 3 Urine Yeast (Auto) present Random Vancomycin 02/12/20 02/13/20 02/13/20 22:51 02:00 06:00 WBC RBC Hgb Hct MCV MCH MCHC RDW Plt Count MPV Absolute Neuts (auto) Neutrophils % Neutrophils % (Manual) Band Neutrophils % Lymphocytes % Lymphocytes % (Manual) Monocytes % Monocytes % (Manual) Eosinophils % Eosinophils % (Manual) Basophils % Basophils % (Manual) Myelocytes % (Man) Promyelocytes % (Man) Blast Cells % (Manual) Nucleated RBC % Metamyelocytes Hypochromia Platelet Estimate Polychromasia Poikilocytosis Anisocytosis Microcytosis PT with INR INR PTT (Actin FS) Sodium Potassium Chloride Carbon Dioxide Anion Gap BUN Creatinine Est GFR (CKD-EPI)AfAm Est GFR (CKD-EPI)NonAf Random Glucose Lactic Acid Calcium Phosphorus Magnesium Total Bilirubin AST ALT Alkaline Phosphatase Creatine Kinase 138 Troponin I 0.98 H* 0.94 H* Total Protein Albumin Urine Color Urine Appearance Urine pH Ur Specific [place] Urine Protein Urine Glucose (UA) Urine Ketones Urine Blood Urine Nitrite Urine Bilirubin Urine Urobilinogen Ur Leukocyte Esterase Urine WBC (Auto) Urine RBC (Auto) Urine Casts (Auto) U Epithel Cells (Auto) Urine Bacteria (Auto) Urine Yeast (Auto) Random Vancomycin 24.4 02/13/20 02/13/20 02/13/20 06:00 06:00 06:00 WBC 15.8 H RBC 3.92 Hgb 10.6 L Hct 32.6 D MCV 83.1 MCH 27.2 MCHC 32.7 RDW 17.1 H Plt Count 85 L D MPV 9.0 Absolute Neuts (auto) Neutrophils % Neutrophils % (Manual) Band Neutrophils % Lymphocytes % Lymphocytes % (Manual) Monocytes % Monocytes % (Manual) Eosinophils % Eosinophils % (Manual) Basophils % Basophils % (Manual) Myelocytes % (Man) Promyelocytes % (Man) Blast Cells % (Manual) Nucleated RBC % Metamyelocytes Hypochromia Platelet Estimate Polychromasia Poikilocytosis Anisocytosis Microcytosis PT with INR INR PTT (Actin FS) Sodium 137 Potassium 4.2 Chloride 104 Carbon Dioxide 24 Anion Gap 9 BUN 78.7 H Creatinine 1.5 H Est GFR (CKD-EPI)AfAm 41.94 Est GFR (CKD-EPI)NonAf 36.18 Random Glucose 87 Lactic Acid 1.3 Calcium 8.4 L Phosphorus 2.9 Magnesium 1.8 Total Bilirubin 0.4 AST 131 H ALT 82 H Alkaline Phosphatase 124 H Creatine Kinase Troponin I 0.73 H* Total Protein 5.8 L Albumin 1.7 L Urine Color Urine Appearance Urine pH Ur Specific [place] Urine Protein Urine Glucose (UA) Urine Ketones Urine Blood Urine Nitrite Urine Bilirubin Urine Urobilinogen Ur Leukocyte Esterase Urine WBC (Auto) Urine RBC (Auto) Urine Casts (Auto) U Epithel Cells (Auto) Urine Bacteria (Auto) Urine Yeast (Auto) Random Vancomycin ASSESSMENT/PLAN: S/P CP Arrest R/O PNA HTN AFib (on eliquis) Hypothyroidism Chronic respiratory failure ESRD (dialysis MWF) Epilepsy Anxiety AC Mode of vent Would hold on HD today given recent instability unless deemed necessary by Renal IVF Strict I & O Continue AC Neuro evaluation Cardiology evaluation BZ PRN for Seizure ABX per ID Vent floor monitoring Dr Stearns
--- NOTE | 2020-02-13 16:04 | CON.NEURO ---
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 COUNSELOR: Yes: Seizure (Epilepsy) Cardio/Vascular: Yes: AFIB, HTN Pulmonary: Yes: Other (Respiratory Failure- trach- vent dependent) Renal/: Yes: Hemodialysis ...: No Psych: Yes: Depression Endocrine: Yes: Hypothyroidism - Alcohol/Substance Use Hx Alcohol Use: No (unknown) History of Substance Use: reports: None - Smoking History Smoking history: Smoker current status UNK Have you smoked in the past 12 months: No - Social History Usual Living Arrangement: [facility] ADL: Support Services History of Recent Travel: No Home Medications - Allergies Allergies/Adverse Reactions: Allergies Allergy/AdvReac Type Severity Reaction Status Date / Time No Known Allergies Allergy Verified 02/12/20 14:05 - Home Medications Home Medications: Ambulatory Orders Amiodarone HCl [Cordarone -] 100 mg PEG DAILY tablet 12/18/19 Apixaban [Eliquis -] 2.5 mg PEG BID tablet 12/18/19 Baclofen [Lioresal -] 10 mg PEG HS tablet 12/18/19 Simethicone Liquid [Mylicon Liquid -] 40 mg PEG BID ml 12/18/19 Levothyroxine [Synthroid -] 25 mcg PEG DAILY 01/17/20 Multivitamin 1 each PEG DAILY 01/18/20 Amino Acids/Protein Hydrolys [Prosource No Carb Liquid Pkt] 30 ml PO BID@0800,1730 packet 01/25/20 Famotidine [Pepcid] 20 mg PEG DAILY oral.susp 01/25/20 LORazepam [Ativan] 0.5 mg GT BID tablet 01/25/20 levoFLOXacin [Levaquin -] 250 mg PO Q48H #5 tablet 01/25/20 Acetaminophen [Tylenol] 2 tab PO Q6H PRN 02/12/20 Collagenase Clostridium Hist. [Santyl] 1 applic TP DAILY 02/12/20 Ipratropium/Albuterol Sulfate [Iprat-Albut 0.5-3(2.5) mg/3 ml] 3 ml IH Q6H PRN 02/12/20 Potassium Chloride [K-Dur -] 20 meq PO BID 02/12/20 Physical Exam-Neuro Vital Signs: Vital Signs Temperature 98.6 F 02/13/20 06:00 Pulse Rate 74 02/13/20 06:00 Respiratory Rate 14 10/06/20 12:22 Blood Pressure 81/54 L 02/13/20 06:00 O2 Sat by Pulse Oximetry (%) 100 02/13/20 06:00 Labs: CBC, BMP 02/13/20 06:00 02/13/20 06:00 INR, PTT INR 1.13 (0.83-1.09) H 02/12/20 16:15 Assessment/Plan CC Seizure post cardiac arrest HPI 64 araon old female history of htn, afib (on eliquis), hypothyroidism, chronic respiratory failure (trach vented), ESRD (dialysis MWF), epilepsy, and anxiety was brought in for cardiac arrest. Patient has cardiac arrest durng dialysis, and patient had CPR and following whcih she has generalied tonic clonic seizure. She was given ativan and it stopped seizure. She has ct hed , which wa unremrakable. She was started on iv keppra. patient has encephalomalcia and has trach and peg tube placement in past following old stroke. now it appears to be come into baseline . Recent Travel: none PAST MEDICAL HISTORY: HTN, afib (on eliquis), hypothyroidism, chronic respiratory failure (trach vented), ESRD (dialysis MWF), epilepsy, and anxiety PAST SURGICAL HISTORY: peg, tracheostomy Social History: Smoking: unknown given patient's mental status Alcohol: unknown given patient's mental status Drugs: unknown given patient's mental status Allergies No Known Allergies Allergy (Verified 02/12/20 14:05) HOME MEDICATIONS: Home Medications Medication Instructions Recorded Amiodarone HCl [Cordarone -] 100 mg PEG DAILY tablet 12/18/19 Apixaban [Eliquis -] 2.5 mg PEG BID tablet 12/18/19 Baclofen [Lioresal -] 10 mg PEG HS tablet 12/18/19 Simethicone Liquid [Mylicon Liquid 40 mg PEG BID ml 12/18/19 -] Levothyroxine [Synthroid -] 25 mcg PEG DAILY 01/17/20 Multivitamin 1 each PEG DAILY 01/18/20 Amino Acids/Protein Hydrolys 30 ml PO BID@0800,1730 packet 01/25/20 [Prosource No Carb Liquid Pkt] Famotidine [Pepcid] 20 mg PEG DAILY oral.susp 01/25/20 LORazepam [Ativan] 0.5 mg GT BID tablet 01/25/20 levoFLOXacin [Levaquin -] 250 mg PO Q48H #5 tablet 01/25/20 Acetaminophen [Tylenol] 2 tab PO Q6H PRN 02/12/20 Collagenase Clostridium Hist. 1 applic TP DAILY 02/12/20 [Santyl] Ipratropium/Albuterol Sulfate 3 ml IH Q6H PRN 02/12/20 [Iprat-Albut 0.5-3(2.5) mg/3 ml] Potassium Chloride [K-Dur -] 20 meq PO BID 02/12/20 ROS,FH,SH reviewed in chart NEUROLOGICAL EXAM Alert , aphasic, follow command right sided facial palsy right sided hemiparesis trach and peg not on any sedation ( she apears to be at her baseline) ct head no acute findings Assessment/Plan 64 aaron old female history of htn, afib (on eliquis), hypothyroidism, chronic respiratory failure (trach vented), ESRD (dialysis MWF), epilepsy, and anxiety . She has cardiac arrest lasting ? 15-20 minute and has generlaized tonic clonic seizure, now back to baseline Plan: eeg and iv keppra 750 mg iv bid - supportive care - no need for brain mri Thanking you so much Markel Clemens MD
[2020-02-13] MEDS ORDERED: MORPHINE SULFATE 2 MG/ML VIAL IVPUSH PRN (20:39)
--- NOTE | 2020-02-13 21:57 | PROC ---
Central Line Insertion Indication: Poor Venous Access Risks and Benefits Explained: No Consent on Chart: No (emergent procedure ) Central Line: Triple Lumen Catheter Anesthesia: 1% Lidocaine Sterile Technique: Yes Ultrasound Guided Assistance: Yes Position: Left Femoral Sterile Dressing Applied: Yes Remarks: Procedure done on 02/12/2020 in ER after multiple attempts to get IV access and blood via venous access and arterial access
[2020-02-13] MEDS: LIDOCAINE 5% TOPICAL PATCH TP SCH (22:09)
[2020-02-13] MEDS: CHLORHEXIDINE GLUCONATE 4% CLEANSER FOR DECOLONIZATION TP SCH (22:11)
[2020-02-13] MEDS: levETIRAcetam 500 MG/5 ML INJECTION VIAL IVPB SCH (23:04)
[2020-02-14] MEDS: BACLOFEN 10 MG TABLET (FP) PEG SCH ×2 (00:01→22:25)
[2020-02-14] MEDS ORDERED: PIPERACILLIN/TAZOBACTAM 2.25 GM VIAL IVPB ONE ×4 (00:56→21:56)
[2020-02-14] MEDS ORDERED: DEXTROSE 5%-WATER - 50 ML IVPB ONE ×4 (00:57→21:56)
[2020-02-14] MEDS: PIPERACILLIN/TAZOB 2.25 GM 2.25 GM in DEXTROSE 5%-WATER - 50 ML IVPB SCH ×4 (02:37→21:00)
[2020-02-14] MEDS: MORPHINE SULFATE 2 MG/ML VIAL IVPUSH PRN (04:25)
[2020-02-14] MEDS: LEVOTHYROXINE NA 25 MCG TABLET (FP) PEG SCH (06:30)
[2020-02-14 07:43] LABS: HEMATOCRIT 35.7 % (32.4-45.2); HEMOGLOBIN 11.6 GM/dL (10.7-15.3); INR 1.4 (0.83-1.09); MCH 27.4 pg (25.7-33.7); MCHC 32.4 g/dl (32.0-36.0); MEAN CELL VOLUME 84.8 fl (80-96); MEAN PLT VOLUME 9.1 fl (7.5-11.1); PLATELET COUNT 84 K/MM3 (134-434); PROTHROMBIN TIME (PATIENT) 16.6 SEC (9.7-13.0); RBC 4.21 M/mm3 (3.60-5.2); RDW 17.4 % (11.6-15.6); WHITE BLOOD COUNT 14.5 K/mm3 (4.0-10.0)
[2020-02-14 07:46] LABS: ACTIVATED PTT 27.2 SECONDS (25.2-36.5)
[2020-02-14 07:49] LABS: ALBUMIN 1.8 g/dl (3.4-5.0); BILIRUBIN,TOTAL 0.8 mg/dL (0.2-1); BLOOD UREA NITROGEN 74.2 mg/dL (7-18); CALCIUM 8.6 mg/dL (8.5-10.1); CREATININE 1.9 mg/dL (0.55-1.3); MAGNESIUM 2.1 mg/dL (1.8-2.4); POTASSIUM 3.6 mmol/L (3.5-5.1); TOT PROT 6.3 g/dl (6.4-8.2)
[2020-02-14] MEDS: LIDOCAINE PATCH REMOVAL MC SCH (08:46)
--- NOTE | 2020-02-14 09:16 | PN ---
Progress Note, Physician Chief Complaint: more alert tele PAF, no VT or pauses. History of Present Illness: 64 year old woman pmh ESRD on HD, chronic respiratory failure s/p trach on vent, h/o Pafib on eliquis, HTN, hypothyroid, epilepsy, MDD, [place], [place], tachypnea, tachycardia, recently admitted with PNA, mildly elevated troponin with no sig CK elevation, abnl ekg managed medically now ad mitted after cardiac arrest in [facility] HD, CPR for 15 minutes with ROSC. ER course complicated for seizures, PAF with RVR. Now unresponsive on ventilator in the ICU. Cannot obtain history. Echo 01/19/20: LVH normal EF, small pericardial effusion, mild MS, mild TR - Current Medication List Current Medications: Active Medications Acetaminophen (Tylenol -) 650 mg PO Q6H PRN PRN Reason: FEVER Apixaban (Eliquis -) 2.5 mg PEG BID [facility] Last Admin: 02/13/20 22:11 Dose: 2.5 mg Documented by: Baclofen (Lioresal -) 10 mg PEG HS [facility] Last Admin: 02/14/20 00:01 Dose: Not Given Documented by: Chlorhexidine Gluconate (Hibiclens For Decolonization -) 1 applic TP HS [facility] Last Admin: 02/13/20 22:11 Dose: 1 applic Documented by: Sodium Chloride (Normal Saline -) 250 mls @ 3,000 mls/hr IV PRN PRN PRN Reason: Hypotension during Dialysis Stop: 02/14/20 10:55 Piperacillin Sod/Tazobactam (Sod 2.25 gm/ Dextrose) 50 mls @ 100 mls/hr IVPB Q6H-IV [facility]; Protocol Last Admin: 02/14/20 08:46 Dose: 100 mls/hr Documented by: Levetiracetam (Keppra Injection -) 750 mg IVPB BID [facility] Last Admin: 02/13/20 23:04 Dose: 750 mg Documented by: Levothyroxine Sodium (Synthroid -) 25 mcg PEG ACBK [facility] Last Admin: 02/14/20 06:30 Dose: 25 mcg Documented by: Lidocaine (Lidoderm Patch -) 1 patch TP DAILY@2100 [facility] Last Admin: 02/13/20 22:09 Dose: 1 patch Documented by: Lorazepam (Ativan Injection -) 1 mg IVPUSH Q6H PRN PRN Reason: SEIZURES Miscellaneous (Lidoderm Patch Removal) 1 each MC DAILY@0900 [facility] Last Admin: 02/14/20 08:46 Dose: 1 each Documented by: Morphine Sulfate (Morphine Sulfate) 2 mg IVPUSH Q4H PRN PRN Reason: PAIN LEVEL 7 - 10 Last Admin: 02/14/20 04:25 Dose: 2 mg Documented by: Multivitamins/Minerals/Vitamin C (Tab-A-Vit -) 1 tab PO DAILY [facility] Last Admin: 02/13/20 10:41 Dose: 1 tab Documented by: Mupirocin (Bactroban Ointment (For Decolonization) -) 1 applic NS BID [facility] Stop: 02/17/20 21:59 Last Admin: 02/13/20 22:11 Dose: 1 applic Documented by: - Objective Vital Signs: Vital Signs Temperature 98.3 F 02/14/20 06:00 Pulse Rate 71 02/14/20 08:20 Respiratory Rate 14 02/14/20 08:20 Blood Pressure 98/66 02/14/20 06:00 O2 Sat by Pulse Oximetry (%) 100 02/14/20 08:20 Constitutional: Yes: No Distress, Calm Eyes: Yes: EOM Intact HENT: Yes: Normocephalic Neck: Yes: Trachea Midline, Other (tracheostomy) Cardiovascular: Yes: Regular Rate and Rhythm Respiratory: Yes: Mechanically Ventilated Gastrointestinal: Yes: Normal Bowel Sounds, Soft Extremities: Yes: WNL Edema: No Labs: CBC, BMP 02/14/20 06:56 02/14/20 06:56 INR, PTT INR 1.40 (0.83-1.09) H 02/14/20 06:56 Assessment/Plan 64 year old woman pmh ESRD on HD, chronic respiratory failure s/p trach on vent, h/o Pafib on eliquis, HTN, hypothyroid, epilepsy, MDD, [place], [place], tachypnea, tachycardia, recently admitted with PNA, mildly elevated troponin with no sig CK elevation, abnl ekg managed medically now admitted after cardiac arrest in [facility] HD, CPR for 15 minutes with ROSC. ER course complicated for seizures, PAF with RVR. Now unresponsive on ventilator in the ICU. Cannot obtain history. Echo 01/19/20: LVH normal EF, small pericardial effusion, mild MS, mild TR Cardiac Arrest -unclear etiology at this point. -her neurologic and poor functional status limits her cardiac workup at present. -hold amiodarone for now given elevated LFT's from shock liver -continue eliquis for now but if INR rises would also hold. -not a candidate for cardiac workup. Would not repeat echo at this point as it will not change clinical decision making. -elevated troponin is now normal, this is a nonischemic pattern -it is unclear the mechanism of her arrest, but she is a very poor ICD candidate.
[2020-02-14] MEDS: MUPIROCIN 2% TOPICAL OINTMENT FOR DECOLONIZATION NS SCH ×2 (09:49→22:24)
[2020-02-14] MEDS: APIXABAN 2.5 MG TABLET PEG SCH ×2 (09:49→22:24)
[2020-02-14] MEDS: MULTIVITAMINS (DAILY MVI) TABLET (FP) PO SCH (09:49)
[2020-02-14] MEDS: levETIRAcetam 500 MG/5 ML INJECTION VIAL IVPB SCH ×2 (09:49→22:24)
[2020-02-14] MEDS ORDERED: SODIUM CHLORIDE 250 ML IV STA (11:13)
--- NOTE | 2020-02-14 11:54 | HOSP ---
Subjective - Review of Symptoms Events since last encounter: Medicine Service acceptance note: Subjective: Patient seen and examined at bedside. No acute overnight events. Physical Examination Vital Signs: Vital Signs Temperature 97.8 F 02/14/20 10:00 Pulse Rate 76 02/14/20 10:00 Respiratory Rate 19 02/14/20 10:00 Blood Pressure 90/75 02/14/20 10:00 O2 Sat by Pulse Oximetry (%) 100 02/14/20 09:00 Findings/Remarks: GENERAL: The patient is awake, in no acute distress. HEAD: Normocephalic, atraumatic. EYES: PERRL, extraocular movements intact, sclera anicteric, conjunctiva clear. ENT: Tracheostomy in situ. Supple without lymphadenopathy. LUNGS: Mechanical breath sounds auscultated. No accessory muscle use. HEART: Irregular rate. S1, S2 without murmur, rub or gallop. ABDOMEN: PEG tube in situ. Soft, nondistended, nontender palpation x4 quadrants.Normoactive bowel sounds. EXTREMITIES: 2+ radial, dorsalis pedis pulses bilaterally. Warm, well-perfused. No lower extremity edema bilaterally. NEUROLOGICAL: Right sided hemiplegia (chronic). Able to spontaneously move left upper and lower extremity. SKIN: Warm, dry. Sacral ulcer noted stage III-IV. Right upper chest HD catheter in situ. Labs: CBC, BMP 02/14/20 06:56 02/14/20 06:56 Hospitalist Encounter Assessment: Patient is a 64 year old female with history of chronic respiratory failure (trach, vented), ESRD (HD M,W,F), Afib (on Eliquis) epilepsy, hypothyroidism, anxiety admitted to ICU s/p cardiac arrest at Hemodialysis center. ROSC reportedly achieved within 15 minutes of resuscitative efforts, with subsequent seizure activity noted. s/p cardiac arrest -Troponin, Lactic acid downtrending. No further arrhythmia noted on telemetry -Cardiology recommendations (Dr. Rico) appreciated. Poor candidate for ICD placement -Continue cardiac Telemetry monitoring Pneumonia -Reportedly on Levaquin at SNF, for suspectd pneumonia -ID recommendations Dr. Sanchez appreciated. Continue Zosyn -Following Blood cultures, urine cultures, sputum cultures ESRD -Continue HD, per Nephrology -Nephrology recommendations (Dr. Garcia) appreciated Afib -Currently rate controlled. Continue cardiac telemetry monitoring -Eliquis 2.5 GT BID -Holding home Amiodarone in setting of shock liver, secondary to cardiac arrest Hypothyroidism -Continue home Synthroid Chronic respiratory failure -Trach, continue ventilator support -Settings: rate 14, TV 400, FIO2 40%, PEEP 5, -Maintain PaO2 greater than 90% Epilepsy -No further seizure activity reported after initial post- resuscitative d ocumented seizure -Continue Keppra -Neurology recommendations (Dr. Clemens) appreciated FEN -No IV fluids indicated -Follow BMP -TF Nepro Prophylaxis -Eliquis Disposition -Admitted to Medicine service Transfer to Ventilator floor Visit type - Medication Review Med list reviewed for High Risk Meds patients 65 and older: Yes - Emergency Visit Emergency Visit: Yes ED Registration Date: 02/12/20 Care time: The patient presented to the Emergency Department on the above date and was hospitalized for further evaluation of their emergent condition. - New Patient This patient is new to me today: Yes Date on this admission: 02/14/20 - Critical Care Critical Care patient: No
--- NOTE | 2020-02-14 12:01 | CONSULT ---
- Consultation REQUESTING PROVIDER: Wound Care - Ari Fields CONSULT REQUEST: We have been asked to surgically evaluate this patient for Stage 4 sacral Ulcer ICU Logger: Akshat Stearns HPI: All information obtained from patient's medical records. Called to eval 64 yo female w/ PMHx significant for respiratory failure trach vented, ESRD on HD (m-w-f), Afib (on Eliquis), hypothyroidism, MDD and HTN who presents to [facility], BIBA from [facility], in cardiac arrest. The patient received CPR by EMS, down for a total of 15 minutes, before ROSC. Home Meds Amiodarone HCl [Cordarone -] 100 mg PEG DAILY tablet 12/18/19 Apixaban [Eliquis -] 2.5 mg PEG BID tablet 12/18/19 Baclofen [Lioresal -] 10 mg PEG HS tablet 12/18/19 Simethicone Liquid [Mylicon Liquid -] 40 mg PEG BID ml 12/18/19 Levothyroxine [Synthroid -] 25 mcg PEG DAILY 01/17/20 Multivitamin 1 each PEG DAILY 01/18/20 Amino Acids/Protein Hydrolys [Prosource No Carb Liquid Pkt] 30 ml PO BID@0800,1730 packet 01/25/20 Famotidine [Pepcid] 20 mg PEG DAILY oral.susp 01/25/20 Lorazepam [Ativan] 0.5 mg GT BID tablet 01/25/20 levoFLOXacin [Levaquin -] 250 mg PO Q48H #5 tablet 01/25/20 Acetaminophen [Tylenol] 2 tab PO Q6H PRN 02/12/20 Collagenase Clostridium Hist. [Santyl] 1 applic TP DAILY 02/12/20 Ipratropium/Albuterol Sulfate [Iprat-Albut 0.5-3(2.5) mg/3 ml] 3 ml IH Q6H PRN 02/12/20 Potassium Chloride [K-Dur -] 20 meq PO BID 02/12/20 Allergies: NKDA ROS: Unable to obtain secondary to medical condition. PE: GEN: Non-verbal. NAD HEAD: Normal with no signs of trauma. CHEST: Permacatheter (rt cx wall) PULM: Mechanically vented HEART: Afib ABD: Soft, NT. ND. Peg. : Will to gravity LE: Lt femoral TLC. 2+ pulses, warm, well-perfused. No calf tenderness. No peripheral edema. SKIN: Stage 4 sacral ulcer Last Vital Signs Temp Pulse Resp BP Pulse Ox 97.8 F 74 19 90/59 L 100 02/14/20 10:00 02/14/20 12:00 02/14/20 12:00 02/14/20 12:00 02/14/20 09:00 CBC, BMP 02/14/20 06:56 02/14/20 06:56 Laboratory Tests 02/12/20 19:30 COVID-19 ([facility]) Pending INR, PTT INR 1.40 (0.83-1.09) H 02/14/20 06:56 A/P: 64 yo female admitted to ICU s/p cardiac arrest with ~ 15 min downtime. CPR/ACLS by EMS with ROSC. Stage 4 sacral ulcer. -Reposition every two hours while in bed -Air mattress recommended -Use drawsheets and Trendelenburg when repositioning to reduce friction and shear -Manageincontinence via timely cleansing, use of appropriate incontinence disposables and use of barrier ointment to intact skin -Ensure adequate hydration/nutrition, supplementation per primary team -Ensure off-loading to all bony areas (heels, ankles, hips and tailbone) with Allevyn/Optifoam -Covid pending; Strict isolation Precaution -Reconsult Surgery PRN Above plan discussed with my attending and agrees. On behalf of Dr. Fields, thank you for the opportunity to participate in your patient's care. Problem List - Problems (1) Stage 4 skin ulcer of sacral region Code(s): L98.429 - NON-PRESSURE CHRONIC ULCER OF BACK WITH UNSPECIFIED SEVERITY (2) Cardiac arrest Code(s): I46.9 - CARDIAC ARREST, CAUSE UNSPECIFIED (3) Afib Code(s): I48.91 - UNSPECIFIED ATRIAL FIBRILLATION (4) Chronic respiratory failure Code(s): J96.10 - CHRONIC RESPIRATORY FAILURE, UNSP W HYPOXIA OR HYPERCAPNIA (5) ESRD (end stage renal disease) Code(s): N18.6 - END STAGE RENAL DISEASE (6) HTN (hypertension) Code(s): I10 - ESSENTIAL (PRIMARY) HYPERTENSION (7) Leukocytosis Code(s): D72.829 - ELEVATED WHITE BLOOD CELL COUNT, UNSPECIFIED (8) MDD (major depressive disorder) Code(s): F32.9 - MAJOR DEPRESSIVE DISORDER, SINGLE EPISODE, UNSPECIFIED (9) 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 - TRACHEOSTOMY STATUS Visit type - Case Type Case Type: ED Admission - Emergency Emergency Visit: Yes ED Registration Date: 02/12/20 Care time: The patient presented to the Emergency Department on the above date and was hospitalized for further evaluation of their emergent condition. - New patient This patient is new to me today: Yes Date on this admission: 02/14/20
--- NOTE | 2020-02-14 12:11 | PN ---
Teaching Attending Note Name of Resident: Alberto Frye ATTENDING PHYSICIAN STATEMENT I saw and evaluated the patient. I reviewed the resident's note and discussed the case with the resident. I agree with the resident's findings and plan as documented. SUBJECTIVE: Pt seen and examined in the ICU. Vented, awake. Does not want to attempt wean. OBJECTIVE: Vital Signs Period Temp Pulse Resp BP Sys/Rick Pulse Ox Last 24 Hr 97.8 F-99.5 F 71-106 14-19 73-121/57-83 92-100 Intake & Output 02/11/20 02/12/20 02/13/20 02/14/20 23:59 23:59 23:59 23:59 Intake Total 100 380 65 Output Total 100 430 150 Balance 0 -50 -85 Weight 44.055 kg 43.998 kg 43.862 kg Gen: vented, awake Heart: RRR Lung: decreased breath sounds at the bases Abd: soft, nontender Ext: no edema CBC, BMP 02/14/20 06:56 02/14/20 06:56 Active Medications Acetaminophen (Tylenol -) 650 mg PO Q6H PRN PRN Reason: FEVER Apixaban (Eliquis -) 2.5 mg PEG BID [facility] Last Admin: 02/14/20 09:49 Dose: 2.5 mg Documented by: Baclofen (Lioresal -) 10 mg PEG HS [facility] Last Admin: 02/14/20 00:01 Dose: Not Given Documented by: Chlorhexidine Gluconate (Hibiclens For Decolonization -) 1 applic TP HS [facility] Last Admin: 02/13/20 22:11 Dose: 1 applic Documented by: Sodium Chloride (Normal Saline -) 250 mls @ 3,000 mls/hr IV PRN PRN PRN Reason: Hypotension during Dialysis Stop: 02/14/20 10:55 Piperacillin Sod/Tazobactam (Sod 2.25 gm/ Dextrose) 50 mls @ 100 mls/hr IVPB Q6H-IV [facility]; Protocol Last Admin: 02/14/20 08:46 Dose: 100 mls/hr Documented by: Sodium Chloride (Normal Saline -) 250 mls @ 250 mls/hr IV [facility]IR STA Stop: 02/14/20 12:12 Levetiracetam (Keppra Injection -) 750 mg IVPB BID [facility] Last Admin: 02/14/20 09:49 Dose: 750 mg Documented by: Levothyroxine Sodium (Synthroid -) 25 mcg PEG ACBK [facility] Last Admin: 02/14/20 06:30 Dose: 25 mcg Documented by: Lidocaine (Lidoderm Patch -) 1 patch TP DAILY@2100 [facility] Last Admin: 02/13/20 22:09 Dose: 1 patch Documented by: Lorazepam (Ativan Injection -) 1 mg IVPUSH Q6H PRN PRN Reason: SEIZURES Miscellaneous (Lidoderm Patch Removal) 1 each MC DAILY@0900 [facility] Last Admin: 02/14/20 08:46 Dose: 1 each Documented by: Morphine Sulfate (Morphine Sulfate) 2 mg IVPUSH Q4H PRN PRN Reason: PAIN LEVEL 7 - 10 Last Admin: 02/14/20 04:25 Dose: 2 mg Documented by: Multivitamins/Minerals/Vitamin C (Tab-A-Vit -) 1 tab PO DAILY [facility] Last Admin: 02/14/20 09:49 Dose: 1 tab Documented by: Mupirocin (Bactroban Ointment (For Decolonization) -) 1 applic NS BID [facility] Stop: 02/17/20 21:59 Last Admin: 02/14/20 09:49 Dose: 1 applic Documented by: ASSESSMENT AND PLAN: s/p Cardiopulmonary Arrest r/o Pneumonia Chronic Respiratory Failure ESRD on HD Atrial Fibrillation HTN Seizure Disorder h/o CVA - on empiric antibiotics - f/u cultures - HD per renal - rate control - continue anticoagulation - spontaneous breathing trials as tolerated - can monitor on vent floor
--- NOTE | 2020-02-14 13:57 | PN ---
Progress Note, Physician History of Present Illness: stable awake vap==sputum growing pseudomonas - Current Medication List Current Medications: Active Medications Acetaminophen (Tylenol -) 650 mg PO Q6H PRN PRN Reason: FEVER Apixaban (Eliquis -) 2.5 mg PEG BID [facility] Last Admin: 02/14/20 09:49 Dose: 2.5 mg Documented by: Baclofen (Lioresal -) 10 mg PEG HS [facility] Last Admin: 02/14/20 00:01 Dose: Not Given Documented by: Chlorhexidine Gluconate (Hibiclens For Decolonization -) 1 applic TP [facility] Last Admin: 02/13/20 22:11 Dose: 1 applic Documented by: Sodium Chloride (Normal Saline -) 250 mls @ 3,000 mls/hr IV PRN PRN PRN Reason: Hypotension during Dialysis Stop: 02/14/20 10:55 Piperacillin Sod/Tazobactam (Sod 2.25 gm/ Dextrose) 50 mls @ 100 mls/hr IVPB Q6H-IV [facility]; Protocol Last Admin: 02/14/20 08:46 Dose: 100 mls/hr Documented by: Levetiracetam (Keppra Injection -) 750 mg IVPB BID [facility] Last Admin: 02/14/20 09:49 Dose: 750 mg Documented by: Levothyroxine Sodium (Synthroid -) 25 mcg PEG ACBK [facility] Last Admin: 02/14/20 06:30 Dose: 25 mcg Documented by: Lidocaine (Lidoderm Patch -) 1 patch TP DAILY@2100 [facility] Last Admin: 02/13/20 22:09 Dose: 1 patch Documented by: Lorazepam (Ativan Injection -) 1 mg IVPUSH Q6H PRN PRN Reason: SEIZURES Miscellaneous (Lidoderm Patch Removal) 1 each MC DAILY@0900 [facility] Last Admin: 02/14/20 08:46 Dose: 1 each Documented by: Morphine Sulfate (Morphine Sulfate) 2 mg IVPUSH Q4H PRN PRN Reason: PAIN LEVEL 7 - 10 Last Admin: 02/14/20 04:25 Dose: 2 mg Documented by: Multivitamins/Minerals/Vitamin C (Tab-A-Vit -) 1 tab PO DAILY [facility] Last Admin: 02/14/20 09:49 Dose: 1 tab Documented by: Mupirocin (Bactroban Ointment (For Decolonization) -) 1 applic NS BID [facility] Stop: 02/17/20 21:59 Last Admin: 02/14/20 09:49 Dose: 1 applic Documented by: - Objective Vital Signs: Vital Signs Temperature 97.8 F 02/14/20 10:00 Pulse Rate 74 02/14/20 12:00 Respiratory Rate 19 02/14/20 12:00 Blood Pressure 90/59 L 02/14/20 12:00 O2 Sat by Pulse Oximetry (%) 100 02/14/20 09:00 Constitutional: Yes: No Distress, Calm HENT: Yes: Other (trach) Cardiovascular: Yes: S1, S2 Respiratory: Yes: Mechanically Ventilated, Other Gastrointestinal: Yes: Normal Bowel Sounds, Soft Musculoskeletal: Yes: WNL Extremities: Yes: WNL Neurological: Yes: Alert Labs: CBC, BMP 02/14/20 06:56 02/14/20 06:56 INR, PTT INR 1.40 (0.83-1.09) H 02/14/20 06:56 Assessment/Plan s/p Cardiopulmonary Arrest r/o Pneumonia Chronic Respiratory Failure ESRD on HD Atrial Fibrillation HTN Seizure Disorder h/o CVA vap pneumonia plan continue zosyn suctioning resp support rest as per icu
--- NOTE | 2020-02-14 14:04 | PN ---
Progress Note (short form) - Note Progress Note: RENAL pt awake and alert not yet on hd comfortable Last Vital Signs Temp Pulse Resp BP Pulse Ox 97.8 F 74 19 90/59 L 100 02/14/20 10:00 02/14/20 12:00 02/14/20 12:00 02/14/20 12:00 02/14/20 09:00 lungs bilat air entry cvs s1s2 rr abd soft ext no edema neuro a+o CBC, BMP 02/14/20 06:56 02/14/20 06:56 Current Medications Generic Name Dose Route Start Last Admin Trade Name Freq PRN Reason Stop Dose Admin Acetaminophen 650 mg 02/12/20 21:51 Tylenol - PO Q6H PRN FEVER Apixaban 2.5 mg 02/12/20 22:45 02/14/20 09:49 Eliquis - PEG 2.5 mg BID ARLENE Administration Baclofen 10 mg 02/13/20 22:00 02/14/20 00:01 Lioresal - PEG Not Given HS ARLENE Chlorhexidine Gluconate 1 applic 02/12/20 22:00 02/13/20 22:11 Hibiclens For Decolonization - TP 1 applic HS ARLENE Administration Sodium Chloride 250 mls @ 3,000 mls/hr 02/13/20 10:55 Normal Saline - IV 02/14/20 10:55 PRN PRN Hypotension during Dialysis Piperacillin Sod/Tazobactam 50 mls @ 100 mls/hr 02/13/20 15:00 02/14/20 08:46 Sod 2.25 gm/ Dextrose IVPB 100 mls/hr Q6H-IV ARLENE Administration Protocol Levetiracetam 750 mg 02/13/20 22:00 02/14/20 09:49 Keppra Injection - IVPB 750 mg BID ARLENE Administration Levothyroxine Sodium 25 mcg 02/13/20 07:00 02/14/20 06:30 Synthroid - PEG 25 mcg ACBK ARLENE Administration Lidocaine 1 patch 02/13/20 21:00 02/13/20 22:09 Lidoderm Patch - TP 1 patch DAILY@2100 ARLENE Administration Lorazepam 1 mg 02/12/20 20:40 Ativan Injection - IVPUSH Q6H PRN SEIZURES Miscellaneous 1 each 02/14/20 09:00 02/14/20 08:46 Lidoderm Patch Removal MC 1 each DAILY@0900 ARLENE Administration Morphine Sulfate 2 mg 02/14/20 03:21 02/14/20 04:25 Morphine Sulfate IVPUSH 2 mg Q4H PRN Administration PAIN LEVEL 7 - 10 Multivitamins/Minerals/Vitamin C 1 tab 02/13/20 10:00 02/14/20 09:49 Tab-A-Vit - PO 1 tab DAILY ARLENE Administration Mupirocin 1 applic 02/12/20 22:00 02/14/20 09:49 Bactroban Ointment (For Decolonization) - NS 02/17/20 21:59 1 applic BID ARLENE Administration Impression esrd s/p cardiorespiratory arrest afib PLAN will dialyze today antibiotics per id MV
--- NOTE | 2020-02-14 14:32 | PN ---
Physical Exam: SUBJECTIVE: Patient seen and examined. No overnight events OBJECTIVE: Vital Signs Period Temp Pulse Resp BP Sys/Rick Pulse Ox Last 24 Hr 97.5 F-99.5 F 71-106 14-19 73-121/57-83 92-100 GENERAL: Awake. Not oriented. no acute distress. HEENT: Normal with no signs of trauma. PERRL. dry mucous membranes. NECK: No JVD LUNGS: Breath sounds equal, clear to auscultation bilaterally. No wheezes, and no crackles. No accessory muscle use. HEART: irregular rate, normal S1 and S2 without murmur, rub or gallop. R upper chest hemodialysis catheter ABDOMEN: Soft, nontender, not distended, normoactive bowel sounds, no guarding, no rebound. PEG tube UPPER EXTREMITIES: 2+ pulses, cold, No peripheral edema. R hand contracted LOWER EXTREMITIES: 1+ pulses, cold, No peripheral edema. NEUROLOGICAL: unable to assess given pt's mental status. SKIN: stage 4 sacral ulcer Laboratory Results - last 24 hr 02/14/20 02/14/20 02/14/20 06:56 06:56 06:56 WBC 14.5 H RBC 4.21 Hgb 11.6 Hct 35.7 MCV 84.8 MCH 27.4 MCHC 32.4 RDW 17.4 H Plt Count 84 L MPV 9.1 PT with INR 16.60 H INR 1.40 H PTT (Actin FS) 27.2 Sodium 140 Potassium 3.6 Chloride 107 Carbon Dioxide 21 Anion Gap 12 BUN 74.2 H Creatinine 1.9 H Est GFR (CKD-EPI)AfAm 31.51 Est GFR (CKD-EPI)NonAf 27.19 Random Glucose 81 Calcium 8.6 Phosphorus 4.0 Magnesium 2.1 Total Bilirubin 0.8 AST 73 H ALT 61 Alkaline Phosphatase 109 Troponin I Total Protein 6.3 L Albumin 1.8 L 02/14/20 06:56 WBC RBC Hgb Hct MCV MCH MCHC RDW Plt Count MPV PT with INR INR PTT (Actin FS) Sodium Potassium Chloride Carbon Dioxide Anion Gap BUN Creatinine Est GFR (CKD-EPI)AfAm Est GFR (CKD-EPI)NonAf Random Glucose Calcium Phosphorus Magnesium Total Bilirubin AST ALT Alkaline Phosphatase Troponin I 0.25 H Total Protein Albumin Active Medications Generic Name Dose Route Start Last Admin Trade Name Freq PRN Reason Stop Dose Admin Acetaminophen 650 mg 02/12/20 21:51 Tylenol - PO Q6H PRN FEVER Apixaban 2.5 mg 02/12/20 22:45 02/14/20 09:49 Eliquis - PEG 2.5 mg BID ARLENE Administration Baclofen 10 mg 02/13/20 22:00 02/14/20 00:01 Lioresal - PEG Not Given HS ARLENE Chlorhexidine Gluconate 1 applic 02/12/20 22:00 02/13/20 22:11 Hibiclens For Decolonization - TP 1 applic HS ARLENE Administration Sodium Chloride 250 mls @ 3,000 mls/hr 02/13/20 10:55 Normal Saline - IV 02/14/20 10:55 PRN PRN Hypotension during Dialysis Piperacillin Sod/Tazobactam 50 mls @ 100 mls/hr 02/13/20 15:00 02/14/20 08:46 Sod 2.25 gm/ Dextrose IVPB 100 mls/hr Q6H-IV ARLENE Administration Protocol Levetiracetam 750 mg 02/13/20 22:00 02/14/20 09:49 Keppra Injection - IVPB 750 mg BID ARLENE Administration Levothyroxine Sodium 25 mcg 02/13/20 07:00 02/14/20 06:30 Synthroid - PEG 25 mcg ACBK ARLENE Administration Lidocaine 1 patch 02/13/20 21:00 02/13/20 22:09 Lidoderm Patch - TP 1 patch DAILY@2100 ARLENE Administration Lorazepam 1 mg 02/12/20 20:40 Ativan Injection - IVPUSH Q6H PRN SEIZURES Miscellaneous 1 each 02/14/20 09:00 02/14/20 08:46 Lidoderm Patch Removal MC 1 each DAILY@0900 ARLENE Administration Morphine Sulfate 2 mg 02/14/20 03:21 02/14/20 04:25 Morphine Sulfate IVPUSH 2 mg Q4H PRN Administration PAIN LEVEL 7 - 10 Multivitamins/Minerals/Vitamin C 1 tab 02/13/20 10:00 02/14/20 09:49 Tab-A-Vit - PO 1 tab DAILY ARLENE Administration Mupirocin 1 applic 02/12/20 22:00 02/14/20 09:49 Bactroban Ointment (For Decolonization) - NS 02/17/20 21:59 1 applic BID ARLENE Administration ASSESSMENT/PLAN: Patient is a 64 YO F with PMH of HTN, afib (on eliquis), hypothyroidism, chronic respiratory failure (trach vented), ESRD (dialysis MWF), epilepsy, and anxiety was brought in for cardiac arrest. Found to have rapid afib s/p diltiazem and seizures in ED s/p ativan. Admitted to ICU for further monitoring. Neuro -non-verbal. Awake and alert. Able to follow simple commands. Waves yes or no to simple questions. -continue with home baclofen 10 mg daily for back muscle spasm -acetaminophen 650 mg Q6H for pain #Epilepsy -seizure in ED. s/p 4 doses of ativan. 1 mg IV push Q6H PRN for seizures -neuro consult appreciated. EEG and keppra 750 mg IV BID #CVA Hx CTH: no acute pathology Left middle cerebral artery territory encephalomalacia/chronic infarct. Focal low-attenuation density in Right frontal high convexity. #Anxiety Cardio #HTN #Afib (on eliquis 2.5 mg BID) Will hold Amiodarone 100 mg Daily given elevated LFTs from shock liver. Stop eliquis if INR rises #s/p Cardiac arrest -EKG: Sinus tachycardia, LVH, vent rate 134 bpm, QTC 448 -Lactic acidosis resolved. -troponinemia resolved. trop downtrended from 0.73 to 0.25 -cardio consult appreciated. Would not benefit from repeat echo as it would not alter clinical decisions. Not a candidate for cardiac workup until her mental status improves. Pt is poor candidate for ICD. -QTC on arrival was 467 and patient took levaquin in [facility]. arrest p ossibly due to QTC prolongation? Pulm #Chronic Respiratory Failure -trach to vent - maintain SaO2>90% -rate 14, TV 400, FIO2 60%, PEEP 5, Plat 18 #Pneumonitis per [facility]. Possible aspiration PNA from seizure -CXR (02/11): dense Left base compatible with atelectasis and/or fluid --Leukocytosis: WBCs 33.5, 100.5 F -on levaquin 250 Q48H in [facility] -s/p vanc 1 gm & zosyn 2.25 gm in ED -ID consult appreciated. continue with zosyn 2.25 gm Q6 H (02/11) Renal #ESRD (dialysis MWF) -[facility] double lumen catheter (Implanted 12/15/2019) -BUN/Cr trended from 78.7/1.5 to 74.2/1.9 -only 150 cc's urine overnight -UA: 1+ protein, 1+ leukoesterase, 3+ blood, 2 RBCs, but Cr kinase is WNL at 138 -nephro consult appreciated. will dialyze today ID #Pneumonitis per [facility]. Possible aspiration PNA from seizure -CXR (02/11): dense Left base compatible with atelectasis and/or fluid --Leukocytosis: WBCs 33.5, 100.5 F -on levaquin 250 Q48H in [facility] -s/p vanc 1 gm & zosyn 2.25 gm in ED -blood culture X2 (02/11): no growth -sputum cx: presumptive Ps aeruginosa -ID consult appreciated. continue with zosyn 2.25 gm Q6 H (02/11) -f/u urine cx GI #Transaminitis -AST/ALT continues to improve from 131/82 to 73/61 -likely 2/2 amiodarone use vs hypoperfusion (Shock Liver) -f/u hep panel Heme #Leukocytosis: WBCs 33.5 >15.8>14.5 #Thrombocytopenia: Plt 131> 85>84 #Anemia: Hgb increased from 10.6 to 11.6 Endo #Hypothyroidism -continue with home dose levothyroxine 25 mcg daily Derm #stage 4 sacral ulcer -Reposition Q2H in bed -ordered Air mattress DVT PPX eliquis 2.5 mg BID Stop eliquis if INR rises FEN 250 NS bolus ordered monitor lytes nepro tube feed Lines IV inserted in Right hand DISPO transfer to med surg ATTENDING PHYSICIAN STATEMENT I saw and evaluated the patient. I reviewed the resident's note and discussed the case with the resident. I agree with the resident's findings and plan as documented. SUBJECTIVE: OBJECTIVE: ASSESSMENT AND PLAN:
[2020-02-14] MEDS ORDERED: SODIUM CHLORIDE 250 ML IV PRN (15:06)
--- NOTE | 2020-02-14 17:38 | PN ---
Progress Note (short form) - Note Progress Note: 64 aaron old female history of htn, afib (on eliquis), hypothyroidism, chronic respiratory failure (trach vented), ESRD (dialysis MWF), epilepsy, and anxiety was brought in for cardiac arrest. Patient has cardiac arrest durng dialysis, and patient had CPR and following whcih she has generalied tonic clonic seizure. She was given ativan and it stopped seizure. She has ct hed , which wa unremrakable. She was started on iv keppra. patient has encephalomalcia and has trach and peg tube placement in past following old stroke. now it appears to be come into baseline . -- back to baseline, no seizure on keppra NEUROLOGICAL EXAM Alert , aphasic, follow command right sided facial palsy right sided hemiparesis trach and peg not on any sedation ( she apears to be at her baseline) ct head no acute findings Assessment/Plan 64 aaron old female history of htn, afib (on eliquis), hypothyroidism, chronic respiratory failure (trach vented), ESRD (dialysis MWF), epilepsy, and anxiety . She has cardiac arrest lasting ? 15-20 minute and has generlaized tonic clonic seizure, now back to baseline Plan:continue iv keppra 750 mg iv bid - supportive care - eeg pending Thanking you so much Markel Clemens MD
[2020-02-14] MEDS: LIDOCAINE 5% TOPICAL PATCH TP SCH (22:23)
[2020-02-14] MEDS: CHLORHEXIDINE GLUCONATE 4% CLEANSER FOR DECOLONIZATION TP SCH (22:24)
[2020-02-15] MEDS ORDERED: PIPERACILLIN/TAZOBACTAM 2.25 GM VIAL IVPB ONE ×4 (03:41→20:30)
[2020-02-15] MEDS ORDERED: DEXTROSE 5%-WATER - 50 ML IVPB ONE ×4 (03:42→20:30)
[2020-02-15] MEDS: PIPERACILLIN/TAZOB 2.25 GM 2.25 GM in DEXTROSE 5%-WATER - 50 ML IVPB SCH ×4 (03:44→21:06)
[2020-02-15 06:32] LABS: HBsAG CONFIRMATION N (.); HEP B CORE AB, TOT Negative (Negative)
[2020-02-15] MEDS: LEVOTHYROXINE NA 25 MCG TABLET (FP) PEG SCH (06:51)
[2020-02-15] MEDS: LIDOCAINE PATCH REMOVAL MC SCH (08:59)
--- NOTE | 2020-02-15 09:39 | PN ---
Progress Note, Physician Chief Complaint: more alert tele PAF, no VT or pauses. History of Present Illness: 64 year old woman pmh ESRD on HD, chronic respiratory failure s/p trach on vent, h/o Pafib on eliquis, HTN, hypothyroid, epilepsy, MDD, [place], [place] for [place], tachypnea, tachycardia, recently admitted with PNA, mildly elevated troponin with no sig CK elevation, abnl ekg managed medically now ad mitted after cardiac arrest in [facility] HD, CPR for 15 minutes with ROSC. ER course complicated for seizures, PAF with RVR. Now unresponsive on ventilator in the ICU. Cannot obtain history. Echo 01/19/20: LVH normal EF, small pericardial effusion, mild MS, mild TR - Current Medication List Current Medications: Active Medications Acetaminophen (Tylenol -) 650 mg PO Q6H PRN PRN Reason: FEVER Apixaban (Eliquis -) 2.5 mg PEG BID [facility] Last Admin: 02/14/20 22:24 Dose: 2.5 mg Documented by: Baclofen (Lioresal -) 10 mg PEG HS [facility] Last Admin: 02/14/20 22:25 Dose: 10 mg Documented by: Chlorhexidine Gluconate (Hibiclens For Decolonization -) 1 applic TP HS [facility] Last Admin: 02/14/20 22:24 Dose: 1 applic Documented by: Piperacillin Sod/Tazobactam (Sod 2.25 gm/ Dextrose) 50 mls @ 100 mls/hr IVPB Q6H-IV ARLENE; Protocol Last Admin: 02/15/20 08:59 Dose: 100 mls/hr Documented by: Levetiracetam (Keppra Injection -) 750 mg IVPB BID [facility] Last Admin: 02/14/20 22:24 Dose: 750 mg Documented by: Levothyroxine Sodium (Synthroid -) 25 mcg PEG ACBK [facility] Last Admin: 02/15/20 06:51 Dose: 25 mcg Documented by: Lidocaine (Lidoderm Patch -) 1 patch TP DAILY@2100 [facility] Last Admin: 02/14/20 22:23 Dose: 1 patch Documented by: Lorazepam (Ativan Injection -) 1 mg IVPUSH Q6H PRN PRN Reason: SEIZURES Miscellaneous (Lidoderm Patch Removal) 1 each MC DAILY@0900 [facility] Last Admin: 02/15/20 08:59 Dose: 1 each Documented by: Morphine Sulfate (Morphine Sulfate) 2 mg IVPUSH Q4H PRN PRN Reason: PAIN LEVEL 7 - 10 Last Admin: 02/14/20 04:25 Dose: 2 mg Documented by: Multivitamins/Minerals/Vitamin C (Tab-A-Vit -) 1 tab PO DAILY [facility] Last Admin: 02/14/20 09:49 Dose: 1 tab Documented by: Mupirocin (Bactroban Ointment (For Decolonization) -) 1 applic NS BID [facility] Stop: 02/17/20 21:59 Last Admin: 02/14/20 22:24 Dose: 1 applic Documented by: - Objective Vital Signs: Vital Signs Temperature 98.6 F 02/15/20 09:36 Pulse Rate 71 02/15/20 08:18 Respiratory Rate 14 02/15/20 08:18 Blood Pressure 123/74 02/15/20 08:00 O2 Sat by Pulse Oximetry (%) 96 02/15/20 08:18 Constitutional: Yes: No Distress, Calm Eyes: Yes: EOM Intact HENT: Yes: Normocephalic Neck: Yes: Trachea Midline, Other (tracheostomy) Cardiovascular: Yes: Regular Rate and Rhythm Respiratory: Yes: Mechanically Ventilated Extremities: Yes: WNL Edema: No Labs: CBC, BMP 02/14/20 06:56 02/14/20 06:56 INR, PTT INR 1.40 (0.83-1.09) H 02/14/20 06:56 Assessment/Plan 64 year old woman pmh ESRD on HD, chronic respiratory failure s/p trach on vent, h/o Pafib on eliquis, HTN, hypothyroid, epilepsy, [place]D, [place], [place] for [place]B, tachypnea, tachycardia, recently admitted with PNA, mildly elevated troponin with no sig CK elevation, abnl ekg managed medically now admitted after cardiac arrest in [facility] HD, CPR for 15 minutes with ROSC. ER course complicated for seizures, PAF with RVR. Now unresponsive on ventilator in the ICU. Cannot obtain history. Echo 01/19/20: LVH normal EF, small pericardial effusion, mild MS, mild TR Cardiac Arrest -unclear etiology at this point. -her neurologic and poor functional status limits her cardiac workup at present. -hold amiodarone for now given elevated LFT's from shock liver -continue eliquis for now but if INR rises would also hold. -not a candidate for cardiac workup. Would not repeat echo at this point as it will not change clinical decision making. -elevated troponin is now normal, this is a nonischemic pattern -it is unclear the mechanism of her arrest, but she is a very poor ICD candid ate, high risk for infection given sacral ulcer. -will stop telemetry tomorrow.
[2020-02-15] MEDS: MUPIROCIN 2% TOPICAL OINTMENT FOR DECOLONIZATION NS SCH ×2 (09:42→21:06)
[2020-02-15] MEDS: MULTIVITAMINS (DAILY MVI) TABLET (FP) PO SCH (09:42)
[2020-02-15] MEDS: levETIRAcetam 500 MG/5 ML INJECTION VIAL IVPB SCH ×2 (09:42→21:06)
[2020-02-15] MEDS: APIXABAN 2.5 MG TABLET PEG SCH ×2 (09:42→21:06)
--- NOTE | 2020-02-15 10:31 | PN ---
Progress Note (short form) - Note Progress Note: 64 aaron old female history of htn, afib (on eliquis), hypothyroidism, chronic respiratory failure (trach vented), ESRD (dialysis MWF), epilepsy, and anxiety was brought in for cardiac arrest. Patient has cardiac arrest durng dialysis, and patient had CPR and following whcih she has generalied tonic clonic seizure. She was given ativan and it stopped seizure. She has ct hed , which wa unremrakable. She was started on iv keppra. patient has encephalomalcia and has trach and peg tube placement in past following old stroke. now it appears to be come into baseline . -- back to baseline, more alert and no seizure NEUROLOGICAL EXAM Alert , aphasic, follow command right sided facial palsy right sided hemiparesis trach and peg not on any sedation ( she apears to be at her baseline) ct head no acute findings eeg pending Assessment/Plan 64 aaron old female history of htn, afib (on eliquis), hypothyroidism, chronic respiratory failure (trach vented), ESRD (dialysis MWF), epilepsy, and anxiety . She has cardiac arrest lasting ? 15-20 minute and has generlaized tonic clonic seizure, now back to baseline Plan:continue iv keppra 750 mg iv bid - supportive care - eeg pending Thanking you so much Markel Clemens MD
[2020-02-15 10:35] LABS: BASO % 0.9 % (0-2.0); HEMATOCRIT 33.5 % (32.4-45.2); HEMOGLOBIN 11.1 GM/dL (10.7-15.3); LYMPH % 9.3 % (8-40); MCH 28.2 pg (25.7-33.7); MCHC 33.3 g/dl (32.0-36.0); MEAN CELL VOLUME 84.8 fl (80-96); MEAN PLT VOLUME 9.7 fl (7.5-11.1); MONO % 5.6 % (3.8-10.2); NEUT % 84.2 % (42.8-82.8); PLATELET COUNT 87 K/MM3 (134-434); RBC 3.95 M/mm3 (3.60-5.2); RDW 16.9 % (11.6-15.6); WHITE BLOOD COUNT 10.2 K/mm3 (4.0-10.0)
[2020-02-15 10:39] LABS: INR 1.26 (0.83-1.09); PROTHROMBIN TIME (PATIENT) 14.9 SEC (9.7-13.0)
[2020-02-15 10:48] LABS: ALBUMIN 1.8 g/dl (3.4-5.0); BILIRUBIN,TOTAL 0.5 mg/dL (0.2-1); BLOOD UREA NITROGEN 32.6 mg/dL (7-18); CALCIUM 8.7 mg/dL (8.5-10.1); CREATININE 1.5 mg/dL (0.55-1.3); MAGNESIUM 1.9 mg/dL (1.8-2.4); PHOSPHOROUS 2.3 mg/dL (2.5-4.9); TOT PROT 6.2 g/dl (6.4-8.2)
[2020-02-15 10:54] LABS: POTASSIUM 2.6 mmol/L (3.5-5.1)
--- NOTE | 2020-02-15 11:22 | PN ---
Progress Note (short form) - Note Progress Note: RENAL pt awake and alert appears comfortable denies pain having loose stools Last Vital Signs Temp Pulse Resp BP Pulse Ox 98.6 F 88 14 117/72 99 02/15/20 10:00 02/15/20 10:00 02/15/20 10:00 02/15/20 10:00 02/15/20 10:00 lungs bilat air entry cvs s1s2 rr abd soft ext no edema neuro a+o CBC, BMP 02/15/20 10:05 02/15/20 10:05 Current Medications Generic Name Dose Route Start Last Admin Trade Name Freq PRN Reason Stop Dose Admin Acetaminophen 650 mg 02/12/20 21:51 Tylenol - PO Q6H PRN FEVER Apixaban 2.5 mg 02/12/20 22:45 02/15/20 09:42 Eliquis - PEG 2.5 mg BID ARLENE Administration Baclofen 10 mg 02/13/20 22:00 02/14/20 22:25 Lioresal - PEG 10 mg HS ARLENE Administration Chlorhexidine Gluconate 1 applic 02/12/20 22:00 02/14/20 22:24 Hibiclens For Decolonization - TP 1 applic HS A[facility]ENE Administration Piperacillin Sod/Tazobactam 50 mls @ 100 mls/hr 02/13/20 15:00 02/15/20 08:59 Sod 2.25 gm/ Dextrose IVPB 100 mls/hr Q6H-IV ARLENE Administration Protocol Levetiracetam 750 mg 02/13/20 22:00 02/15/20 09:42 Keppra Injection - IVPB 750 mg BID ARLENE Administration Levothyroxine Sodium 25 mcg 02/13/20 07:00 02/15/20 06:51 Synthroid - PEG 25 mcg ACBK ARLENE Administration Lidocaine 1 patch 02/13/20 21:00 02/14/20 22:23 Lidoderm Patch - TP 1 patch DAILY@2100 A[facility]ENE Administration Lorazepam 1 mg 02/12/20 20:40 Ativan Injection - IVPUSH Q6H PRN SEIZURES Miscellaneous 1 each 02/14/20 09:00 02/15/20 08:59 Lidoderm Patch Removal MC 1 each DAILY@0900 A[facility]ENE Administration Morphine Sulfate 2 mg 02/14/20 03:21 02/14/20 04:25 Morphine Sulfate IVPUSH 2 mg Q4H PRN Administration PAIN LEVEL 7 - 10 Multivitamins/Minerals/Vitamin C 1 tab 02/13/20 10:00 02/15/20 09:42 Tab-A-Vit - PO 1 tab DAILY A[facility]ENE Administration Mupirocin 1 applic 02/12/20 22:00 02/15/20 09:42 Bactroban Ointment (For Decolonization) - NS 02/17/20 21:59 1 applic BID ARLENE Administration Impression esrd s/p cardiorespiratory arrest afib hypokalemia partly from loose stools PLAN for hd tomorrow replace k change feedings to less concentrated and with perhaps more potassium abx per ID MV
[2020-02-15 11:47] LABS: ANISOCYTOSIS 1+; MACROCYTOSIS 1+; PLATELET ESTIMATE DECREASED
[2020-02-15] MEDS ORDERED: SODIUM CHLORIDE 250 ML IV PRN (12:10)
[2020-02-15] MEDS: KCL 10 MEQ IVPB 10 MEQ/100 ML INFUS.BAG IVPB SCH ×3 (12:21→15:30)
--- NOTE | 2020-02-15 12:52 | PN ---
Progress Note (short form) - Note Progress Note: Patient seen and examined. Awake and alert on AC Mode of vent. Still with loose stools. No acute events overnight. OBJECTIVE: Intake & Output 02/12/20 02/13/20 02/14/20 02/15/20 23:59 23:59 23:59 23:59 Intake Total 100 380 265 652 Output Total 375 189 2992 Balance 0 -50 -977 652 Weight 97 lb 2 oz 97 lb 96 lb 11.186 oz 96 lb 11.186 oz Last Vital Signs Temp Pulse Resp BP Pulse Ox 98.6 F 86 14 118/70 99 02/15/20 10:00 02/15/20 12:00 02/15/20 12:00 02/15/20 12:00 02/15/20 10:00 Active Medications Acetaminophen (Tylenol -) 650 mg PO Q6H PRN PRN Reason: FEVER Apixaban (Eliquis -) 2.5 mg PEG BID [facility] Last Admin: 02/15/20 09:42 Dose: 2.5 mg Documented by: Baclofen (Lioresal -) 10 mg PEG HS [facility] Last Admin: 02/14/20 22:25 Dose: 10 mg Documented by: Chlorhexidine Gluconate (Hibiclens For Decolonization -) 1 applic TP HS [facility] Last Admin: 02/14/20 22:24 Dose: 1 applic Documented by: Piperacillin Sod/Tazobactam (Sod 2.25 gm/ Dextrose) 50 mls @ 100 mls/hr IVPB Q6H-IV ARLENE; Protocol Last Admin: 02/15/20 08:59 Dose: 100 mls/hr Documented by: Potassium Chloride (Potassium Chloride 10 Meq Premix Ivpb -) 10 meq in 100 mls @ 100 mls/hr IVPB Q60M [facility]ENE Stop: 02/15/20 15:14 Sodium Chloride (Normal Saline -) 250 mls @ 3,000 mls/hr IV PRN PRN PRN Reason: Hypotension during Dialysis Stop: 02/16/20 11:48 Levetiracetam (Keppra Injection -) 750 mg IVPB BID [facility] Last Admin: 02/15/20 09:42 Dose: 750 mg Documented by: Levothyroxine Sodium (Synthroid -) 25 mcg PEG ACBK [facility] Last Admin: 02/15/20 06:51 Dose: 25 mcg Documented by: Lidocaine (Lidoderm Patch -) 1 patch TP DAILY@2100 [facility] Last Admin: 02/14/20 22:23 Dose: 1 patch Documented by: Lorazepam (Ativan Injection -) 1 mg IVPUSH Q6H PRN PRN Reason: SEIZURES Miscellaneous (Lidoderm Patch Removal) 1 each MC DAILY@0900 [facility] Last Admin: 02/15/20 08:59 Dose: 1 each Documented by: Morphine Sulfate (Morphine Sulfate) 2 mg IVPUSH Q4H PRN PRN Reason: PAIN LEVEL 7 - 10 Last Admin: 02/14/20 04:25 Dose: 2 mg Documented by: Multivitamins/Minerals/Vitamin C (Tab-A-Vit -) 1 tab PO DAILY [facility] Last Admin: 02/15/20 09:42 Dose: 1 tab Documented by: Mupirocin (Bactroban Ointment (For Decolonization) -) 1 applic NS BID [facility] Stop: 02/17/20 21:59 Last Admin: 02/15/20 09:42 Dose: 1 applic Documented by: Gen: vented, awake Heart: RRR Lung: decreased breath sounds at the bases Abd: soft, nontender Ext: no edema Laboratory Results - last 24 hr 02/12/20 02/13/20 02/15/20 19:30 06:00 10:05 WBC 10.2 H RBC 3.95 Hgb 11.1 Hct 33.5 MCV 84.8 MCH 28.2 MCHC 33.3 RDW 16.9 H Plt Count 87 L MPV 9.7 Absolute Neuts (auto) 8.6 H Neutrophils % 84.2 H Neutrophils % (Manual) 89.0 H Band Neutrophils % 0.0 Lymphocytes % 9.3 D Lymphocytes % (Manual) 8.0 D Monocytes % 5.6 Monocytes % (Manual) 3 L Eosinophils % 0.0 Eosinophils % (Manual) 0.0 Basophils % 0.9 Basophils % (Manual) 0.0 Myelocytes % (Man) 0 D Promyelocytes % (Man) 0 Blast Cells % (Manual) 0 Nucleated RBC % 0 Metamyelocytes 0 D Hypochromia 0 Platelet Estimate Decreased Polychromasia 0 Poikilocytosis 1+ Anisocytosis 1+ Microcytosis 0 Macrocytosis 1+ PT with INR INR PTT (Actin FS) Sodium Potassium Chloride Carbon Dioxide Anion Gap BUN Creatinine Est GFR (CKD-EPI)AfAm Est GFR (CKD-EPI)NonAf Random Glucose Calcium Phosphorus Magnesium Total Bilirubin AST ALT Alkaline Phosphatase Total Protein Albumin COVID-19 (MATTHEW) Not detected Hep A IgM Ab Confirm Negative Hepatitis A Ab Total Positive H Hep Bs Antigen Confirm. indicated Hep Bs Ag Confirmation N Hep Bs Antibody Non reactive Hep B Core Total Ab Negative Hep B Core IgM Ab Negative Hepatitis Be Antibody Negative Hepatitis Be Antigen Negative Hep C Ab Diagnostic 0.2 02/15/20 02/15/20 10:05 10:05 WBC RBC Hgb Hct MCV MCH MCHC RDW Plt Count MPV Absolute Neuts (auto) Neutrophils % Neutrophils % (Manual) Band Neutrophils % Lymphocytes % Lymphocytes % (Manual) Monocytes % Monocytes % (Manual) Eosinophils % Eosinophils % (Manual) Basophils % Basophils % (Manual) Myelocytes % (Man) Promyelocytes % (Man) Blast Cells % (Manual) Nucleated RBC % Metamyelocytes Hypochromia Platelet Estimate Polychromasia Poikilocytosis Anisocytosis Microcytosis Macrocytosis PT with INR 14.90 H INR 1.26 H PTT (Actin FS) 31.0 Sodium 141 Potassium 2.6 L* Chloride 103 Carbon Dioxide 30 Anion Gap 8 BUN 32.6 H Creatinine 1.5 H Est GFR (CKD-EPI)AfAm 41.94 Est GFR (CKD-EPI)NonAf 36.18 Random Glucose 153 H Calcium 8.7 Phosphorus 2.3 L Magnesium 1.9 Total Bilirubin 0.5 AST 44 H ALT 44 Alkaline Phosphatase 131 H Total Protein 6.2 L Albumin 1.8 L COVID-19 (MATTHEW) Hep A IgM Ab Confirm Hepatitis A Ab Total Hep Bs Antigen Hep Bs Ag Confirmation Hep Bs Antibody Hep B Core Total Ab Hep B Core IgM Ab Hepatitis Be Antibody Hepatitis Be Antigen Hep C Ab Diagnostic ASSESSMENT AND PLAN: s/p Cardiopulmonary Arrest LLL Pneumonia Chronic Respiratory Failure ESRD on HD Atrial Fibrillation HTN Seizure Disorder h/o CVA - ABX per ID - HD per renal - rate control - continue anticoagulation - spontaneous breathing trials as tolerated - Vent floor Dr Stearns
--- NOTE | 2020-02-15 13:20 | PN ---
Teaching Attending Note Name of Resident: Tory Burnette ATTENDING PHYSICIAN STATEMENT I saw and evaluated the patient. I reviewed the resident's note and discussed the case with the resident. I agree with the resident's findings and plan as documented. SUBJECTIVE: Loose stool overnight OBJECTIVE: Afebrile, hemodynamicaly stable. Awake, Alert, non-verbal. Last Vital Signs Temp Pulse Resp BP Pulse Ox 98.6 F 86 14 118/70 99 02/15/20 10:00 02/15/20 12:00 02/15/20 12:00 02/15/20 12:00 02/15/20 10:00 HEENT - Trach/Vent. Heart - S1, S2, soft SM Lungs - reduced air entry at bases. Abdomen - Soft, PEG in situ. Bowel Sounds normal. Extremities - no edema, wasting, contractures. Neuro - Awake, Alert, non-verbal, reduced power RUE/RLE MS - Sacral decubitus ulcer - Stage 4 POA Laboratory Results - last 24 hr 02/12/20 02/13/20 02/15/20 19:30 06:00 10:05 WBC 10.2 H RBC 3.95 Hgb 11.1 Hct 33.5 MCV 84.8 MCH 28.2 MCHC 33.3 RDW 16.9 H Plt Count 87 L MPV 9.7 Absolute Neuts (auto) 8.6 H Neutrophils % 84.2 H Neutrophils % (Manual) 89.0 H Band Neutrophils % 0.0 Lymphocytes % 9.3 D Lymphocytes % (Manual) 8.0 D Monocytes % 5.6 Monocytes % (Manual) 3 L Eosinophils % 0.0 Eosinophils % (Manual) 0.0 Basophils % 0.9 Basophils % (Manual) 0.0 Myelocytes % (Man) 0 D Promyelocytes % (Man) 0 Blast Cells % (Manual) 0 Nucleated RBC % 0 Metamyelocytes 0 D Hypochromia 0 Platelet Estimate Decreased Polychromasia 0 Poikilocytosis 1+ Anisocytosis 1+ Microcytosis 0 Macrocytosis 1+ PT with INR INR PTT (Actin FS) Sodium Potassium Chloride Carbon Dioxide Anion Gap BUN Creatinine Est GFR (CKD-EPI)AfAm Est GFR (CKD-EPI)NonAf Random Glucose Calcium Phosphorus Magnesium Total Bilirubin AST ALT Alkaline Phosphatase Total Protein Albumin COVID-19 (MATTHEW) Not detected Hep A IgM Ab Confirm Negative Hepatitis A Ab Total Positive H Hep Bs Antigen Confirm. indicated Hep Bs Ag Confirmation N Hep Bs Antibody Non reactive Hep B Core Total Ab Negative Hep B Core IgM Ab Negative Hepatitis Be Antibody Negative Hepatitis Be Antigen Negative Hep C Ab Diagnostic 0.2 02/15/20 02/15/20 10:05 10:05 WBC RBC Hgb Hct MCV MCH MCHC RDW Plt Count MPV Absolute Neuts (auto) Neutrophils % Neutrophils % (Manual) Band Neutrophils % Lymphocytes % Lymphocytes % (Manual) Monocytes % Monocytes % (Manual) Eosinophils % Eosinophils % (Manual) Basophils % Basophils % (Manual) Myelocytes % (Man) Promyelocytes % (Man) Blast Cells % (Manual) Nucleated RBC % Metamyelocytes Hypochromia Platelet Estimate Polychromasia Poikilocytosis Anisocytosis Microcytosis Macrocytosis PT with INR 14.90 H INR 1.26 H PTT (Actin FS) 31.0 Sodium 141 Potassium 2.6 L* Chloride 103 Carbon Dioxide 30 Anion Gap 8 BUN 32.6 H Creatinine 1.5 H Est GFR (CKD-EPI)AfAm 41.94 Est GFR (CKD-EPI)NonAf 36.18 Random Glucose 153 H Calcium 8.7 Phosphorus 2.3 L Magnesium 1.9 Total Bilirubin 0.5 AST 44 H ALT 44 Alkaline Phosphatase 131 H Total Protein 6.2 L Albumin 1.8 L COVID-19 (MATTHEW) Hep A IgM Ab Confirm Hepatitis A Ab Total Hep Bs Antigen Hep Bs Ag Confirmation Hep Bs Antibody Hep B Core Total Ab Hep B Core IgM Ab Hepatitis Be Antibody Hepatitis Be Antigen Hep C Ab Diagnostic Current Medications Generic Name Dose Route Start Last Admin Trade Name Freq PRN Reason Stop Dose Admin Acetaminophen 650 mg 02/12/20 21:51 Tylenol - PO Q6H PRN FEVER Apixaban 2.5 mg 02/12/20 22:45 02/15/20 09:42 Eliquis - PEG 2.5 mg BID ARLENE Administration Baclofen 10 mg 02/13/20 22:00 02/14/20 22:25 Lioresal - PEG 10 mg HS ARLENE Administration Chlorhexidine Gluconate 1 applic 02/12/20 22:00 02/14/20 22:24 Hibiclens For Decolonization - TP 1 applic HS ARLENE Administration Piperacillin Sod/Tazobactam 50 mls @ 100 mls/hr 02/13/20 15:00 02/15/20 08:59 Sod 2.25 gm/ Dextrose IVPB 100 mls/hr Q6H-IV ARLENE Administration Protocol Potassium Chloride 10 meq in 100 mls @ 100 mls/hr 02/15/20 12:15 Potassium Chloride 10 Meq Premix Ivpb - IVPB 02/15/20 15:14 Q60M ARLENE Sodium Chloride 250 mls @ 3,000 mls/hr 02/15/20 11:48 Normal Saline - IV 02/16/20 11:48 PRN PRN Hypotension during Dialysis Levetiracetam 750 mg 02/13/20 22:00 02/15/20 09:42 Keppra Injection - IVPB 750 mg BID ARLENE Administration Levothyroxine Sodium 25 mcg 02/13/20 07:00 02/15/20 06:51 Synthroid - PEG 25 mcg ACBK ARLENE Administration Lidocaine 1 patch 02/13/20 21:00 02/14/20 22:23 Lidoderm Patch - TP 1 patch DAILY@2100 ARLENE Administration Lorazepam 1 mg 02/12/20 20:40 Ativan Injection - IVPUSH Q6H PRN SEIZURES Miscellaneous 1 each 02/14/20 09:00 02/15/20 08:59 Lidoderm Patch Removal MC 1 each DAILY@0900 ARLENE Administration Morphine Sulfate 2 mg 02/14/20 03:21 02/14/20 04:25 Morphine Sulfate IVPUSH 2 mg Q4H PRN Administration PAIN LEVEL 7 - 10 Multivitamins/Minerals/Vitamin C 1 tab 02/13/20 10:00 02/15/20 09:42 Tab-A-Vit - PO 1 tab DAILY ARLENE Administration Mupirocin 1 applic 02/12/20 22:00 02/15/20 09:42 Bactroban Ointment (For Decolonization) - NS 02/17/20 21:59 1 applic BID ARLENE Administration Home Medications Medication Instructions Recorded Amiodarone HCl [Cordarone -] 100 mg PEG DAILY tablet 12/18/19 Apixaban [Eliquis -] 2.5 mg PEG BID tablet 12/18/19 Baclofen [Lioresal -] 10 mg PEG HS tablet 12/18/19 Simethicone Liquid [Mylicon Liquid 40 mg PEG BID ml 12/18/19 -] Levothyroxine [Synthroid -] 25 mcg PEG DAILY 01/17/20 Multivitamin 1 each PEG DAILY 01/18/20 LORazepam [Ativan] 0.5 mg GT BID tablet 01/25/20 levoFLOXacin [Levaquin -] 250 mg PO Q48H #5 tablet 01/25/20 Acetaminophen [Tylenol] 2 tab PO Q6H PRN 02/12/20 Collagenase Clostridium Hist. 1 applic TP DAILY 02/12/20 [Santyl] Ipratropium/Albuterol Sulfate 3 ml IH Q6H PRN 02/12/20 [Iprat-Albut 0.5-3(2.5) mg/3 ml] Potassium Chloride [K-Dur -] 20 meq PO BID 02/12/20 ASSESSMENT AND PLAN: 64 year old female with history of Chronic Respiratory Failure s/p CVA s/p Trach/PEG, ESRD (HD M,W,F), Atrial Fibrillation (on Eliquis), Epilepsy, Hypothyroidism, Anxiety, admitted to ICU s/p cardiac arrest at Hemodialysis center. ROSC reportedly achieved within 15 minutes of resuscitative efforts, after which she was admitted to ICU. She was also found to have RVR and seizure activity in ED, for which she received Ativan. 1. Acute Cardiopulmonary Arrest with Acute on Chronic Respiratory Failure ROSC s/p 15 minutes CPR, etiology unclear Trach/Vent Troponin max 0.98 Last Echo 01/19/20: LVH normal EF, small pericardial effusion, mild MS, mild TR Evaluated by Cardiology - poor candidate for ACID Downgraded to Telemetry 02/13, awaiting bed. 2. Acute Pneumonia - was receiving Levofloxacin at [facility] Sputum Cx - Pseudomonas, placed on Zosyn since admission Afebrile, Hemodynamically Stable. Leukocytosis improving 3. ESRD on HD HD tomorrow as per Nephrology Hypokalemia - repleted. 4. Atrial Fibrillation - rate controlled Amiodarone held in setting of shock liver/elevated liver enzymes secondary to cardiac arrest. Continue Eliquis. 5. Hypothyroidism - continue Synthroid. 6. Seizure Disorder - Keppra as per Neurology. EEG pending. 7. Chronic Infarcts (R Frontal and L MCA territory infarcts with Encephalomalacia) - continue Eliquis. Not on Statin - further management by Neurology. 8. Thrombocytopenia - likely marrow suppression sec to infection/Pneumonia - will monitor especially given concomitant Eliquis use. DVT Px - Eliquis.
[2020-02-15] MEDS: MORPHINE SULFATE 2 MG/ML VIAL IVPUSH PRN ×2 (14:19→21:00)
--- NOTE | 2020-02-15 14:30 | PN ---
Progress Note, Physician History of Present Illness: stable no new issues feels tired - Current Medication List Current Medications: Active Medications Acetaminophen (Tylenol -) 650 mg PO Q6H PRN PRN Reason: FEVER Apixaban (Eliquis -) 2.5 mg PEG BID [facility] Last Admin: 02/15/20 09:42 Dose: 2.5 mg Documented by: Baclofen (Lioresal -) 10 mg PEG HS [facility] Last Admin: 02/14/20 22:25 Dose: 10 mg Documented by: Chlorhexidine Gluconate (Hibiclens For Decolonization -) 1 applic TP [facility] Last Admin: 02/14/20 22:24 Dose: 1 applic Documented by: Piperacillin Sod/Tazobactam (Sod 2.25 gm/ Dextrose) 50 mls @ 100 mls/hr IVPB Q6H-IV [facility]; Protocol Last Admin: 02/15/20 08:59 Dose: 100 mls/hr Documented by: Potassium Chloride (Potassium Chloride 10 Meq Premix Ivpb -) 10 meq in 100 mls @ 100 mls/hr IVPB Q60M [facility] Stop: 02/15/20 15:14 Last Admin: 02/15/20 14:12 Dose: 100 mls/hr Documented by: Sodium Chloride (Normal Saline -) 250 mls @ 3,000 mls/hr IV PRN PRN PRN Reason: Hypotension during Dialysis Stop: 02/16/20 11:48 Levetiracetam (Keppra Injection -) 750 mg IVPB BID [facility] Last Admin: 02/15/20 09:42 Dose: 750 mg Documented by: Levothyroxine Sodium (Synthroid -) 25 mcg PEG ACBK [facility] Last Admin: 02/15/20 06:51 Dose: 25 mcg Documented by: Lidocaine (Lidoderm Patch -) 1 patch TP DAILY@2100 [facility] Last Admin: 02/14/20 22:23 Dose: 1 patch Documented by: Lorazepam (Ativan Injection -) 1 mg IVPUSH Q6H PRN PRN Reason: SEIZURES Miscellaneous (Lidoderm Patch Removal) 1 each MC DAILY@0900 [facility] Last Admin: 02/15/20 08:59 Dose: 1 each Documented by: Morphine Sulfate (Morphine Sulfate) 2 mg IVPUSH Q4H PRN PRN Reason: PAIN LEVEL 7 - 10 Last Admin: 02/15/20 14:19 Dose: 2 mg Documented by: Multivitamins/Minerals/Vitamin C (Tab-A-Vit -) 1 tab PO DAILY ARLENE Last Admin: 02/15/20 09:42 Dose: 1 tab Documented by: Mupirocin (Bactroban Ointment (For Decolonization) -) 1 applic NS BID ARLENE Stop: 02/17/20 21:59 Last Admin: 02/15/20 09:42 Dose: 1 applic Documented by: - Objective Vital Signs: Vital Signs Temperature 98.6 F 02/15/20 10:00 Pulse Rate 86 02/15/20 12:00 Respiratory Rate 14 02/15/20 12:00 Blood Pressure 118/70 02/15/20 12:00 O2 Sat by Pulse Oximetry (%) 99 02/15/20 10:00 Constitutional: Yes: No Distress, Calm Cardiovascular: Yes: S1, S2 Respiratory: Yes: Regular, CTA Bilaterally, Other (trach) Gastrointestinal: Yes: Normal Bowel Sounds, Soft Musculoskeletal: Yes: WNL Extremities: Yes: WNL Neurological: Yes: Alert, Oriented Psychiatric: Yes: Alert, Oriented Labs: CBC, BMP 02/15/20 10:05 02/15/20 10:05 INR, PTT INR 1.26 (0.83-1.09) H 02/15/20 10:05 Assessment/Plan s/p Cardiopulmonary Arrest r/o Pneumonia Chronic Respiratory Failure ESRD on HD Atrial Fibrillation HTN Seizure Disorder h/o CVA vap pneumonia plan continue zosyn suctioning resp support rest as per icu
[2020-02-15] MEDS ORDERED: POTASSIUM CHLORIDE ORAL LIQUID 20 MEQ/15 ML GT ONE (15:04)
--- NOTE | 2020-02-15 16:20 | PN ---
Physical Exam: SUBJECTIVE: Patient seen and examined OBJECTIVE: Vital Signs Period Temp Pulse Resp BP Sys/Rick Pulse Ox Last 24 Hr 98.1 F-98.6 F 54-88 14-20 83-127/6-74 94-100 GENERAL: Awake. Not oriented. no acute distress. HEENT: Normal with no signs of trauma. PERRL. dry mucous membranes. NECK: No JVD LUNGS: Breath sounds equal, clear to auscultation bilaterally. No wheezes, and no crackles. No accessory muscle use. HEART: RRR, normal S1 and S2 without murmur, rub or gallop. R upper chest hemodialysis catheter ABDOMEN: Soft, nontender, not distended, normoactive bowel sounds, no guarding, no rebound. PEG tube UPPER EXTREMITIES: 2+ pulses, cold, No peripheral edema. R hand contracted LOWER EXTREMITIES: 1+ pulses, cold, No peripheral edema. NEUROLOGICAL: unable to assess given pt's mental status. SKIN: stage 4 sacral ulcer Laboratory Results - last 24 hr 02/13/20 02/15/20 02/15/20 06:00 10:05 10:05 WBC 10.2 H RBC 3.95 Hgb 11.1 Hct 33.5 MCV 84.8 MCH 28.2 MCHC 33.3 RDW 16.9 H Plt Count 87 L MPV 9.7 Absolute Neuts (auto) 8.6 H Neutrophils % 84.2 H Neutrophils % (Manual) 89.0 H Band Neutrophils % 0.0 Lymphocytes % 9.3 D Lymphocytes % (Manual) 8.0 D Monocytes % 5.6 Monocytes % (Manual) 3 L Eosinophils % 0.0 Eosinophils % (Manual) 0.0 Basophils % 0.9 Basophils % (Manual) 0.0 Myelocytes % (Man) 0 D Promyelocytes % (Man) 0 Blast Cells % (Manual) 0 Nucleated RBC % 0 Metamyelocytes 0 D Hypochromia 0 Platelet Estimate Decreased Polychromasia 0 Poikilocytosis 1+ Anisocytosis 1+ Microcytosis 0 Macrocytosis 1+ PT with INR INR PTT (Actin FS) Sodium 141 Potassium 2.6 L* Chloride 103 Carbon Dioxide 30 Anion Gap 8 BUN 32.6 H Creatinine 1.5 H Est GFR (CKD-EPI)AfAm 41.94 Est GFR (CKD-EPI)NonAf 36.18 Random Glucose 153 H Calcium 8.7 Phosphorus 2.3 L Magnesium 1.9 Total Bilirubin 0.5 AST 44 H ALT 44 Alkaline Phosphatase 131 H Total Protein 6.2 L Albumin 1.8 L Hep A IgM Ab Confirm Negative Hepatitis A Ab Total Positive H Hep Bs Antigen Confirm. indicated Hep Bs Ag Confirmation N Hep Bs Antibody Non reactive Hep B Core Total Ab Negative Hep B Core IgM Ab Negative Hepatitis Be Antibody Negative Hepatitis Be Antigen Negative Hep C Ab Diagnostic 0.2 02/15/20 10:05 WBC RBC Hgb Hct MCV MCH MCHC RDW Plt Count MPV Absolute Neuts (auto) Neutrophils % Neutrophils % (Manual) Band Neutrophils % Lymphocytes % Lymphocytes % (Manual) Monocytes % Monocytes % (Manual) Eosinophils % Eosinophils % (Manual) Basophils % Basophils % (Manual) Myelocytes % (Man) Promyelocytes % (Man) Blast Cells % (Manual) Nucleated RBC % Metamyelocytes Hypochromia Platelet Estimate Polychromasia Poikilocytosis Anisocytosis Microcytosis Macrocytosis PT with INR 14.90 H INR 1.26 H PTT (Actin FS) 31.0 Sodium Potassium Chloride Carbon Dioxide Anion Gap BUN Creatinine Est GFR (CKD-EPI)AfAm Est GFR (CKD-EPI)NonAf Random Glucose Calcium Phosphorus Magnesium Total Bilirubin AST ALT Alkaline Phosphatase Total Protein Albumin Hep A IgM Ab Confirm Hepatitis A Ab Total Hep Bs Antigen Hep Bs Ag Confirmation Hep Bs Antibody Hep B Core Total Ab Hep B Core IgM Ab Hepatitis Be Antibody Hepatitis Be Antigen Hep C Ab Diagnostic Active Medications Generic Name Dose Route Start Last Admin Trade Name Freq PRN Reason Stop Dose Admin Acetaminophen 650 mg 02/12/20 21:51 Tylenol - PO Q6H PRN FEVER Apixaban 2.5 mg 02/12/20 22:45 02/15/20 09:42 Eliquis - PEG 2.5 mg BID ARLENE Administration Baclofen 10 mg 02/13/20 22:00 02/14/20 22:25 Lioresal - PEG 10 mg HS ARLENE Administration Chlorhexidine Gluconate 1 applic 02/12/20 22:00 02/14/20 22:24 Hibiclens For Decolonization - TP 1 applic HS ARLENE Administration Piperacillin Sod/Tazobactam 50 mls @ 100 mls/hr 02/13/20 15:00 02/15/20 15:22 Sod 2.25 gm/ Dextrose IVPB 100 mls/hr Q6H-IV ARLENE Administration Protocol Sodium Chloride 250 mls @ 3,000 mls/hr 02/15/20 11:48 Normal Saline - IV 02/16/20 11:48 PRN PRN Hypotension during Dialysis Levetiracetam 750 mg 02/13/20 22:00 02/15/20 09:42 Keppra Injection - IVPB 750 mg BID ARLENE Administration Levothyroxine Sodium 25 mcg 02/13/20 07:00 02/15/20 06:51 Synthroid - PEG 25 mcg ACBK ARLENE Administration Lidocaine 1 patch 02/13/20 21:00 02/14/20 22:23 Lidoderm Patch - TP 1 patch DAILY@2100 ARLENE Administration Lorazepam 1 mg 02/12/20 20:40 Ativan Injection - IVPUSH Q6H PRN SEIZURES Miscellaneous 1 each 02/14/20 09:00 02/15/20 08:59 Lidoderm Patch Removal MC 1 each DAILY@0900 ARLENE Administration Morphine Sulfate 2 mg 02/14/20 03:21 02/15/20 14:19 Morphine Sulfate IVPUSH 2 mg Q4H PRN Administration PAIN LEVEL 7 - 10 Multivitamins/Minerals/Vitamin C 1 tab 02/13/20 10:00 02/15/20 09:42 Tab-A-Vit - PO 1 tab DAILY ARLENE Administration Mupirocin 1 applic 02/12/20 22:00 02/15/20 09:42 Bactroban Ointment (For Decolonization) - NS 02/17/20 21:59 1 applic BID ARLENE Administration ASSESSMENT/PLAN: Pt is a 64 year old F with PMHx of Chronic Respiratory Failure s/p CVA s/p Trach/PEG, ESRD (HD M,W,F), Atrial Fibrillation (on Eliquis), Epilepsy, Hypothyroidism, Anxiety admitted to ICU after cardiac arrest at dialysis, ROSC achieved within 15 minutes of resuscitation. Was also found in afib RVR and seizure, rec`d ativan Acute cardiopulmonary arrest with acute on chronic respiratory failure -ROSC achieved after 15 mins CPR at dialysis center -trach and vented -Trops peaked at 0.98, now downtrending -cardio evaluated; poor candidate for AICD Acute pneumonia -Sputum cx - pseudomonas -on Zosyn -leukocytosis improving ESRD on HD (M, W, F) -HD tomorrow per nephro A fib -held amio due to shock liver -Eliquis 2.5mg BID, cont Hypothyroidisim -cont synthroid Seizure disorder -Keppra 750mg BID per neuro -EEG pending Chronic infarcts -cont eliquis -not on statin -await neuro recs Thrombocytopenia -likely secondary to infection and pneumonia Stage IV decubitus ulcer -frequent respotioning -air mattress PPx -eliquis 2.5mg BID FEN PEG feed Monitor lytes No standing fluids Dispo Downgraded to tele from ICU, awaiting bed. ATTENDING PHYSICIAN STATEMENT I saw and evaluated the patient. I reviewed the resident's note and discussed the case with the resident. I agree with the resident's findings and plan as documented. SUBJECTIVE: OBJECTIVE: ASSESSMENT AND PLAN:
--- NOTE | 2020-02-15 18:40 | PN ---
Teaching Attending Note Name of Resident: Memo Hunt ATTENDING PHYSICIAN STATEMENT I saw and evaluated the patient. I reviewed the resident's note and discussed the case with the resident. I agree with the resident's findings and plan as documented. SUBJECTIVE: Patient seen and examined at bedside, ICu transfer admitted for cardiac arrest unknown etiology, going to med-surg. no overnight events OBJECTIVE: GENERAL: The patient is awake, in no acute distress. HEAD: Normocephalic, atraumatic. EYES: PERRL, extraocular movements intact, sclera anicteric, conjunctiva clear. ENT: Tracheostomy in situ. Supple without lymphadenopathy. LUNGS: Mechanical breath sounds auscultated. No accessory muscle use. HEART: Irregular rate. S1, S2 without murmur, rub or gallop. ABDOMEN: PEG tube in situ. Soft, nondistended, nontender palpation x4 quadrants.Normoactive bowel sounds. EXTREMITIES: 2+ radial, dorsalis pedis pulses bilaterally. Warm, well-perfused. No lower extremity edema bilaterally. NEUROLOGICAL: Right sided hemiplegia (chronic). Able to spontaneously move left upper and lower extremity. SKIN: Warm, dry. Sacral ulcer noted stage III-IV. Right upper chest HD catheter in situ. Vital Signs (72 hours) 02/12/20 02/12/20 02/12/20 19:48 20:55 21:31 Temperature 100.1 F H Pulse Rate 87 86 Pulse Rate [ 94 H Apical] Respiratory 14 14 14 Rate Blood Pressure 95/55 L Blood Pressure 103/85 [Right Arm] O2 Sat by Pulse 100 100 100 Oximetry (%) 02/12/20 02/12/20 02/13/20 22:06 23:00 00:14 Temperature 99.5 F Pulse Rate 81 75 Pulse Rate [ Apical] Respiratory 14 14 14 Rate Blood Pressure 119/66 Blood Pressure [Right Arm] O2 Sat by Pulse 100 100 97 Oximetry (%) 02/13/20 02/13/20 02/13/20 00:15 02:00 04:00 Temperature 99.1 F 99 F Pulse Rate 77 74 69 Pulse Rate [ Apical] Respiratory 14 14 14 Rate Blood Pressure 96/74 113/64 90/65 Blood Pressure [Right Arm] O2 Sat by Pulse 100 100 Oximetry (%) 02/13/20 02/13/20 02/13/20 04:22 06:00 08:41 Temperature 98.6 F Pulse Rate 74 Pulse Rate [ Apical] Respiratory 14 14 Rate Blood Pressure 81/54 L Blood Pressure [Right Arm] O2 Sat by Pulse 100 100 Oximetry (%) 02/13/20 02/13/20 02/13/20 10:00 12:00 12:22 Temperature Pulse Rate 71 70 Pulse Rate [ Apical] Respiratory 16 16 14 Rate Blood Pressure 86/63 L 81/61 L Blood Pressure [Right Arm] O2 Sat by Pulse 100 100 Oximetry (%) 02/13/20 02/13/20 02/13/20 14:00 16:00 16:03 Temperature Pulse Rate 73 84 Pulse Rate [ Apical] Respiratory 16 15 Rate Blood Pressure 96/67 73/57 L Blood Pressure [Right Arm] O2 Sat by Pulse 100 Oximetry (%) 02/13/20 02/13/20 02/13/20 17:32 18:59 20:00 Temperature Pulse Rate 94 H 90 Pulse Rate [ Apical] Respiratory 16 16 15 Rate Blood Pressure 99/72 94/74 Blood Pressure [Right Arm] O2 Sat by Pulse 100 100 92 L Oximetry (%) 02/13/20 02/13/20 02/13/20 20:20 20:42 22:00 Temperature 99.5 F Pulse Rate 87 84 Pulse Rate [ Apical] Respiratory 14 15 14 Rate Blood Pressure 102/70 Blood Pressure [Right Arm] O2 Sat by Pulse 96 92 L 96 Oximetry (%) 02/14/20 02/14/20 02/14/20 00:00 00:20 02:00 Temperature 99.0 F 98.4 F Pulse Rate 106 H 80 Pulse Rate [ Apical] Respiratory 15 14 14 Rate Blood Pressure 93/68 111/74 Blood Pressure [Right Arm] O2 Sat by Pulse 99 99 100 Oximetry (%) 02/14/20 02/14/20 02/14/20 04:00 04:10 06:00 Temperature 98.2 F 98.3 F Pulse Rate 83 77 74 Pulse Rate [ Apical] Respiratory 15 14 19 Rate Blood Pressure 118/83 98/66 Blood Pressure [Right Arm] O2 Sat by Pulse 100 100 100 Oximetry (%) 02/14/20 02/14/20 02/14/20 08:00 08:20 09:00 Temperature Pulse Rate 76 71 Pulse Rate [ Apical] Respiratory 19 14 14 Rate Blood Pressure 121/74 Blood Pressure [Right Arm] O2 Sat by Pulse 100 100 100 Oximetry (%) 02/14/20 02/14/20 02/14/20 10:00 11:55 12:00 Temperature 97.8 F Pulse Rate 76 74 Pulse Rate [ Apical] Respiratory 19 14 19 Rate Blood Pressure 90/75 90/59 L Blood Pressure [Right Arm] O2 Sat by Pulse Oximetry (%) 02/14/20 02/14/20 02/14/20 14:00 14:20 14:30 Temperature 97.5 F L Pulse Rate 74 86 90 Pulse Rate [ Apical] Respiratory 19 18 18 Rate Blood Pressure 100/65 90/62 91/60 Blood Pressure [Right Arm] O2 Sat by Pulse 100 Oximetry (%) 02/14/20 02/14/20 02/14/20 14:45 15:00 15:30 Temperature Pulse Rate 91 H 88 93 H Pulse Rate [ Apical] Respiratory 18 18 18 Rate Blood Pressure 94/57 L 88/41 L 97/71 Blood Pressure [Right Arm] O2 Sat by Pulse Oximetry (%) 02/14/20 02/14/20 02/14/20 16:00 16:07 16:30 Temperature Pulse Rate 84 87 Pulse Rate [ Apical] Respiratory 18 14 18 Rate Blood Pressure 90/57 L 91/67 Blood Pressure [Right Arm] O2 Sat by Pulse Oximetry (%) 02/14/20 02/14/20 02/14/20 16:35 16:41 16:45 Temperature Pulse Rate 81 79 77 Pulse Rate [ Apical] Respiratory 18 20 18 Rate Blood Pressure 83/61 L 83/61 L 104/62 Blood Pressure [Right Arm] O2 Sat by Pulse 100 Oximetry (%) 02/14/20 02/14/20 02/14/20 18:00 20:00 20:47 Temperature Pulse Rate 79 74 Pulse Rate [ Apical] Respiratory 20 20 14 Rate Blood Pressure 88/67 L 89/64 L Blood Pressure [Right Arm] O2 Sat by Pulse 100 100 95 Oximetry (%) 02/14/20 02/14/20 02/15/20 22:00 23:58 00:14 Temperature 98.4 F Pulse Rate 76 78 Pulse Rate [ Apical] Respiratory 14 18 16 Rate Blood Pressure 93/54 L 94/73 Blood Pressure [Right Arm] O2 Sat by Pulse 95 95 Oximetry (%) 02/15/20 02/15/20 02/15/20 01:00 03:00 04:37 Temperature 98.1 F Pulse Rate 54 L 76 Pulse Rate [ Apical] Respiratory 18 18 14 Rate Blood Pressure 92/6 L 92/68 Blood Pressure [Right Arm] O2 Sat by Pulse 94 L Oximetry (%) 02/15/20 02/15/20 02/15/20 06:00 08:00 08:18 Temperature 98.6 F 98.6 F Pulse Rate 70 88 71 Pulse Rate [ Apical] Respiratory 16 14 14 Rate Blood Pressure 127/60 123/74 Blood Pressure [Right Arm] O2 Sat by Pulse 94 L 100 96 Oximetry (%) 02/15/20 02/15/20 02/15/20 09:00 10:00 11:56 Temperature 98.6 F Pulse Rate 88 Pulse Rate [ Apical] Respiratory 14 14 14 Rate Blood Pressure 117/72 Blood Pressure [Right Arm] O2 Sat by Pulse 99 99 Oximetry (%) 02/15/20 02/15/20 02/15/20 12:00 14:00 16:00 Temperature 98.5 F Pulse Rate 86 86 77 Pulse Rate [ Apical] Respiratory 14 14 14 Rate Blood Pressure 118/70 96/74 108/64 Blood Pressure [Right Arm] O2 Sat by Pulse 100 99 Oximetry (%) Microbiology 02/12/20 16:15 Blood - Peripheral Venous Blood Culture - Preliminary NO GROWTH OBTAINED AFTER 72 HOURS, INCUBATION TO CONTINUE FOR 2 DAYS. 02/12/20 16:15 Blood - Peripheral Venous Blood Culture - Preliminary NO GROWTH OBTAINED AFTER 72 HOURS, INCUBATION TO CONTINUE FOR 2 DAYS. 02/12/20 22:51 Sputum - Endotrachea Suction/Ventilator Gram Stain - Final 02/12/20 22:51 Sputum - Endotrachea Suction/Ventilator Sputum Culture - Final Pseudomonas Aeruginosa 02/12/20 20:20 Urine - Urine Will Urine Culture - Final NO GROWTH OBTAINED Laboratory Results - last 24 hr 02/13/20 02/15/20 02/15/20 06:00 10:05 10:05 WBC 10.2 H RBC 3.95 Hgb 11.1 Hct 33.5 MCV 84.8 MCH 28.2 MCHC 33.3 RDW 16.9 H Plt Count 87 L MPV 9.7 Absolute Neuts (auto) 8.6 H Neutrophils % 84.2 H Neutrophils % (Manual) 89.0 H Band Neutrophils % 0.0 Lymphocytes % 9.3 D Lymphocytes % (Manual) 8.0 D Monocytes % 5.6 Monocytes % (Manual) 3 L Eosinophils % 0.0 Eosinophils % (Manual) 0.0 Basophils % 0.9 Basophils % (Manual) 0.0 Myelocytes % (Man) 0 D Promyelocytes % (Man) 0 Blast Cells % (Manual) 0 Nucleated RBC % 0 Metamyelocytes 0 D Hypochromia 0 Platelet Estimate Decreased Polychromasia 0 Poikilocytosis 1+ Anisocytosis 1+ Microcytosis 0 Macrocytosis 1+ PT with INR INR PTT (Actin FS) Sodium 141 Potassium 2.6 L* Chloride 103 Carbon Dioxide 30 Anion Gap 8 BUN 32.6 H Creatinine 1.5 H Est GFR (CKD-EPI)AfAm 41.94 Est GFR (CKD-EPI)NonAf 36.18 Random Glucose 153 H Calcium 8.7 Phosphorus 2.3 L Magnesium 1.9 Total Bilirubin 0.5 AST 44 H ALT 44 Alkaline Phosphatase 131 H Total Protein 6.2 L Albumin 1.8 L Hep A IgM Ab Confirm Negative Hepatitis A Ab Total Positive H Hep Bs Antigen Confirm. indicated Hep Bs Ag Confirmation N Hep Bs Antibody Non reactive Hep B Core Total Ab Negative Hep B Core IgM Ab Negative Hepatitis Be Antibody Negative Hepatitis Be Antigen Negative Hep C Ab Diagnostic 0.2 02/15/20 10:05 WBC RBC Hgb Hct MCV MCH MCHC RDW Plt Count MPV Absolute Neuts (auto) Neutrophils % Neutrophils % (Manual) Band Neutrophils % Lymphocytes % Lymphocytes % (Manual) Monocytes % Monocytes % (Manual) Eosinophils % Eosinophils % (Manual) Basophils % Basophils % (Manual) Myelocytes % (Man) Promyelocytes % (Man) Blast Cells % (Manual) Nucleated RBC % Metamyelocytes Hypochromia Platelet Estimate Polychromasia Poikilocytosis Anisocytosis Microcytosis Macrocytosis PT with INR 14.90 H INR 1.26 H PTT (Actin FS) 31.0 Sodium Potassium Chloride Carbon Dioxide Anion Gap BUN Creatinine Est GFR (CKD-EPI)AfAm Est GFR (CKD-EPI)NonAf Random Glucose Calcium Phosphorus Magnesium Total Bilirubin AST ALT Alkaline Phosphatase Total Protein Albumin Hep A IgM Ab Confirm Hepatitis A Ab Total Hep Bs Antigen Hep Bs Ag Confirmation Hep Bs Antibody Hep B Core Total Ab Hep B Core IgM Ab Hepatitis Be Antibody Hepatitis Be Antigen Hep C Ab Diagnostic Home Medications Medication Instructions Recorded Amiodarone HCl [Cordarone -] 100 mg PEG DAILY tablet 12/18/19 Apixaban [Eliquis -] 2.5 mg PEG BID tablet 12/18/19 Baclofen [Lioresal -] 10 mg PEG HS tablet 12/18/19 Simethicone Liquid [Mylicon Liquid 40 mg PEG BID ml 12/18/19 -] Levothyroxine [Synthroid -] 25 mcg PEG DAILY 01/17/20 Multivitamin 1 each PEG DAILY 01/18/20 LORazepam [Ativan] 0.5 mg GT BID tablet 01/25/20 levoFLOXacin [Levaquin -] 250 mg PO Q48H #5 tablet 01/25/20 Acetaminophen [Tylenol] 2 tab PO Q6H PRN 02/12/20 Collagenase Clostridium Hist. 1 applic TP DAILY 02/12/20 [Santyl] Ipratropium/Albuterol Sulfate 3 ml IH Q6H PRN 02/12/20 [Iprat-Albut 0.5-3(2.5) mg/3 ml] Potassium Chloride [K-Dur -] 20 meq PO BID 02/12/20 Current Medications Generic Name Dose Route Start Last Admin Trade Name Freq PRN Reason Stop Dose Admin Acetaminophen 650 mg 02/12/20 21:51 Tylenol - PO Q6H PRN FEVER Apixaban 2.5 mg 02/12/20 22:45 02/15/20 09:42 Eliquis - PEG 2.5 mg BID ARLENE Administration Baclofen 10 mg 02/13/20 22:00 02/14/20 22:25 Lioresal - PEG 10 mg HS ARLENE Administration Chlorhexidine Gluconate 1 applic 02/12/20 22:00 02/14/20 22:24 Hibiclens For Decolonization - TP 1 applic HS ARLENE Administration Piperacillin Sod/Tazobactam 50 mls @ 100 mls/hr 02/13/20 15:00 02/15/20 15:22 Sod 2.25 gm/ Dextrose IVPB 100 mls/hr Q6H-IV ARLENE Administration Protocol Sodium Chloride 250 mls @ 3,000 mls/hr 02/15/20 11:48 Normal Saline - IV 02/16/20 11:48 PRN PRN Hypotension during Dialysis Levetiracetam 750 mg 02/13/20 22:00 02/15/20 09:42 Keppra Injection - IVPB 750 mg BID ARLENE Administration Levothyroxine Sodium 25 mcg 02/13/20 07:00 02/15/20 06:51 Synthroid - PEG 25 mcg ACBK ARLENE Administration Lidocaine 1 patch 02/13/20 21:00 02/14/20 22:23 Lidoderm Patch - TP 1 patch DAILY@2100 ARLENE Administration Lorazepam 1 mg 02/12/20 20:40 Ativan Injection - IVPUSH Q6H PRN SEIZURES Miscellaneous 1 each 02/14/20 09:00 02/15/20 08:59 Lidoderm Patch Removal MC 1 each DAILY@0900 ARLENE Administration Morphine Sulfate 2 mg 02/14/20 03:21 02/15/20 14:19 Morphine Sulfate IVPUSH 2 mg Q4H PRN Administration PAIN LEVEL 7 - 10 Multivitamins/Minerals/Vitamin C 1 tab 02/13/20 10:00 02/15/20 09:42 Tab-A-Vit - PO 1 tab DAILY ARLENE Administration Mupirocin 1 applic 02/12/20 22:00 02/15/20 09:42 Bactroban Ointment (For Decolonization) - NS 02/17/20 21:59 1 applic BID ARLENE Administration ASSESSMENT AND PLAN: 64 F s/p Cardiac arrest HTN HLD ESRD on HD Seizure disorder Sepsis PNA Acute on chronic hypoxemic respiratory failure Afib on Eliquis Plan: Cont. Eliquis Zosyn for PNA, follow cultures Cont. seizure meds, ativan for breakthrough seizures Palliative evaluation for GOC DVT ppx: Eliquis
[2020-02-15] MEDS: LIDOCAINE 5% TOPICAL PATCH TP SCH (21:05)
[2020-02-15] MEDS: CHLORHEXIDINE GLUCONATE 4% CLEANSER FOR DECOLONIZATION TP SCH (21:06)
[2020-02-15] MEDS: BACLOFEN 10 MG TABLET (FP) PEG SCH (21:07)
[2020-02-16] MEDS ORDERED: PIPERACILLIN/TAZOBACTAM 2.25 GM VIAL IVPB ONE ×4 (01:31→21:17)
[2020-02-16] MEDS ORDERED: DEXTROSE 5%-WATER - 50 ML IVPB ONE ×4 (01:31→21:17)
[2020-02-16] MEDS: PIPERACILLIN/TAZOB 2.25 GM 2.25 GM in DEXTROSE 5%-WATER - 50 ML IVPB SCH ×4 (02:00→21:39)
[2020-02-16] MEDS: LEVOTHYROXINE NA 25 MCG TABLET (FP) PEG SCH (06:41)
[2020-02-16] MEDS ORDERED: ALBUMIN HUMAN 25% 12.5 GM/50 ML VIAL IVPB SCH ×2 (09:00→13:00)
--- NOTE | 2020-02-16 09:45 | PN ---
Progress Note, Physician Chief Complaint: more alert tele PAF, no VT or pauses. History of Present Illness: 64 year old woman pmh ESRD on HD, chronic respiratory failure s/p trach on vent, h/o Pafib on eliquis, HTN, hypothyroid, epilepsy, [place]D, [place], [place] for SOB, tachypnea, tachycardia, recently admitted with PNA, mildly elevated troponin with no sig CK elevation, abnl ekg managed medically now ad mitted after cardiac arrest in [facility] HD, CPR for 15 minutes with ROSC. ER course complicated for seizures, PAF with RVR. Now unresponsive on ventilator in the ICU. Cannot obtain history. Echo 01/19/20: LVH normal EF, small pericardial effusion, mild MS, mild TR - Current Medication List Current Medications: Active Medications Acetaminophen (Tylenol -) 650 mg PO Q6H PRN PRN Reason: FEVER Last Admin: 02/15/20 21:06 Dose: 650 mg Documented by: Apixaban (Eliquis -) 2.5 mg PEG BID [facility] Last Admin: 02/15/20 21:06 Dose: 2.5 mg Documented by: Baclofen (Lioresal -) 10 mg PEG HS [facility] Last Admin: 02/15/20 21:07 Dose: 10 mg Documented by: Chlorhexidine Gluconate (Hibiclens For Decolonization -) 1 applic TP HS [facility] Last Admin: 02/15/20 21:06 Dose: 1 applic Documented by: Piperacillin Sod/Tazobactam (Sod 2.25 gm/ Dextrose) 50 mls @ 100 mls/hr IVPB Q6H-IV ARLENE; Protocol Last Admin: 02/16/20 02:00 Dose: 100 mls/hr Documented by: Sodium Chloride (Normal Saline -) 250 mls @ 3,000 mls/hr IV PRN PRN PRN Reason: Hypotension during Dialysis Stop: 02/16/20 11:48 Levetiracetam (Keppra Injection -) 750 mg IVPB BID [facility] Last Admin: 02/15/20 21:06 Dose: 750 mg Documented by: Levothyroxine Sodium (Synthroid -) 25 mcg PEG ACBK [facility] Last Admin: 02/16/20 06:41 Dose: 25 mcg Documented by: Lidocaine (Lidoderm Patch -) 1 patch TP DAILY@2100 [facility] Last Admin: 10/08/20 21:05 Dose: 1 patch Documented by: Lorazepam (Ativan Injection -) 1 mg IVPUSH Q6H PRN PRN Reason: SEIZURES Miscellaneous (Lidoderm Patch Removal) 1 each MC DAILY@0900 [facility] Last Admin: 02/15/20 08:59 Dose: 1 each Documented by: Morphine Sulfate (Morphine Sulfate) 2 mg IVPUSH Q4H PRN PRN Reason: PAIN LEVEL 7 - 10 Last Admin: 02/15/20 21:00 Dose: 2 mg Documented by: Multivitamins/Minerals/Vitamin C (Tab-A-Vit -) 1 tab PO DAILY [facility] Last Admin: 02/15/20 09:42 Dose: 1 tab Documented by: Mupirocin (Bactroban Ointment (For Decolonization) -) 1 applic NS BID [facility] Stop: 02/17/20 21:59 Last Admin: 02/15/20 21:06 Dose: 1 applic Documented by: - Objective Vital Signs: Vital Signs Temperature 98.2 F 02/16/20 07:50 Pulse Rate 120 H 02/16/20 08:30 Respiratory Rate 27 H 02/16/20 08:52 Blood Pressure 140/90 02/16/20 08:30 O2 Sat by Pulse Oximetry (%) 95 02/16/20 06:00 Constitutional: Yes: No Distress, Calm Eyes: Yes: EOM Intact HENT: Yes: Normocephalic Neck: Yes: Other (tracheostomy) Respiratory: Yes: Mechanically Ventilated Gastrointestinal: Yes: Normal Bowel Sounds, Soft Musculoskeletal: Yes: WNL Extremities: Yes: Erythema Labs: CBC, BMP 02/15/20 10:05 02/15/20 10:05 INR, PTT INR 1.26 (0.83-1.09) H 02/15/20 10:05 Assessment/Plan 64 year old woman pmh ESRD on HD, chronic respiratory failure s/p trach on vent, h/o Pafib on eliquis, HTN, hypothyroid, epilepsy, [place]D, [place], [place], tachypnea, tachycardia, recently admitted with PNA, mildly elevated troponin with no sig CK elevation, abnl ekg managed medically now admitted after cardiac arrest in [facility] HD, CPR for 15 minutes with ROSC. ER course complicated for seizures, PAF with RVR. Now unresponsive on ventilator in the ICU. Cannot obtain history. Echo 01/19/20: LVH normal EF, small pericardial effusion, mild MS, mild TR Cardiac Arrest -unclear etiology at this point. -her neurologic and poor functional status limits her cardiac workup at present. -hold amiodarone for now given elevated LFT's from shock liver -continue eliquis for now but if INR rises would also hold. -not a candidate for cardiac workup. Would not repeat echo at this point as it will not change clinical decision making. -elevated troponin is now normal, this is a nonischemic pattern -it is unclear the mechanism of her arrest, but she is a very poor ICD cand idate, high risk for infection given sacral ulcer. -dc telemetry. -will follow as needed.
[2020-02-16 10:41] LABS: BASO % 0.3 % (0-2.0); HEMATOCRIT 35.7 % (32.4-45.2); HEMOGLOBIN 11.7 GM/dL (10.7-15.3); LYMPH % 10.7 % (8-40); MCH 27.8 pg (25.7-33.7); MCHC 32.9 g/dl (32.0-36.0); MEAN CELL VOLUME 84.5 fl (80-96); MEAN PLT VOLUME 9.6 fl (7.5-11.1); MONO % 7.1 % (3.8-10.2); NEUT % 81.9 % (42.8-82.8); PLATELET COUNT 119 K/MM3 (134-434); RBC 4.22 M/mm3 (3.60-5.2); RDW 17.1 % (11.6-15.6); WHITE BLOOD COUNT 14.6 K/mm3 (4.0-10.0)
[2020-02-16 11:11] LABS: ALBUMIN 2.1 g/dl (3.4-5.0); BILIRUBIN,TOTAL 0.5 mg/dL (0.2-1); CALCIUM 8.8 mg/dL (8.5-10.1); CREATININE 0.4 mg/dL (0.55-1.3); MAGNESIUM 1.9 mg/dL (1.8-2.4); POTASSIUM 3.3 mmol/L (3.5-5.1)
--- NOTE | 2020-02-16 11:43 | PN ---
Progress Note (short form) - Note Progress Note: RENAL pt awake and alert appears comfortable denies pain she was just dialyzed Last Vital Signs Temp Pulse Resp BP Pulse Ox 98.2 F 110 H 18 120/62 95 02/16/20 07:50 02/16/20 10:30 02/16/20 10:30 02/16/20 10:30 02/16/20 06:00 lungs bilat air entry cvs s1s2 rr abd soft ext no edema neuro a+o CBC, BMP 02/16/20 10:00 02/16/20 10:00 Current Medications Generic Name Dose Route Start Last Admin Trade Name Freq PRN Reason Stop Dose Admin Acetaminophen 650 mg 02/12/20 21:51 02/15/20 21:06 Tylenol - PO 650 mg Q6H PRN Administration FEVER Apixaban 2.5 mg 02/12/20 22:45 02/15/20 21:06 Eliquis - PEG 2.5 mg BID ARLENE Administration Baclofen 10 mg 02/13/20 22:00 02/15/20 21:07 Lioresal - PEG 10 mg HS ARLENE Administration Chlorhexidine Gluconate 1 applic 02/12/20 22:00 02/15/20 21:06 Hibiclens For Decolonization - TP 1 applic HS ARLENE Administration Piperacillin Sod/Tazobactam 50 mls @ 100 mls/hr 02/13/20 15:00 02/16/20 02:00 Sod 2.25 gm/ Dextrose IVPB 100 mls/hr Q6H-IV ARLENE Administration Protocol Sodium Chloride 250 mls @ 3,000 mls/hr 02/15/20 11:48 Normal Saline - IV 02/16/20 11:48 PRN PRN Hypotension during Dialysis Levetiracetam 750 mg 02/13/20 22:00 02/15/20 21:06 Keppra Injection - IVPB 750 mg BID ARLENE Administration Levothyroxine Sodium 25 mcg 02/13/20 07:00 02/16/20 06:41 Synthroid - PEG 25 mcg ACBK ARLENE Administration Lidocaine 1 patch 02/13/20 21:00 02/15/20 21:05 Lidoderm Patch - TP 1 patch DAILY@2100 ARLENE Administration Lorazepam 1 mg 02/12/20 20:40 Ativan Injection - IVPUSH Q6H PRN SEIZURES Miscellaneous 1 each 02/14/20 09:00 02/15/20 08:59 Lidoderm Patch Removal MC 1 each DAILY@0900 ARLENE Administration Morphine Sulfate 2 mg 02/14/20 03:21 02/15/20 21:00 Morphine Sulfate IVPUSH 2 mg Q4H PRN Administration PAIN LEVEL 7 - 10 Multivitamins/Minerals/Vitamin C 1 tab 02/13/20 10:00 02/15/20 09:42 Tab-A-Vit - PO 1 tab DAILY ARLENE Administration Mupirocin 1 applic 02/12/20 22:00 02/15/20 21:06 Bactroban Ointment (For Decolonization) - NS 02/17/20 21:59 1 applic BID ARLENE Administration Impression esrd s/p cardio respiratory arrest afib hypokalemia partly from loose stools s/p seizure normal creatinine may be an error PLAN no objection to dc from renal perspective monitor renal function. Note her creat will be low now anyway post hd cardiology note read and appreciated ANGELIA
--- NOTE | 2020-02-16 11:47 | PN ---
Progress Note (short form) - Note Progress Note: 64 aaron old female history of htn, afib (on eliquis), hypothyroidism, chronic respiratory failure (trach vented), ESRD (dialysis MWF), epilepsy, and anxiety was brought in for cardiac arrest. Patient has cardiac arrest durng dialysis, and patient had CPR and following whcih she has generalied tonic clonic seizure. She was given ativan and it stopped seizure. She has ct hed , which wa unremrakable. She was started on iv keppra. patient has encephalomalcia and has trach and peg tube placement in past following old stroke. now it appears to be come into baseline . -- back to baseline, more alert and no seizure NEUROLOGICAL EXAM Alert , aphasic, follow command right sided facial palsy right sided hemiparesis trach and peg not on any sedation ( she apears to be at her baseline) ct head no acute findings eeg pending Assessment/Plan 64 aaron old female history of htn, afib (on eliquis), hypothyroidism, chronic respiratory failure (trach vented), ESRD (dialysis MWF), epilepsy, and anxiety . She has cardiac arrest lasting ? 15-20 minute and has generlaized tonic clonic seizure, now back to baseline Plan:continue iv keppra 750 mg iv bid for now - supportive care - eeg pending Thanking you so much Markel Clemens MD
--- NOTE | 2020-02-16 12:14 | PN ---
Progress Note (short form) - Note Progress Note: Patient seen and examined. Awake and alert on AC Mode of vent. No acute events overnight. OBJECTIVE: Intake & Output 02/13/20 02/14/20 02/15/20 02/16/20 23:59 23:59 23:59 23:59 Intake Total 372 226 0113 900 Output Total 430 1242 6092 Balance -50 -977 1872 -5192 Weight 97 lb 96 lb 11.186 oz 96 lb 11.186 oz 96 lb 12.8 oz Last Vital Signs Temp Pulse Resp BP Pulse Ox 98.2 F 96 H 14 117/78 95 02/16/20 07:50 02/16/20 12:00 02/16/20 12:00 02/16/20 12:00 02/16/20 06:00 Active Medications Acetaminophen (Tylenol -) 650 mg PO Q6H PRN PRN Reason: FEVER Last Admin: 02/15/20 21:06 Dose: 650 mg Documented by: Albumin Human (Albumin Human 25%) 12.5 gm IVPB Q30M [facility] Stop: 02/16/20 14:31 Apixaban (Eliquis -) 2.5 mg PEG BID [facility] Last Admin: 02/15/20 21:06 Dose: 2.5 mg Documented by: Baclofen (Lioresal -) 10 mg PEG HS [facility] Last Admin: 02/15/20 21:07 Dose: 10 mg Documented by: Chlorhexidine Gluconate (Hibiclens For Decolonization -) 1 applic TP HS [facility] Last Admin: 02/15/20 21:06 Dose: 1 applic Documented by: Piperacillin Sod/Tazobactam (Sod 2.25 gm/ Dextrose) 50 mls @ 100 mls/hr IVPB Q6H-IV ARLENE; Protocol Last Admin: 02/16/20 02:00 Dose: 100 mls/hr Documented by: Levetiracetam (Keppra Injection -) 750 mg IVPB BID [facility] Last Admin: 02/15/20 21:06 Dose: 750 mg Documented by: Levothyroxine Sodium (Synthroid -) 25 mcg PEG ACBK [facility] Last Admin: 02/16/20 06:41 Dose: 25 mcg Documented by: Lidocaine (Lidoderm Patch -) 1 patch TP DAILY@2100 [facility] Last Admin: 02/15/20 21:05 Dose: 1 patch Documented by: Lorazepam (Ativan Injection -) 1 mg IVPUSH Q6H PRN PRN Reason: SEIZURES Miscellaneous (Lidoderm Patch Removal) 1 each MC DAILY@0900 [facility] Last Admin: 02/15/20 08:59 Dose: 1 each Documented by: Morphine Sulfate (Morphine Sulfate) 2 mg IVPUSH Q4H PRN PRN Reason: PAIN LEVEL 7 - 10 Last Admin: 02/15/20 21:00 Dose: 2 mg Documented by: Multivitamins/Minerals/Vitamin C (Tab-A-Vit -) 1 tab PO DAILY [facility] Last Admin: 02/15/20 09:42 Dose: 1 tab Documented by: Mupirocin (Bactroban Ointment (For Decolonization) -) 1 applic NS BID [facility] Stop: 02/17/20 21:59 Last Admin: 02/15/20 21:06 Dose: 1 applic Documented by: Gen: vented, awake Heart: RRR Lung: decreased breath sounds at the bases Abd: soft, nontender Ext: no edema Laboratory Results - last 24 hr 02/16/20 02/16/20 10:00 10:00 WBC 14.6 H RBC 4.22 Hgb 11.7 Hct 35.7 MCV 84.5 MCH 27.8 MCHC 32.9 RDW 17.1 H Plt Count 119 L D MPV 9.6 Absolute Neuts (auto) 11.9 H Neutrophils % 81.9 Lymphocytes % 10.7 Monocytes % 7.1 Eosinophils % 0.0 Basophils % 0.3 Nucleated RBC % 0 Sodium 145 Potassium 3.3 L Chloride 107 Carbon Dioxide 33 H Anion Gap 5 L BUN 7.0 Creatinine 0.4 L Est GFR (CKD-EPI)AfAm 126.68 Est GFR (CKD-EPI)NonAf 109.30 Random Glucose 110 H Calcium 8.8 Phosphorus 1.0 L* Magnesium 1.9 Total Bilirubin 0.5 AST 41 H ALT 39 Alkaline Phosphatase 150 H Total Protein 7.0 Albumin 2.1 L ASSESSMENT AND PLAN: s/p Cardiopulmonary Arrest LLL Pneumonia Chronic Respiratory Failure ESRD on HD Atrial Fibrillation HTN Seizure Disorder h/o CVA - ABX per ID - HD per renal - rate control - continue anticoagulation - spontaneous breathing trials as tolerated - DC planning Dr Stearns
[2020-02-16] MEDS: MUPIROCIN 2% TOPICAL OINTMENT FOR DECOLONIZATION NS SCH ×2 (12:53→21:50)
[2020-02-16] MEDS: levETIRAcetam 500 MG/5 ML INJECTION VIAL IVPB SCH ×2 (12:57→21:46)
[2020-02-16] MEDS: LIDOCAINE PATCH REMOVAL MC SCH (12:58)
[2020-02-16] MEDS: MULTIVITAMINS (DAILY MVI) TABLET (FP) PO SCH (12:58)
[2020-02-16] MEDS: APIXABAN 2.5 MG TABLET PEG SCH ×2 (12:58→21:50)
[2020-02-16] MEDS ORDERED: POTASSIUM CHLORIDE ORAL LIQUID 20 MEQ/15 ML PEG ONE (13:15)
[2020-02-16] MEDS ORDERED: KCL 10 MEQ IVPB 10 MEQ/100 ML INFUS.BAG IVPB SCH (13:30)
--- NOTE | 2020-02-16 13:44 | DS ---
Physical Exam: SUBJECTIVE: Patient seen and examined OBJECTIVE: Vital Signs Period Temp Pulse Resp BP Sys/Rick Pulse Ox Last 24 Hr 96.8 F-98.8 F 63-120 14-27 85-141/42-101 92-100 PHYSICAL EXAM GENERAL: The patient is awake, alert, and fully oriented, in no acute distress. HEAD: Normal with no signs of trauma. EYES: PERRL, extraocular movements intact, sclera anicteric, conjunctiva clear. ENT: Ears normal, nares patent, oropharynx clear without exudates, moist mucous membranes. NECK: Trachea midline, full range of motion, supple. LUNGS: Breath sounds equal, clear to auscultation bilaterally, no wheezes, no crackles, no accessory muscle use. HEART: Regular rate and rhythm, S1, S2 without murmur, rub or gallop. ABDOMEN: Soft, nontender, nondistended, normoactive bowel sounds, no guarding, no rebound, no hepatosplenomegaly, no masses. EXTREMITIES: 2+ pulses, warm, well-perfused, no edema. NEUROLOGICAL: Cranial nerves II through XII grossly intact. Normal speech, gait not observed. PSYCH: Normal mood, normal affect. SKIN: Warm, dry, normal turgor, no rashes or lesions noted. LABS Laboratory Results - last 24 hr 02/16/20 02/16/20 10:00 10:00 WBC 14.6 H RBC 4.22 Hgb 11.7 Hct 35.7 MCV 84.5 MCH 27.8 MCHC 32.9 RDW 17.1 H Plt Count 119 L D MPV 9.6 Absolute Neuts (auto) 11.9 H Neutrophils % 81.9 Lymphocytes % 10.7 Monocytes % 7.1 Eosinophils % 0.0 Basophils % 0.3 Nucleated RBC % 0 Sodium 145 Potassium 3.3 L Chloride 107 Carbon Dioxide 33 H Anion Gap 5 L BUN 7.0 Creatinine 0.4 L Est GFR (CKD-EPI)AfAm 126.68 Est GFR (CKD-EPI)NonAf 109.30 Random Glucose 110 H Calcium 8.8 Phosphorus 1.0 L* Magnesium 1.9 Total Bilirubin 0.5 AST 41 H ALT 39 Alkaline Phosphatase 150 H Total Protein 7.0 Albumin 2.1 L HOSPITAL COURSE: Date of Admission:02/12/20 Date of Discharge: 02/16/20 Minutes to complete discharge: 36 Discharge Summary Problems reviewed: Yes Reason For Visit: CARDIAC ARREST,SEPSIS Current Active Problems Cardiac arrest (Acute) Sepsis (Acute) Stage 4 skin ulcer of sacral region (Acute) Condition: Improved - Instructions Diet, Activity, Other Instructions: You came to the hospital from the dialysis center because your heart stopped working, but received CPR and your pulse returned. You were seen by the automatic blocker. You also had a seizure after arriving to the hospital and were treated with anti-seizure medications which you will begin to take now. You also were found to have a persistent pneumonia, and were treated with antibiotics which you will need to complete. You will return to [facility] home. Medications Please START the following medications 1. Zosyn via IV every 6 hours for 4 more days for your pneumonia (ending on February 20, 2020) . The staff at [facility] will provide this for you. 2. Keppra 750mg twice a day to help prevent seizures. Please resume all other medications as prescribed. Follow-Ups 1. Primary care physician, Dr. Soto, within 1 week for overall health care management. 2. Environmental Monitoring Specialist, easton Meier 1 week for follow up on your heart. 3. Neurologist, Dr. Clemens, within 2 weeks for your seizure. 4. Low Vision Therapist, Dr. Holm, within 2 weeks for your dialysis. Please resume your hemodialysis as scheduled on Wednesday, Wednesday and Fridays. 5. Wound care doctor, Dr. Fields, for your ulcer. If you have any new, worsening, or changing symptoms please return to the ED or call 911. Referrals: Markel Clemens MD [Staff Physician] - 2 Weeks Rosa Sanchez MD [Staff Physician] - 2 Weeks Analia Miles, [Non Staff, Medical] - Adalid Soto [Non Staff, Medical] - 1 Week Jai Bledsoe MD [Staff Physician] - 1 Week Ari Fields MD [Non Staff, Medical] - 2 Weeks Colin Holm MD [Staff Physician] - 1 Week Disposition: RESIDENTIAL FACILITY - Home Medications Comprehensive Discharge Medication List: Ambulatory Orders Amiodarone HCl [Cordarone -] 100 mg PEG DAILY tablet 12/18/19 Apixaban [Eliquis -] 2.5 mg PEG BID tablet 12/18/19 Baclofen [Lioresal -] 10 mg PEG HS tablet 12/18/19 Simethicone Liquid [Mylicon Liquid -] 40 mg PEG BID ml 12/18/19 Levothyroxine [Synthroid -] 25 mcg PEG DAILY 01/17/20 Multivitamin 1 each PEG DAILY 01/18/20 LORazepam [Ativan] 0.5 mg GT BID tablet 01/25/20 levoFLOXacin [Levaquin -] 250 mg PO Q48H #5 tablet 01/25/20 Acetaminophen [Tylenol] 2 tab PO Q6H PRN 02/12/20 Collagenase Clostridium Hist. [Santyl -] 1 applic TP DAILY 02/12/20 Ipratropium/Albuterol Sulfate [Iprat-Albut 0.5-3(2.5) mg/3 ml] 3 ml IH Q6H PRN 02/12/20 Potassium Chloride [K-Dur -] 20 meq PO BID 02/12/20 Piperacillin/Tazob 2.25 gm [Zosyn -] 2.25 gm IVPB Q6H-IV 4 Days #1 vial 02/16/20 levETIRAcetam [Keppra -] 750 mg PO BID #28 tablet 02/16/20 ATTENDING PHYSICIAN STATEMENT I saw and evaluated the patient. I reviewed the resident's note and discussed the case with the resident. I agree with the resident's findings and plan as documented. SUBJECTIVE: OBJECTIVE: ASSESSMENT AND PLAN:
--- NOTE | 2020-02-16 14:06 | PN ---
Teaching Attending Note Name of Resident: Tory Burnette ATTENDING PHYSICIAN STATEMENT I saw and evaluated the patient. I reviewed the resident's note and discussed the case with the resident. I agree with the resident's findings and plan as documented. SUBJECTIVE: Non-verbal, unable to participate in medical interview. OBJECTIVE: Afebrile, hemodynamicaly stable. Awake, Alert, non-verbal, smiling, appears comfortable. Last Vital Signs Temp Pulse Resp BP Pulse Ox 98.2 F 96 H 14 117/78 95 02/16/20 07:50 02/16/20 12:00 02/16/20 12:00 02/16/20 12:00 02/16/20 06:00 HEENT - Trach/Vent. Heart - S1, S2, soft SM Lungs - reduced air entry at bases. Abdomen - Soft, PEG in situ. Bowel Sounds normal. Extremities - no edema, wasting, contractures. Neuro - Awake, Alert, non-verbal, reduced power RUE/RLE MS - Sacral decubitus ulcer - Stage 4 POA Laboratory Results - last 24 hr 02/16/20 02/16/20 10:00 10:00 WBC 14.6 H RBC 4.22 Hgb 11.7 Hct 35.7 MCV 84.5 MCH 27.8 MCHC 32.9 RDW 17.1 H Plt Count 119 L D MPV 9.6 Absolute Neuts (auto) 11.9 H Neutrophils % 81.9 Lymphocytes % 10.7 Monocytes % 7.1 Eosinophils % 0.0 Basophils % 0.3 Nucleated RBC % 0 Sodium 145 Potassium 3.3 L Chloride 107 Carbon Dioxide 33 H Anion Gap 5 L BUN 7.0 Creatinine 0.4 L Est GFR (CKD-EPI)AfAm 126.68 Est GFR (CKD-EPI)NonAf 109.30 Random Glucose 110 H Calcium 8.8 Phosphorus 1.0 L* Magnesium 1.9 Total Bilirubin 0.5 AST 41 H ALT 39 Alkaline Phosphatase 150 H Total Protein 7.0 Albumin 2.1 L Current Medications Generic Name Dose Route Start Last Admin Trade Name Freq PRN Reason Stop Dose Admin Acetaminophen 650 mg 02/12/20 21:51 02/15/20 21:06 Tylenol - PO 650 mg Q6H PRN Administration FEVER Apixaban 2.5 mg 02/12/20 22:45 02/16/20 12:58 Eliquis - PEG 2.5 mg BID ARLENE Administration Baclofen 10 mg 02/13/20 22:00 02/15/20 21:07 Lioresal - PEG 10 mg HS ARLENE Administration Chlorhexidine Gluconate 1 applic 02/12/20 22:00 02/15/20 21:06 Hibiclens For Decolonization - TP 1 applic HS ARLENE Administration Piperacillin Sod/Tazobactam 50 mls @ 100 mls/hr 02/13/20 15:00 02/16/20 09:30 Sod 2.25 gm/ Dextrose IVPB Not Given Q6H-IV ARLENE Protocol Potassium Chloride 10 meq in 100 mls @ 100 mls/hr 02/16/20 13:30 Potassium Chloride 10 Meq Premix Ivpb - IVPB 02/16/20 14:29 Q60M ARLENE Levetiracetam 750 mg 02/13/20 22:00 02/16/20 12:57 Keppra Injection - IVPB 750 mg BID ARLENE Administration Levothyroxine Sodium 25 mcg 02/13/20 07:00 02/16/20 06:41 Synthroid - PEG 25 mcg ACBK ARLENE Administration Lidocaine 1 patch 02/13/20 21:00 02/15/20 21:05 Lidoderm Patch - TP 1 patch DAILY@2100 ARLENE Administration Lorazepam 1 mg 02/12/20 20:40 Ativan Injection - IVPUSH Q6H PRN SEIZURES Miscellaneous 1 each 02/14/20 09:00 02/16/20 12:58 Lidoderm Patch Removal MC 1 each DAILY@0900 ARLENE Administration Morphine Sulfate 2 mg 02/14/20 03:21 02/15/20 21:00 Morphine Sulfate IVPUSH 2 mg Q4H PRN Administration PAIN LEVEL 7 - 10 Multivitamins/Minerals/Vitamin C 1 tab 02/13/20 10:00 02/16/20 12:58 Tab-A-Vit - PO 1 tab DAILY ARLENE Administration Mupirocin 1 applic 02/12/20 22:00 02/16/20 12:53 Bactroban Ointment (For Decolonization) - NS 02/17/20 21:59 1 applic BID ARLENE Administration Discharge Medications Medication Instructions Recorded Amiodarone HCl [Cordarone -] 100 mg PEG DAILY tablet 12/18/19 Apixaban [Eliquis -] 2.5 mg PEG BID tablet 12/18/19 Baclofen [Lioresal -] 10 mg PEG HS tablet 12/18/19 Simethicone Liquid [Mylicon Liquid 40 mg PEG BID ml 12/18/19 -] Levothyroxine [Synthroid -] 25 mcg PEG DAILY 01/17/20 Multivitamin 1 each PEG DAILY 01/18/20 LORazepam [Ativan] 0.5 mg GT BID tablet 01/25/20 Acetaminophen [Tylenol] 2 tab PO Q6H PRN 02/12/20 Collagenase Clostridium Hist. 1 applic TP DAILY 02/12/20 [Santyl -] Ipratropium/Albuterol Sulfate 3 ml IH Q6H PRN 02/12/20 [Iprat-Albut 0.5-3(2.5) mg/3 ml] Potassium Chloride [K-Dur -] 20 meq PO BID 02/12/20 Piperacillin/Tazob 2.25 gm [Zosyn 2.25 gm IVPB Q6H-IV 4 Days #1 vial 02/16/20 -] levETIRAcetam [Keppra -] 750 mg PO BID #28 tablet 02/16/20 ASSESSMENT AND PLAN: 64 year old female with history of Chronic Respiratory Failure s/p CVA s/p Trach/PEG, ESRD (HD M,W,F), Atrial Fibrillation (on Eliquis), Epilepsy, Hypothyroidism, Anxiety, admitted to ICU s/p cardiac arrest at Hemodialysis center. ROSC reportedly achieved within 15 minutes of resuscitative efforts, after which she was admitted to ICU. She was also found to have RVR and seizure activity in ED, for which she received Ativan. 1. Acute Cardiopulmonary Arrest with Acute on Chronic Respiratory Failure ROSC s/p 15 minutes CPR, etiology unclear Trach/Vent Troponin max 0.98, trending down Last Echo 01/19/20: LVH normal EF, small pericardial effusion, mild MS, mild TR Evaluated by Cardiology - poor candidate for ACID Medically/Hemodynamically stable and cleared for discharge. 2. Acute Pneumonia - was receiving Levofloxacin at [facility] Sputum Cx - Pseudomonas (resistant to Levofloxacin), placed on Zosyn since admission Afebrile, Hemodynamically Stable. Leukocytosis improving Continue IV Zosyn for 4 additional days on discharge. 3. ESRD on HD HD schedule as per Nephrology Hypokalemia - repleted. Hypophosphatemia today - discussed with Nephrology - for repeat labs STAT and Phos replacement if low. 4. Atrial Fibrillation - rate controlled Amiodarone held in setting of shock liver/elevated liver enzymes secondary to cardiac arrest. Continue Eliquis. 5. Hypothyroidism - continue Synthroid. 6. Seizure Disorder - Keppra as per Neurology. EEG pending. Neuro to follow up as out-patient. 7. Chronic Infarcts (R Frontal and L MCA territory infarcts with Encephalomalacia) - continue Eliquis. Not on Statin - further management by Neurology. 8. Thrombocytopenia - likely marrow suppression sec to infection/Pneumonia - improving, will monitor especially given concomitant Eliquis use. DVT Px - Eliquis. Medicaly stable for discharge. Discussed with Dr. Shaw who says he will follow electrolyte abnormalities at [facility] where he also rounds.
[2020-02-16 14:13] LABS: ANISOCYTOSIS 1+; MACROCYTOSIS 1+; PLATELET ESTIMATE DECREASED
--- NOTE | 2020-02-16 14:15 | PN ---
Progress Note, Physician History of Present Illness: stable no new issues - Current Medication List Current Medications: Active Medications Acetaminophen (Tylenol -) 650 mg PO Q6H PRN PRN Reason: FEVER Last Admin: 02/15/20 21:06 Dose: 650 mg Documented by: Apixaban (Eliquis -) 2.5 mg PEG BID [facility] TO [facility] Last Admin: 02/16/20 12:58 Dose: 2.5 mg Documented by: Baclofen (Lioresal -) 10 mg PEG HS [facility] Last Admin: 02/15/20 21:07 Dose: 10 mg Documented by: Chlorhexidine Gluconate (Hibiclens For Decolonization -) 1 applic TP HS [facility] TO [facility] Last Admin: 02/15/20 21:06 Dose: 1 applic Documented by: Piperacillin Sod/Tazobactam (Sod 2.25 gm/ Dextrose) 50 mls @ 100 mls/hr IVPB Q6H-IV ARLENE; Protocol Last Admin: 02/16/20 14:00 Dose: 100 mls/hr Documented by: Potassium Chloride (Potassium Chloride 10 Meq Premix Ivpb -) 10 meq in 100 mls @ 100 mls/hr IVPB Q60M [facility] Stop: 02/16/20 14:29 Last Admin: 02/16/20 13:59 Dose: 100 mls/hr Documented by: Sodium Phosphate 15 mm/ Sodium (Chloride) 255 mls @ 62.5 mls/hr IVPB ONCE ONE Stop: 02/16/20 19:04 Levetiracetam (Keppra Injection -) 750 mg IVPB BID [facility] Last Admin: 02/16/20 12:57 Dose: 750 mg Documented by: Levothyroxine Sodium (Synthroid -) 25 mcg PEG ACBK [facility] Last Admin: 02/16/20 06:41 Dose: 25 mcg Documented by: Lidocaine (Lidoderm Patch -) 1 patch TP DAILY@2100 [facility] Last Admin: 02/15/20 21:05 Dose: 1 patch Documented by: Lorazepam (Ativan Injection -) 1 mg IVPUSH Q6H PRN PRN Reason: SEIZURES Miscellaneous (Lidoderm Patch Removal) 1 each MC DAILY@0900 [facility] Last Admin: 02/16/20 12:58 Dose: 1 each Documented by: Morphine Sulfate (Morphine Sulfate) 2 mg IVPUSH Q4H PRN PRN Reason: PAIN LEVEL 7 - 10 Last Admin: 02/15/20 21:00 Dose: 2 mg Documented by: Multivitamins/Minerals/Vitamin C (Tab-A-Vit -) 1 tab PO DAILY [facility] Last Admin: 02/16/20 12:58 Dose: 1 tab Documented by: Mupirocin (Bactroban Ointment (For Decolonization) -) 1 applic NS BID [facility] Stop: 02/17/20 21:59 Last Admin: 02/16/20 12:53 Dose: 1 applic Documented by: - Objective Vital Signs: Vital Signs Temperature 97 F L 02/16/20 14:00 Pulse Rate 96 H 02/16/20 14:00 Respiratory Rate 14 02/16/20 14:00 Blood Pressure 113/78 02/16/20 14:00 O2 Sat by Pulse Oximetry (%) 95 02/16/20 06:00 Constitutional: Yes: No Distress, Calm Cardiovascular: Yes: S1, S2 Respiratory: Yes: Regular, Other (trach) Gastrointestinal: Yes: Normal Bowel Sounds, Soft Musculoskeletal: Yes: WNL Extremities: Yes: WNL Neurological: Yes: Alert, Oriented Psychiatric: Yes: Alert, Oriented Labs: CBC, BMP 02/16/20 10:00 02/16/20 10:00 INR, PTT INR 1.26 (0.83-1.09) H 02/15/20 10:05 Assessment/Plan s/p Cardiopulmonary Arrest r/o Pneumonia Chronic Respiratory Failure ESRD on HD Atrial Fibrillation HTN Seizure Disorder h/o CVA vap pneumonia plan continue zosyn suctioning resp support asp precautions
[2020-02-16] MEDS ORDERED: SODIUM PHOSPHATE - 15 MM in SODIUM CHLORIDE 250 ML IVPB ONE ×2 (15:00→17:45)
[2020-02-16 16:23] LABS: BASO % 0.7 % (0-2.0); HEMATOCRIT 31.6 % (32.4-45.2); HEMOGLOBIN 10.1 GM/dL (10.7-15.3); LYMPH % 12.7 % (8-40); MCH 27.2 pg (25.7-33.7); MCHC 32.1 g/dl (32.0-36.0); MEAN PLT VOLUME 8.9 fl (7.5-11.1); MONO % 8.7 % (3.8-10.2); NEUT % 77.9 % (42.8-82.8); PLATELET COUNT 99 K/MM3 (134-434); RBC 3.72 M/mm3 (3.60-5.2); RDW 17.1 % (11.6-15.6); WHITE BLOOD COUNT 12.7 K/mm3 (4.0-10.0)
[2020-02-16 16:47] LABS: BLOOD UREA NITROGEN 11.4 mg/dL (7-18); CALCIUM 8.8 mg/dL (8.5-10.1); CREATININE 0.9 mg/dL (0.55-1.3); POTASSIUM 4.9 mmol/L (3.5-5.1)
[2020-02-16] MEDS: CHLORHEXIDINE GLUCONATE 4% CLEANSER FOR DECOLONIZATION TP SCH (21:49)
[2020-02-16] MEDS: LIDOCAINE 5% TOPICAL PATCH TP SCH (21:50)
[2020-02-16] MEDS: BACLOFEN 10 MG TABLET (FP) PEG SCH (22:34)
[2020-02-17] MEDS ORDERED: PIPERACILLIN/TAZOBACTAM 2.25 GM VIAL IVPB ONE ×3 (01:52→12:21)
[2020-02-17] MEDS ORDERED: DEXTROSE 5%-WATER - 50 ML IVPB ONE ×3 (01:52→12:21)
[2020-02-17] MEDS: PIPERACILLIN/TAZOB 2.25 GM 2.25 GM in DEXTROSE 5%-WATER - 50 ML IVPB SCH ×3 (02:40→15:00)
[2020-02-17] MEDS: LEVOTHYROXINE NA 25 MCG TABLET (FP) PEG SCH (06:45)
[2020-02-17 08:05] LABS: BILIRUBIN,TOTAL 0.6 mg/dL (0.2-1); BLOOD UREA NITROGEN 16.6 mg/dL (7-18); CALCIUM 7.9 mg/dL (8.5-10.1); CREATININE 1.2 mg/dL (0.55-1.3); PHOSPHOROUS 4.7 mg/dL (2.5-4.9); POTASSIUM 3.8 mmol/L (3.5-5.1); TOT PROT 5.6 g/dl (6.4-8.2)
[2020-02-17 08:17] LABS: BASO % 0.2 % (0-2.0); HEMATOCRIT 30.9 % (32.4-45.2); HEMOGLOBIN 10.1 GM/dL (10.7-15.3); LYMPH % 17.3 % (8-40); MCH 28.1 pg (25.7-33.7); MCHC 32.7 g/dl (32.0-36.0); MEAN PLT VOLUME 9.6 fl (7.5-11.1); MONO % 9.3 % (3.8-10.2); NEUT % 73.2 % (42.8-82.8); PLATELET COUNT 85 K/MM3 (134-434); RDW 16.9 % (11.6-15.6); WHITE BLOOD COUNT 9.6 K/mm3 (4.0-10.0)
[2020-02-17] MEDS: levETIRAcetam 500 MG/5 ML INJECTION VIAL IVPB SCH (09:08)
[2020-02-17] MEDS: APIXABAN 2.5 MG TABLET PEG SCH (09:08)
[2020-02-17] MEDS: MULTIVITAMINS (DAILY MVI) TABLET (FP) PO SCH (09:08)
[2020-02-17] MEDS: LIDOCAINE PATCH REMOVAL MC SCH (09:15)
[2020-02-17] MEDS: MUPIROCIN 2% TOPICAL OINTMENT FOR DECOLONIZATION NS SCH (09:16)
--- NOTE | 2020-02-17 12:56 | PN ---
Progress Note (short form) - Note Progress Note: Patient seen and examined. Awake and alert on AC Mode of vent. No acute events overnight. OBJECTIVE: Intake & Output 02/14/20 02/15/20 02/16/20 02/17/20 23:59 23:59 23:59 23:59 Intake Total 265 1872 1850 450 Output Total 1242 6092 Balance -977 1872 -4242 450 Weight 96 lb 11.186 oz 96 lb 11.186 oz 96 lb 12.8 oz 97 lb 12.8 oz Last Vital Signs Temp Pulse Resp BP Pulse Ox 98.1 F 60 15 138/76 100 02/17/20 10:00 02/17/20 10:00 02/17/20 12:29 02/17/20 10:00 02/17/20 12:29 Active Medications Acetaminophen (Tylenol -) 650 mg PO Q6H PRN PRN Reason: FEVER Last Admin: 02/15/20 21:06 Dose: 650 mg Documented by: Apixaban (Eliquis -) 2.5 mg PEG BID [facility] Last Admin: 02/17/20 09:08 Dose: 2.5 mg Documented by: Baclofen (Lioresal -) 10 mg PEG HS [facility] Last Admin: 02/16/20 22:34 Dose: 10 mg Documented by: Chlorhexidine Gluconate (Hibiclens For Decolonization -) 1 applic TP HS [facility] Last Admin: 02/16/20 21:49 Dose: 1 applic Documented by: Piperacillin Sod/Tazobactam (Sod 2.25 gm/ Dextrose) 50 mls @ 100 mls/hr IVPB Q6H-IV ARLENE; Protocol Last Admin: 02/17/20 09:07 Dose: 100 mls/hr Documented by: Levetiracetam (Keppra Injection -) 750 mg IVPB BID [facility] Last Admin: 02/17/20 09:08 Dose: 750 mg Documented by: Levothyroxine Sodium (Synthroid -) 25 mcg PEG ACBK [facility] Last Admin: 02/17/20 06:45 Dose: 25 mcg Documented by: Lidocaine (Lidoderm Patch -) 1 patch TP DAILY@2100 ARLENE Last Admin: 02/16/20 21:50 Dose: 1 patch Documented by: Lorazepam (Ativan Injection -) 1 mg IVPUSH Q6H PRN PRN Reason: SEIZURES Miscellaneous (Lidoderm Patch Removal) 1 each MC DAILY@0900 [facility] Last Admin: 02/17/20 09:15 Dose: 1 each Documented by: Multivitamins/Minerals/Vitamin C (Tab-A-Vit -) 1 tab PO DAILY [facility] Last Admin: 02/17/20 09:08 Dose: 1 tab Documented by: Mupirocin (Bactroban Ointment (For Decolonization) -) 1 applic NS BID [facility] Stop: 02/17/20 21:59 Last Admin: 02/17/20 09:16 Dose: 1 applic Documented by: Gen: vented, awake Heart: RRR Lung: decreased breath sounds at the bases Abd: soft, nontender Ext: no edema Laboratory Results - last 24 hr 02/16/20 02/16/20 02/16/20 10:00 16:00 16:00 WBC 12.7 H RBC 3.72 Hgb 10.1 L Hct 31.6 L MCV 85.0 MCH 27.2 MCHC 32.1 RDW 17.1 H Plt Count 99 L MPV 8.9 Absolute Neuts (auto) 9.9 H Neutrophils % 77.9 Neutrophils % (Manual) 78.2 Band Neutrophils % 1.0 Lymphocytes % 12.7 Lymphocytes % (Manual) 15.8 D Monocytes % 8.7 Monocytes % (Manual) 4 Eosinophils % 0.0 Eosinophils % (Manual) 0.0 Basophils % 0.7 Basophils % (Manual) 0.0 Myelocytes % (Man) 0 Promyelocytes % (Man) 0 Blast Cells % (Manual) 0 Nucleated RBC % 0 0 Metamyelocytes 0 Hypochromia 0 Platelet Estimate Decreased Polychromasia 0 Poikilocytosis 0 Anisocytosis 1+ Microcytosis 0 Macrocytosis 1+ Sodium 144 Potassium 4.9 Chloride 108 H Carbon Dioxide 30 Anion Gap 6 L BUN 11.4 Creatinine 0.9 Est GFR (CKD-EPI)AfAm 77.77 Est GFR (CKD-EPI)NonAf 67.10 Random Glucose 86 Calcium 8.8 Phosphorus Total Bilirubin AST ALT Alkaline Phosphatase Total Protein Albumin 02/16/20 02/17/20 02/17/20 16:00 07:03 07:03 WBC 9.6 RBC 3.60 Hgb 10.1 L Hct 30.9 L MCV 86.0 MCH 28.1 MCHC 32.7 RDW 16.9 H Plt Count 85 L MPV 9.6 Absolute Neuts (auto) 7.0 Neutrophils % 73.2 Neutrophils % (Manual) Band Neutrophils % Lymphocytes % 17.3 D Lymphocytes % (Manual) Monocytes % 9.3 Monocytes % (Manual) Eosinophils % 0.0 Eosinophils % (Manual) Basophils % 0.2 Basophils % (Manual) Myelocytes % (Man) Promyelocytes % (Man) Blast Cells % (Manual) Nucleated RBC % 0 Metamyelocytes Hypochromia Platelet Estimate Polychromasia Poikilocytosis Anisocytosis Microcytosis Macrocytosis Sodium 144 Potassium 3.8 Chloride 110 H Carbon Dioxide 26 Anion Gap 8 BUN 16.6 Creatinine 1.2 Est GFR (CKD-EPI)AfAm 54.92 Est GFR (CKD-EPI)NonAf 47.39 Random Glucose 94 Calcium 7.9 L Phosphorus 1.0 L* 4.7 Total Bilirubin 0.6 AST 40 H ALT 28 Alkaline Phosphatase 120 H Total Protein 5.6 L Albumin 2.0 L ASSESSMENT AND PLAN: S/P Cardiopulmonary Arrest LLL Pneumonia Chronic Respiratory Failure ESRD on HD Atrial Fibrillation HTN Seizure Disorder h/o CVA - ABX per ID - HD per renal - rate control - continue anticoagulation - spontaneous breathing trials as tolerated - DC planning Dr Stearns
--- NOTE | 2020-02-17 13:30 | PN ---
Teaching Attending Note Name of Resident: Tory Burnette ATTENDING PHYSICIAN STATEMENT I saw and evaluated the patient. I reviewed the resident's note and discussed the case with the resident. I agree with the resident's findings and plan as documented. SUBJECTIVE: Non-verbal, unable to participate in medical interview. OBJECTIVE: Afebrile, hemodynamicaly stable. Awake, Alert, non-verbal, smiling, appears comfortable. Last Vital Signs Temp Pulse Resp BP Pulse Ox 98.1 F 60 15 138/76 100 % on FiO2 40% 02/17/20 10:00 02/17/20 10:00 02/17/20 12:29 02/17/20 10:00 02/17/20 12:29 HEENT - Trach/Vent. FiO2 40%. Heart - S1, S2, soft SM Lungs - reduced air entry at bases. Abdomen - Soft, PEG in situ. Bowel Sounds normal. Extremities - no edema, wasting, contractures. Neuro - Awake, Alert, non-verbal, reduced power RUE/RLE MS - Sacral decubitus ulcer - Stage 4 POA Laboratory Results - last 24 hr 02/16/20 02/16/20 02/16/20 10:00 16:00 16:00 WBC 12.7 H RBC 3.72 Hgb 10.1 L Hct 31.6 L MCV 85.0 MCH 27.2 MCHC 32.1 RDW 17.1 H Plt Count 99 L MPV 8.9 Absolute Neuts (auto) 9.9 H Neutrophils % 77.9 Neutrophils % (Manual) 78.2 Band Neutrophils % 1.0 Lymphocytes % 12.7 Lymphocytes % (Manual) 15.8 D Monocytes % 8.7 Monocytes % (Manual) 4 Eosinophils % 0.0 Eosinophils % (Manual) 0.0 Basophils % 0.7 Basophils % (Manual) 0.0 Myelocytes % (Man) 0 Promyelocytes % (Man) 0 Blast Cells % (Manual) 0 Nucleated RBC % 0 0 Metamyelocytes 0 Hypochromia 0 Platelet Estimate Decreased Polychromasia 0 Poikilocytosis 0 Anisocytosis 1+ Microcytosis 0 Macrocytosis 1+ Sodium 144 Potassium 4.9 Chloride 108 H Carbon Dioxide 30 Anion Gap 6 L BUN 11.4 Creatinine 0.9 Est GFR (CKD-EPI)AfAm 77.77 Est GFR (CKD-EPI)NonAf 67.10 Random Glucose 86 Calcium 8.8 Phosphorus Total Bilirubin AST ALT Alkaline Phosphatase Total Protein Albumin 02/16/20 02/17/20 02/17/20 16:00 07:03 07:03 WBC 9.6 RBC 3.60 Hgb 10.1 L Hct 30.9 L MCV 86.0 MCH 28.1 MCHC 32.7 RDW 16.9 H Plt Count 85 L MPV 9.6 Absolute Neuts (auto) 7.0 Neutrophils % 73.2 Neutrophils % (Manual) Band Neutrophils % Lymphocytes % 17.3 D Lymphocytes % (Manual) Monocytes % 9.3 Monocytes % (Manual) Eosinophils % 0.0 Eosinophils % (Manual) Basophils % 0.2 Basophils % (Manual) Myelocytes % (Man) Promyelocytes % (Man) Blast Cells % (Manual) Nucleated RBC % 0 Metamyelocytes Hypochromia Platelet Estimate Polychromasia Poikilocytosis Anisocytosis Microcytosis Macrocytosis Sodium 144 Potassium 3.8 Chloride 110 H Carbon Dioxide 26 Anion Gap 8 BUN 16.6 Creatinine 1.2 Est GFR (CKD-EPI)AfAm 54.92 Est GFR (CKD-EPI)NonAf 47.39 Random Glucose 94 Calcium 7.9 L Phosphorus 1.0 L* 4.7 Total Bilirubin 0.6 AST 40 H ALT 28 Alkaline Phosphatase 120 H Total Protein 5.6 L Albumin 2.0 L Current Medications Generic Name Dose Route Start Last Admin Trade Name Freq PRN Reason Stop Dose Admin Acetaminophen 650 mg 02/12/20 21:51 02/15/20 21:06 Tylenol - PO 650 mg Q6H PRN Administration FEVER Apixaban 2.5 mg 02/12/20 22:45 02/17/20 09:08 Eliquis - PEG 2.5 mg BID ARLENE Administration Baclofen 10 mg 02/13/20 22:00 02/16/20 22:34 Lioresal - PEG 10 mg HS ARLENE Administration Chlorhexidine Gluconate 1 applic 02/12/20 22:00 02/16/20 21:49 Hibiclens For Decolonization - TP 1 applic HS ARLENE Administration Piperacillin Sod/Tazobactam 50 mls @ 100 mls/hr 02/13/20 15:00 02/17/20 09:07 Sod 2.25 gm/ Dextrose IVPB 100 mls/hr Q6H-IV ARLENE Administration Protocol Levetiracetam 750 mg 02/13/20 22:00 02/17/20 09:08 Keppra Injection - IVPB 750 mg BID ARLENE Administration Levothyroxine Sodium 25 mcg 02/13/20 07:00 02/17/20 06:45 Synthroid - PEG 25 mcg ACBK ARLENE Administration Lidocaine 1 patch 02/13/20 21:00 02/16/20 21:50 Lidoderm Patch - TP 1 patch DAILY@2100 ARLENE Administration Lorazepam 1 mg 02/12/20 20:40 Ativan Injection - IVPUSH Q6H PRN SEIZURES Miscellaneous 1 each 02/14/20 09:00 02/17/20 09:15 Lidoderm Patch Removal MC 1 each DAILY@0900 ARLENE Administration Multivitamins/Minerals/Vitamin C 1 tab 02/13/20 10:00 02/17/20 09:08 Tab-A-Vit - PO 1 tab DAILY ARLENE Administration Mupirocin 1 applic 02/12/20 22:00 02/17/20 09:16 Bactroban Ointment (For Decolonization) - NS 02/17/20 21:59 1 applic BID ARLENE Administration Discharge Medications Medication Instructions Recorded Amiodarone HCl [Cordarone -] 100 mg PEG DAILY tablet 12/18/19 Apixaban [Eliquis -] 2.5 mg PEG BID tablet 12/18/19 Baclofen [Lioresal -] 10 mg PEG HS tablet 12/18/19 Simethicone Liquid [Mylicon Liquid 40 mg PEG BID ml 12/18/19 -] Levothyroxine [Synthroid -] 25 mcg PEG DAILY 01/17/20 Multivitamin 1 each PEG DAILY 01/18/20 LORazepam [Ativan] 0.5 mg GT BID tablet 01/25/20 levoFLOXacin [Levaquin -] 250 mg PO Q48H #5 tablet 01/25/20 Acetaminophen [Tylenol] 2 tab PO Q6H PRN 02/12/20 Collagenase Clostridium Hist. 1 applic TP DAILY 02/12/20 [Santyl -] Ipratropium/Albuterol Sulfate 3 ml IH Q6H PRN 02/12/20 [Iprat-Albut 0.5-3(2.5) mg/3 ml] Potassium Chloride [K-Dur -] 20 meq PO BID 02/12/20 Piperacillin/Tazob 2.25 gm [Zosyn 2.25 gm IVPB Q6H-IV 4 Days #1 vial 02/16/20 -] levETIRAcetam [Keppra -] 750 mg PO BID #28 tablet 02/16/20 ASSESSMENT AND PLAN: 64 year old female with history of Chronic Respiratory Failure s/p CVA s/p Trach/PEG, ESRD (HD M,W,F), Atrial Fibrillation (on Eliquis), Epilepsy, Hypothyroidism, Anxiety, admitted to ICU s/p cardiac arrest at Hemodialysis center. ROSC reportedly achieved within 15 minutes of resuscitative efforts, after which she was admitted to ICU. She was also found to have RVR and seizure activity in ED, for which she received Ativan. 1. Acute Cardiopulmonary Arrest with Acute on Chronic Respiratory Failure ROSC s/p 15 minutes CPR, etiology unclear Trach/Vent Troponin max 0.98, trending down Last Echo 01/19/20: LVH normal EF, small pericardial effusion, mild MS, mild TR Evaluated by Cardiology - poor candidate for ACID Medically/Hemodynamically stable and cleared for discharge. 2. Acute Pneumonia - was receiving Levofloxacin at [facility] Sputum Cx - Pseudomonas (resistant to Levofloxacin), placed on Zosyn since admi ssion Afebrile, Hemodynamically Stable. Leukocytosis improving Continue IV Zosyn for 4 additional days on discharge. 3. ESRD on HD HD schedule as per Nephrology Hypokalemia - repleted. Hypophosphatemia today - discussed with Nephrology - for repeat labs STAT and Phos replacement if low. 4. Atrial Fibrillation - rate controlled Amiodarone held in setting of shock liver/elevated liver enzymes secondary to cardiac arrest. Continue Eliquis. 5. Hypothyroidism - continue Synthroid. 6. Seizure Disorder - Keppra as per Neurology. EEG pending. Neuro to follow up as out-patient. 7. Chronic Infarcts (R Frontal and L MCA territory infarcts with Encephalomalacia) - continue Eliquis. Not on Statin - further management by Neurology. 8. Thrombocytopenia - likely marrow suppression sec to infection/Pneumonia - improving, will monitor especially given concomitant Eliquis use. 9. Hypophosphatemia - repleted. DVT Px - Eliquis. Medically stable for discharge. Discussed with Dr. Shaw who says he will follow electrolyte abnormalities at [facility] where he also rounds.
[2020-02-17 15:58] VITALS: TEMP 98
--- NOTE | 2020-02-17 16:08 | PN ---
Progress Note, Physician History of Present Illness: Pt alert, afebrile. On MV/trach, currently stable, without distress. - Current Medication List Current Medications: Active Medications Acetaminophen (Tylenol -) 650 mg PO Q6H PRN PRN Reason: FEVER Last Admin: 02/15/20 21:06 Dose: 650 mg Documented by: Apixaban (Eliquis -) 2.5 mg PEG BID [facility] Last Admin: 02/17/20 09:08 Dose: 2.5 mg Documented by: Baclofen (Lioresal -) 10 mg PEG HS [facility] Last Admin: 02/16/20 22:34 Dose: 10 mg Documented by: Chlorhexidine Gluconate (Hibiclens For Decolonization -) 1 applic TP HS [facility] Last Admin: 02/16/20 21:49 Dose: 1 applic Documented by: Piperacillin Sod/Tazobactam (Sod 2.25 gm/ Dextrose) 50 mls @ 100 mls/hr IVPB Q6H-IV ARLENE; Protocol Last Admin: 02/17/20 09:07 Dose: 100 mls/hr Documented by: Levetiracetam (Keppra Injection -) 750 mg IVPB BID [facility] Last Admin: 02/17/20 09:08 Dose: 750 mg Documented by: Levothyroxine Sodium (Synthroid -) 25 mcg PEG ACBK [facility] Last Admin: 02/17/20 06:45 Dose: 25 mcg Documented by: Lidocaine (Lidoderm Patch -) 1 patch TP DAILY@2100 [facility] Last Admin: 02/16/20 21:50 Dose: 1 patch Documented by: Miscellaneous (Lidoderm Patch Removal) 1 each MC DAILY@0900 [facility] Last Admin: 02/17/20 09:15 Dose: 1 each Documented by: Multivitamins/Minerals/Vitamin C (Tab-A-Vit -) 1 tab PO DAILY [facility] Last Admin: 02/17/20 09:08 Dose: 1 tab Documented by: Mupirocin (Bactroban Ointment (For Decolonization) -) 1 applic NS BID [facility] Stop: 02/17/20 21:59 Last Admin: 02/17/20 09:16 Dose: 1 applic Documented by: - Objective Vital Signs: Vital Signs Temperature 98 F 02/17/20 14:00 Pulse Rate 60 02/17/20 14:00 Respiratory Rate 15 02/17/20 14:00 Blood Pressure 137/73 02/17/20 14:00 O2 Sat by Pulse Oximetry (%) 90 L 02/17/20 14:00 Constitutional: Yes: No Distress Cardiovascular: Yes: Regular Rate and Rhythm Respiratory: Yes: Diminished (slightly in bases b/l), Mechanically Ventilated Gastrointestinal: Yes: Normal Bowel Sounds, Soft Genitourinary: Yes: WNL Neurological: Yes: Alert Labs: CBC, BMP 02/17/20 07:03 02/17/20 07:03 INR, PTT INR 1.26 (0.83-1.09) H 02/15/20 10:05 Laboratory Last Values WBC 9.6 K/mm3 (4.0-10.0) 02/17/20 07:03 RBC 3.60 M/mm3 (3.60-5.2) 02/17/20 07:03 Hgb 10.1 GM/dL (10.7-15.3) L 02/17/20 07:03 Hct 30.9 % (32.4-45.2) L 02/17/20 07:03 MCV 86.0 fl (80-96) 02/17/20 07:03 MCH 28.1 pg (25.7-33.7) 02/17/20 07:03 MCHC 32.7 g/dl (32.0-36.0) 02/17/20 07:03 RDW 16.9 % (11.6-15.6) H 02/17/20 07:03 Plt Count 85 K/MM3 (134-434) L 02/17/20 07:03 MPV 9.6 fl (7.5-11.1) 02/17/20 07:03 Absolute Neuts (auto) 7.0 K/mm3 (1.5-8.0) 02/17/20 07:03 Neutrophils % 73.2 % (42.8-82.8) 02/17/20 07:03 Neutrophils % (Manual) 78.2 % (42.8-82.8) 02/16/20 10:00 Band Neutrophils % 1.0 % 02/16/20 10:00 Lymphocytes % 17.3 % (8-40) D 02/17/20 07:03 Lymphocytes % (Manual) 15.8 % (8-40) D 02/16/20 10:00 Monocytes % 9.3 % (3.8-10.2) 02/17/20 07:03 Monocytes % (Manual) 4 % (3.8-10.2) 02/16/20 10:00 Eosinophils % 0.0 % (0-4.5) 02/17/20 07:03 Eosinophils % (Manual) 0.0 % (0-4.5) 02/16/20 10:00 Basophils % 0.2 % (0-2.0) 02/17/20 07:03 Basophils % (Manual) 0.0 % (0-2.0) 02/16/20 10:00 Myelocytes % (Man) 0 % (0-2) 02/16/20 10:00 Promyelocytes % (Man) 0 % (0-2) 02/16/20 10:00 Blast Cells % (Manual) 0 % (0-0) 02/16/20 10:00 Nucleated RBC % 0 % (0-0) 02/17/20 07:03 Metamyelocytes 0 % (0-2) 02/16/20 10:00 Hypochromia 0 02/16/20 10:00 Platelet Estimate Decreased 02/16/20 10:00 Polychromasia 0 02/16/20 10:00 Poikilocytosis 0 02/16/20 10:00 Anisocytosis 1+ 02/16/20 10:00 Microcytosis 0 02/16/20 10:00 Macrocytosis 1+ 02/16/20 10:00 PT with INR 14.90 SEC (9.7-13.0) H 02/15/20 10:05 INR 1.26 (0.83-1.09) H 02/15/20 10:05 PTT (Actin FS) 31.0 SECONDS (25.2-36.5) 02/15/20 10:05 Sodium 144 mmol/L (136-145) 02/17/20 07:03 Potassium 3.8 mmol/L (3.5-5.1) 02/17/20 07:03 Chloride 110 mmol/L (98-107) H 02/17/20 07:03 Carbon Dioxide 26 mmol/L (21-32) 02/17/20 07:03 Anion Gap 8 MMOL/L (8-16) 02/17/20 07:03 BUN 16.6 mg/dL (7-18) 02/17/20 07:03 Creatinine 1.2 mg/dL (0.55-1.3) 02/17/20 07:03 Est GFR (CKD-EPI)AfAm 54.92 02/17/20 07:03 Est GFR (CKD-EPI)NonAf 47.39 02/17/20 07:03 Random Glucose 94 mg/dL (74-106) 02/17/20 07:03 Lactic Acid 1.3 mmol/L (0.4-2.0) 02/13/20 06:00 Calcium 7.9 mg/dL (8.5-10.1) L 02/17/20 07:03 Phosphorus 4.7 mg/dL (2.5-4.9) 02/17/20 07:03 Magnesium 1.9 mg/dL (1.8-2.4) 02/16/20 10:00 Total Bilirubin 0.6 mg/dL (0.2-1) 02/17/20 07:03 AST 40 U/L (15-37) H 02/17/20 07:03 ALT 28 U/L (13-61) 02/17/20 07:03 Alkaline Phosphatase 120 U/L (45-117) H 02/17/20 07:03 Creatine Kinase 138 U/L (26-192) 02/12/20 22:51 Troponin I 0.25 ng/ml (0.00-0.05) H 02/14/20 06:56 Total Protein 5.6 g/dl (6.4-8.2) L 02/17/20 07:03 Albumin 2.0 g/dl (3.4-5.0) L 02/17/20 07:03 Urine Color Yellow 02/12/20 20:20 Urine Appearance Cloudy 02/12/20 20:20 Urine pH 5.0 (5.0-8.0) 02/12/20 20:20 Ur Specific [place] 1.015 (1.010-1.035) 02/12/20 20:20 Urine Protein 1+ (NEGATIVE) H 02/12/20 20:20 Urine Glucose (UA) Negative (NEGATIVE) 02/12/20 20:20 Urine Ketones Negative (NEGATIVE) 02/12/20 20:20 Urine Blood 3+ (NEGATIVE) H 02/12/20 20:20 Urine Nitrite Negative (NEGATIVE) 02/12/20 20:20 Urine Bilirubin Negative (NEGATIVE) 02/12/20 20:20 Urine Urobilinogen 0.2 mg/dL (0.2-1.0) 02/12/20 20:20 Ur Leukocyte Esterase 1+ (NEGATIVE) H 02/12/20 20:20 Urine WBC (Auto) 38 /uL (0-25.8) 02/12/20 20:20 Urine RBC (Auto) 2 /uL (0-23.9) 02/12/20 20:20 Urine Casts (Auto) 4 /uL (0-3.1) 02/12/20 20:20 U Epithel Cells (Auto) 7 /uL (0-25.1) 02/12/20 20:20 Urine Bacteria (Auto) 3 /uL (0-1359) 02/12/20 20:20 Urine Yeast (Auto) present (NEGATIVE) 02/12/20 20:20 Random Vancomycin 24.4 ug/ml (5-26) 02/13/20 06:00 COVID-19 (MATTHEW) Not detected (Not Detected) 02/12/20 19:30 Hep A IgM Ab Confirm Negative (Negative) 02/13/20 06:00 Hepatitis A Ab Total Positive (Negative) H 02/13/20 06:00 Hep Bs Antigen Confirm. indicated (Negative) 02/13/20 06:00 Hep Bs Ag Confirmation N (.) 02/13/20 06:00 Hep Bs Antibody Non reactive (.) 02/13/20 06:00 Hep B Core Total Ab Negative (Negative) 02/13/20 06:00 Hep B Core IgM Ab Negative (Negative) 02/13/20 06:00 Hepatitis Be Antibody Negative (Negative) 02/13/20 06:00 Hepatitis Be Antigen Negative (Negative) 02/13/20 06:00 Hep C Ab Diagnostic 0.2 s/co ratio (0.0-0.9) 02/13/20 06:00 Microbiology 02/12/20 16:15 Blood - Peripheral Venous Blood Culture - Preliminary NO GROWTH OBTAINED AFTER 96 HOURS, INCUBATION TO CONTINUE FOR 1 DAYS. 02/12/20 16:15 Blood - Peripheral Venous Blood Culture - Preliminary NO GROWTH OBTAINED AFTER 96 HOURS, INCUBATION TO CONTINUE FOR 1 DAYS. 10/05/20 22:51 Sputum - Endotrachea Suction/Ventilator Gram Stain - Final 02/12/20 22:51 Sputum - Endotrachea Suction/Ventilator Sputum Culture - Final Pseudomonas Aeruginosa 02/12/20 20:20 Urine - Urine Will Urine Culture - Final NO GROWTH OBTAINED Problem List - Problems (1) Cardiac arrest Code(s): I46.9 - CARDIAC ARREST, CAUSE UNSPECIFIED (2) Sepsis Code(s): A41.9 - SEPSIS, UNSPECIFIED ORGANISM Qualifiers: Sepsis type: sepsis due to unspecified organism Sepsis acute organ dysfunction status: unspecified Qualified Code(s): A41.9 - Sepsis, unspecified organism (3) Stage 4 skin ulcer of sacral region Code(s): L98.429 - NON-PRESSURE CHRONIC ULCER OF BACK WITH UNSPECIFIED SEVERITY (4) Acute on chronic respiratory failure Code(s): J96.20 - ACUTE AND CHR RESP FAILURE, UNSP W HYPOXIA OR HYPERCAPNIA (5) Afib Code(s): I48.91 - UNSPECIFIED ATRIAL FIBRILLATION (6) ESRD (end stage renal disease) Code(s): N18.6 - END STAGE RENAL DISEASE (7) Epilepsy Code(s): G40.909 - EPILEPSY, UNSP, NOT INTRACTABLE, WITHOUT STATUS EPILEPTICUS (8) HTN (hypertension) Code(s): I10 - ESSENTIAL (PRIMARY) HYPERTENSION (9) Hypothyroid Code(s): E03.9 - HYPOTHYROIDISM, UNSPECIFIED (10) MDD (major depressive disorder) Code(s): F32.9 - MAJOR DEPRESSIVE DISORDER, SINGLE EPISODE, UNSPECIFIED (11) Pneumonia Code(s): J18.9 - PNEUMONIA, UNSPECIFIED ORGANISM (12) 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 - TRACHEOSTOMY STATUS Assessment/Plan s/p Cardiopulmonary Arrest PNA Chronic Respiratory Failure/trach ESRD on HD Atrial Fibrillation HTN Seizure Disorder h/o CVA -- complete course of Zosyn -- pt afebrile/wbc normal, comfortable
[2020-02-17 18:16] VITALS: BP 131/92; PULSE 64
== END 2020-02-17 18:00 | DRG 870 ==
LOC: JER 14:01 → JERBED 18:42 → JICU 21:06
PROVIDERS: ADMIT Internal Medicine Pulmonary Disease
PROC: 5A1955Z Respiratory Ventilation, Greater than 96 Consecutive Hours (ICD-10-PCS; 2020-02-12)
PROC: 06HN33Z Insertion of Infusion Device into Left Femoral Vein, Percutaneous Approach (ICD-10-PCS; principal; 2020-02-13)
PROC: B51CZZA Fluoroscopy of Left Lower Extremity Veins, Guidance (ICD-10-PCS; 2020-02-13)
PROC: 5A1D70Z Performance of Urinary Filtration, Intermittent, Less than 6 Hours Per Day (ICD-10-PCS; 2020-02-16)
PROC: 5A1D70Z Performance of Urinary Filtration, Intermittent, Less than 6 Hours Per Day (ICD-10-PCS; 2020-02-16)
DX: A41.89 Other specified sepsis (principal); L89.154 Pressure ulcer of sacral region, stage 4; N18.6 End stage renal disease; K72.00 Acute and subacute hepatic failure without coma; J69.0 Pneumonitis due to inhalation of food and vomit; I46.9 Cardiac arrest, cause unspecified; J96.21 Acute and chronic respiratory failure with hypoxia; G81.91 Hemiplegia, unspecified affecting right dominant side; I12.0 Hypertensive chronic kidney disease with stage 5 chronic kidney disease or end stage renal disease; E87.2 Acidosis; J98.11 Atelectasis; J96.11 Chronic respiratory failure with hypoxia; G40.909 Epilepsy, unspecified, not intractable, without status epilepticus; I48.91 Unspecified atrial fibrillation; D69.6 Thrombocytopenia, unspecified; G51.0 Bell's palsy; E03.9 Hypothyroidism, unspecified; D72.829 Elevated white blood cell count, unspecified; F41.8 Other specified anxiety disorders; I08.1 Rheumatic disorders of both mitral and tricuspid valves; R00.0 Tachycardia, unspecified; E87.6 Hypokalemia; E83.39 Other disorders of phosphorus metabolism; D64.9 Anemia, unspecified; G93.89 Other specified disorders of brain; Z93.0 Tracheostomy status; Z93.1 Gastrostomy status
CPT/HCPCS: 36415; 70450-TC; 71045-TC-FY; 80048; 80053; 81003; 82550; 83605; 83735; 84100; 84484; 85025; 85027; 85610; 85730; 86704; 86706; 86707; 86708; 86709; 86803; 87040; 87070; 87086; 87186; 87205; 87340; 93005; 93010; 94002; 95816; 99285-25; C9803; E0186; G0480; J0475; U0003

== ENCOUNTER 2020-03-20 00:13 | Inpatient (IN) | payer OTHER ==
[2020-03-20] MEDS ORDERED: ACETAMINOPHEN 1000 MG/100 ML VIAL (NON FORMULARY) IVPB ONE (00:20)
[2020-03-20] MEDS ORDERED: ACETAMINOPHEN INJECTION 100 ML IVPB ONE (00:24)
[2020-03-20] MEDS ORDERED: VANCOMYCIN 1 GM in D5W (PRE-DOCKED) 1,000 MG/250 ML IVPB ONE (00:59)
[2020-03-20] MEDS ORDERED: PIPERACILLIN/TAZOB 4.5 GM 4.5 GM in DEXTROSE 5%-WATER 100 ML IVPB ONE (00:59)
[2020-03-20] MEDS ORDERED: PIPERACILLIN/TAZOB 2.25 GM 2.25 GM in DEXTROSE 5%-WATER - 50 ML IVPB ONE (01:02)
[2020-03-20] MEDS ORDERED: SODIUM CHLORIDE 1,000 ML IV STA (01:05)
[2020-03-20 01:25] LABS: BASO % 0.4 % (0-2.0); EOS % 0.1 % (0-4.5); HEMATOCRIT 39.3 % (32.4-45.2); HEMOGLOBIN 12.1 GM/dL (10.7-15.3); INR 2.02 (0.83-1.09); LYMPH % 5.1 % (8-40); MCH 26.5 pg (25.7-33.7); MCHC 30.8 g/dl (32.0-36.0); MEAN CELL VOLUME 86.1 fl (80-96); MEAN PLT VOLUME 9.8 fl (7.5-11.1); MONO % 0.7 % (3.8-10.2); NEUT % 93.7 % (42.8-82.8); PLATELET COUNT 170 K/MM3 (134-434); PROTHROMBIN TIME (PATIENT) 23.9 SEC (9.7-13.0); RBC 4.57 M/mm3 (3.60-5.2); RDW 18.1 % (11.6-15.6); WHITE BLOOD COUNT 16.1 K/mm3 (4.0-10.0)
[2020-03-20 01:27] LABS: ACTIVATED PTT 35.3 SECONDS (25.2-36.5)
[2020-03-20 01:55] LABS: POTASSIUM 5.7 mmol/L (3.5-5.1)
[2020-03-20 01:58] LABS: ALBUMIN 1.8 g/dl (3.4-5.0); CALCIUM 9.2 mg/dL (8.5-10.1)
[2020-03-20 02:01] LABS: CREATININE 2.3 mg/dL (0.55-1.3)
[2020-03-20 02:03] LABS: BILIRUBIN,TOTAL 0.4 mg/dL (0.2-1); TOT PROT 7.5 g/dl (6.4-8.2)
[2020-03-20 02:11] LABS: BLOOD UREA NITROGEN 190.7 mg/dL (7-18)
[2020-03-20] MEDS ORDERED: PIPERACILLIN/TAZOB 2.25 GM 2.25 GM/50 ML BAG IVPB ONE (02:14)
[2020-03-20] MEDS ORDERED: VANCOMYCIN 1 GRAM (PRE-DOCKED) 1,000 MG/250 ML BAG IVPB ONE ×2 (02:15→17:00)
[2020-03-20] MEDS ORDERED: SODIUM CHLORIDE 0.9% 500 ML INFUS.BAG IV ONE (02:29)
[2020-03-20 03:40] LABS: CALCIUM 8.2 mg/dL (8.5-10.1)
[2020-03-20 03:41] LABS: POTASSIUM 4.1 mmol/L (3.5-5.1)
[2020-03-20 03:44] LABS: CREATININE 2.2 mg/dL (0.55-1.3)
[2020-03-20 03:51] LABS: BLOOD UREA NITROGEN 184.9 mg/dL (7-18)
[2020-03-20] MEDS ORDERED: LACTATED RINGERS SOLUTION 1000 ML INFUS.BAG IV ONE (04:49)
[2020-03-20 05:37] LABS: EPI CELLS >36 /uL (0-25.1); HYALINE CASTS 20 /uL (0-3.1); URINE APPEARANCE TURBID; URINE BACTERIA 8 /uL (0-1359); URINE BILIRUBIN NEGATIVE (NEGATIVE); URINE COLOR YELLOW; URINE GLUCOSE (UA) NEGATIVE (NEGATIVE); URINE KETONE NEGATIVE (NEGATIVE); URINE LEUK ESTERASE 3+ (NEGATIVE); URINE NITRITE NEGATIVE (NEGATIVE); URINE PROTEIN NEGATIVE (NEGATIVE); URINE UROBILINOGEN 0.2 mg/dL (0.2-1.0); URINE WBC 303 /uL (0-25.8)
[2020-03-20 05:38] LABS: URINE RBC 1041.8 /uL (0-23.9); YEAST MODERATE (NEGATIVE)
[2020-03-20] MEDS ORDERED: SODIUM CHLORIDE 1,000 ML IV ONE (06:00)
[2020-03-20] MEDS: LEVOTHYROXINE NA 25 MCG TABLET (FP) PEG SCH (06:26)
[2020-03-20] MEDS ORDERED: MORPHINE SULFATE 2 MG/ML VIAL IVPUSH ONE (08:09)
[2020-03-20] MEDS ORDERED: morphine CARPU-JECT 4 MG/1 ML DISP.SYRIN IVPUSH ONE (08:09)
[2020-03-20] MEDS ORDERED: MORPHINE SULFATE 2 MG/ML VIAL ONE (08:16)
[2020-03-20] MEDS ORDERED: DEXTROSE 5%-WATER - 50 ML IVPB ONE (09:23)
[2020-03-20] MEDS ORDERED: PIPERACILLIN/TAZOBACTAM 2.25 GM VIAL IVPB ONE (09:23)
[2020-03-20] MEDS ORDERED: PT OWN MED DRAWER 7, Y5N ONE (09:30)
[2020-03-20] MEDS: levETIRAcetam 500 MG/5 ML ORAL SOLUTION (UNIT-DOSE CUPS) PO SCH ×2 (09:33→21:53)
[2020-03-20] MEDS: PANTOPRAZOLE 40 MG TABLET PO SCH (09:33)
[2020-03-20] MEDS: APIXABAN 2.5 MG TABLET PEG SCH ×2 (09:33→21:53)
[2020-03-20] MEDS ORDERED: PIPERACILLIN/TAZOB 2.25 GM 2.25 GM in DEXTROSE 5%-WATER - 50 ML IVPB SCH (10:00)
[2020-03-20 11:53] LABS: BASO % 0.6 % (0-2.0); HEMATOCRIT 30.1 % (32.4-45.2); HEMOGLOBIN 9.2 GM/dL (10.7-15.3); LYMPH % 2.8 % (8-40); MCH 26.9 pg (25.7-33.7); MCHC 30.4 g/dl (32.0-36.0); MEAN CELL VOLUME 88.5 fl (80-96); MEAN PLT VOLUME 9.8 fl (7.5-11.1); MONO % 4.3 % (3.8-10.2); NEUT % 92.3 % (42.8-82.8); PLATELET COUNT 80 K/MM3 (134-434); RBC 3.41 M/mm3 (3.60-5.2); RDW 17.8 % (11.6-15.6)
[2020-03-20 11:55] LABS: WHITE BLOOD COUNT 31.1 K/mm3 (4.0-10.0)
[2020-03-20 12:20] LABS: ANISOCYTOSIS 0; MACROCYTOSIS 0; PLATELET ESTIMATE DECREASED
[2020-03-20 12:22] LABS: POTASSIUM 3.6 mmol/L (3.5-5.1)
[2020-03-20 12:25] LABS: ALBUMIN 1.4 g/dl (3.4-5.0); CALCIUM 7.7 mg/dL (8.5-10.1)
[2020-03-20 12:26] LABS: MAGNESIUM 2.5 mg/dL (1.8-2.4)
[2020-03-20 12:29] LABS: PHOSPHOROUS 3.2 mg/dL (2.5-4.9)
[2020-03-20 12:48] LABS: TOT PROT 5.3 g/dl (6.4-8.2)
[2020-03-20 12:50] LABS: BLOOD UREA NITROGEN 148.5 mg/dL (7-18)
[2020-03-20] MEDS ORDERED: SODIUM CHLORIDE 250 ML IV PRN (13:55)
[2020-03-20] MEDS ORDERED: SODIUM CHLORIDE 0.45% 1,000 ML IV SCH (14:00)
[2020-03-20] MEDS: MUPIROCIN 2% TOPICAL OINTMENT FOR DECOLONIZATION NS SCH ×2 (18:26→21:54)
[2020-03-20] MEDS: CHLORHEXIDINE GLUCONATE 4% CLEANSER FOR DECOLONIZATION TP SCH (21:53)
[2020-03-21 06:58] LABS: HEMATOCRIT 33.5 % (32.4-45.2); HEMOGLOBIN 10.2 GM/dL (10.7-15.3); MCH 26.6 pg (25.7-33.7); MCHC 30.4 g/dl (32.0-36.0); MEAN CELL VOLUME 87.5 fl (80-96); MEAN PLT VOLUME 9.7 fl (7.5-11.1); PLATELET COUNT 84 K/MM3 (134-434); RBC 3.83 M/mm3 (3.60-5.2); RDW 17.7 % (11.6-15.6); WHITE BLOOD COUNT 20.5 K/mm3 (4.0-10.0)
[2020-03-21] MEDS: LEVOTHYROXINE NA 25 MCG TABLET (FP) PEG SCH (07:19)
[2020-03-21 07:38] LABS: POTASSIUM 3.3 mmol/L (3.5-5.1)
[2020-03-21 07:44] LABS: MAGNESIUM 2.1 mg/dL (1.8-2.4)
[2020-03-21 07:45] LABS: ALBUMIN 1.6 g/dl (3.4-5.0)
[2020-03-21 07:46] LABS: CALCIUM 8.1 mg/dL (8.5-10.1)
[2020-03-21 07:48] LABS: CREATININE 0.9 mg/dL (0.55-1.3)
[2020-03-21 07:49] LABS: BILIRUBIN,TOTAL 0.6 mg/dL (0.2-1)
[2020-03-21 07:50] LABS: PHOSPHOROUS 2.5 mg/dL (2.5-4.9)
[2020-03-21 07:52] LABS: TOT PROT 5.6 g/dl (6.4-8.2)
[2020-03-21 07:55] LABS: BLOOD UREA NITROGEN 52.4 mg/dL (7-18)
[2020-03-21 08:40] LABS: ANISOCYTOSIS 2+; MACROCYTOSIS 0; PLATELET ESTIMATE DECREASED
[2020-03-21] MEDS ORDERED: POTASSIUM CHLORIDE ORAL LIQUID 20 MEQ/15 ML PO ONE (08:50)
[2020-03-21] MEDS ORDERED: KCL 10 MEQ IVPB 10 MEQ/100 ML INFUS.BAG IVPB SCH ×2 (09:00→10:31)
[2020-03-21] MEDS ORDERED: PIPERACILLIN/TAZOB 2.25 GM 2.25 GM in DEXTROSE 5%-WATER - 50 ML IVPB SCH ×2 (10:00→11:30)
[2020-03-21] MEDS ORDERED: VANCOMYCIN 1 GRAM (PRE-DOCKED) 1,000 MG/250 ML BAG IVPB ONE (11:15)
[2020-03-21] MEDS ORDERED: PT OWN MED DRAWER 7, Y5N ONE ×2 (11:29→22:13)
[2020-03-21] MEDS ORDERED: PIPERACILLIN/TAZOB 2.25 GM 2.25 GM in DEXTROSE 5%-WATER - 50 ML IVPB ONE (11:30)
[2020-03-21] MEDS: levETIRAcetam 500 MG/5 ML ORAL SOLUTION (UNIT-DOSE CUPS) PO SCH ×3 (11:31→22:50)
[2020-03-21] MEDS: APIXABAN 2.5 MG TABLET PEG SCH ×2 (11:31→22:50)
[2020-03-21] MEDS: PANTOPRAZOLE 40 MG TABLET PO SCH (11:31)
[2020-03-21] MEDS: MUPIROCIN 2% TOPICAL OINTMENT FOR DECOLONIZATION NS SCH ×2 (11:34→22:51)
[2020-03-21] MEDS ORDERED: PIPERACILLIN/TAZOBACTAM 2.25 GM VIAL IVPB ONE ×2 (11:42→22:13)
[2020-03-21] MEDS ORDERED: DEXTROSE 5%-WATER - 50 ML IVPB ONE ×2 (11:42→22:14)
[2020-03-21] MEDS ORDERED: PIPERACILLIN/TAZOB 3.375 GM 3.375 GM in DEXTROSE 5%-WATER - 50 ML IVPB SCH (18:00)
[2020-03-21] MEDS ORDERED: VANCOMYCIN 1 GRAM (PRE-DOCKED) 1,000 MG/250 ML BAG IVPB SCH (22:00)
[2020-03-21] MEDS: PIPERACILLIN/TAZOB 2.25 GM 2.25 GM in DEXTROSE 5%-WATER - 50 ML IVPB SCH (22:49)
[2020-03-21] MEDS: CHLORHEXIDINE GLUCONATE 4% CLEANSER FOR DECOLONIZATION TP SCH (22:51)
[2020-03-22] MEDS ORDERED: PIPERACILLIN/TAZOBACTAM 2.25 GM VIAL IVPB ONE ×3 (02:09→21:40)
[2020-03-22] MEDS ORDERED: DEXTROSE 5%-WATER - 50 ML IVPB ONE ×3 (02:09→21:40)
[2020-03-22] MEDS: PIPERACILLIN/TAZOB 2.25 GM 2.25 GM in DEXTROSE 5%-WATER - 50 ML IVPB SCH ×4 (02:17→22:24)
[2020-03-22] MEDS: LEVOTHYROXINE NA 25 MCG TABLET (FP) PEG SCH (06:01)
[2020-03-22 07:52] LABS: BASO % 0.5 % (0-2.0); EOS % 0.2 % (0-4.5); HEMATOCRIT 31.5 % (32.4-45.2); HEMOGLOBIN 9.8 GM/dL (10.7-15.3); LYMPH % 6.7 % (8-40); MCH 26.6 pg (25.7-33.7); MCHC 30.9 g/dl (32.0-36.0); MEAN CELL VOLUME 85.9 fl (80-96); MONO % 4.5 % (3.8-10.2); NEUT % 88.1 % (42.8-82.8); PLATELET COUNT 77 K/MM3 (134-434); POTASSIUM 3.3 mmol/L (3.5-5.1); RBC 3.67 M/mm3 (3.60-5.2); RDW 17.3 % (11.6-15.6); WHITE BLOOD COUNT 17.9 K/mm3 (4.0-10.0)
[2020-03-22 08:00] LABS: CALCIUM 7.5 mg/dL (8.5-10.1)
[2020-03-22 08:01] LABS: ALBUMIN 1.6 g/dl (3.4-5.0); MAGNESIUM 2.1 mg/dL (1.8-2.4)
[2020-03-22 08:03] LABS: PHOSPHOROUS 3.3 mg/dL (2.5-4.9)
[2020-03-22 08:04] LABS: CREATININE 1.3 mg/dL (0.55-1.3)
[2020-03-22 08:05] LABS: TOT PROT 5.5 g/dl (6.4-8.2)
[2020-03-22] MEDS: PANTOPRAZOLE 40 MG TABLET PO SCH (09:37)
[2020-03-22] MEDS: APIXABAN 2.5 MG TABLET PEG SCH ×2 (09:37→22:24)
[2020-03-22] MEDS ORDERED: PT OWN MED DRAWER 7, Y5N ONE (09:39)
[2020-03-22] MEDS: levETIRAcetam 500 MG/5 ML ORAL SOLUTION (UNIT-DOSE CUPS) PO SCH (09:42)
[2020-03-22] MEDS: MUPIROCIN 2% TOPICAL OINTMENT FOR DECOLONIZATION NS SCH (10:30)
[2020-03-22] MEDS ORDERED: SODIUM CHLORIDE 250 ML IV PRN (14:57)
[2020-03-22] MEDS ORDERED: LACTATED RINGERS SOLUTION 1000 ML INFUS.BAG IV ONE (14:57)
[2020-03-22] MEDS ORDERED: MUPIROCIN 2% TOPICAL OINTMENT FOR DECOLONIZATION NS SCH (22:00)
[2020-03-22] MEDS ORDERED: CHLORHEXIDINE GLUCONATE 4% CLEANSER FOR DECOLONIZATION TP SCH (22:00)
[2020-03-22] MEDS: levETIRAcetam 500 MG/5 ML ORAL SOLUTION (UNIT-DOSE CUPS) NGT SCH (22:24)
[2020-03-23] MEDS ORDERED: PIPERACILLIN/TAZOBACTAM 2.25 GM VIAL IVPB ONE ×3 (03:15→16:43)
[2020-03-23] MEDS ORDERED: DEXTROSE 5%-WATER - 50 ML IVPB ONE ×3 (03:15→16:44)
[2020-03-23] MEDS: PIPERACILLIN/TAZOB 2.25 GM 2.25 GM in DEXTROSE 5%-WATER - 50 ML IVPB SCH ×3 (03:19→16:50)
[2020-03-23] MEDS ORDERED: INSULIN (LEVEMIR) 100 UNITS/ML UNITS SQ ONE (06:40)
[2020-03-23] MEDS: LEVOTHYROXINE NA 25 MCG TABLET (FP) PEG SCH (06:40)
[2020-03-23] MEDS ORDERED: INSULIN (NOVOLOG) ASPART 100 UNITS/ML 10ML VIAL ONE (06:40)
[2020-03-23] MEDS: PANTOPRAZOLE SOD 40 MG SUSPENSION PACKET NR SCH (11:36)
[2020-03-23] MEDS: APIXABAN 2.5 MG TABLET PEG SCH ×2 (11:36→21:46)
[2020-03-23] MEDS: levETIRAcetam 500 MG/5 ML ORAL SOLUTION (UNIT-DOSE CUPS) NGT SCH ×2 (11:36→21:46)
[2020-03-23 19:01] LABS: BASO % 0.3 % (0-2.0); EOS % 0.1 % (0-4.5); HEMATOCRIT 35.5 % (32.4-45.2); LYMPH % 6.4 % (8-40); MCH 27.1 pg (25.7-33.7); MCHC 30.9 g/dl (32.0-36.0); MEAN CELL VOLUME 87.9 fl (80-96); MEAN PLT VOLUME 11.3 fl (7.5-11.1); MONO % 7.5 % (3.8-10.2); NEUT % 85.7 % (42.8-82.8); PLATELET COUNT 48 K/MM3 (134-434); RBC 4.04 M/mm3 (3.60-5.2); RDW 17.6 % (11.6-15.6); WHITE BLOOD COUNT 20.6 K/mm3 (4.0-10.0)
[2020-03-23 19:24] LABS: ALBUMIN 1.6 g/dl (3.4-5.0); BLOOD UREA NITROGEN 65.1 mg/dL (7-18); CALCIUM 7.9 mg/dL (8.5-10.1); MAGNESIUM 2.2 mg/dL (1.8-2.4)
[2020-03-23 19:27] LABS: CREATININE 1.9 mg/dL (0.55-1.3)
[2020-03-23 19:29] LABS: BILIRUBIN,TOTAL 0.4 mg/dL (0.2-1); TOT PROT 5.8 g/dl (6.4-8.2)
[2020-03-23 19:34] LABS: POTASSIUM 2.3 mmol/L (3.5-5.1)
[2020-03-23] MEDS ORDERED: POTASSIUM CHLORIDE TABS 20 MEQ TABLET.ER (FP) PO ONE (19:39)
[2020-03-23] MEDS: KCL 10 MEQ IVPB 10 MEQ/100 ML INFUS.BAG IVPB SCH ×2 (19:47→23:20)
[2020-03-23 19:55] LABS: ANISOCYTOSIS 2+; MACROCYTOSIS 1+; PLATELET ESTIMATE DECREASED
[2020-03-23] MEDS ORDERED: DEXTROSE 5%-WATER 100 ML IVPB ONE (21:32)
[2020-03-23] MEDS ORDERED: MEROPENEM 500 MG VIAL (RESTRICTED TO ID) IVPB ONE (21:32)
[2020-03-23] MEDS: MEROPENEM 500 MG in DEXTROSE 5%-WATER 100 ML IVPB SCH (21:45)
[2020-03-24] MEDS: KCL 10 MEQ IVPB 10 MEQ/100 ML INFUS.BAG IVPB SCH ×4 (00:45→19:30)
[2020-03-24] MEDS ORDERED: DEXTROSE 5%-WATER 100 ML IVPB ONE ×3 (00:56→16:39)
[2020-03-24] MEDS ORDERED: MEROPENEM 500 MG VIAL (RESTRICTED TO ID) IVPB ONE ×3 (00:56→16:39)
[2020-03-24] MEDS: MEROPENEM 500 MG in DEXTROSE 5%-WATER 100 ML IVPB SCH ×3 (02:04→17:30)
[2020-03-24] MEDS: LEVOTHYROXINE NA 25 MCG TABLET (FP) PEG SCH (06:28)
[2020-03-24] MEDS: APIXABAN 2.5 MG TABLET PEG SCH (10:59)
[2020-03-24] MEDS: PANTOPRAZOLE SOD 40 MG SUSPENSION PACKET NR SCH (10:59)
[2020-03-24] MEDS: levETIRAcetam 500 MG/5 ML ORAL SOLUTION (UNIT-DOSE CUPS) NGT SCH ×2 (10:59→20:59)
[2020-03-24 15:51] LABS: BASO % 0.1 % (0-2.0); EOS % 0.1 % (0-4.5); HEMATOCRIT 31.6 % (32.4-45.2); HEMOGLOBIN 9.8 GM/dL (10.7-15.3); LYMPH % 7.3 % (8-40); MCH 26.8 pg (25.7-33.7); MEAN CELL VOLUME 86.3 fl (80-96); MEAN PLT VOLUME 11.5 fl (7.5-11.1); MONO % 5.8 % (3.8-10.2); NEUT % 86.7 % (42.8-82.8); PLATELET COUNT 52 K/MM3 (134-434); RBC 3.66 M/mm3 (3.60-5.2); RDW 17.5 % (11.6-15.6); WHITE BLOOD COUNT 22.3 K/mm3 (4.0-10.0)
[2020-03-24 16:07] LABS: CALCIUM 7.8 mg/dL (8.5-10.1)
[2020-03-24 16:08] LABS: ALBUMIN 1.6 g/dl (3.4-5.0); MAGNESIUM 2.1 mg/dL (1.8-2.4)
[2020-03-24 16:11] LABS: CREATININE 1.8 mg/dL (0.55-1.3); PHOSPHOROUS 2.1 mg/dL (2.5-4.9)
[2020-03-24 16:12] LABS: BILIRUBIN,TOTAL 0.3 mg/dL (0.2-1)
[2020-03-24 16:13] LABS: TOT PROT 5.8 g/dl (6.4-8.2)
[2020-03-24 16:20] LABS: POTASSIUM 2.6 mmol/L (3.5-5.1)
[2020-03-24] MEDS ORDERED: POTASSIUM CHLORIDE ORAL LIQUID 20 MEQ/15 ML GT ONE (16:28)
[2020-03-24] MEDS ORDERED: SODIUM PHOSPHATE - 0 MM in DEXTROSE 5%-WATER - 250 ML IVPB ONE (16:30)
[2020-03-24 17:08] LABS: ANISOCYTOSIS 0; MACROCYTOSIS 0; PLATELET ESTIMATE DECREASED
[2020-03-24] MEDS ORDERED: POTASSIUM CHLORIDE ORAL LIQUID 20 MEQ/15 ML PO ONE (20:00)
[2020-03-24] MEDS ORDERED: SODIUM PHOSPHATE - 10 MM in DEXTROSE 5%-WATER - 250 ML IVPB ONE ×2 (21:30→23:18)
[2020-03-25] MEDS ORDERED: DEXTROSE 5%-WATER 100 ML IVPB ONE ×3 (00:59→17:40)
[2020-03-25] MEDS ORDERED: MEROPENEM 500 MG VIAL (RESTRICTED TO ID) IVPB ONE ×3 (00:59→17:40)
[2020-03-25] MEDS: MEROPENEM 500 MG in DEXTROSE 5%-WATER 100 ML IVPB SCH ×3 (01:01→18:11)
[2020-03-25] MEDS: LEVOTHYROXINE NA 25 MCG TABLET (FP) PEG SCH (06:14)
[2020-03-25 09:07] LABS: BLOOD UREA NITROGEN 68.4 mg/dL (7-18); CALCIUM 7.2 mg/dL (8.5-10.1)
[2020-03-25 09:10] LABS: CREATININE 1.6 mg/dL (0.55-1.3)
[2020-03-25] MEDS: PANTOPRAZOLE SOD 40 MG SUSPENSION PACKET NR SCH (10:00)
[2020-03-25] MEDS: levETIRAcetam 500 MG/5 ML ORAL SOLUTION (UNIT-DOSE CUPS) NGT SCH ×2 (10:00→21:08)
[2020-03-25 10:52] LABS: BASO % 0.3 % (0-2.0); EOS % 0.2 % (0-4.5); HEMATOCRIT 27.7 % (32.4-45.2); HEMOGLOBIN 8.6 GM/dL (10.7-15.3); LYMPH % 7.9 % (8-40); MEAN CELL VOLUME 86.9 fl (80-96); MONO % 6.2 % (3.8-10.2); NEUT % 85.4 % (42.8-82.8); PLATELET COUNT 68 K/MM3 (134-434); RBC 3.18 M/mm3 (3.60-5.2); RDW 17.4 % (11.6-15.6); WHITE BLOOD COUNT 21.7 K/mm3 (4.0-10.0)
[2020-03-25] MEDS ORDERED: SODIUM CHLORIDE 250 ML IV PRN (10:58)
[2020-03-25 12:50] LABS: ANISOCYTOSIS 0; MACROCYTOSIS 0; PLATELET ESTIMATE DECREASED
[2020-03-25] MEDS ORDERED: LEVOTHYROXINE NA 25 MCG TABLET (FP) GT ONE (17:27)
[2020-03-25] MEDS: FAMOTIDINE 40 MG/5 ML ORAL SUSPENSION NGT SCH (21:07)
[2020-03-26] MEDS ORDERED: MEROPENEM 500 MG VIAL (RESTRICTED TO ID) IVPB ONE ×2 (01:04→09:33)
[2020-03-26] MEDS ORDERED: DEXTROSE 5%-WATER 100 ML IVPB ONE ×2 (01:05→09:33)
[2020-03-26] MEDS: MEROPENEM 500 MG in DEXTROSE 5%-WATER 100 ML IVPB SCH ×3 (01:16→18:06)
[2020-03-26] MEDS: LEVOTHYROXINE NA 25 MCG TABLET (FP) PEG SCH ×3 (06:09→09:59)
[2020-03-26 08:54] LABS: HEMATOCRIT 26.3 % (32.4-45.2); HEMOGLOBIN 8.3 GM/dL (10.7-15.3); MCH 27.2 pg (25.7-33.7); MCHC 31.4 g/dl (32.0-36.0); MEAN CELL VOLUME 86.5 fl (80-96); MEAN PLT VOLUME 11.4 fl (7.5-11.1); PLATELET COUNT 85 K/MM3 (134-434); RBC 3.04 M/mm3 (3.60-5.2); RDW 16.8 % (11.6-15.6); WHITE BLOOD COUNT 18.5 K/mm3 (4.0-10.0)
[2020-03-26 09:14] LABS: POTASSIUM 3.6 mmol/L (3.5-5.1)
[2020-03-26 09:21] LABS: ALBUMIN 1.4 g/dl (3.4-5.0); BLOOD UREA NITROGEN 64.4 mg/dL (7-18); CALCIUM 7.9 mg/dL (8.5-10.1)
[2020-03-26 09:22] LABS: MAGNESIUM 2.1 mg/dL (1.8-2.4)
[2020-03-26 09:23] LABS: CREATININE 1.6 mg/dL (0.55-1.3)
[2020-03-26 09:25] LABS: PHOSPHOROUS 2.6 mg/dL (2.5-4.9)
[2020-03-26 09:26] LABS: BILIRUBIN,TOTAL 0.4 mg/dL (0.2-1); TOT PROT 5.3 g/dl (6.4-8.2)
[2020-03-26] MEDS ORDERED: PT OWN MED DRAWER 7, Y5N ONE (09:34)
[2020-03-26] MEDS: levETIRAcetam 500 MG/5 ML ORAL SOLUTION (UNIT-DOSE CUPS) NGT SCH ×2 (09:58→21:27)
[2020-03-26] MEDS: FAMOTIDINE 40 MG/5 ML ORAL SUSPENSION NGT SCH ×2 (09:58→21:28)
[2020-03-26] MEDS ORDERED: VANCOMYCIN 1 GRAM (PRE-DOCKED) 1,000 MG/250 ML BAG IVPB ONE (13:21)
[2020-03-26] MEDS: BACITRACIN 15 GM TUBE TOPICAL OINTMENT TP SCH (13:47)
[2020-03-26] MEDS ORDERED: EPOETIN ALFA-EPBX 3,000 UNIT/ML VIAL SQ ONE (17:12)
[2020-03-26] MEDS ORDERED: SODIUM CHLORIDE 250 ML IV PRN (17:12)
[2020-03-27] MEDS: MEROPENEM 500 MG in DEXTROSE 5%-WATER 100 ML IVPB SCH ×3 (01:13→17:35)
[2020-03-27] MEDS: LEVOTHYROXINE NA 25 MCG TABLET (FP) PEG SCH (06:52)
[2020-03-27 08:05] LABS: HEMATOCRIT 28.2 % (32.4-45.2); HEMOGLOBIN 8.9 GM/dL (10.7-15.3); MCH 27.5 pg (25.7-33.7); MCHC 31.5 g/dl (32.0-36.0); MEAN CELL VOLUME 87.2 fl (80-96); MEAN PLT VOLUME 11.5 fl (7.5-11.1); PLATELET COUNT 88 K/MM3 (134-434); RBC 3.23 M/mm3 (3.60-5.2); RDW 17.6 % (11.6-15.6); WHITE BLOOD COUNT 17.8 K/mm3 (4.0-10.0)
[2020-03-27 08:30] LABS: ALBUMIN 1.8 g/dl (3.4-5.0); CALCIUM 7.7 mg/dL (8.5-10.1)
[2020-03-27 08:33] LABS: PHOSPHOROUS 1.9 mg/dL (2.5-4.9)
[2020-03-27 08:34] LABS: BILIRUBIN,TOTAL 0.5 mg/dL (0.2-1); TOT PROT 5.4 g/dl (6.4-8.2)
[2020-03-27 08:36] LABS: CREATININE 1.1 mg/dL (0.55-1.3)
[2020-03-27] MEDS ORDERED: VANCOMYCIN 1 GM in D5W (PRE-DOCKED) 1,000 MG/250 ML IVPB ONE (09:26)
[2020-03-27] MEDS ORDERED: CEFAZOLIN 2 GM in DEXTROSE 5%-WATER - 100 ML IVPB ONE (10:00)
[2020-03-27] MEDS ORDERED: DEXTROSE 5%-WATER 100 ML IVPB ONE (11:31)
[2020-03-27] MEDS ORDERED: MEROPENEM 500 MG VIAL (RESTRICTED TO ID) IVPB ONE (11:31)
[2020-03-27] MEDS: levETIRAcetam 500 MG/5 ML ORAL SOLUTION (UNIT-DOSE CUPS) NGT SCH ×2 (11:34→21:37)
[2020-03-27] MEDS: BACITRACIN 15 GM TUBE TOPICAL OINTMENT TP SCH (11:34)
[2020-03-27] MEDS: FAMOTIDINE 40 MG/5 ML ORAL SUSPENSION NGT SCH ×2 (11:35→21:38)
[2020-03-27] MEDS ORDERED: POTASSIUM CHLORIDE ORAL LIQUID 20 MEQ/15 ML PO ONE (12:14)
[2020-03-27] MEDS ORDERED: SODIUM PHOSPHATE - 20 MM in DEXTROSE 5%-WATER - 250 ML IVPB ONE (12:16)
[2020-03-27] MEDS ORDERED: NAPH,MB-DB/K PH,MBDB POWDER PACKET GT ONE (16:00)
[2020-03-28] MEDS: MEROPENEM 500 MG in DEXTROSE 5%-WATER 100 ML IVPB SCH ×2 (02:27→12:00)
[2020-03-28] MEDS: LEVOTHYROXINE NA 25 MCG TABLET (FP) PEG SCH (06:23)
[2020-03-28 08:20] LABS: HEMATOCRIT 25.6 % (32.4-45.2); HEMOGLOBIN 7.9 GM/dL (10.7-15.3); MCH 26.8 pg (25.7-33.7); MCHC 30.8 g/dl (32.0-36.0); MEAN CELL VOLUME 87.2 fl (80-96); MEAN PLT VOLUME 11.2 fl (7.5-11.1); PLATELET COUNT 83 K/MM3 (134-434); RBC 2.94 M/mm3 (3.60-5.2); RDW 17.8 % (11.6-15.6)
[2020-03-28 09:06] LABS: POTASSIUM 3.1 mmol/L (3.5-5.1)
[2020-03-28 09:17] LABS: CALCIUM 7.7 mg/dL (8.5-10.1)
[2020-03-28 09:20] LABS: ALBUMIN 1.6 g/dl (3.4-5.0); BLOOD UREA NITROGEN 55.4 mg/dL (7-18)
[2020-03-28 09:21] LABS: PHOSPHOROUS 2.5 mg/dL (2.5-4.9)
[2020-03-28 09:23] LABS: TOT PROT 5.4 g/dl (6.4-8.2)
[2020-03-28 09:24] LABS: CREATININE 1.4 mg/dL (0.55-1.3)
[2020-03-28 10:37] LABS: INR 0.99 (0.83-1.09); PROTHROMBIN TIME (PATIENT) 12.2 SEC (9.7-13.0)
[2020-03-28] MEDS ORDERED: MEROPENEM 500 MG VIAL (RESTRICTED TO ID) IVPB ONE (11:25)
[2020-03-28] MEDS ORDERED: DEXTROSE 5%-WATER 100 ML IVPB ONE (11:25)
[2020-03-28] MEDS ORDERED: POTASSIUM CHLORIDE ORAL LIQUID 20 MEQ/15 ML PO ONE (12:00)
[2020-03-28] MEDS: BACITRACIN 15 GM TUBE TOPICAL OINTMENT TP SCH (12:00)
[2020-03-28] MEDS: FAMOTIDINE 40 MG/5 ML ORAL SUSPENSION NGT SCH ×2 (12:00→21:37)
[2020-03-28] MEDS: levETIRAcetam 500 MG/5 ML ORAL SOLUTION (UNIT-DOSE CUPS) NGT SCH ×2 (12:00→21:37)
[2020-03-28] MEDS ORDERED: CEFAZOLIN 2 GM/D5W 2 GM/50 ML ML IVPB ONE (13:00)
[2020-03-28] MEDS ORDERED: VANCOMYCIN 1 GM in D5W (PRE-DOCKED) 1,000 MG/250 ML IVPB SCH (13:49)
[2020-03-28] MEDS: NYSTATIN 100000 UNIT/GM TOPICAL OINTMENT 15 GM TUBE TP SCH ×2 (14:59→21:37)
[2020-03-28] MEDS ORDERED: PT OWN MED DRAWER 7, Y5N ONE (21:25)
[2020-03-29] MEDS: LEVOTHYROXINE NA 25 MCG TABLET (FP) PEG SCH (06:01)
[2020-03-29 09:24] LABS: HEMATOCRIT 24.1 % (32.4-45.2); HEMOGLOBIN 7.5 GM/dL (10.7-15.3); MCH 26.9 pg (25.7-33.7); MCHC 31.1 g/dl (32.0-36.0); MEAN CELL VOLUME 86.5 fl (80-96); PLATELET COUNT 89 K/MM3 (134-434); RBC 2.79 M/mm3 (3.60-5.2); RDW 17.8 % (11.6-15.6); WHITE BLOOD COUNT 17.5 K/mm3 (4.0-10.0)
[2020-03-29 09:50] LABS: ALBUMIN 1.6 g/dl (3.4-5.0); BLOOD UREA NITROGEN 58.5 mg/dL (7-18); CALCIUM 8.2 mg/dL (8.5-10.1); MAGNESIUM 2.2 mg/dL (1.8-2.4)
[2020-03-29 09:52] LABS: CREATININE 1.4 mg/dL (0.55-1.3)
[2020-03-29 09:54] LABS: BILIRUBIN,TOTAL 0.2 mg/dL (0.2-1); PHOSPHOROUS 2.7 mg/dL (2.5-4.9)
[2020-03-29 09:55] LABS: TOT PROT 5.4 g/dl (6.4-8.2)
[2020-03-29] MEDS: BACITRACIN 15 GM TUBE TOPICAL OINTMENT TP SCH (10:05)
[2020-03-29] MEDS: FAMOTIDINE 40 MG/5 ML ORAL SUSPENSION NGT SCH ×2 (10:05→23:00)
[2020-03-29] MEDS: levETIRAcetam 500 MG/5 ML ORAL SOLUTION (UNIT-DOSE CUPS) NGT SCH ×2 (10:05→23:00)
[2020-03-29] MEDS: NYSTATIN 100000 UNIT/GM TOPICAL OINTMENT 15 GM TUBE TP SCH ×2 (10:05→23:00)
[2020-03-29] MEDS ORDERED: PT OWN MED DRAWER 7, Y5N ONE ×2 (10:05→21:04)
[2020-03-29] MEDS ORDERED: POTASSIUM CHLORIDE ORAL LIQUID 20 MEQ/15 ML PO ONE (10:53)
[2020-03-29] MEDS ORDERED: SODIUM CHLORIDE 250 ML IV PRN (12:15)
[2020-03-29 12:46] LABS: BF WBC & OTHER NUCLEATED CELLS 623 /mm3
[2020-03-29 13:44] LABS: BODY FLUID MACROPHAGES 2 %; BODY FLUID MESOTHELIAL 8 %; BODY FLUID MONOCYTE 5 %
[2020-03-29] MEDS ORDERED: VANCOMYCIN 500 MG in DEXTROSE 5%-WATER 100 ML IVPB ONE (15:46)
[2020-03-29] MEDS ORDERED: CEFAZOLIN 2 GM/D5W 2 GM/50 ML ML IVPB ONE (17:15)
[2020-03-30] MEDS: LEVOTHYROXINE NA 25 MCG TABLET (FP) PEG SCH (06:01)
[2020-03-30] MEDS ORDERED: EPOETIN ALFA-EPBX 10,000 UNIT/ML VIAL IVPUSH ONE (07:30)
[2020-03-30 09:04] LABS: MCH 27.4 pg (25.7-33.7); MCHC 31.8 g/dl (32.0-36.0); PLATELET COUNT 80 K/MM3 (134-434); RBC 2.33 M/mm3 (3.60-5.2); RDW 17.7 % (11.6-15.6); WHITE BLOOD COUNT 12.9 K/mm3 (4.0-10.0)
[2020-03-30 09:11] LABS: HEMOGLOBIN 6.4 GM/dL (10.7-15.3)
[2020-03-30 09:19] LABS: POTASSIUM 3.3 mmol/L (3.5-5.1)
[2020-03-30 09:22] LABS: ALBUMIN 1.3 g/dl (3.4-5.0); BLOOD UREA NITROGEN 37.4 mg/dL (7-18); CALCIUM 7.6 mg/dL (8.5-10.1)
[2020-03-30 09:24] LABS: CREATININE 0.9 mg/dL (0.55-1.3)
[2020-03-30 09:25] LABS: PHOSPHOROUS 1.8 mg/dL (2.5-4.9)
[2020-03-30 09:26] LABS: BILIRUBIN,TOTAL 0.3 mg/dL (0.2-1); TOT PROT 4.5 g/dl (6.4-8.2)
[2020-03-30] MEDS: FAMOTIDINE 40 MG/5 ML ORAL SUSPENSION NGT SCH ×2 (09:55→22:44)
[2020-03-30] MEDS: levETIRAcetam 500 MG/5 ML ORAL SOLUTION (UNIT-DOSE CUPS) NGT SCH ×2 (09:55→22:44)
[2020-03-30] MEDS: BACITRACIN 15 GM TUBE TOPICAL OINTMENT TP SCH (11:17)
[2020-03-30] MEDS: NYSTATIN 100000 UNIT/GM TOPICAL OINTMENT 15 GM TUBE TP SCH ×2 (11:40→22:44)
[2020-03-30 16:07] LABS: BODY FLUID ALBUMIN 1.4 g/dL (Not Estab.)
[2020-03-30] MEDS ORDERED: VANCOMYCIN 1 GRAM (PRE-DOCKED) 1,000 MG/250 ML BAG IVPB ONE (17:00)
[2020-03-30] MEDS: ACETAMINOPHEN 650 MG/20.3 ML ORAL SOLUTION (CUPS) GT PRN (18:15)
[2020-03-30 20:16] LABS: HEMATOCRIT 28.6 % (32.4-45.2); HEMOGLOBIN 9.1 GM/dL (10.7-15.3); MCH 27.2 pg (25.7-33.7); MCHC 31.9 g/dl (32.0-36.0); MEAN CELL VOLUME 85.4 fl (80-96); MEAN PLT VOLUME 10.7 fl (7.5-11.1); PLATELET COUNT 92 K/MM3 (134-434); RBC 3.35 M/mm3 (3.60-5.2); RDW 16.3 % (11.6-15.6); WHITE BLOOD COUNT 14.8 K/mm3 (4.0-10.0)
[2020-03-30] MEDS ORDERED: PT OWN MED DRAWER 7, Y5N ONE (22:38)
[2020-03-31] MEDS: LEVOTHYROXINE NA 25 MCG TABLET (FP) PEG SCH (05:59)
[2020-03-31 08:50] LABS: HEMATOCRIT 33.6 % (32.4-45.2); HEMOGLOBIN 10.7 GM/dL (10.7-15.3); MCH 27.3 pg (25.7-33.7); MCHC 31.7 g/dl (32.0-36.0); MEAN PLT VOLUME 10.7 fl (7.5-11.1); PLATELET COUNT 97 K/MM3 (134-434); RBC 3.91 M/mm3 (3.60-5.2); RDW 16.9 % (11.6-15.6); RETICULOCYTES 3.34 % (0.5-1.5); WHITE BLOOD COUNT 16.3 K/mm3 (4.0-10.0)
[2020-03-31 09:19] LABS: POTASSIUM 3.6 mmol/L (3.5-5.1)
[2020-03-31 09:20] LABS: ALBUMIN 2.2 g/dl (3.4-5.0); BLOOD UREA NITROGEN 33.9 mg/dL (7-18)
[2020-03-31] MEDS: levETIRAcetam 500 MG/5 ML ORAL SOLUTION (UNIT-DOSE CUPS) NGT SCH ×2 (09:22→23:09)
[2020-03-31] MEDS: ACETAMINOPHEN 650 MG/20.3 ML ORAL SOLUTION (CUPS) GT PRN ×3 (09:22→23:09)
[2020-03-31 09:23] LABS: CREATININE 1.1 mg/dL (0.55-1.3)
[2020-03-31 09:24] LABS: PHOSPHOROUS 2.1 mg/dL (2.5-4.9)
[2020-03-31 09:25] LABS: BILIRUBIN,TOTAL 0.6 mg/dL (0.2-1)
[2020-03-31] MEDS: FAMOTIDINE 40 MG/5 ML ORAL SUSPENSION NGT SCH ×2 (09:26→23:09)
[2020-03-31] MEDS: BACITRACIN 15 GM TUBE TOPICAL OINTMENT TP SCH (09:34)
[2020-03-31 09:42] LABS: TOT PROT 6.5 g/dl (6.4-8.2)
[2020-03-31] MEDS: NYSTATIN 100000 UNIT/GM TOPICAL OINTMENT 15 GM TUBE TP SCH (11:00)
[2020-03-31] MEDS ORDERED: DEXTROSE 5%-WATER - 50 ML IVPB ONE (18:54)
[2020-03-31] MEDS ORDERED: PIPERACILLIN/TAZOBACTAM 3.375 GM VIAL IVPB ONE (18:54)
[2020-03-31] MEDS: PIPERACILLIN/TAZOB 3.375 GM 3.375 GM in DEXTROSE 5%-WATER - 50 ML IVPB SCH (18:57)
[2020-03-31] MEDS ORDERED: PT OWN MED DRAWER 7, Y5N ONE (22:53)
[2020-03-31] MEDS ORDERED: levETIRAcetam 500 MG/5 ML INJECTION VIAL IVPB ONE (23:48)
[2020-03-31] MEDS ORDERED: ACETAMINOPHEN 1000 MG/100 ML VIAL (NON FORMULARY) IVPB ONE (23:48)
[2020-03-31] MEDS ORDERED: PANTOPRAZOLE SODIUM 40 MG VIAL IVPUSH ONE (23:49)
[2020-04-01] MEDS: levETIRAcetam 500 MG/5 ML ORAL SOLUTION (UNIT-DOSE CUPS) NGT SCH ×3 (00:23→21:46)
[2020-04-01] MEDS: FAMOTIDINE 40 MG/5 ML ORAL SUSPENSION NGT SCH ×3 (00:23→21:46)
[2020-04-01] MEDS: NYSTATIN 100000 UNIT/GM TOPICAL OINTMENT 15 GM TUBE TP SCH ×3 (00:23→21:46)
[2020-04-01] MEDS ORDERED: PIPERACILLIN/TAZOBACTAM 3.375 GM VIAL IVPB ONE ×3 (02:27→17:28)
[2020-04-01] MEDS ORDERED: DEXTROSE 5%-WATER - 50 ML IVPB ONE ×3 (02:28→17:29)
[2020-04-01] MEDS: PIPERACILLIN/TAZOB 3.375 GM 3.375 GM in DEXTROSE 5%-WATER - 50 ML IVPB SCH ×3 (02:39→17:32)
[2020-04-01] MEDS: LEVOTHYROXINE NA 25 MCG TABLET (FP) PEG SCH (06:15)
[2020-04-01 08:03] LABS: HEMATOCRIT 28.1 % (32.4-45.2); MCH 27.2 pg (25.7-33.7); MCHC 32.1 g/dl (32.0-36.0); MEAN CELL VOLUME 84.6 fl (80-96); MEAN PLT VOLUME 10.1 fl (7.5-11.1); PLATELET COUNT 85 K/MM3 (134-434); RBC 3.33 M/mm3 (3.60-5.2); RDW 16.8 % (11.6-15.6); WHITE BLOOD COUNT 13.2 K/mm3 (4.0-10.0)
[2020-04-01 08:32] LABS: CALCIUM 8.2 mg/dL (8.5-10.1)
[2020-04-01 08:33] LABS: BLOOD UREA NITROGEN 47.1 mg/dL (7-18); MAGNESIUM 2.1 mg/dL (1.8-2.4)
[2020-04-01 08:36] LABS: CREATININE 1.3 mg/dL (0.55-1.3); PHOSPHOROUS 2.6 mg/dL (2.5-4.9)
[2020-04-01 08:39] LABS: POTASSIUM 2.9 mmol/L (3.5-5.1)
[2020-04-01] MEDS: BACITRACIN 15 GM TUBE TOPICAL OINTMENT TP SCH (10:02)
[2020-04-01] MEDS ORDERED: POTASSIUM CHLORIDE TABS 20 MEQ TABLET.ER (FP) PO ONE ×2 (13:37→13:38)
[2020-04-01] MEDS ORDERED: POTASSIUM CHLORIDE ORAL LIQUID 20 MEQ/15 ML PO ONE ×2 (14:51→17:00)
[2020-04-02] MEDS ORDERED: DEXTROSE 5%-WATER - 50 ML IVPB ONE ×3 (01:53→18:15)
[2020-04-02] MEDS ORDERED: PIPERACILLIN/TAZOBACTAM 3.375 GM VIAL IVPB ONE ×3 (01:53→18:14)
[2020-04-02] MEDS: PIPERACILLIN/TAZOB 3.375 GM 3.375 GM in DEXTROSE 5%-WATER - 50 ML IVPB SCH ×3 (02:49→18:17)
[2020-04-02] MEDS: LEVOTHYROXINE NA 25 MCG TABLET (FP) PEG SCH (06:31)
[2020-04-02] MEDS ORDERED: SODIUM CHLORIDE 250 ML IV PRN (09:20)
[2020-04-02] MEDS: FAMOTIDINE 40 MG/5 ML ORAL SUSPENSION NGT SCH ×2 (09:52→22:03)
[2020-04-02] MEDS: levETIRAcetam 500 MG/5 ML ORAL SOLUTION (UNIT-DOSE CUPS) NGT SCH ×2 (09:52→22:03)
[2020-04-02 11:07] LABS: HEMATOCRIT 26.8 % (32.4-45.2); HEMOGLOBIN 8.7 GM/dL (10.7-15.3); MCH 27.6 pg (25.7-33.7); MCHC 32.5 g/dl (32.0-36.0); MEAN CELL VOLUME 84.9 fl (80-96); MEAN PLT VOLUME 10.9 fl (7.5-11.1); PLATELET COUNT 64 K/MM3 (134-434); RBC 3.16 M/mm3 (3.60-5.2); RDW 17.2 % (11.6-15.6); WHITE BLOOD COUNT 9.3 K/mm3 (4.0-10.0)
[2020-04-02 11:32] LABS: POTASSIUM 3.5 mmol/L (3.5-5.1)
[2020-04-02 11:34] LABS: CALCIUM 8.3 mg/dL (8.5-10.1)
[2020-04-02 11:35] LABS: ALBUMIN 1.6 g/dl (3.4-5.0); BLOOD UREA NITROGEN 53.6 mg/dL (7-18); MAGNESIUM 2.1 mg/dL (1.8-2.4)
[2020-04-02 11:38] LABS: CREATININE 1.4 mg/dL (0.55-1.3); PHOSPHOROUS 2.2 mg/dL (2.5-4.9)
[2020-04-02 11:40] LABS: BILIRUBIN,TOTAL 0.3 mg/dL (0.2-1); TOT PROT 5.8 g/dl (6.4-8.2)
[2020-04-02] MEDS: BACITRACIN 15 GM TUBE TOPICAL OINTMENT TP SCH (11:55)
[2020-04-02] MEDS: NYSTATIN 100000 UNIT/GM TOPICAL OINTMENT 15 GM TUBE TP SCH ×2 (11:56→22:04)
[2020-04-02] MEDS ORDERED: VANCOMYCIN 1 GM in D5W (PRE-DOCKED) 1,000 MG/250 ML IVPB ONE ×2 (12:05→18:30)
[2020-04-02] MEDS ORDERED: ALTEPLASE 2 MG VIAL IVPUSH ONE (12:52)
[2020-04-02] MEDS ORDERED: PT OWN MED DRAWER 7, Y5N ONE (21:58)
[2020-04-03] MEDS ORDERED: DEXTROSE 5%-WATER - 50 ML IVPB ONE ×3 (01:48→17:56)
[2020-04-03] MEDS ORDERED: PIPERACILLIN/TAZOBACTAM 3.375 GM VIAL IVPB ONE ×3 (01:48→17:56)
[2020-04-03] MEDS: PIPERACILLIN/TAZOB 3.375 GM 3.375 GM in DEXTROSE 5%-WATER - 50 ML IVPB SCH ×3 (02:16→17:57)
[2020-04-03] MEDS: LEVOTHYROXINE NA 25 MCG TABLET (FP) PEG SCH (06:02)
[2020-04-03 08:27] LABS: HEMATOCRIT 28.9 % (32.4-45.2); HEMOGLOBIN 9.2 GM/dL (10.7-15.3); MCH 27.1 pg (25.7-33.7); MEAN CELL VOLUME 84.7 fl (80-96); MEAN PLT VOLUME 10.6 fl (7.5-11.1); PLATELET COUNT 65 K/MM3 (134-434); RBC 3.42 M/mm3 (3.60-5.2); RDW 16.8 % (11.6-15.6); WHITE BLOOD COUNT 10.6 K/mm3 (4.0-10.0)
[2020-04-03 08:39] LABS: POTASSIUM 3.3 mmol/L (3.5-5.1)
[2020-04-03 08:42] LABS: BLOOD UREA NITROGEN 47.9 mg/dL (7-18); CALCIUM 8.3 mg/dL (8.5-10.1); MAGNESIUM 2.2 mg/dL (1.8-2.4)
[2020-04-03 08:46] LABS: CREATININE 1.1 mg/dL (0.55-1.3); PHOSPHOROUS 2.2 mg/dL (2.5-4.9)
[2020-04-03] MEDS ORDERED: POTASSIUM CHLORIDE ORAL LIQUID 20 MEQ/15 ML PO ONE ×2 (11:00→11:30)
[2020-04-03] MEDS ORDERED: PT OWN MED DRAWER 7, Y5N ONE ×2 (11:20→20:58)
[2020-04-03] MEDS ORDERED: APIXABAN 2.5 MG TABLET GT SCH (11:54)
[2020-04-03] MEDS: NYSTATIN 100000 UNIT/GM TOPICAL OINTMENT 15 GM TUBE TP SCH ×2 (13:00→21:20)
[2020-04-03] MEDS: BACITRACIN 15 GM TUBE TOPICAL OINTMENT TP SCH (13:00)
[2020-04-03] MEDS ORDERED: NAPH,MB-DB/K PH,MBDB POWDER PACKET GT ONE (13:15)
[2020-04-03] MEDS ORDERED: TUBE FEED DECLOGGING SOLUTION 12,000 UNITS GT ONE (15:00)
[2020-04-03] MEDS: HEPARIN NA (PORCINE) 5,000 UNITS/ML 1ML VIAL SQ SCH ×2 (15:10→21:19)
[2020-04-03] MEDS ORDERED: SODIUM CHLORIDE 250 ML IV PRN (16:21)
[2020-04-03] MEDS ORDERED: EPOETIN ALFA 10,000 UNIT/1 ML VIAL SQ ONE (17:00)
[2020-04-03] MEDS ORDERED: EPOETIN ALFA-EPBX 10,000 UNIT/ML VIAL SQ ONE (17:00)
[2020-04-03] MEDS: FAMOTIDINE 40 MG/5 ML ORAL SUSPENSION NGT SCH ×2 (18:00→21:20)
[2020-04-03] MEDS: levETIRAcetam 500 MG/5 ML ORAL SOLUTION (UNIT-DOSE CUPS) NGT SCH ×2 (18:00→21:19)
[2020-04-03] MEDS ORDERED: levETIRAcetam 500 MG/5 ML INJECTION VIAL IVPB ONE (20:51)
[2020-04-03] MEDS ORDERED: APIXABAN 2.5 MG TABLET PO SCH (22:00)
[2020-04-04] MEDS ORDERED: PIPERACILLIN/TAZOBACTAM 3.375 GM VIAL IVPB ONE ×3 (01:19→17:06)
[2020-04-04] MEDS ORDERED: DEXTROSE 5%-WATER - 50 ML IVPB ONE ×3 (01:19→17:06)
[2020-04-04] MEDS: PIPERACILLIN/TAZOB 3.375 GM 3.375 GM in DEXTROSE 5%-WATER - 50 ML IVPB SCH ×3 (02:04→17:10)
[2020-04-04] MEDS: HEPARIN NA (PORCINE) 5,000 UNITS/ML 1ML VIAL SQ SCH ×3 (06:09→21:56)
[2020-04-04] MEDS: LEVOTHYROXINE NA 25 MCG TABLET (FP) PEG SCH (06:09)
[2020-04-04 07:56] LABS: BLOOD UREA NITROGEN 35.1 mg/dL (7-18); CALCIUM 8.3 mg/dL (8.5-10.1)
[2020-04-04 07:59] LABS: CREATININE 1.2 mg/dL (0.55-1.3); PHOSPHOROUS 2.3 mg/dL (2.5-4.9)
[2020-04-04 08:01] LABS: HEMATOCRIT 27.4 % (32.4-45.2); HEMOGLOBIN 8.8 GM/dL (10.7-15.3); MCH 27.2 pg (25.7-33.7); MCHC 31.9 g/dl (32.0-36.0); MEAN CELL VOLUME 85.3 fl (80-96); PLATELET COUNT 62 K/MM3 (134-434); RBC 3.22 M/mm3 (3.60-5.2); RDW 16.8 % (11.6-15.6); WHITE BLOOD COUNT 7.6 K/mm3 (4.0-10.0)
[2020-04-04 08:04] LABS: POTASSIUM 2.9 mmol/L (3.5-5.1)
[2020-04-04] MEDS ORDERED: POTASSIUM CHLORIDE ORAL LIQUID 20 MEQ/15 ML GT ONE (08:05)
[2020-04-04] MEDS ORDERED: PT OWN MED DRAWER 7, Y5N ONE ×2 (10:17→20:54)
[2020-04-04] MEDS: levETIRAcetam 500 MG/5 ML ORAL SOLUTION (UNIT-DOSE CUPS) NGT SCH ×2 (10:21→21:56)
[2020-04-04] MEDS: BACITRACIN 15 GM TUBE TOPICAL OINTMENT TP SCH (10:22)
[2020-04-04] MEDS: NYSTATIN 100000 UNIT/GM TOPICAL OINTMENT 15 GM TUBE TP SCH ×2 (10:22→21:56)
[2020-04-04] MEDS: FAMOTIDINE 40 MG/5 ML ORAL SUSPENSION NGT SCH ×2 (10:22→21:56)
[2020-04-05] MEDS ORDERED: PIPERACILLIN/TAZOBACTAM 3.375 GM VIAL IVPB ONE ×2 (01:15→10:13)
[2020-04-05] MEDS ORDERED: DEXTROSE 5%-WATER - 50 ML IVPB ONE ×2 (01:15→10:13)
[2020-04-05] MEDS: PIPERACILLIN/TAZOB 3.375 GM 3.375 GM in DEXTROSE 5%-WATER - 50 ML IVPB SCH ×2 (01:48→10:52)
[2020-04-05] MEDS: HEPARIN NA (PORCINE) 5,000 UNITS/ML 1ML VIAL SQ SCH ×3 (06:01→21:15)
[2020-04-05] MEDS: LEVOTHYROXINE NA 25 MCG TABLET (FP) PEG SCH (06:02)
[2020-04-05] MEDS: ACETAMINOPHEN 650 MG/20.3 ML ORAL SOLUTION (CUPS) GT PRN (06:33)
[2020-04-05 09:36] LABS: POTASSIUM 3.1 mmol/L (3.5-5.1)
[2020-04-05 09:48] LABS: BLOOD UREA NITROGEN 43.7 mg/dL (7-18); CALCIUM 8.4 mg/dL (8.5-10.1); MAGNESIUM 2.2 mg/dL (1.8-2.4)
[2020-04-05 09:52] LABS: CREATININE 1.3 mg/dL (0.55-1.3)
[2020-04-05] MEDS: BACITRACIN 15 GM TUBE TOPICAL OINTMENT TP SCH (10:48)
[2020-04-05] MEDS: levETIRAcetam 500 MG/5 ML ORAL SOLUTION (UNIT-DOSE CUPS) NGT SCH (10:49)
[2020-04-05] MEDS: NYSTATIN 100000 UNIT/GM TOPICAL OINTMENT 15 GM TUBE TP SCH ×2 (10:49→21:15)
[2020-04-05] MEDS: FAMOTIDINE 40 MG/5 ML ORAL SUSPENSION NGT SCH (11:46)
[2020-04-05] MEDS ORDERED: POTASSIUM CHLORIDE ORAL LIQUID 20 MEQ/15 ML GT ONE (12:24)
[2020-04-05] MEDS ORDERED: SODIUM CHLORIDE 250 ML IV PRN (14:06)
[2020-04-05] MEDS ORDERED: EPOETIN ALFA-EPBX 10,000 UNIT/ML VIAL IVPUSH ONE (14:15)
[2020-04-05] MEDS ORDERED: NAPH,MB-DB/K PH,MBDB POWDER PACKET PO ONE (14:30)
[2020-04-05] MEDS: CEFTAZIDIME PENTAHYDRATE 1 GM in DEXTROSE 5%-WATER - 50 ML IVPB SCH ×2 (17:47→18:47)
[2020-04-05] MEDS: levETIRAcetam 500 MG/5 ML INJECTION VIAL IVPB SCH (21:15)
[2020-04-06] MEDS ORDERED: PT OWN MED DRAWER 7, Y5N ONE ×2 (01:21→17:28)
[2020-04-06] MEDS: CEFTAZIDIME PENTAHYDRATE 1 GM in DEXTROSE 5%-WATER - 50 ML IVPB SCH ×3 (01:41→17:30)
[2020-04-06] MEDS: HEPARIN NA (PORCINE) 5,000 UNITS/ML 1ML VIAL SQ SCH ×3 (05:11→22:30)
[2020-04-06 09:45] LABS: POTASSIUM 4.3 mmol/L (3.5-5.1)
[2020-04-06 09:50] LABS: BLOOD UREA NITROGEN 21.8 mg/dL (7-18); CALCIUM 8.4 mg/dL (8.5-10.1)
[2020-04-06 09:53] LABS: PHOSPHOROUS 2.6 mg/dL (2.5-4.9)
[2020-04-06] MEDS: BACITRACIN 15 GM TUBE TOPICAL OINTMENT TP SCH (09:58)
[2020-04-06] MEDS: NYSTATIN 100000 UNIT/GM TOPICAL OINTMENT 15 GM TUBE TP SCH ×2 (09:59→22:31)
[2020-04-06] MEDS: levETIRAcetam 500 MG/5 ML INJECTION VIAL IVPB SCH ×2 (10:02→22:30)
[2020-04-06 12:35] LABS: BASO % 0.3 % (0-2.0); EOS % 0.1 % (0-4.5); HEMOGLOBIN 9.3 GM/dL (10.7-15.3); LYMPH % 24.9 % (8-40); MCH 26.8 pg (25.7-33.7); MEAN CELL VOLUME 86.5 fl (80-96); MEAN PLT VOLUME 11.3 fl (7.5-11.1); MONO % 10.6 % (3.8-10.2); NEUT % 64.1 % (42.8-82.8); PLATELET COUNT 126 K/MM3 (134-434); RBC 3.47 M/mm3 (3.60-5.2); RDW 17.8 % (11.6-15.6); WHITE BLOOD COUNT 12.7 K/mm3 (4.0-10.0)
[2020-04-06 12:53] LABS: POTASSIUM 3.6 mmol/L (3.5-5.1)
[2020-04-06 12:57] LABS: CALCIUM 8.5 mg/dL (8.5-10.1)
[2020-04-06 12:58] LABS: ALBUMIN 1.8 g/dl (3.4-5.0); BLOOD UREA NITROGEN 21.8 mg/dL (7-18)
[2020-04-06 13:01] LABS: CREATININE 1.1 mg/dL (0.55-1.3)
[2020-04-06 13:03] LABS: BILIRUBIN,TOTAL 0.4 mg/dL (0.2-1); TOT PROT 6.4 g/dl (6.4-8.2)
[2020-04-06 14:57] LABS: ANISOCYTOSIS 0; MACROCYTOSIS 0; OVALOCYTE 1+; PLATELET ESTIMATE DECREASED
[2020-04-06] MEDS: AMINO ACIDS 4.25%/D5W 1,000 ML IV SCH (16:06)
[2020-04-06] MEDS: levETIRAcetam 500 MG/5 ML ORAL SOLUTION (UNIT-DOSE CUPS) NGT SCH (22:31)
[2020-04-06] MEDS: FAMOTIDINE 40 MG/5 ML ORAL SUSPENSION NGT SCH (22:32)
[2020-04-07] MEDS ORDERED: PT OWN MED DRAWER 7, Y5N ONE ×4 (01:34→16:51)
[2020-04-07] MEDS: CEFTAZIDIME PENTAHYDRATE 1 GM in DEXTROSE 5%-WATER - 50 ML IVPB SCH ×3 (01:42→17:38)
[2020-04-07] MEDS: LEVOTHYROXINE NA 25 MCG TABLET (FP) PEG SCH (06:21)
[2020-04-07] MEDS: HEPARIN NA (PORCINE) 5,000 UNITS/ML 1ML VIAL SQ SCH ×3 (06:21→22:07)
[2020-04-07] MEDS: BACITRACIN 15 GM TUBE TOPICAL OINTMENT TP SCH (09:18)
[2020-04-07] MEDS: NYSTATIN 100000 UNIT/GM TOPICAL OINTMENT 15 GM TUBE TP SCH ×2 (09:19→22:09)
[2020-04-07] MEDS: FAMOTIDINE 40 MG/5 ML ORAL SUSPENSION NGT SCH ×2 (09:19→22:09)
[2020-04-07] MEDS: levETIRAcetam 500 MG/5 ML ORAL SOLUTION (UNIT-DOSE CUPS) NGT SCH ×2 (09:20→22:09)
[2020-04-07] MEDS: AMINO ACIDS/PROTEIN HYDROLYS 30 ML LIQUID.PKT PEG SCH (09:20)
[2020-04-07 10:24] LABS: BASO % 1.4 % (0-2.0); EOS % 0.1 % (0-4.5); HEMATOCRIT 31.6 % (32.4-45.2); HEMOGLOBIN 9.9 GM/dL (10.7-15.3); LYMPH % 18.1 % (8-40); MCH 27.2 pg (25.7-33.7); MCHC 31.3 g/dl (32.0-36.0); MEAN CELL VOLUME 86.9 fl (80-96); MEAN PLT VOLUME 10.5 fl (7.5-11.1); MONO % 8.5 % (3.8-10.2); NEUT % 71.9 % (42.8-82.8); PLATELET COUNT 154 K/MM3 (134-434); RBC 3.64 M/mm3 (3.60-5.2); RDW 17.4 % (11.6-15.6); WHITE BLOOD COUNT 12.9 K/mm3 (4.0-10.0)
[2020-04-07 10:50] LABS: POTASSIUM 3.3 mmol/L (3.5-5.1)
[2020-04-07 10:52] LABS: BLOOD UREA NITROGEN 26.8 mg/dL (7-18)
[2020-04-07 10:53] LABS: CALCIUM 8.5 mg/dL (8.5-10.1)
[2020-04-07 10:54] LABS: ALBUMIN 1.8 g/dl (3.4-5.0)
[2020-04-07 10:55] LABS: CREATININE 1.2 mg/dL (0.55-1.3)
[2020-04-07 10:57] LABS: BILIRUBIN,TOTAL 0.4 mg/dL (0.2-1)
[2020-04-07] MEDS: levETIRAcetam 500 MG/5 ML INJECTION VIAL IVPB SCH ×2 (11:29→22:08)
[2020-04-07] MEDS ORDERED: KCL 10 MEQ IVPB 10 MEQ/100 ML INFUS.BAG IVPB SCH (12:45)
[2020-04-07] MEDS ORDERED: AMINO ACIDS 4.25%/D5W 1,000 ML IV SCH (21:58)
[2020-04-07] MEDS: AMINO ACIDS 4.25%/D5W 1,000 ML IV SCH (22:21)
[2020-04-08] MEDS ORDERED: PT OWN MED DRAWER 7, Y5N ONE ×3 (00:59→17:36)
[2020-04-08] MEDS: CEFTAZIDIME PENTAHYDRATE 1 GM in DEXTROSE 5%-WATER - 50 ML IVPB SCH ×3 (01:16→17:38)
[2020-04-08] MEDS: LEVOTHYROXINE NA 25 MCG TABLET (FP) PEG SCH (06:40)
[2020-04-08 08:32] LABS: BASO % 0.1 % (0-2.0); HEMATOCRIT 30.6 % (32.4-45.2); HEMOGLOBIN 9.4 GM/dL (10.7-15.3); LYMPH % 16.5 % (8-40); MCH 26.8 pg (25.7-33.7); MCHC 30.8 g/dl (32.0-36.0); MEAN CELL VOLUME 86.9 fl (80-96); MEAN PLT VOLUME 10.5 fl (7.5-11.1); NEUT % 76.4 % (42.8-82.8); PLATELET COUNT 145 K/MM3 (134-434); RBC 3.52 M/mm3 (3.60-5.2); RDW 17.6 % (11.6-15.6); WHITE BLOOD COUNT 14.4 K/mm3 (4.0-10.0)
[2020-04-08 08:55] LABS: POTASSIUM 3.1 mmol/L (3.5-5.1)
[2020-04-08 09:07] LABS: CALCIUM 8.6 mg/dL (8.5-10.1)
[2020-04-08 09:08] LABS: ALBUMIN 1.6 g/dl (3.4-5.0); BLOOD UREA NITROGEN 28.3 mg/dL (7-18)
[2020-04-08 09:10] LABS: BILIRUBIN,TOTAL 0.4 mg/dL (0.2-1); TOT PROT 6.5 g/dl (6.4-8.2)
[2020-04-08 09:11] LABS: CREATININE 1.2 mg/dL (0.55-1.3)
[2020-04-08] MEDS: AMINO ACIDS/PROTEIN HYDROLYS 30 ML LIQUID.PKT PEG SCH (10:35)
[2020-04-08] MEDS: levETIRAcetam 500 MG/5 ML ORAL SOLUTION (UNIT-DOSE CUPS) NGT SCH ×2 (10:35→22:16)
[2020-04-08] MEDS: FAMOTIDINE 40 MG/5 ML ORAL SUSPENSION NGT SCH ×2 (10:35→22:16)
[2020-04-08] MEDS: levETIRAcetam 500 MG/5 ML INJECTION VIAL IVPB SCH (10:41)
[2020-04-08] MEDS: NYSTATIN 100000 UNIT/GM TOPICAL OINTMENT 15 GM TUBE TP SCH ×2 (10:41→22:16)
[2020-04-08] MEDS: BACITRACIN 15 GM TUBE TOPICAL OINTMENT TP SCH (10:41)
[2020-04-08] MEDS: HEPARIN NA (PORCINE) 5,000 UNITS/ML 1ML VIAL SQ SCH ×2 (15:02→22:16)
[2020-04-08] MEDS ORDERED: POTASSIUM CHLORIDE ORAL LIQUID 20 MEQ/15 ML PO ONE (16:22)
[2020-04-09] MEDS: CEFTAZIDIME PENTAHYDRATE 1 GM in DEXTROSE 5%-WATER - 50 ML IVPB SCH ×3 (01:58→17:31)
[2020-04-09] MEDS: HEPARIN NA (PORCINE) 5,000 UNITS/ML 1ML VIAL SQ SCH ×3 (06:40→22:39)
[2020-04-09] MEDS: LEVOTHYROXINE NA 25 MCG TABLET (FP) PEG SCH (06:40)
[2020-04-09 08:08] LABS: HEMATOCRIT 29.6 % (32.4-45.2); MCH 26.4 pg (25.7-33.7); MCHC 30.5 g/dl (32.0-36.0); MEAN CELL VOLUME 86.7 fl (80-96); MEAN PLT VOLUME 10.3 fl (7.5-11.1); PLATELET COUNT 130 K/MM3 (134-434); RBC 3.42 M/mm3 (3.60-5.2); RDW 18.5 % (11.6-15.6); WHITE BLOOD COUNT 11.7 K/mm3 (4.0-10.0)
[2020-04-09 08:11] LABS: POTASSIUM 3.8 mmol/L (3.5-5.1)
[2020-04-09 08:14] LABS: ALBUMIN 1.7 g/dl (3.4-5.0); BLOOD UREA NITROGEN 30.1 mg/dL (7-18); CALCIUM 8.5 mg/dL (8.5-10.1)
[2020-04-09 08:17] LABS: CREATININE 1.3 mg/dL (0.55-1.3)
[2020-04-09 08:18] LABS: PHOSPHOROUS 2.7 mg/dL (2.5-4.9)
[2020-04-09 08:19] LABS: BILIRUBIN,TOTAL 0.3 mg/dL (0.2-1); TOT PROT 6.8 g/dl (6.4-8.2)
[2020-04-09] MEDS ORDERED: PT OWN MED DRAWER 7, Y5N ONE ×3 (10:14→22:16)
[2020-04-09] MEDS: FAMOTIDINE 40 MG/5 ML ORAL SUSPENSION NGT SCH ×2 (10:17→22:39)
[2020-04-09] MEDS: levETIRAcetam 500 MG/5 ML ORAL SOLUTION (UNIT-DOSE CUPS) NGT SCH ×2 (10:17→22:39)
[2020-04-09] MEDS: AMINO ACIDS/PROTEIN HYDROLYS 30 ML LIQUID.PKT PEG SCH (10:17)
[2020-04-09] MEDS: BACITRACIN 15 GM TUBE TOPICAL OINTMENT TP SCH (10:27)
[2020-04-09] MEDS: NYSTATIN 100000 UNIT/GM TOPICAL OINTMENT 15 GM TUBE TP SCH ×2 (10:27→22:40)
[2020-04-09] MEDS ORDERED: SODIUM CHLORIDE 250 ML IV PRN (11:39)
[2020-04-09] MEDS: ACETAMINOPHEN 650 MG/20.3 ML ORAL SOLUTION (CUPS) GT PRN (11:42)
[2020-04-09] MEDS ORDERED: EPOETIN ALFA-EPBX 10,000 UNIT/ML VIAL IVPUSH ONE (12:45)
[2020-04-09 14:29] VITALS: BMI 23.6
[2020-04-10] MEDS: CEFTAZIDIME PENTAHYDRATE 1 GM in DEXTROSE 5%-WATER - 50 ML IVPB SCH ×3 (01:33→17:47)
[2020-04-10] MEDS: HEPARIN NA (PORCINE) 5,000 UNITS/ML 1ML VIAL SQ SCH ×3 (06:43→23:51)
[2020-04-10] MEDS: LEVOTHYROXINE NA 25 MCG TABLET (FP) PEG SCH (06:44)
[2020-04-10] MEDS ORDERED: PT OWN MED DRAWER 7, Y5N ONE ×3 (09:54→23:42)
[2020-04-10] MEDS: levETIRAcetam 500 MG/5 ML ORAL SOLUTION (UNIT-DOSE CUPS) NGT SCH ×2 (09:56→23:51)
[2020-04-10] MEDS: NYSTATIN 100000 UNIT/GM TOPICAL OINTMENT 15 GM TUBE TP SCH ×2 (09:57→23:51)
[2020-04-10] MEDS: BACITRACIN 15 GM TUBE TOPICAL OINTMENT TP SCH (09:57)
[2020-04-10] MEDS ORDERED: VANCOMYCIN 1 GM in D5W (PRE-DOCKED) 1,000 MG/250 ML IVPB ONE (10:00)
[2020-04-10] MEDS: FAMOTIDINE 40 MG/5 ML ORAL SUSPENSION NGT SCH ×2 (12:20→23:51)
[2020-04-10] MEDS: AMINO ACIDS/PROTEIN HYDROLYS 30 ML LIQUID.PKT PEG SCH (12:20)
[2020-04-11] MEDS ORDERED: PT OWN MED DRAWER 7, Y5N ONE ×3 (02:35→17:21)
[2020-04-11] MEDS: CEFTAZIDIME PENTAHYDRATE 1 GM in DEXTROSE 5%-WATER - 50 ML IVPB SCH ×2 (02:50→10:09)
[2020-04-11] MEDS: HEPARIN NA (PORCINE) 5,000 UNITS/ML 1ML VIAL SQ SCH (05:18)
[2020-04-11] MEDS: LEVOTHYROXINE NA 25 MCG TABLET (FP) PEG SCH (06:08)
[2020-04-11] MEDS: AMINO ACIDS/PROTEIN HYDROLYS 30 ML LIQUID.PKT PEG SCH (10:08)
[2020-04-11] MEDS: levETIRAcetam 500 MG/5 ML ORAL SOLUTION (UNIT-DOSE CUPS) NGT SCH (10:08)
[2020-04-11] MEDS: FAMOTIDINE 40 MG/5 ML ORAL SUSPENSION NGT SCH (10:09)
[2020-04-11] MEDS ORDERED: EPOETIN ALFA-EPBX 10,000 UNIT/ML VIAL IVPUSH ONE ×2 (10:18→16:39)
[2020-04-11] MEDS ORDERED: SODIUM CHLORIDE 250 ML IV PRN ×2 (10:18→16:39)
[2020-04-11 10:20] LABS: BASO % 0.6 % (0-2.0); HEMATOCRIT 32.3 % (32.4-45.2); HEMOGLOBIN 10.1 GM/dL (10.7-15.3); LYMPH % 19.9 % (8-40); MCH 27.3 pg (25.7-33.7); MCHC 31.2 g/dl (32.0-36.0); MEAN CELL VOLUME 87.6 fl (80-96); MEAN PLT VOLUME 10.5 fl (7.5-11.1); MONO % 7.4 % (3.8-10.2); NEUT % 72.1 % (42.8-82.8); PLATELET COUNT 121 K/MM3 (134-434); RBC 3.69 M/mm3 (3.60-5.2); RDW 19.3 % (11.6-15.6); WHITE BLOOD COUNT 16.6 K/mm3 (4.0-10.0)
[2020-04-11 10:24] LABS: INR 1.04 (0.83-1.09); PROTHROMBIN TIME (PATIENT) 12.8 SEC (9.7-13.0)
[2020-04-11 10:27] LABS: ACTIVATED PTT 33.8 SECONDS (25.2-36.5)
[2020-04-11 10:40] LABS: POTASSIUM 3.4 mmol/L (3.5-5.1)
[2020-04-11 10:47] LABS: ALBUMIN 1.5 g/dl (3.4-5.0); BLOOD UREA NITROGEN 34.6 mg/dL (7-18)
[2020-04-11 10:49] LABS: BILIRUBIN,TOTAL 0.3 mg/dL (0.2-1); TOT PROT 6.8 g/dl (6.4-8.2)
[2020-04-11 10:50] LABS: CALCIUM 8.8 mg/dL (8.5-10.1)
[2020-04-11 10:51] LABS: CREATININE 1.1 mg/dL (0.55-1.3); MAGNESIUM 1.9 mg/dL (1.8-2.4); PHOSPHOROUS 2.7 mg/dL (2.5-4.9)
[2020-04-11] MEDS: NYSTATIN 100000 UNIT/GM TOPICAL OINTMENT 15 GM TUBE TP SCH (12:00)
[2020-04-11] MEDS ORDERED: LIDOCAINE HCL 1%, 10 MG/ML (20ML VIAL) ONE (13:00)
[2020-04-11] MEDS ORDERED: HEPARIN NA (PORCINE) 5,000 UNITS/ML 1ML VIAL ONE (13:00)
[2020-04-11] MEDS ORDERED: VANCOMYCIN HCL 1,500 MG in DEXTROSE 5%-WATER - 500 ML IVPB ONE ×2 (13:00→17:15)
[2020-04-11] MEDS: BACITRACIN 15 GM TUBE TOPICAL OINTMENT TP SCH (13:43)
[2020-04-11] MEDS ORDERED: LIDOCAINE HCL 1%, 10 MG/ML (20ML VIAL) NR ONE (14:39)
[2020-04-11] MEDS ORDERED: HEPARIN NA (PORCINE) 5,000 UNITS/ML 1ML VIAL SQ ONE (14:40)
[2020-04-11] MEDS ORDERED: POTASSIUM CHLORIDE ORAL LIQUID 20 MEQ/15 ML PO ONE (16:29)
[2020-04-11] MEDS ORDERED: EPOETIN ALFA 10,000 UNIT/1 ML VIAL SQ ONE (16:39)
[2020-04-11] MEDS ORDERED: ACETAMINOPHEN 650 MG/20.3 ML ORAL SOLUTION (CUPS) GT PRN (16:39)
[2020-04-11] MEDS ORDERED: CEFTAZIDIME PENTAHYDRATE 1 GM in DEXTROSE 5%-WATER - 50 ML IVPB SCH (18:00)
[2020-04-11 20:14] VITALS: BP 152/69; PULSE 102; TEMP 976
[2020-04-11] MEDS ORDERED: NYSTATIN 100000 UNIT/GM TOPICAL OINTMENT 15 GM TUBE TP SCH (22:00)
[2020-04-11] MEDS ORDERED: FAMOTIDINE 40 MG/5 ML ORAL SUSPENSION NGT SCH (22:00)
[2020-04-11] MEDS ORDERED: levETIRAcetam 500 MG/5 ML ORAL SOLUTION (UNIT-DOSE CUPS) NGT SCH (22:00)
[2020-04-12] MEDS ORDERED: LEVOTHYROXINE NA 25 MCG TABLET (FP) PEG SCH (07:00)
[2020-04-12] MEDS ORDERED: AMINO ACIDS/PROTEIN HYDROLYS 30 ML LIQUID.PKT PEG SCH (10:00)
[2020-04-12] MEDS ORDERED: BACITRACIN 15 GM TUBE TOPICAL OINTMENT TP SCH (10:00)
== END 2020-04-11 20:00 | DRG 870 ==
LOC: JER 00:13 → JERBED 03:30 → JICU 05:16 → J5S 03-22 14:17
PROVIDERS: ADMIT Internal Medicine; ATTEND Internal Medicine
PROC: 5A1955Z Respiratory Ventilation, Greater than 96 Consecutive Hours (ICD-10-PCS; 2020-03-20)
PROC: 5A1D70Z Performance of Urinary Filtration, Intermittent, Less than 6 Hours Per Day (ICD-10-PCS; 2020-03-20)
PROC: 05HM33Z Insertion of Infusion Device into Right Internal Jugular Vein, Percutaneous Approach (ICD-10-PCS; principal; 2020-03-21)
PROC: 0D20XUZ Change Feeding Device in Upper Intestinal Tract, External Approach (ICD-10-PCS; 2020-03-25)
PROC: B54BZZA Ultrasonography of Right Lower Extremity Veins, Guidance (ICD-10-PCS; 2020-03-25)
PROC: B54BZZA Ultrasonography of Right Lower Extremity Veins, Guidance (ICD-10-PCS; 2020-03-25)
PROC: 06HM33Z Insertion of Infusion Device into Right Femoral Vein, Percutaneous Approach (ICD-10-PCS; 2020-03-28)
PROC: 06HM33Z Insertion of Infusion Device into Right Femoral Vein, Percutaneous Approach (ICD-10-PCS; 2020-03-28)
PROC: 0W9B3ZX Drainage of Left Pleural Cavity, Percutaneous Approach, Diagnostic (ICD-10-PCS; 2020-03-29)
PROC: 06HN33Z Insertion of Infusion Device into Left Femoral Vein, Percutaneous Approach (ICD-10-PCS; 2020-04-03)
PROC: 5A1D70Z Performance of Urinary Filtration, Intermittent, Less than 6 Hours Per Day (ICD-10-PCS; 2020-04-05)
PROC: 0JH63XZ Insertion of Tunneled Vascular Access Device into Chest Subcutaneous Tissue and Fascia, Percutaneous Approach (ICD-10-PCS; 2020-04-11)
PROC: 02H633Z Insertion of Infusion Device into Right Atrium, Percutaneous Approach (ICD-10-PCS; 2020-04-11)
PROC: B518ZZA Fluoroscopy of Superior Vena Cava, Guidance (ICD-10-PCS; 2020-04-11)
DX: A41.02 Sepsis due to Methicillin resistant Staphylococcus aureus (principal); L89.154 Pressure ulcer of sacral region, stage 4; J18.9 Pneumonia, unspecified organism; G93.41 Metabolic encephalopathy; R53.2 Functional quadriplegia; J96.22 Acute and chronic respiratory failure with hypercapnia; N18.6 End stage renal disease; I48.11 Longstanding persistent atrial fibrillation; N39.0 Urinary tract infection, site not specified; E87.2 Acidosis; J90 Pleural effusion, not elsewhere classified; E87.0 Hyperosmolality and hypernatremia; I24.8 Other forms of acute ischemic heart disease; I12.0 Hypertensive chronic kidney disease with stage 5 chronic kidney disease or end stage renal disease; N17.9 Acute kidney failure, unspecified; K94.23 Gastrostomy malfunction; R65.20 Severe sepsis without septic shock; R00.0 Tachycardia, unspecified; D72.829 Elevated white blood cell count, unspecified; R41.82 Altered mental status, unspecified; G40.909 Epilepsy, unspecified, not intractable, without status epilepticus; D64.9 Anemia, unspecified; R13.10 Dysphagia, unspecified; L89.611 Pressure ulcer of right heel, stage 1; D69.6 Thrombocytopenia, unspecified; I25.2 Old myocardial infarction; E03.9 Hypothyroidism, unspecified; B96.5 Pseudomonas (aeruginosa) (mallei) (pseudomallei) as the cause of diseases classified elsewhere; E87.5 Hyperkalemia; E86.0 Dehydration; E87.6 Hypokalemia; E88.09 Other disorders of plasma-protein metabolism, not elsewhere classified; F41.8 Other specified anxiety disorders; Z99.2 Dependence on renal dialysis; Z74.01 Bed confinement status; Z93.0 Tracheostomy status; Y83.8 Other surgical procedures as the cause of abnormal reaction of the patient, or of later complication, without mention of misadventure at the time of the procedure
CPT/HCPCS: 32555; 36415; 36430; 49450; 71045-TC-FY; 74018-TC-FY; 76000-TC-FY; 80048; 80053; 81003; 82042; 82150; 82272; 82465; 82550; 82575; 82728; 82945; 83605; 83615; 83735; 84100; 84157; 84478; 84484; 85025; 85027; 85045; 85610; 85651; 85730; 86140; 86803; 86850; 86900; 86901; 86922; 87040; 87070; 87075; 87086; 87102; 87116; 87186; 87205; 87206; 87210; 87340; 87804; 87807; 88108; 88305-TC; 93005; 93010; 93306-TC; 94002; 94760; 99291; C1769; C9803; G0480; J0131; J1644; J2997; P9038; P9058; Q5106; U0003

== ENCOUNTER 2020-04-14 23:02 | Inpatient (IN) | payer OTHER ==
[2020-04-14 23:45] LABS: BASO % 0.6 % (0-2.0); HEMATOCRIT 34.1 % (32.4-45.2); HEMOGLOBIN 10.5 GM/dL (10.7-15.3); LYMPH % 9.5 % (8-40); MCH 27.6 pg (25.7-33.7); MCHC 30.7 g/dl (32.0-36.0); MEAN CELL VOLUME 89.8 fl (80-96); MEAN PLT VOLUME 10.8 fl (7.5-11.1); MONO % 5.3 % (3.8-10.2); NEUT % 84.6 % (42.8-82.8); PLATELET COUNT 78 K/MM3 (134-434); RBC 3.79 M/mm3 (3.60-5.2); RDW 20.9 % (11.6-15.6); WHITE BLOOD COUNT 20.8 K/mm3 (4.0-10.0)
[2020-04-14] MEDS ORDERED: PIPERACILLIN/TAZOB 3.375 GM 3.375 GM in DEXTROSE 5%-WATER - 50 ML IVPB ONE (23:47)
[2020-04-14] MEDS ORDERED: ACETAMINOPHEN 1000 MG/100 ML BAG IVPB ONE (23:47)
[2020-04-14 23:48] LABS: EPI CELLS 5 /uL (0-25.1); HYALINE CASTS 6 /uL (0-3.1); URINE APPEARANCE CLOUDY; URINE BACTERIA 36 /uL (0-1359); URINE BILIRUBIN NEGATIVE (NEGATIVE); URINE COLOR YELLOW; URINE GLUCOSE (UA) NEGATIVE (NEGATIVE); URINE KETONE NEGATIVE (NEGATIVE); URINE LEUK ESTERASE 2+ (NEGATIVE); URINE NITRITE NEGATIVE (NEGATIVE); URINE PROTEIN 2+ (NEGATIVE); URINE UROBILINOGEN 0.2 mg/dL (0.2-1.0); URINE WBC 847 /uL (0-25.8)
[2020-04-14] MEDS ORDERED: ACETAMINOPHEN INJECTION 100 ML IVPB ONE (23:55)
[2020-04-14] MEDS ORDERED: PIPERACILLIN/TAZOB 3.375 GM 3.375 GM/50 ML BAG IVPB ONE (23:56)
[2020-04-14 23:57] LABS: INR 1.22 (0.83-1.09); PROTHROMBIN TIME (PATIENT) 14.7 SEC (9.7-13.0)
[2020-04-15 00:05] LABS: ALBUMIN 1.6 g/dl (3.4-5.0); BLOOD UREA NITROGEN 41.2 mg/dL (7-18); CALCIUM 9.4 mg/dL (8.5-10.1)
[2020-04-15 00:09] LABS: CREATININE 1.1 mg/dL (0.55-1.3)
[2020-04-15 00:10] LABS: BILIRUBIN,TOTAL 0.2 mg/dL (0.2-1); TOT PROT 7.1 g/dl (6.4-8.2)
[2020-04-15 00:31] LABS: MACROCYTOSIS 1+; OVALOCYTE 1+; PLATELET ESTIMATE DECREASED
[2020-04-15 01:06] LABS: URINE RBC 183 /uL (0-23.9); YEAST NONE SEEN (NEGATIVE)
[2020-04-15] MEDS ORDERED: PIPERACILLIN/TAZOB 2.25 GM 2.25 GM in DEXTROSE 5%-WATER - 50 ML IVPB SCH ×2 (03:00→08:00)
[2020-04-15] MEDS ORDERED: SODIUM CHLORIDE 1,000 ML IV SCH (03:00)
[2020-04-15] MEDS: PIPERACILLIN/TAZOB 2.25 GM 2.25 GM in DEXTROSE 5%-WATER - 50 ML IVPB SCH ×4 (04:02→23:15)
[2020-04-15] MEDS ORDERED: PIPERACILLIN/TAZOB 2.25 GM 2.25 GM/50 ML BAG IVPB ONE ×3 (04:25→15:12)
[2020-04-15] MEDS ORDERED: LEVOTHYROXINE NA 25 MCG TABLET (FP) ONE (07:56)
[2020-04-15] MEDS: LEVOTHYROXINE NA 25 MCG TABLET (FP) PEG SCH (08:00)
[2020-04-15 08:02] LABS: BASO % 0.2 % (0-2.0); HEMATOCRIT 30.6 % (32.4-45.2); HEMOGLOBIN 9.2 GM/dL (10.7-15.3); LYMPH % 3.7 % (8-40); MCH 27.7 pg (25.7-33.7); MCHC 30.1 g/dl (32.0-36.0); MEAN CELL VOLUME 92.3 fl (80-96); MONO % 1.9 % (3.8-10.2); NEUT % 94.2 % (42.8-82.8); PLATELET COUNT 69 K/MM3 (134-434); RBC 3.32 M/mm3 (3.60-5.2); RDW 20.9 % (11.6-15.6); WHITE BLOOD COUNT 23.2 K/mm3 (4.0-10.0)
[2020-04-15] MEDS ORDERED: PT OWN MED DRAWER 7, Y5N ONE (08:33)
[2020-04-15 08:37] LABS: ALBUMIN 1.3 g/dl (3.4-5.0); BLOOD UREA NITROGEN 38.3 mg/dL (7-18)
[2020-04-15 08:38] LABS: BILIRUBIN,TOTAL 0.4 mg/dL (0.2-1); TOT PROT 5.9 g/dl (6.4-8.2)
[2020-04-15 08:41] LABS: CALCIUM 8.2 mg/dL (8.5-10.1); MAGNESIUM 1.9 mg/dL (1.8-2.4); PHOSPHOROUS 2.2 mg/dL (2.5-4.9)
[2020-04-15] MEDS ORDERED: SODIUM CHLORIDE 500 ML IV STA ×2 (08:49→18:01)
[2020-04-15] MEDS: SODIUM CHLORIDE 1,000 ML IV SCH (09:49)
[2020-04-15] MEDS ORDERED: APIXABAN 2.5 MG TABLET ONE (09:53)
[2020-04-15] MEDS ORDERED: VANCOMYCIN 1 GRAM (PRE-DOCKED) 1,000 MG/250 ML BAG IVPB ONE ×2 (09:53→10:00)
[2020-04-15] MEDS ORDERED: POTASSIUM CHLORIDE ORAL LIQUID 20 MEQ/15 ML ONE ×2 (09:53→22:59)
[2020-04-15 10:00] LABS: ANISOCYTOSIS 2+; MACROCYTOSIS 1+; PLATELET ESTIMATE DECREASED
[2020-04-15] MEDS ORDERED: APIXABAN 2.5 MG TABLET PEG SCH (10:00)
[2020-04-15] MEDS ORDERED: COLLAGENASE CLOSTRIDIUM HIST. 30 GRAMS TUBE TP SCH ×2 (10:00)
[2020-04-15] MEDS ORDERED: POTASSIUM CHLORIDE TABS 10 MEQ TABLET.ER (FP) PO SCH (10:00)
[2020-04-15] MEDS ORDERED: levETIRAcetam 500 MG TABLET (FP) PO SCH (10:00)
[2020-04-15] MEDS ORDERED: PATIENT'S OWN MEDICATION (NON-FORMULARY) (Multivitamin [Multivitamin] 1 EACH Tablet) PEG SCH (10:00)
[2020-04-15] MEDS: levETIRAcetam 500 MG/5 ML ORAL SOLUTION (UNIT-DOSE CUPS) PEG SCH ×2 (10:13→23:47)
[2020-04-15] MEDS: MULTIVIT-MINERALS ORAL LIQUID PEG SCH (10:13)
[2020-04-15] MEDS: SIMETHICONE 40 MG/0.6 ML BOTTLE PEG SCH ×2 (10:13→23:47)
[2020-04-15] MEDS: POTASSIUM CHLORIDE ORAL LIQUID 20 MEQ/15 ML PEG SCH ×2 (10:14→23:47)
[2020-04-15] MEDS: FAMOTIDINE 40 MG/5 ML ORAL SUSPENSION NGT SCH ×2 (10:14→23:47)
[2020-04-15] MEDS: COLLAGENASE CLOSTRIDIUM HIST. 30 GRAMS TUBE TP SCH (10:48)
[2020-04-15] MEDS ORDERED: NAPH,MB-DB/K PH,MBDB POWDER PACKET PO ONE (11:02)
[2020-04-15] MEDS ORDERED: NAPH,MB-DB/K PH,MBDB POWDER PACKET ONE (11:41)
[2020-04-15] MEDS ORDERED: ACETAMINOPHEN 325 MG TABLET (FP) ONE (13:26)
[2020-04-15] MEDS: ACETAMINOPHEN 650 MG/20.3 ML ORAL SOLUTION (CUPS) PO PRN (13:32)
[2020-04-15] MEDS ORDERED: ACETAMINOPHEN INJECTION 100 ML IVPB ONE (14:24)
[2020-04-15] MEDS ORDERED: ACETAMINOPHEN 1000 MG/100 ML BAG IVPB ONE (14:30)
[2020-04-16] MEDS ORDERED: LEVOTHYROXINE NA 25 MCG TABLET (FP) ONE (07:34)
[2020-04-16] MEDS: LEVOTHYROXINE NA 25 MCG TABLET (FP) PEG SCH (07:43)
[2020-04-16 08:33] LABS: ALBUMIN 1.2 g/dl (3.4-5.0); BLOOD UREA NITROGEN 31.4 mg/dL (7-18); CALCIUM 7.8 mg/dL (8.5-10.1); MAGNESIUM 1.8 mg/dL (1.8-2.4)
[2020-04-16 08:36] LABS: CREATININE 0.9 mg/dL (0.55-1.3); PHOSPHOROUS 2.6 mg/dL (2.5-4.9)
[2020-04-16 08:38] LABS: BILIRUBIN,TOTAL 0.4 mg/dL (0.2-1); TOT PROT 5.2 g/dl (6.4-8.2)
[2020-04-16 08:55] LABS: BASO % 0.2 % (0-2.0); HEMATOCRIT 27.5 % (32.4-45.2); HEMOGLOBIN 8.3 GM/dL (10.7-15.3); MCH 27.3 pg (25.7-33.7); MCHC 30.1 g/dl (32.0-36.0); MEAN CELL VOLUME 90.8 fl (80-96); MEAN PLT VOLUME 11.4 fl (7.5-11.1); MONO % 5.8 % (3.8-10.2); PLATELET COUNT 51 K/MM3 (134-434); RBC 3.03 M/mm3 (3.60-5.2); RDW 21.5 % (11.6-15.6); WHITE BLOOD COUNT 10.2 K/mm3 (4.0-10.0)
[2020-04-16] MEDS: SODIUM CHLORIDE 1,000 ML IV SCH (08:56)
[2020-04-16] MEDS: COLLAGENASE CLOSTRIDIUM HIST. 30 GRAMS TUBE TP SCH (10:01)
[2020-04-16 10:17] LABS: ANISOCYTOSIS 1+; MACROCYTOSIS 1+; PLATELET ESTIMATE DECREASED
[2020-04-16] MEDS: FAMOTIDINE 40 MG/5 ML ORAL SUSPENSION NGT SCH ×2 (10:39→23:53)
[2020-04-16] MEDS: SIMETHICONE 40 MG/0.6 ML BOTTLE PEG SCH ×2 (10:39→23:53)
[2020-04-16] MEDS: levETIRAcetam 500 MG/5 ML ORAL SOLUTION (UNIT-DOSE CUPS) PEG SCH ×2 (10:39→23:49)
[2020-04-16] MEDS: MULTIVIT-MINERALS ORAL LIQUID PEG SCH (10:39)
[2020-04-16] MEDS: POTASSIUM CHLORIDE ORAL LIQUID 20 MEQ/15 ML PEG SCH ×2 (10:40→23:49)
[2020-04-16] MEDS ORDERED: POTASSIUM CHLORIDE ORAL LIQUID 20 MEQ/15 ML ONE (10:44)
[2020-04-17] MEDS: LEVOTHYROXINE NA 25 MCG TABLET (FP) PEG SCH (06:03)
[2020-04-17] MEDS ORDERED: cefTAZidime PENTAHYDRATE 1 GM/50ML PRE-DOCKED (RESTRICTED TO ID) IVPB SCH (10:45)
[2020-04-17] MEDS ORDERED: PT OWN MED DRAWER 7, Y5N ONE ×2 (11:04→22:00)
[2020-04-17] MEDS: MULTIVIT-MINERALS ORAL LIQUID PEG SCH (11:07)
[2020-04-17] MEDS: FAMOTIDINE 40 MG/5 ML ORAL SUSPENSION NGT SCH ×2 (11:08→22:07)
[2020-04-17] MEDS: SIMETHICONE 40 MG/0.6 ML BOTTLE PEG SCH ×2 (11:08→22:07)
[2020-04-17] MEDS: levETIRAcetam 500 MG/5 ML ORAL SOLUTION (UNIT-DOSE CUPS) PEG SCH ×2 (11:08→22:06)
[2020-04-17 12:01] LABS: BASO % 0.9 % (0-2.0); EOS % 0.1 % (0-4.5); HEMATOCRIT 31.9 % (32.4-45.2); HEMOGLOBIN 9.3 GM/dL (10.7-15.3); LYMPH % 15.5 % (8-40); MCH 27.4 pg (25.7-33.7); MCHC 29.3 g/dl (32.0-36.0); MEAN CELL VOLUME 93.6 fl (80-96); MEAN PLT VOLUME 11.5 fl (7.5-11.1); MONO % 7.8 % (3.8-10.2); NEUT % 75.7 % (42.8-82.8); PLATELET COUNT 51 K/MM3 (134-434); RDW 22.6 % (11.6-15.6); WHITE BLOOD COUNT 11.3 K/mm3 (4.0-10.0)
[2020-04-17] MEDS ORDERED: SODIUM CHLORIDE 250 ML IV PRN (13:10)
[2020-04-17] MEDS ORDERED: ALBUTEROL SO4 2.5/IPRATROPIUM 0.5 INH SOL 3 ML VIAL.NEB. NEB PRN (13:16)
[2020-04-17] MEDS ORDERED: EPOETIN ALFA-EPBX 4,000 UNIT/ML VIAL IVPUSH ONE (13:30)
[2020-04-17 13:40] LABS: ANISOCYTOSIS 1+; MACROCYTOSIS 0; OVALOCYTE 1+; PLATELET ESTIMATE DECREASED
[2020-04-17 15:10] VITALS: BMI 25.5
[2020-04-17] MEDS: CEFTAZIDIME PENTAHYDRATE 1 GM in DEXTROSE 5%-WATER - 50 ML IVPB SCH ×2 (17:06→17:20)
[2020-04-17] MEDS ORDERED: cefTAZidime PENTAHYDRATE 1 GM VIAL (RESTRICTED TO ID) ONE (17:08)
[2020-04-17] MEDS ORDERED: DEXTROSE 5%-WATER - 50 ML IVPB ONE (17:09)
[2020-04-17] MEDS: COLLAGENASE CLOSTRIDIUM HIST. 30 GRAMS TUBE TP SCH (17:21)
[2020-04-17] MEDS: POTASSIUM CHLORIDE ORAL LIQUID 20 MEQ/15 ML PEG SCH ×2 (17:37→22:08)
[2020-04-17] MEDS: NYSTATIN POWDER 100,000 UNITS/GM - 15 GM TOPICAL POWDER TP SCH (22:05)
[2020-04-18] MEDS ORDERED: DEXTROSE 5%-WATER - 50 ML IVPB ONE ×3 (00:52→17:05)
[2020-04-18] MEDS ORDERED: cefTAZidime PENTAHYDRATE 1 GM VIAL (RESTRICTED TO ID) ONE ×3 (00:52→17:05)
[2020-04-18] MEDS: CEFTAZIDIME PENTAHYDRATE 1 GM in DEXTROSE 5%-WATER - 50 ML IVPB SCH ×3 (01:15→17:09)
[2020-04-18] MEDS: LEVOTHYROXINE NA 25 MCG TABLET (FP) PEG SCH (06:03)
[2020-04-18] MEDS ORDERED: SODIUM CHLORIDE 250 ML IV PRN (07:35)
[2020-04-18 09:11] LABS: CALCIUM 8.2 mg/dL (8.5-10.1)
[2020-04-18 09:12] LABS: ALBUMIN 1.3 g/dl (3.4-5.0); BLOOD UREA NITROGEN 16.4 mg/dL (7-18)
[2020-04-18 09:15] LABS: CREATININE 0.7 mg/dL (0.55-1.3)
[2020-04-18 09:17] LABS: BILIRUBIN,TOTAL 0.2 mg/dL (0.2-1); TOT PROT 5.5 g/dl (6.4-8.2)
[2020-04-18 09:18] LABS: MAGNESIUM 1.6 mg/dL (1.8-2.4)
[2020-04-18 09:26] LABS: PHOSPHOROUS 1.7 mg/dL (2.5-4.9)
[2020-04-18 09:55] LABS: BASO % 0.3 % (0-2.0); HEMOGLOBIN 8.4 GM/dL (10.7-15.3); LYMPH % 21.5 % (8-40); MCH 27.2 pg (25.7-33.7); MCHC 29.9 g/dl (32.0-36.0); MEAN CELL VOLUME 91.1 fl (80-96); MEAN PLT VOLUME 11.1 fl (7.5-11.1); MONO % 11.6 % (3.8-10.2); NEUT % 66.6 % (42.8-82.8); PLATELET COUNT 52 K/MM3 (134-434); RBC 3.07 M/mm3 (3.60-5.2); WHITE BLOOD COUNT 9.3 K/mm3 (4.0-10.0)
[2020-04-18] MEDS ORDERED: PT OWN MED DRAWER 7, Y5N ONE ×3 (10:29→21:58)
[2020-04-18] MEDS: AMINO ACIDS/PROTEIN HYDROLYS 30 ML LIQUID.PKT PO SCH (10:31)
[2020-04-18] MEDS: POTASSIUM CHLORIDE ORAL LIQUID 20 MEQ/15 ML PEG SCH ×2 (10:31→22:00)
[2020-04-18] MEDS: MULTIVIT-MINERALS ORAL LIQUID PEG SCH (10:32)
[2020-04-18] MEDS: levETIRAcetam 500 MG/5 ML ORAL SOLUTION (UNIT-DOSE CUPS) PEG SCH ×2 (10:32→22:00)
[2020-04-18] MEDS: COLLAGENASE CLOSTRIDIUM HIST. 30 GRAMS TUBE TP SCH (10:33)
[2020-04-18] MEDS: SIMETHICONE 40 MG/0.6 ML BOTTLE PEG SCH ×2 (10:33→22:01)
[2020-04-18] MEDS: FAMOTIDINE 40 MG/5 ML ORAL SUSPENSION NGT SCH ×2 (10:33→22:01)
[2020-04-18] MEDS: NYSTATIN POWDER 100,000 UNITS/GM - 15 GM TOPICAL POWDER TP SCH ×2 (10:33→22:02)
[2020-04-18 10:50] LABS: ANISOCYTOSIS 2+; MACROCYTOSIS 1+; OVALOCYTE 1+; PLATELET ESTIMATE DECREASED
[2020-04-18] MEDS ORDERED: SODIUM PHOSPHATE - 0 MM in DEXTROSE 5%-WATER - 250 ML IVPB ONE (13:16)
[2020-04-18] MEDS ORDERED: SODIUM PHOSPHATE - 15 MM in DEXTROSE 5%-WATER - 250 ML IVPB ONE (13:45)
[2020-04-18] MEDS ORDERED: MAGNESIUM 1GM/D5W - 1 GM/100 ML IVPB IVPB ONE ×2 (14:00→14:15)
[2020-04-18] MEDS ORDERED: MAGNESIUM SULF 50% (8.12 MEQ/2 ML-1 GM VIAL) IVPB ONE (14:06)
[2020-04-18] MEDS: NAPH,MB-DB/K PH,MBDB POWDER PACKET PO SCH ×2 (14:40→22:00)
[2020-04-18] MEDS ORDERED: VANCOMYCIN 500 MG in DEXTROSE 5%-WATER 100 ML IVPB ONE (15:08)
[2020-04-19] MEDS ORDERED: cefTAZidime PENTAHYDRATE 1 GM VIAL (RESTRICTED TO ID) ONE ×3 (01:04→19:16)
[2020-04-19] MEDS ORDERED: DEXTROSE 5%-WATER - 50 ML IVPB ONE ×3 (01:04→19:17)
[2020-04-19] MEDS: CEFTAZIDIME PENTAHYDRATE 1 GM in DEXTROSE 5%-WATER - 50 ML IVPB SCH ×3 (01:13→18:58)
[2020-04-19] MEDS: LEVOTHYROXINE NA 25 MCG TABLET (FP) PEG SCH (06:10)
[2020-04-19 09:08] LABS: BASO % 0.2 % (0-2.0); EOS % 0.1 % (0-4.5); HEMATOCRIT 27.8 % (32.4-45.2); HEMOGLOBIN 8.5 GM/dL (10.7-15.3); LYMPH % 14.9 % (8-40); MCH 27.4 pg (25.7-33.7); MCHC 30.5 g/dl (32.0-36.0); MEAN CELL VOLUME 89.7 fl (80-96); MEAN PLT VOLUME 11.6 fl (7.5-11.1); MONO % 10.1 % (3.8-10.2); NEUT % 74.7 % (42.8-82.8); PLATELET COUNT 60 K/MM3 (134-434); RDW 20.4 % (11.6-15.6); WHITE BLOOD COUNT 10.6 K/mm3 (4.0-10.0)
[2020-04-19 09:27] LABS: CALCIUM 8.1 mg/dL (8.5-10.1)
[2020-04-19 09:28] LABS: BLOOD UREA NITROGEN 24.1 mg/dL (7-18); MAGNESIUM 2.1 mg/dL (1.8-2.4)
[2020-04-19 09:31] LABS: CREATININE 0.7 mg/dL (0.55-1.3); PHOSPHOROUS 3.6 mg/dL (2.5-4.9)
[2020-04-19] MEDS ORDERED: EPOETIN ALFA-EPBX 4,000 UNIT/ML VIAL IVPUSH ONE (10:00)
[2020-04-19] MEDS ORDERED: PT OWN MED DRAWER 7, Y5N ONE ×2 (11:36→23:35)
[2020-04-19] MEDS: levETIRAcetam 500 MG/5 ML ORAL SOLUTION (UNIT-DOSE CUPS) PEG SCH ×2 (11:41→23:41)
[2020-04-19] MEDS: AMINO ACIDS/PROTEIN HYDROLYS 30 ML LIQUID.PKT PO SCH (11:41)
[2020-04-19] MEDS: MULTIVIT-MINERALS ORAL LIQUID PEG SCH (11:41)
[2020-04-19] MEDS: POTASSIUM CHLORIDE ORAL LIQUID 20 MEQ/15 ML PEG SCH ×2 (11:41→23:41)
[2020-04-19] MEDS: SIMETHICONE 40 MG/0.6 ML BOTTLE PEG SCH ×2 (11:42→23:42)
[2020-04-19] MEDS: NYSTATIN POWDER 100,000 UNITS/GM - 15 GM TOPICAL POWDER TP SCH ×2 (11:43→23:42)
[2020-04-19] MEDS: FAMOTIDINE 40 MG/5 ML ORAL SUSPENSION NGT SCH ×2 (11:43→23:42)
[2020-04-19] MEDS: COLLAGENASE CLOSTRIDIUM HIST. 30 GRAMS TUBE TP SCH (11:44)
[2020-04-20] MEDS ORDERED: cefTAZidime PENTAHYDRATE 1 GM VIAL (RESTRICTED TO ID) ONE ×2 (02:18→09:47)
[2020-04-20] MEDS ORDERED: DEXTROSE 5%-WATER - 50 ML IVPB ONE ×2 (02:18→09:47)
[2020-04-20] MEDS: CEFTAZIDIME PENTAHYDRATE 1 GM in DEXTROSE 5%-WATER - 50 ML IVPB SCH ×2 (02:28→09:51)
[2020-04-20] MEDS: LEVOTHYROXINE NA 25 MCG TABLET (FP) PEG SCH ×2 (06:06→06:08)
[2020-04-20] MEDS ORDERED: PT OWN MED DRAWER 7, Y5N ONE ×2 (09:47→20:28)
[2020-04-20] MEDS: levETIRAcetam 500 MG/5 ML ORAL SOLUTION (UNIT-DOSE CUPS) PEG SCH ×2 (09:51→21:07)
[2020-04-20] MEDS: AMINO ACIDS/PROTEIN HYDROLYS 30 ML LIQUID.PKT PO SCH (09:51)
[2020-04-20] MEDS: POTASSIUM CHLORIDE ORAL LIQUID 20 MEQ/15 ML PEG SCH ×2 (09:52→21:07)
[2020-04-20] MEDS: FAMOTIDINE 40 MG/5 ML ORAL SUSPENSION NGT SCH ×2 (09:53→21:08)
[2020-04-20] MEDS: SIMETHICONE 40 MG/0.6 ML BOTTLE PEG SCH ×2 (09:53→21:07)
[2020-04-20] MEDS: MULTIVIT-MINERALS ORAL LIQUID PEG SCH (09:54)
[2020-04-20] MEDS: NYSTATIN POWDER 100,000 UNITS/GM - 15 GM TOPICAL POWDER TP SCH ×2 (09:55→21:07)
[2020-04-20] MEDS: COLLAGENASE CLOSTRIDIUM HIST. 30 GRAMS TUBE TP SCH (11:25)
[2020-04-21 08:55] LABS: BASO % 0.8 % (0-2.0); EOS % 0.1 % (0-4.5); HEMATOCRIT 28.1 % (32.4-45.2); HEMOGLOBIN 8.6 GM/dL (10.7-15.3); LYMPH % 18.1 % (8-40); MCH 27.2 pg (25.7-33.7); MCHC 30.8 g/dl (32.0-36.0); MEAN CELL VOLUME 88.5 fl (80-96); MEAN PLT VOLUME 10.2 fl (7.5-11.1); MONO % 8.2 % (3.8-10.2); NEUT % 72.8 % (42.8-82.8); PLATELET COUNT 74 K/MM3 (134-434); RBC 3.18 M/mm3 (3.60-5.2); RDW 21.1 % (11.6-15.6); WHITE BLOOD COUNT 14.6 K/mm3 (4.0-10.0)
[2020-04-21] MEDS ORDERED: PT OWN MED DRAWER 7, Y5N ONE ×2 (09:12→21:23)
[2020-04-21 09:14] LABS: CALCIUM 8.7 mg/dL (8.5-10.1)
[2020-04-21 09:15] LABS: BLOOD UREA NITROGEN 26.6 mg/dL (7-18)
[2020-04-21] MEDS: levETIRAcetam 500 MG/5 ML ORAL SOLUTION (UNIT-DOSE CUPS) PEG SCH ×2 (09:17→21:38)
[2020-04-21] MEDS: POTASSIUM CHLORIDE ORAL LIQUID 20 MEQ/15 ML PEG SCH ×2 (09:17→21:38)
[2020-04-21 09:18] LABS: CREATININE 0.8 mg/dL (0.55-1.3)
[2020-04-21] MEDS: SIMETHICONE 40 MG/0.6 ML BOTTLE PEG SCH ×2 (09:18→21:37)
[2020-04-21] MEDS: FAMOTIDINE 40 MG/5 ML ORAL SUSPENSION NGT SCH ×2 (09:18→21:38)
[2020-04-21] MEDS: LEVOTHYROXINE NA 25 MCG TABLET (FP) PEG SCH (09:18)
[2020-04-21] MEDS: AMINO ACIDS/PROTEIN HYDROLYS 30 ML LIQUID.PKT PO SCH (09:18)
[2020-04-21] MEDS: MULTIVIT-MINERALS ORAL LIQUID PEG SCH (09:19)
[2020-04-21] MEDS: COLLAGENASE CLOSTRIDIUM HIST. 30 GRAMS TUBE TP SCH (09:20)
[2020-04-21] MEDS: NYSTATIN POWDER 100,000 UNITS/GM - 15 GM TOPICAL POWDER TP SCH ×2 (09:20→21:38)
[2020-04-21 11:38] LABS: ANISOCYTOSIS 1+; MACROCYTOSIS 1+; PLATELET ESTIMATE DECREASED
[2020-04-22] MEDS: LEVOTHYROXINE NA 25 MCG TABLET (FP) PEG SCH (06:14)
[2020-04-22] MEDS ORDERED: PT OWN MED DRAWER 7, Y5N ONE ×2 (08:49→20:47)
[2020-04-22 09:01] LABS: BASO % 0.3 % (0-2.0); EOS % 0.1 % (0-4.5); HEMATOCRIT 28.3 % (32.4-45.2); HEMOGLOBIN 8.7 GM/dL (10.7-15.3); LYMPH % 13.8 % (8-40); MCH 27.4 pg (25.7-33.7); MCHC 30.8 g/dl (32.0-36.0); MEAN CELL VOLUME 88.8 fl (80-96); MONO % 8.2 % (3.8-10.2); NEUT % 77.6 % (42.8-82.8); PLATELET COUNT 102 K/MM3 (134-434); RBC 3.19 M/mm3 (3.60-5.2); RDW 20.6 % (11.6-15.6); WHITE BLOOD COUNT 15.1 K/mm3 (4.0-10.0)
[2020-04-22] MEDS: SIMETHICONE 40 MG/0.6 ML BOTTLE PEG SCH ×2 (09:08→21:14)
[2020-04-22] MEDS: FAMOTIDINE 40 MG/5 ML ORAL SUSPENSION NGT SCH ×2 (09:09→21:15)
[2020-04-22] MEDS: AMINO ACIDS/PROTEIN HYDROLYS 30 ML LIQUID.PKT PO SCH (09:09)
[2020-04-22] MEDS: MULTIVIT-MINERALS ORAL LIQUID PEG SCH (09:09)
[2020-04-22] MEDS: POTASSIUM CHLORIDE ORAL LIQUID 20 MEQ/15 ML PEG SCH ×2 (09:10→21:15)
[2020-04-22] MEDS: levETIRAcetam 500 MG/5 ML ORAL SOLUTION (UNIT-DOSE CUPS) PEG SCH ×2 (09:10→21:14)
[2020-04-22 09:16] LABS: CALCIUM 9.1 mg/dL (8.5-10.1)
[2020-04-22 09:17] LABS: BLOOD UREA NITROGEN 31.7 mg/dL (7-18)
[2020-04-22 09:20] LABS: CREATININE 0.9 mg/dL (0.55-1.3)
[2020-04-22] MEDS: NYSTATIN POWDER 100,000 UNITS/GM - 15 GM TOPICAL POWDER TP SCH ×2 (10:57→21:15)
[2020-04-22] MEDS ORDERED: TIGECYCLINE 100 MG in DEXTROSE 5%-WATER - 100 ML IVPB ONE (12:00)
[2020-04-22] MEDS ORDERED: LORazepam 2 MG/ML SDV VIAL ONE (12:16)
[2020-04-22] MEDS ORDERED: LORazepam 2 MG/ML SDV VIAL IVPUSH STA (12:58)
[2020-04-22] MEDS: COLLAGENASE CLOSTRIDIUM HIST. 30 GRAMS TUBE TP SCH (13:00)
[2020-04-22] MEDS ORDERED: ALBUTEROL SO4 2.5/IPRATROPIUM 0.5 INH SOL 3 ML VIAL.NEB. NEB PRN (13:59)
[2020-04-22] MEDS ORDERED: EPOETIN ALFA-EPBX 4,000 UNIT/ML VIAL IVPUSH ONE (15:15)
[2020-04-23] MEDS: LEVOTHYROXINE NA 25 MCG TABLET (FP) PEG SCH (06:35)
[2020-04-23 09:19] LABS: BASO % 0.2 % (0-2.0); EOS % 0.1 % (0-4.5); HEMATOCRIT 28.3 % (32.4-45.2); HEMOGLOBIN 8.6 GM/dL (10.7-15.3); LYMPH % 20.3 % (8-40); MCH 27.2 pg (25.7-33.7); MCHC 30.4 g/dl (32.0-36.0); MEAN CELL VOLUME 89.4 fl (80-96); MEAN PLT VOLUME 11.3 fl (7.5-11.1); MONO % 9.3 % (3.8-10.2); NEUT % 70.1 % (42.8-82.8); PLATELET COUNT 110 K/MM3 (134-434); RBC 3.17 M/mm3 (3.60-5.2); RDW 20.5 % (11.6-15.6); WHITE BLOOD COUNT 13.7 K/mm3 (4.0-10.0)
[2020-04-23 09:38] LABS: ALBUMIN 1.4 g/dl (3.4-5.0)
[2020-04-23 09:39] LABS: BLOOD UREA NITROGEN 47.6 mg/dL (7-18); CALCIUM 8.9 mg/dL (8.5-10.1); MAGNESIUM 2.1 mg/dL (1.8-2.4)
[2020-04-23 09:41] LABS: PHOSPHOROUS 3.9 mg/dL (2.5-4.9)
[2020-04-23 09:42] LABS: CREATININE 0.8 mg/dL (0.55-1.3)
[2020-04-23 09:43] LABS: BILIRUBIN,TOTAL 0.2 mg/dL (0.2-1); TOT PROT 5.9 g/dl (6.4-8.2)
[2020-04-23] MEDS: AMINO ACIDS/PROTEIN HYDROLYS 30 ML LIQUID.PKT PO SCH (12:01)
[2020-04-23] MEDS: levETIRAcetam 500 MG/5 ML ORAL SOLUTION (UNIT-DOSE CUPS) PEG SCH ×2 (12:01→21:13)
[2020-04-23] MEDS: TIGECYCLINE 50 MG in DEXTROSE 5%-WATER 100 ML IVPB SCH ×2 (12:02→21:14)
[2020-04-23] MEDS: SIMETHICONE 40 MG/0.6 ML BOTTLE PEG SCH ×2 (12:03→21:13)
[2020-04-23] MEDS: FAMOTIDINE 40 MG/5 ML ORAL SUSPENSION NGT SCH ×2 (12:03→21:13)
[2020-04-23] MEDS: MULTIVIT-MINERALS ORAL LIQUID PEG SCH (12:04)
[2020-04-23] MEDS: POTASSIUM CHLORIDE ORAL LIQUID 20 MEQ/15 ML PEG SCH (12:04)
[2020-04-23] MEDS: NYSTATIN POWDER 100,000 UNITS/GM - 15 GM TOPICAL POWDER TP SCH ×2 (16:00→21:14)
[2020-04-23] MEDS: COLLAGENASE CLOSTRIDIUM HIST. 30 GRAMS TUBE TP SCH (16:00)
[2020-04-23] MEDS ORDERED: PT OWN MED DRAWER 7, Y5N ONE (21:06)
[2020-04-24] MEDS: LEVOTHYROXINE NA 25 MCG TABLET (FP) PEG SCH (06:13)
[2020-04-24] MEDS ORDERED: PT OWN MED DRAWER 7, Y5N ONE ×2 (09:54→23:31)
[2020-04-24] MEDS: TIGECYCLINE 50 MG in DEXTROSE 5%-WATER 100 ML IVPB SCH ×2 (10:03→23:34)
[2020-04-24] MEDS: POTASSIUM CHLORIDE ORAL LIQUID 20 MEQ/15 ML PEG SCH (10:04)
[2020-04-24] MEDS: AMINO ACIDS/PROTEIN HYDROLYS 30 ML LIQUID.PKT PO SCH (10:04)
[2020-04-24] MEDS: SIMETHICONE 40 MG/0.6 ML BOTTLE PEG SCH ×2 (10:04→23:33)
[2020-04-24] MEDS: levETIRAcetam 500 MG/5 ML ORAL SOLUTION (UNIT-DOSE CUPS) PEG SCH ×2 (10:04→23:33)
[2020-04-24] MEDS: FAMOTIDINE 40 MG/5 ML ORAL SUSPENSION NGT SCH ×2 (10:04→23:33)
[2020-04-24] MEDS: NYSTATIN POWDER 100,000 UNITS/GM - 15 GM TOPICAL POWDER TP SCH ×2 (10:05→23:33)
[2020-04-24 10:20] LABS: BASO % 0.4 % (0-2.0); EOS % 0.1 % (0-4.5); HEMATOCRIT 28.8 % (32.4-45.2); HEMOGLOBIN 8.9 GM/dL (10.7-15.3); LYMPH % 16.2 % (8-40); MCH 27.3 pg (25.7-33.7); MEAN PLT VOLUME 10.8 fl (7.5-11.1); MONO % 9.2 % (3.8-10.2); NEUT % 74.1 % (42.8-82.8); PLATELET COUNT 108 K/MM3 (134-434); RBC 3.27 M/mm3 (3.60-5.2); RDW 19.9 % (11.6-15.6); WHITE BLOOD COUNT 14.1 K/mm3 (4.0-10.0)
[2020-04-24 11:18] LABS: BLOOD UREA NITROGEN 43.4 mg/dL (7-18); CALCIUM 8.4 mg/dL (8.5-10.1)
[2020-04-24 11:21] LABS: CREATININE 0.7 mg/dL (0.55-1.3)
[2020-04-24 11:22] LABS: ALBUMIN 1.3 g/dl (3.4-5.0); PHOSPHOROUS 3.3 mg/dL (2.5-4.9)
[2020-04-24 11:23] LABS: TOT PROT 5.7 g/dl (6.4-8.2)
[2020-04-24 11:27] LABS: BILIRUBIN,TOTAL 0.2 mg/dL (0.2-1); MAGNESIUM 1.9 mg/dL (1.8-2.4)
[2020-04-24] MEDS: COLLAGENASE CLOSTRIDIUM HIST. 30 GRAMS TUBE TP SCH (13:19)
[2020-04-24] MEDS: MULTIVIT-MINERALS ORAL LIQUID PEG SCH (13:19)
[2020-04-24] MEDS ORDERED: SODIUM CHLORIDE 250 ML IV PRN (15:10)
[2020-04-25] MEDS: LEVOTHYROXINE NA 25 MCG TABLET (FP) PEG SCH (06:09)
[2020-04-25 09:09] LABS: ALBUMIN 1.3 g/dl (3.4-5.0); CALCIUM 8.7 mg/dL (8.5-10.1)
[2020-04-25 09:10] LABS: BLOOD UREA NITROGEN 57.7 mg/dL (7-18); MAGNESIUM 2.2 mg/dL (1.8-2.4)
[2020-04-25 09:13] LABS: CREATININE 0.8 mg/dL (0.55-1.3); PHOSPHOROUS 3.7 mg/dL (2.5-4.9)
[2020-04-25 09:14] LABS: BILIRUBIN,TOTAL 0.2 mg/dL (0.2-1); TOT PROT 5.8 g/dl (6.4-8.2)
[2020-04-25 09:16] LABS: BASO % 0.3 % (0-2.0); EOS % 0.1 % (0-4.5); HEMOGLOBIN 9.4 GM/dL (10.7-15.3); LYMPH % 14.4 % (8-40); MCH 27.1 pg (25.7-33.7); MCHC 30.3 g/dl (32.0-36.0); MEAN CELL VOLUME 89.2 fl (80-96); MEAN PLT VOLUME 11.3 fl (7.5-11.1); MONO % 8.2 % (3.8-10.2); PLATELET COUNT 100 K/MM3 (134-434); RBC 3.48 M/mm3 (3.60-5.2); RDW 19.9 % (11.6-15.6); WHITE BLOOD COUNT 16.1 K/mm3 (4.0-10.0)
[2020-04-25] MEDS: NYSTATIN POWDER 100,000 UNITS/GM - 15 GM TOPICAL POWDER TP SCH ×2 (10:00→23:00)
[2020-04-25] MEDS ORDERED: EPOETIN ALFA-EPBX 4,000 UNIT/ML VIAL IVPUSH ONE (10:30)
[2020-04-25] MEDS: SIMETHICONE 40 MG/0.6 ML BOTTLE PEG SCH ×2 (11:42→22:58)
[2020-04-25] MEDS: MULTIVIT-MINERALS ORAL LIQUID PEG SCH (11:43)
[2020-04-25] MEDS: FAMOTIDINE 40 MG/5 ML ORAL SUSPENSION NGT SCH ×2 (11:43→22:59)
[2020-04-25] MEDS: levETIRAcetam 500 MG/5 ML ORAL SOLUTION (UNIT-DOSE CUPS) PEG SCH ×2 (11:53→22:58)
[2020-04-25] MEDS: AMINO ACIDS/PROTEIN HYDROLYS 30 ML LIQUID.PKT PO SCH (11:53)
[2020-04-25] MEDS: POTASSIUM CHLORIDE ORAL LIQUID 20 MEQ/15 ML PEG SCH (14:43)
[2020-04-25] MEDS: TIGECYCLINE 50 MG in DEXTROSE 5%-WATER 100 ML IVPB SCH ×2 (14:44→22:59)
[2020-04-25] MEDS: COLLAGENASE CLOSTRIDIUM HIST. 30 GRAMS TUBE TP SCH (15:00)
[2020-04-25] MEDS ORDERED: PT OWN MED DRAWER 7, Y5N ONE (22:52)
[2020-04-26] MEDS: ACETAMINOPHEN 650 MG/20.3 ML ORAL SOLUTION (CUPS) PO PRN (03:27)
[2020-04-26] MEDS: LEVOTHYROXINE NA 25 MCG TABLET (FP) PEG SCH (06:10)
[2020-04-26 09:06] LABS: BASO % 0.5 % (0-2.0); EOS % 0.1 % (0-4.5); HEMOGLOBIN 10.6 GM/dL (10.7-15.3); LYMPH % 18.7 % (8-40); MCHC 31.2 g/dl (32.0-36.0); MEAN CELL VOLUME 86.6 fl (80-96); MEAN PLT VOLUME 10.7 fl (7.5-11.1); MONO % 9.7 % (3.8-10.2); PLATELET COUNT 142 K/MM3 (134-434); RBC 3.93 M/mm3 (3.60-5.2); RDW 19.4 % (11.6-15.6); WHITE BLOOD COUNT 14.1 K/mm3 (4.0-10.0)
[2020-04-26 09:22] LABS: CALCIUM 8.7 mg/dL (8.5-10.1)
[2020-04-26 09:23] LABS: BLOOD UREA NITROGEN 44.6 mg/dL (7-18)
[2020-04-26 09:26] LABS: CREATININE 0.7 mg/dL (0.55-1.3)
[2020-04-26] MEDS: levETIRAcetam 500 MG/5 ML ORAL SOLUTION (UNIT-DOSE CUPS) PEG SCH (10:00)
[2020-04-26] MEDS ORDERED: PT OWN MED DRAWER 7, Y5N ONE ×2 (10:33→23:09)
[2020-04-26] MEDS: TIGECYCLINE 50 MG in DEXTROSE 5%-WATER 100 ML IVPB SCH (11:15)
[2020-04-26] MEDS: NYSTATIN POWDER 100,000 UNITS/GM - 15 GM TOPICAL POWDER TP SCH (11:16)
[2020-04-26] MEDS: COLLAGENASE CLOSTRIDIUM HIST. 30 GRAMS TUBE TP SCH (15:10)
[2020-04-26] MEDS ORDERED: levETIRAcetam 500 MG/5 ML ORAL SOLUTION (UNIT-DOSE CUPS) PO ONE (15:46)
[2020-04-26] MEDS: SIMETHICONE 40 MG/0.6 ML BOTTLE PEG SCH (16:15)
[2020-04-26] MEDS: MULTIVIT-MINERALS ORAL LIQUID PEG SCH (16:15)
[2020-04-26] MEDS: POTASSIUM CHLORIDE ORAL LIQUID 20 MEQ/15 ML PEG SCH (16:15)
[2020-04-26] MEDS: FAMOTIDINE 40 MG/5 ML ORAL SUSPENSION NGT SCH (16:15)
[2020-04-26] MEDS: AMINO ACIDS/PROTEIN HYDROLYS 30 ML LIQUID.PKT PO SCH (16:20)
[2020-04-26] MEDS: SILVER SULFADIAZINE 1% TOP CREAM 50 GM JAR TP SCH (18:19)
[2020-04-26] MEDS ORDERED: levETIRAcetam 500 MG/5 ML INJECTION VIAL IVPB SCH (22:00)
[2020-04-27] MEDS: APIXABAN 2.5 MG TABLET PO SCH ×3 (00:09→22:00)
[2020-04-27] MEDS: TIGECYCLINE 50 MG in DEXTROSE 5%-WATER 100 ML IVPB SCH ×3 (00:09→22:01)
[2020-04-27] MEDS: FAMOTIDINE 40 MG/5 ML ORAL SUSPENSION NGT SCH ×3 (00:10→22:00)
[2020-04-27] MEDS: SIMETHICONE 40 MG/0.6 ML BOTTLE PEG SCH ×3 (00:10→22:00)
[2020-04-27] MEDS: NYSTATIN POWDER 100,000 UNITS/GM - 15 GM TOPICAL POWDER TP SCH ×3 (00:10→22:01)
[2020-04-27] MEDS: levETIRAcetam 500 MG/5 ML ORAL SOLUTION (UNIT-DOSE CUPS) PO SCH ×3 (00:11→22:00)
[2020-04-27] MEDS: LEVOTHYROXINE NA 25 MCG TABLET (FP) PEG SCH (07:05)
[2020-04-27] MEDS ORDERED: SODIUM CHLORIDE 250 ML IV PRN (08:00)
[2020-04-27] MEDS ORDERED: EPOETIN ALFA-EPBX 4,000 UNIT/ML VIAL IVPUSH ONE (08:00)
[2020-04-27 09:09] LABS: BASO % 0.2 % (0-2.0); HEMATOCRIT 33.2 % (32.4-45.2); HEMOGLOBIN 10.5 GM/dL (10.7-15.3); MCH 27.2 pg (25.7-33.7); MCHC 31.5 g/dl (32.0-36.0); MEAN CELL VOLUME 86.4 fl (80-96); MEAN PLT VOLUME 10.5 fl (7.5-11.1); MONO % 6.8 % (3.8-10.2); PLATELET COUNT 159 K/MM3 (134-434); RBC 3.84 M/mm3 (3.60-5.2); RDW 19.6 % (11.6-15.6); WHITE BLOOD COUNT 18.1 K/mm3 (4.0-10.0)
[2020-04-27 09:39] LABS: CALCIUM 8.6 mg/dL (8.5-10.1)
[2020-04-27 09:40] LABS: ALBUMIN 1.5 g/dl (3.4-5.0); BLOOD UREA NITROGEN 64.7 mg/dL (7-18); MAGNESIUM 2.4 mg/dL (1.8-2.4)
[2020-04-27 09:43] LABS: CREATININE 0.9 mg/dL (0.55-1.3); PHOSPHOROUS 3.6 mg/dL (2.5-4.9)
[2020-04-27 09:44] LABS: BILIRUBIN,TOTAL 0.4 mg/dL (0.2-1)
[2020-04-27 09:45] LABS: TOT PROT 6.6 g/dl (6.4-8.2)
[2020-04-27] MEDS ORDERED: LEVOTHYROXINE SODIUM 100 MCG VIAL IM SCH (10:00)
[2020-04-27] MEDS ORDERED: PT OWN MED DRAWER 7, Y5N ONE ×2 (11:14→21:43)
[2020-04-27] MEDS: POTASSIUM CHLORIDE ORAL LIQUID 20 MEQ/15 ML PEG SCH (11:16)
[2020-04-27] MEDS: MULTIVIT-MINERALS ORAL LIQUID PEG SCH (11:17)
[2020-04-27] MEDS: AMINO ACIDS/PROTEIN HYDROLYS 30 ML LIQUID.PKT PO SCH (11:17)
[2020-04-27] MEDS: SILVER SULFADIAZINE 1% TOP CREAM 50 GM JAR TP SCH (11:18)
[2020-04-27] MEDS: COLLAGENASE CLOSTRIDIUM HIST. 30 GRAMS TUBE TP SCH (12:59)
[2020-04-28] MEDS: LEVOTHYROXINE NA 25 MCG TABLET (FP) PEG SCH (06:20)
[2020-04-28 08:35] LABS: BASO % 0.4 % (0-2.0); HEMOGLOBIN 9.9 GM/dL (10.7-15.3); LYMPH % 9.4 % (8-40); MCH 27.2 pg (25.7-33.7); MCHC 31.1 g/dl (32.0-36.0); MEAN CELL VOLUME 87.4 fl (80-96); MEAN PLT VOLUME 10.8 fl (7.5-11.1); MONO % 9.5 % (3.8-10.2); NEUT % 80.7 % (42.8-82.8); PLATELET COUNT 128 K/MM3 (134-434); RBC 3.66 M/mm3 (3.60-5.2); RDW 19.4 % (11.6-15.6); WHITE BLOOD COUNT 15.9 K/mm3 (4.0-10.0)
[2020-04-28] MEDS ORDERED: PT OWN MED DRAWER 7, Y5N ONE ×2 (11:26→21:37)
[2020-04-28] MEDS: TIGECYCLINE 50 MG in DEXTROSE 5%-WATER 100 ML IVPB SCH ×2 (11:47→21:44)
[2020-04-28] MEDS: MULTIVIT-MINERALS ORAL LIQUID PEG SCH (11:48)
[2020-04-28] MEDS: AMINO ACIDS/PROTEIN HYDROLYS 30 ML LIQUID.PKT PO SCH (11:48)
[2020-04-28] MEDS: levETIRAcetam 500 MG/5 ML ORAL SOLUTION (UNIT-DOSE CUPS) PO SCH ×2 (11:48→21:43)
[2020-04-28] MEDS: POTASSIUM CHLORIDE ORAL LIQUID 20 MEQ/15 ML PEG SCH (11:48)
[2020-04-28] MEDS: SIMETHICONE 40 MG/0.6 ML BOTTLE PEG SCH ×2 (11:49→21:44)
[2020-04-28] MEDS: APIXABAN 2.5 MG TABLET PO SCH ×2 (11:49→21:44)
[2020-04-28] MEDS: FAMOTIDINE 40 MG/5 ML ORAL SUSPENSION NGT SCH ×2 (11:49→21:44)
[2020-04-28] MEDS: SILVER SULFADIAZINE 1% TOP CREAM 50 GM JAR TP SCH (11:50)
[2020-04-28] MEDS: ACETAMINOPHEN 650 MG/20.3 ML ORAL SOLUTION (CUPS) PO PRN (12:05)
[2020-04-28] MEDS: NYSTATIN POWDER 100,000 UNITS/GM - 15 GM TOPICAL POWDER TP SCH ×2 (13:23→21:44)
[2020-04-28] MEDS: COLLAGENASE CLOSTRIDIUM HIST. 30 GRAMS TUBE TP SCH (13:24)
[2020-04-28] MEDS ORDERED: INSULIN (NOVOLOG) ASPART 100 UNITS/ML 10ML VIAL ONE (16:02)
[2020-04-28] MEDS: amLODIPine BESYLATE 5 MG TABLET (FP) PO SCH (16:06)
[2020-04-29] MEDS: LEVOTHYROXINE NA 25 MCG TABLET (FP) PEG SCH (06:15)
[2020-04-29 09:08] LABS: BASO % 1.3 % (0-2.0); EOS % 0.3 % (0-4.5); HEMATOCRIT 31.9 % (32.4-45.2); HEMOGLOBIN 9.9 GM/dL (10.7-15.3); LYMPH % 14.5 % (8-40); MCH 26.8 pg (25.7-33.7); MCHC 31.1 g/dl (32.0-36.0); MEAN CELL VOLUME 86.2 fl (80-96); MONO % 9.5 % (3.8-10.2); NEUT % 74.4 % (42.8-82.8); PLATELET COUNT 144 K/MM3 (134-434); RDW 19.2 % (11.6-15.6); WHITE BLOOD COUNT 15.5 K/mm3 (4.0-10.0)
[2020-04-29 09:35] LABS: CALCIUM 7.7 mg/dL (8.5-10.1)
[2020-04-29 09:36] LABS: ALBUMIN 1.4 g/dl (3.4-5.0); BLOOD UREA NITROGEN 71.9 mg/dL (7-18)
[2020-04-29 09:39] LABS: CREATININE 0.9 mg/dL (0.55-1.3)
[2020-04-29 09:43] LABS: BILIRUBIN,TOTAL 0.4 mg/dL (0.2-1)
[2020-04-29] MEDS ORDERED: PT OWN MED DRAWER 7, Y5N ONE ×2 (11:00→22:37)
[2020-04-29] MEDS: TIGECYCLINE 50 MG in DEXTROSE 5%-WATER 100 ML IVPB SCH ×2 (11:07→22:40)
[2020-04-29] MEDS: POTASSIUM CHLORIDE ORAL LIQUID 20 MEQ/15 ML PEG SCH (11:07)
[2020-04-29] MEDS: levETIRAcetam 500 MG/5 ML ORAL SOLUTION (UNIT-DOSE CUPS) PO SCH ×2 (11:07→22:39)
[2020-04-29] MEDS: AMINO ACIDS/PROTEIN HYDROLYS 30 ML LIQUID.PKT PO SCH (11:07)
[2020-04-29] MEDS: FAMOTIDINE 40 MG/5 ML ORAL SUSPENSION NGT SCH ×2 (11:08→22:40)
[2020-04-29] MEDS: APIXABAN 2.5 MG TABLET PO SCH ×2 (11:08→22:39)
[2020-04-29] MEDS: amLODIPine BESYLATE 5 MG TABLET (FP) PO SCH (11:08)
[2020-04-29] MEDS: MULTIVIT-MINERALS ORAL LIQUID PEG SCH (11:08)
[2020-04-29] MEDS: SIMETHICONE 40 MG/0.6 ML BOTTLE PEG SCH ×2 (11:09→22:40)
[2020-04-29] MEDS: ACETAMINOPHEN 650 MG/20.3 ML ORAL SOLUTION (CUPS) PO PRN (16:58)
[2020-04-29] MEDS: COLLAGENASE CLOSTRIDIUM HIST. 30 GRAMS TUBE TP SCH (17:11)
[2020-04-29] MEDS: NYSTATIN POWDER 100,000 UNITS/GM - 15 GM TOPICAL POWDER TP SCH ×2 (17:11→22:41)
[2020-04-29] MEDS: SILVER SULFADIAZINE 1% TOP CREAM 50 GM JAR TP SCH (17:12)
[2020-04-30] MEDS: LEVOTHYROXINE NA 25 MCG TABLET (FP) PEG SCH (06:02)
[2020-04-30] MEDS ORDERED: SODIUM CHLORIDE 250 ML IV PRN (10:48)
[2020-04-30 11:04] LABS: BASO % 0.7 % (0-2.0); EOS % 0.3 % (0-4.5); HEMATOCRIT 33.9 % (32.4-45.2); HEMOGLOBIN 10.4 GM/dL (10.7-15.3); LYMPH % 16.7 % (8-40); MCH 26.8 pg (25.7-33.7); MCHC 30.7 g/dl (32.0-36.0); MEAN CELL VOLUME 87.1 fl (80-96); MEAN PLT VOLUME 10.7 fl (7.5-11.1); MONO % 10.8 % (3.8-10.2); NEUT % 71.5 % (42.8-82.8); PLATELET COUNT 164 K/MM3 (134-434); RBC 3.89 M/mm3 (3.60-5.2); RDW 19.3 % (11.6-15.6)
[2020-04-30] MEDS ORDERED: PT OWN MED DRAWER 7, Y5N ONE ×2 (11:16→21:21)
[2020-04-30] MEDS: AMINO ACIDS/PROTEIN HYDROLYS 30 ML LIQUID.PKT PO SCH (11:18)
[2020-04-30] MEDS: POTASSIUM CHLORIDE ORAL LIQUID 20 MEQ/15 ML PEG SCH (11:18)
[2020-04-30] MEDS: TIGECYCLINE 50 MG in DEXTROSE 5%-WATER 100 ML IVPB SCH ×2 (11:18→21:25)
[2020-04-30] MEDS: MULTIVIT-MINERALS ORAL LIQUID PEG SCH (11:19)
[2020-04-30] MEDS: COLLAGENASE CLOSTRIDIUM HIST. 30 GRAMS TUBE TP SCH (11:19)
[2020-04-30] MEDS: SILVER SULFADIAZINE 1% TOP CREAM 50 GM JAR TP SCH (11:19)
[2020-04-30] MEDS: APIXABAN 2.5 MG TABLET PO SCH ×2 (11:19→21:25)
[2020-04-30] MEDS: levETIRAcetam 500 MG/5 ML ORAL SOLUTION (UNIT-DOSE CUPS) PO SCH ×2 (11:19→21:25)
[2020-04-30] MEDS: amLODIPine BESYLATE 5 MG TABLET (FP) PO SCH (11:19)
[2020-04-30] MEDS: SIMETHICONE 40 MG/0.6 ML BOTTLE PEG SCH ×2 (11:20→22:08)
[2020-04-30] MEDS: NYSTATIN POWDER 100,000 UNITS/GM - 15 GM TOPICAL POWDER TP SCH ×2 (11:20→21:25)
[2020-04-30] MEDS: FAMOTIDINE 40 MG/5 ML ORAL SUSPENSION NGT SCH ×2 (11:21→22:09)
[2020-04-30 11:26] LABS: BLOOD UREA NITROGEN 82.8 mg/dL (7-18); CALCIUM 8.7 mg/dL (8.5-10.1)
[2020-05-01] MEDS: LEVOTHYROXINE NA 25 MCG TABLET (FP) PEG SCH (06:13)
[2020-05-01 09:23] LABS: BASO % 0.4 % (0-2.0); EOS % 0.3 % (0-4.5); HEMATOCRIT 35.2 % (32.4-45.2); LYMPH % 20.6 % (8-40); MCH 27.2 pg (25.7-33.7); MCHC 31.3 g/dl (32.0-36.0); MEAN CELL VOLUME 86.9 fl (80-96); MEAN PLT VOLUME 11.4 fl (7.5-11.1); MONO % 10.4 % (3.8-10.2); NEUT % 68.3 % (42.8-82.8); PLATELET COUNT 168 K/MM3 (134-434); RBC 4.05 M/mm3 (3.60-5.2); WHITE BLOOD COUNT 13.8 K/mm3 (4.0-10.0)
[2020-05-01 09:35] LABS: CALCIUM 8.2 mg/dL (8.5-10.1)
[2020-05-01 09:39] LABS: CREATININE 0.7 mg/dL (0.55-1.3)
[2020-05-01 09:47] LABS: BLOOD UREA NITROGEN 50.8 mg/dL (7-18)
[2020-05-01] MEDS ORDERED: PT OWN MED DRAWER 7, Y5N ONE ×2 (11:40→22:23)
[2020-05-01] MEDS: levETIRAcetam 500 MG/5 ML ORAL SOLUTION (UNIT-DOSE CUPS) PO SCH (11:44)
[2020-05-01] MEDS: amLODIPine BESYLATE 5 MG TABLET (FP) PO SCH (11:44)
[2020-05-01] MEDS: POTASSIUM CHLORIDE ORAL LIQUID 20 MEQ/15 ML PEG SCH (11:44)
[2020-05-01] MEDS: APIXABAN 2.5 MG TABLET PO SCH (11:44)
[2020-05-01] MEDS: AMINO ACIDS/PROTEIN HYDROLYS 30 ML LIQUID.PKT PO SCH (11:45)
[2020-05-01] MEDS: MULTIVIT-MINERALS ORAL LIQUID PEG SCH (11:46)
[2020-05-01] MEDS: SIMETHICONE 40 MG/0.6 ML BOTTLE PEG SCH (11:46)
[2020-05-01] MEDS: NYSTATIN POWDER 100,000 UNITS/GM - 15 GM TOPICAL POWDER TP SCH (11:46)
[2020-05-01] MEDS: FAMOTIDINE 40 MG/5 ML ORAL SUSPENSION NGT SCH (11:47)
[2020-05-01] MEDS: COLLAGENASE CLOSTRIDIUM HIST. 30 GRAMS TUBE TP SCH (11:47)
[2020-05-01] MEDS: TIGECYCLINE 50 MG in DEXTROSE 5%-WATER 100 ML IVPB SCH (11:48)
[2020-05-01] MEDS: SILVER SULFADIAZINE 1% TOP CREAM 50 GM JAR TP SCH (11:48)
[2020-05-02] MEDS: TIGECYCLINE 50 MG in DEXTROSE 5%-WATER 100 ML IVPB SCH ×3 (00:07→22:07)
[2020-05-02] MEDS ORDERED: FAMOTIDINE 20 MG/50 ML IVPB 20 MG/50 ML MG IVPB ONE (00:12)
[2020-05-02] MEDS ORDERED: levETIRAcetam 500 MG/5 ML INJECTION VIAL IVPB ONE (00:12)
[2020-05-02] MEDS: levETIRAcetam 500 MG/5 ML ORAL SOLUTION (UNIT-DOSE CUPS) PO SCH ×3 (00:22→22:05)
[2020-05-02] MEDS: SIMETHICONE 40 MG/0.6 ML BOTTLE PEG SCH ×3 (00:22→22:06)
[2020-05-02] MEDS: APIXABAN 2.5 MG TABLET PO SCH ×4 (00:22→22:05)
[2020-05-02] MEDS: NYSTATIN POWDER 100,000 UNITS/GM - 15 GM TOPICAL POWDER TP SCH ×3 (00:22→22:06)
[2020-05-02] MEDS: FAMOTIDINE 40 MG/5 ML ORAL SUSPENSION NGT SCH ×3 (00:23→22:06)
[2020-05-02] MEDS: LEVOTHYROXINE NA 25 MCG TABLET (FP) PEG SCH (06:14)
[2020-05-02] MEDS ORDERED: POTASSIUM CHLORIDE TABS 20 MEQ TABLET.ER (FP) PO ONE (09:00)
[2020-05-02 09:03] LABS: BASO % 0.4 % (0-2.0); EOS % 0.4 % (0-4.5); HEMATOCRIT 34.9 % (32.4-45.2); LYMPH % 18.8 % (8-40); MCH 26.8 pg (25.7-33.7); MCHC 31.4 g/dl (32.0-36.0); MEAN CELL VOLUME 85.4 fl (80-96); MEAN PLT VOLUME 9.9 fl (7.5-11.1); MONO % 10.4 % (3.8-10.2); PLATELET COUNT 158 K/MM3 (134-434); RBC 4.09 M/mm3 (3.60-5.2); RDW 18.8 % (11.6-15.6); WHITE BLOOD COUNT 13.4 K/mm3 (4.0-10.0)
[2020-05-02 09:32] LABS: CALCIUM 8.5 mg/dL (8.5-10.1)
[2020-05-02 09:33] LABS: BLOOD UREA NITROGEN 73.8 mg/dL (7-18)
[2020-05-02] MEDS ORDERED: PT OWN MED DRAWER 7, Y5N ONE ×2 (10:46→21:59)
[2020-05-02] MEDS: POTASSIUM CHLORIDE ORAL LIQUID 20 MEQ/15 ML PEG SCH (11:02)
[2020-05-02] MEDS: AMINO ACIDS/PROTEIN HYDROLYS 30 ML LIQUID.PKT PO SCH (11:02)
[2020-05-02] MEDS: MULTIVIT-MINERALS ORAL LIQUID PEG SCH (11:08)
[2020-05-02] MEDS: amLODIPine BESYLATE 5 MG TABLET (FP) PO SCH (17:02)
[2020-05-02] MEDS: COLLAGENASE CLOSTRIDIUM HIST. 30 GRAMS TUBE TP SCH (17:06)
[2020-05-02] MEDS: SILVER SULFADIAZINE 1% TOP CREAM 50 GM JAR TP SCH (17:07)
[2020-05-03] MEDS: LEVOTHYROXINE NA 25 MCG TABLET (FP) PEG SCH (06:01)
[2020-05-03 09:09] LABS: BASO % 0.3 % (0-2.0); EOS % 0.2 % (0-4.5); HEMATOCRIT 32.1 % (32.4-45.2); LYMPH % 12.4 % (8-40); MCH 26.8 pg (25.7-33.7); MCHC 31.1 g/dl (32.0-36.0); MEAN PLT VOLUME 10.7 fl (7.5-11.1); MONO % 10.4 % (3.8-10.2); NEUT % 76.7 % (42.8-82.8); PLATELET COUNT 152 K/MM3 (134-434); RBC 3.73 M/mm3 (3.60-5.2); RDW 18.9 % (11.6-15.6)
[2020-05-03 09:31] LABS: BLOOD UREA NITROGEN 49.8 mg/dL (7-18); CALCIUM 8.2 mg/dL (8.5-10.1)
[2020-05-03 09:34] LABS: CREATININE 0.8 mg/dL (0.55-1.3)
[2020-05-03] MEDS ORDERED: PT OWN MED DRAWER 7, Y5N ONE ×2 (10:46→21:50)
[2020-05-03] MEDS: ACETAMINOPHEN 650 MG/20.3 ML ORAL SOLUTION (CUPS) PO PRN (10:49)
[2020-05-03] MEDS: AMINO ACIDS/PROTEIN HYDROLYS 30 ML LIQUID.PKT PO SCH (10:50)
[2020-05-03] MEDS: APIXABAN 2.5 MG TABLET PO SCH ×2 (10:50→21:51)
[2020-05-03] MEDS: POTASSIUM CHLORIDE ORAL LIQUID 20 MEQ/15 ML PEG SCH (10:50)
[2020-05-03] MEDS: levETIRAcetam 500 MG/5 ML ORAL SOLUTION (UNIT-DOSE CUPS) PO SCH ×2 (10:50→21:51)
[2020-05-03] MEDS: MULTIVIT-MINERALS ORAL LIQUID PEG SCH (10:50)
[2020-05-03] MEDS: amLODIPine BESYLATE 5 MG TABLET (FP) PO SCH (10:50)
[2020-05-03] MEDS: SIMETHICONE 40 MG/0.6 ML BOTTLE PEG SCH ×2 (10:51→21:52)
[2020-05-03] MEDS: NYSTATIN POWDER 100,000 UNITS/GM - 15 GM TOPICAL POWDER TP SCH ×2 (10:51→21:52)
[2020-05-03] MEDS: FAMOTIDINE 40 MG/5 ML ORAL SUSPENSION NGT SCH ×2 (10:52→21:51)
[2020-05-03] MEDS: SILVER SULFADIAZINE 1% TOP CREAM 50 GM JAR TP SCH (10:52)
[2020-05-03] MEDS: TIGECYCLINE 50 MG in DEXTROSE 5%-WATER 100 ML IVPB SCH ×2 (10:52→21:51)
[2020-05-03] MEDS: COLLAGENASE CLOSTRIDIUM HIST. 30 GRAMS TUBE TP SCH (10:52)
[2020-05-03] MEDS ORDERED: POTASSIUM CHLORIDE ORAL LIQUID 20 MEQ/15 ML PO ONE (14:39)
[2020-05-04] MEDS: LEVOTHYROXINE NA 25 MCG TABLET (FP) PEG SCH (06:03)
[2020-05-04] MEDS ORDERED: PT OWN MED DRAWER 7, Y5N ONE ×3 (09:27→22:54)
[2020-05-04] MEDS: levETIRAcetam 500 MG/5 ML ORAL SOLUTION (UNIT-DOSE CUPS) PO SCH ×2 (09:39→22:56)
[2020-05-04] MEDS: POTASSIUM CHLORIDE ORAL LIQUID 20 MEQ/15 ML PEG SCH (09:39)
[2020-05-04] MEDS: MULTIVIT-MINERALS ORAL LIQUID PEG SCH (09:39)
[2020-05-04] MEDS: AMINO ACIDS/PROTEIN HYDROLYS 30 ML LIQUID.PKT PO SCH (09:39)
[2020-05-04] MEDS: APIXABAN 2.5 MG TABLET PO SCH ×2 (09:39→22:56)
[2020-05-04] MEDS: SIMETHICONE 40 MG/0.6 ML BOTTLE PEG SCH ×2 (09:40→22:57)
[2020-05-04] MEDS: amLODIPine BESYLATE 5 MG TABLET (FP) PO SCH (09:40)
[2020-05-04] MEDS: FAMOTIDINE 40 MG/5 ML ORAL SUSPENSION NGT SCH ×2 (09:40→22:56)
[2020-05-04] MEDS: NYSTATIN POWDER 100,000 UNITS/GM - 15 GM TOPICAL POWDER TP SCH ×2 (09:40→22:58)
[2020-05-04] MEDS: COLLAGENASE CLOSTRIDIUM HIST. 30 GRAMS TUBE TP SCH (09:41)
[2020-05-04] MEDS: SILVER SULFADIAZINE 1% TOP CREAM 50 GM JAR TP SCH (09:41)
[2020-05-04] MEDS: TIGECYCLINE 50 MG in DEXTROSE 5%-WATER 100 ML IVPB SCH ×2 (09:44→22:55)
[2020-05-04] MEDS ORDERED: SODIUM CHLORIDE 250 ML IV PRN (14:58)
[2020-05-05] MEDS: LEVOTHYROXINE NA 25 MCG TABLET (FP) PEG SCH (06:44)
[2020-05-05] MEDS ORDERED: SODIUM CHLORIDE 250 ML IV PRN (09:48)
[2020-05-05 10:01] LABS: BASO % 0.8 % (0-2.0); EOS % 0.2 % (0-4.5); HEMATOCRIT 35.2 % (32.4-45.2); HEMOGLOBIN 10.9 GM/dL (10.7-15.3); LYMPH % 13.1 % (8-40); MCH 26.9 pg (25.7-33.7); MEAN CELL VOLUME 86.8 fl (80-96); MEAN PLT VOLUME 10.6 fl (7.5-11.1); MONO % 7.4 % (3.8-10.2); NEUT % 78.5 % (42.8-82.8); PLATELET COUNT 180 K/MM3 (134-434); RBC 4.06 M/mm3 (3.60-5.2); RDW 18.6 % (11.6-15.6)
[2020-05-05 10:23] LABS: CALCIUM 8.4 mg/dL (8.5-10.1)
[2020-05-05 10:25] LABS: BLOOD UREA NITROGEN 86.6 mg/dL (7-18); CREATININE 1.1 mg/dL (0.55-1.3)
[2020-05-05] MEDS ORDERED: EPOETIN ALFA-EPBX 3,000 UNIT/ML VIAL IVPUSH ONE (12:30)
[2020-05-05] MEDS ORDERED: PT OWN MED DRAWER 7, Y5N ONE (13:32)
[2020-05-05] MEDS: POTASSIUM CHLORIDE ORAL LIQUID 20 MEQ/15 ML PEG SCH (13:33)
[2020-05-05] MEDS: FAMOTIDINE 40 MG/5 ML ORAL SUSPENSION NGT SCH ×2 (13:34→21:42)
[2020-05-05] MEDS: NYSTATIN POWDER 100,000 UNITS/GM - 15 GM TOPICAL POWDER TP SCH (13:36)
[2020-05-05] MEDS: SILVER SULFADIAZINE 1% TOP CREAM 50 GM JAR TP SCH (13:36)
[2020-05-05] MEDS: COLLAGENASE CLOSTRIDIUM HIST. 30 GRAMS TUBE TP SCH (13:36)
[2020-05-05] MEDS: AMINO ACIDS/PROTEIN HYDROLYS 30 ML LIQUID.PKT PO SCH (13:36)
[2020-05-05] MEDS: amLODIPine BESYLATE 5 MG TABLET (FP) PO SCH (13:37)
[2020-05-05] MEDS: levETIRAcetam 500 MG/5 ML ORAL SOLUTION (UNIT-DOSE CUPS) PO SCH ×2 (13:37→21:46)
[2020-05-05] MEDS: APIXABAN 2.5 MG TABLET PO SCH ×2 (13:37→21:46)
[2020-05-05] MEDS: SIMETHICONE 40 MG/0.6 ML BOTTLE PEG SCH ×2 (13:37→21:42)
[2020-05-05] MEDS: MULTIVIT-MINERALS ORAL LIQUID PEG SCH (13:38)
[2020-05-05] MEDS: TIGECYCLINE 50 MG in DEXTROSE 5%-WATER 100 ML IVPB SCH ×2 (13:38→21:40)
[2020-05-06] MEDS ORDERED: levETIRAcetam 500 MG/5 ML INJECTION VIAL IVPB ONE (02:57)
[2020-05-06] MEDS: levETIRAcetam 500 MG/5 ML ORAL SOLUTION (UNIT-DOSE CUPS) PO SCH ×3 (03:29→22:25)
[2020-05-06] MEDS: NYSTATIN POWDER 100,000 UNITS/GM - 15 GM TOPICAL POWDER TP SCH ×3 (03:29→22:26)
[2020-05-06] MEDS: SIMETHICONE 40 MG/0.6 ML BOTTLE PEG SCH ×3 (03:29→22:25)
[2020-05-06] MEDS: APIXABAN 2.5 MG TABLET PO SCH ×3 (03:29→22:25)
[2020-05-06] MEDS: FAMOTIDINE 40 MG/5 ML ORAL SUSPENSION NGT SCH ×3 (03:30→22:26)
[2020-05-06] MEDS: LEVOTHYROXINE NA 25 MCG TABLET (FP) PEG SCH (06:05)
[2020-05-06] MEDS ORDERED: PT OWN MED DRAWER 7, Y5N ONE (10:14)
[2020-05-06] MEDS: MULTIVIT-MINERALS ORAL LIQUID PEG SCH (10:55)
[2020-05-06] MEDS: amLODIPine BESYLATE 5 MG TABLET (FP) PO SCH (10:57)
[2020-05-06] MEDS: TIGECYCLINE 50 MG in DEXTROSE 5%-WATER 100 ML IVPB SCH (10:58)
[2020-05-06] MEDS: SILVER SULFADIAZINE 1% TOP CREAM 50 GM JAR TP SCH (10:58)
[2020-05-06] MEDS: POTASSIUM CHLORIDE ORAL LIQUID 20 MEQ/15 ML PEG SCH (10:58)
[2020-05-06] MEDS: AMINO ACIDS/PROTEIN HYDROLYS 30 ML LIQUID.PKT PO SCH (10:58)
[2020-05-06] MEDS: COLLAGENASE CLOSTRIDIUM HIST. 30 GRAMS TUBE TP SCH (10:58)
[2020-05-07] MEDS: LEVOTHYROXINE NA 25 MCG TABLET (FP) PEG SCH (07:02)
[2020-05-07] MEDS: APIXABAN 2.5 MG TABLET PO SCH ×2 (09:44→21:23)
[2020-05-07] MEDS: POTASSIUM CHLORIDE ORAL LIQUID 20 MEQ/15 ML PEG SCH (09:44)
[2020-05-07] MEDS: amLODIPine BESYLATE 5 MG TABLET (FP) PO SCH (09:44)
[2020-05-07] MEDS: levETIRAcetam 500 MG/5 ML ORAL SOLUTION (UNIT-DOSE CUPS) PO SCH ×2 (09:45→21:23)
[2020-05-07] MEDS: MULTIVIT-MINERALS ORAL LIQUID PEG SCH (09:45)
[2020-05-07] MEDS: SIMETHICONE 40 MG/0.6 ML BOTTLE PEG SCH ×2 (09:46→21:24)
[2020-05-07] MEDS: FAMOTIDINE 40 MG/5 ML ORAL SUSPENSION NGT SCH ×2 (09:46→21:24)
[2020-05-07] MEDS: AMINO ACIDS/PROTEIN HYDROLYS 30 ML LIQUID.PKT PO SCH (09:47)
[2020-05-07] MEDS: NYSTATIN POWDER 100,000 UNITS/GM - 15 GM TOPICAL POWDER TP SCH ×2 (09:47→21:24)
[2020-05-07] MEDS: COLLAGENASE CLOSTRIDIUM HIST. 30 GRAMS TUBE TP SCH (11:57)
[2020-05-07] MEDS: SILVER SULFADIAZINE 1% TOP CREAM 50 GM JAR TP SCH (11:58)
[2020-05-07] MEDS ORDERED: cefTAZidime PENTAHYDRATE 1 GM/50ML PRE-DOCKED (RESTRICTED TO ID) IVPB SCH (14:00)
[2020-05-07] MEDS ORDERED: [UNRECOGNIZED DRUG - OTHER] IVPB SCH (14:15)
[2020-05-07] MEDS ORDERED: CEFTAZIDIME 1 GM IVPB SCH (14:15)
[2020-05-07] MEDS ORDERED: CEFTAZIDIME PENTAHYDRATE 1 GM in DEXTROSE 5%-WATER - 50 ML IVPB SCH (15:00)
[2020-05-07] MEDS ORDERED: cefTAZidime PENTAHYDRATE 1 GM VIAL (RESTRICTED TO ID) ONE (16:11)
[2020-05-07] MEDS ORDERED: DEXTROSE 5%-WATER - 50 ML IVPB ONE (16:12)
[2020-05-07] MEDS: CEFTAZIDIME PENTAHYDRATE 1 GM in DEXTROSE 5%-WATER - 50 ML IVPB SCH (16:17)
[2020-05-07] MEDS ORDERED: SODIUM CHLORIDE 250 ML IV PRN (17:03)
[2020-05-08] MEDS ORDERED: DEXTROSE 5%-WATER - 50 ML IVPB ONE ×3 (00:38→19:50)
[2020-05-08] MEDS ORDERED: cefTAZidime PENTAHYDRATE 1 GM VIAL (RESTRICTED TO ID) ONE ×3 (00:38→19:49)
[2020-05-08] MEDS: CEFTAZIDIME PENTAHYDRATE 1 GM in DEXTROSE 5%-WATER - 50 ML IVPB SCH ×3 (01:29→19:51)
[2020-05-08] MEDS: LEVOTHYROXINE NA 25 MCG TABLET (FP) PEG SCH (07:02)
[2020-05-08] MEDS: levETIRAcetam 500 MG/5 ML ORAL SOLUTION (UNIT-DOSE CUPS) PO SCH ×2 (14:29→21:32)
[2020-05-08] MEDS: APIXABAN 2.5 MG TABLET PO SCH ×2 (14:29→21:32)
[2020-05-08] MEDS: POTASSIUM CHLORIDE ORAL LIQUID 20 MEQ/15 ML PEG SCH (14:29)
[2020-05-08] MEDS: amLODIPine BESYLATE 5 MG TABLET (FP) PO SCH (14:30)
[2020-05-08] MEDS: AMINO ACIDS/PROTEIN HYDROLYS 30 ML LIQUID.PKT PO SCH (14:30)
[2020-05-08] MEDS: MULTIVIT-MINERALS ORAL LIQUID PEG SCH (14:31)
[2020-05-08] MEDS: SIMETHICONE 40 MG/0.6 ML BOTTLE PEG SCH ×2 (14:31→21:32)
[2020-05-08] MEDS: COLLAGENASE CLOSTRIDIUM HIST. 30 GRAMS TUBE TP SCH (14:31)
[2020-05-08] MEDS: NYSTATIN POWDER 100,000 UNITS/GM - 15 GM TOPICAL POWDER TP SCH ×2 (14:31→21:32)
[2020-05-08] MEDS: SILVER SULFADIAZINE 1% TOP CREAM 50 GM JAR TP SCH (14:31)
[2020-05-08] MEDS: FAMOTIDINE 40 MG/5 ML ORAL SUSPENSION NGT SCH ×2 (14:31→21:32)
[2020-05-08] MEDS ORDERED: PT OWN MED DRAWER 7, Y5N ONE (21:29)
[2020-05-09] MEDS ORDERED: cefTAZidime PENTAHYDRATE 1 GM VIAL (RESTRICTED TO ID) ONE (01:38)
[2020-05-09] MEDS ORDERED: DEXTROSE 5%-WATER - 50 ML IVPB ONE (01:38)
[2020-05-09] MEDS: CEFTAZIDIME PENTAHYDRATE 1 GM in DEXTROSE 5%-WATER - 50 ML IVPB SCH ×2 (02:51→13:04)
[2020-05-09] MEDS: LEVOTHYROXINE NA 25 MCG TABLET (FP) PEG SCH (06:04)
[2020-05-09] MEDS ORDERED: PT OWN MED DRAWER 7, Y5N ONE (09:06)
[2020-05-09] MEDS: APIXABAN 2.5 MG TABLET PO SCH (09:34)
[2020-05-09] MEDS: amLODIPine BESYLATE 5 MG TABLET (FP) PO SCH (09:34)
[2020-05-09] MEDS: levETIRAcetam 500 MG/5 ML ORAL SOLUTION (UNIT-DOSE CUPS) PO SCH (09:34)
[2020-05-09] MEDS: POTASSIUM CHLORIDE ORAL LIQUID 20 MEQ/15 ML PEG SCH (09:34)
[2020-05-09] MEDS: FAMOTIDINE 40 MG/5 ML ORAL SUSPENSION NGT SCH (09:35)
[2020-05-09] MEDS: NYSTATIN POWDER 100,000 UNITS/GM - 15 GM TOPICAL POWDER TP SCH (09:35)
[2020-05-09] MEDS: AMINO ACIDS/PROTEIN HYDROLYS 30 ML LIQUID.PKT PO SCH (09:35)
[2020-05-09] MEDS: SIMETHICONE 40 MG/0.6 ML BOTTLE PEG SCH (09:35)
[2020-05-09] MEDS: COLLAGENASE CLOSTRIDIUM HIST. 30 GRAMS TUBE TP SCH (09:48)
[2020-05-09] MEDS: SILVER SULFADIAZINE 1% TOP CREAM 50 GM JAR TP SCH (09:48)
[2020-05-09] MEDS: MULTIVIT-MINERALS ORAL LIQUID PEG SCH (13:03)
[2020-05-09 15:04] VITALS: BP 124/64; PULSE 98; TEMP 97.7
== END 2020-05-09 17:32 | DRG 4 ==
LOC: JER 23:02 → JERBED 04-15 01:29 → J5S 04-16 18:55
PROVIDERS: ADMIT Internal Medicine
PROC: 5A1955Z Respiratory Ventilation, Greater than 96 Consecutive Hours (ICD-10-PCS; 2020-04-15)
PROC: 0B110F4 Bypass Trachea to Cutaneous with Tracheostomy Device, Open Approach (ICD-10-PCS; principal; 2020-04-22)
PROC: 05HB33Z Insertion of Infusion Device into Right Basilic Vein, Percutaneous Approach (ICD-10-PCS; 2020-04-22)
PROC: 0BP1XFZ Removal of Tracheostomy Device from Trachea, External Approach (ICD-10-PCS; 2020-04-22)
PROC: 5A1D70Z Performance of Urinary Filtration, Intermittent, Less than 6 Hours Per Day (ICD-10-PCS; 2020-05-08)
DX: A41.59 Other Gram-negative sepsis (principal); L89.154 Pressure ulcer of sacral region, stage 4; J15.6 Pneumonia due to other Gram-negative bacteria; N18.6 End stage renal disease; J96.21 Acute and chronic respiratory failure with hypoxia; J96.22 Acute and chronic respiratory failure with hypercapnia; R53.2 Functional quadriplegia; E87.2 Acidosis; N39.0 Urinary tract infection, site not specified; E46 Unspecified protein-calorie malnutrition; J98.11 Atelectasis; J90 Pleural effusion, not elsewhere classified; E87.1 Hypo-osmolality and hyponatremia; Z93.1 Gastrostomy status; I48.91 Unspecified atrial fibrillation; I10 Essential (primary) hypertension; R65.20 Severe sepsis without septic shock; D69.6 Thrombocytopenia, unspecified; E88.09 Other disorders of plasma-protein metabolism, not elsewhere classified; Z93.0 Tracheostomy status; E87.70 Fluid overload, unspecified; E03.9 Hypothyroidism, unspecified; D72.829 Elevated white blood cell count, unspecified; D64.9 Anemia, unspecified; F32.9 Major depressive disorder, single episode, unspecified; E87.6 Hypokalemia; G40.909 Epilepsy, unspecified, not intractable, without status epilepticus; R00.0 Tachycardia, unspecified
CPT/HCPCS: 36415; 71045-TC-FY; 74018-TC-FY; 80048; 80053; 80177; 81003; 82550; 83605; 83735; 84100; 84484; 85025; 85610; 85730; 86803; 87040; 87070; 87086; 87184; 87186; 87205; 87340; 93005; 93010; 94002; 94640; 99285-25; C9803; G0480; J0131; J3243; Q5106; U0003

== ENCOUNTER 2020-06-24 01:09 | Inpatient (IN) | payer OTHER ==
[2020-06-24] MEDS ORDERED: NOREPINEPHRINE BITARTRATE 4 MG/4 ML ML IV ONE (01:17)
[2020-06-24] MEDS: NOREPINEPHRINE NS PREMIX 8,000 MCG/500 ML BAG IVPB SCH (01:50)
[2020-06-24 03:03] LABS: BASO % 0.5 % (0-2.0); EOS % 0.2 % (0-4.5); HEMATOCRIT 36.3 % (32.4-45.2); HEMOGLOBIN 10.7 GM/dL (10.7-15.3); LYMPH % 30.5 % (8-40); MCH 25.6 pg (25.7-33.7); MCHC 29.5 g/dl (32.0-36.0); MEAN CELL VOLUME 86.9 fl (80-96); MEAN PLT VOLUME 10.1 fl (7.5-11.1); MONO % 1.8 % (3.8-10.2); PLATELET COUNT 268 K/MM3 (134-434); RBC 4.18 M/mm3 (3.60-5.2); RDW 18.9 % (11.6-15.6)
[2020-06-24 03:22] LABS: INR 1.6 (0.83-1.09); PROTHROMBIN TIME (PATIENT) 19.4 SEC (9.7-13.0)
[2020-06-24 03:24] LABS: ACTIVATED PTT 50.7 SECONDS (25.2-36.5)
[2020-06-24 03:27] LABS: POTASSIUM 4.9 mmol/L (3.5-5.1)
[2020-06-24 03:29] LABS: CALCIUM 12.4 mg/dL (8.5-10.1)
[2020-06-24 03:30] LABS: ALBUMIN 1.3 g/dl (3.4-5.0)
[2020-06-24 03:33] LABS: CREATININE 1.3 mg/dL (0.55-1.3)
[2020-06-24 03:35] LABS: BILIRUBIN,TOTAL 0.4 mg/dL (0.2-1); TOT PROT 6.4 g/dl (6.4-8.2)
[2020-06-24 03:40] LABS: WHITE BLOOD COUNT 30.2 K/mm3 (4.0-10.0)
[2020-06-24 04:08] LABS: BLOOD UREA NITROGEN 50.7 mg/dL (7-18)
[2020-06-24 04:23] LABS: EPI CELLS 29 /uL (0-25.1); HYALINE CASTS 12 /uL (0-3.1); PH,URINE 7.5 (5.0-8.0); URINE APPEARANCE TURBID; URINE BACTERIA >9,000 /uL (0-1359); URINE BILIRUBIN NEGATIVE (NEGATIVE); URINE COLOR YELLOW; URINE GLUCOSE (UA) NEGATIVE (NEGATIVE); URINE KETONE NEGATIVE (NEGATIVE); URINE LEUK ESTERASE 3+ (NEGATIVE); URINE NITRITE NEGATIVE (NEGATIVE); URINE PROTEIN 1+ (NEGATIVE); URINE RBC 253 /uL (0-23.9); URINE UROBILINOGEN 0.2 mg/dL (0.2-1.0); URINE WBC 3140 /uL (0-25.8)
[2020-06-24] MEDS ORDERED: PIPERACILLIN/TAZOB 4.5 GM 4.5 GM in DEXTROSE 5%-WATER 100 ML IVPB ONE (04:32)
[2020-06-24] MEDS ORDERED: VANCOMYCIN HCL 1,500 MG in DEXTROSE 5%-WATER - 500 ML IVPB ONE (04:32)
[2020-06-24] MEDS ORDERED: PIPERACILLIN/TAZOB 4.5 GM 4.5 GM/100 ML BAG IVPB ONE (05:11)
[2020-06-24] MEDS: HEPARIN NA (PORCINE) 5,000 UNITS/ML 1ML VIAL SQ SCH ×2 (07:00→14:06)
[2020-06-24] MEDS: VASOPRESSIN 40 UNITS in SODIUM CHLORIDE 98 ML IVPB SCH (08:39)
[2020-06-24] MEDS ORDERED: PT OWN MED DRAWER 7, Y5N ONE ×2 (09:43→14:00)
[2020-06-24] MEDS: levETIRAcetam 500 MG TABLET (FP) PO SCH ×2 (09:51→22:16)
[2020-06-24] MEDS: MUPIROCIN 2% TOPICAL OINTMENT FOR DECOLONIZATION NS SCH ×2 (09:51→22:17)
[2020-06-24] MEDS ORDERED: NOREPINEPHRINE BITARTRATE 8,000 MCG/500 ML BAG IVPB ONE (12:40)
[2020-06-24] MEDS: HYDROCORTISONE SOD SUCCINATE 100 MG/2 ML VIAL IVPB SCH ×2 (14:07→21:16)
[2020-06-24] MEDS: OCULAR LUBRICANT OPHTHALMIC OINTMENT 7 GM TUBE OU SCH ×2 (14:07→22:17)
[2020-06-24] MEDS ORDERED: PIPERACILLIN/TAZOB 3.375 GM 3.375 GM in DEXTROSE 5%-WATER - 50 ML IVPB SCH (15:15)
[2020-06-24 15:25] LABS: BASO % 0.1 % (0-2.0); EOS % 0.3 % (0-4.5); HEMATOCRIT 34.6 % (32.4-45.2); HEMOGLOBIN 10.4 GM/dL (10.7-15.3); LYMPH % 1.9 % (8-40); MCH 25.5 pg (25.7-33.7); MCHC 30.1 g/dl (32.0-36.0); MEAN CELL VOLUME 84.9 fl (80-96); MEAN PLT VOLUME 9.4 fl (7.5-11.1); MONO % 4.3 % (3.8-10.2); NEUT % 93.4 % (42.8-82.8); PLATELET COUNT 195 K/MM3 (134-434); RBC 4.07 M/mm3 (3.60-5.2); RDW 18.5 % (11.6-15.6)
[2020-06-24 15:32] LABS: INR 1.81 (0.83-1.09); PROTHROMBIN TIME (PATIENT) 21.5 SEC (9.7-13.0)
[2020-06-24 15:35] LABS: ACTIVATED PTT 43.5 SECONDS (25.2-36.5)
[2020-06-24 15:49] LABS: ANISOCYTOSIS 2+; MACROCYTOSIS 0; PLATELET ESTIMATE NORMAL
[2020-06-24 15:52] LABS: POTASSIUM 3.6 mmol/L (3.5-5.1)
[2020-06-24 15:54] LABS: CALCIUM 9.8 mg/dL (8.5-10.1)
[2020-06-24 15:55] LABS: ALBUMIN 1.3 g/dl (3.4-5.0); BLOOD UREA NITROGEN 59.8 mg/dL (7-18); MAGNESIUM 2.2 mg/dL (1.8-2.4)
[2020-06-24 15:58] LABS: CREATININE 1.5 mg/dL (0.55-1.3); PHOSPHOROUS 6.4 mg/dL (2.5-4.9)
[2020-06-24 16:00] LABS: BILIRUBIN,TOTAL 0.7 mg/dL (0.2-1)
[2020-06-24] MEDS ORDERED: PIPERACILLIN/TAZOBACTAM 3.375 GM VIAL IVPB ONE (17:54)
[2020-06-24] MEDS ORDERED: DEXTROSE 5%-WATER - 50 ML IVPB ONE (17:55)
[2020-06-24] MEDS: PIPERACILLIN/TAZOB 3.375 GM 3.375 GM in DEXTROSE 5%-WATER - 50 ML IVPB SCH (18:19)
[2020-06-24] MEDS ORDERED: HEPARIN NA (PORCINE) 5,000 UNITS/ML 1ML VIAL IVPUSH PRN ×2 (19:57)
[2020-06-24] MEDS ORDERED: SODIUM CHLORIDE 1,000 ML IV SCH (20:00)
[2020-06-24] MEDS ORDERED: HEPARIN INFUSION - 25,000 UNITS/500 ML INFUS.BAG IVPB SCH (20:00)
[2020-06-24] MEDS: CHLORHEXIDINE GLUCONATE 4% CLEANSER FOR DECOLONIZATION TP SCH (22:18)
[2020-06-25] MEDS: NOREPINEPHRINE NS PREMIX 8,000 MCG/500 ML BAG IVPB SCH ×2 (00:43→04:21)
[2020-06-25] MEDS: VASOPRESSIN 40 UNITS in SODIUM CHLORIDE 98 ML IVPB SCH (00:44)
[2020-06-25] MEDS ORDERED: DEXTROSE 5%-WATER - 50 ML IVPB ONE ×4 (01:04→21:13)
[2020-06-25] MEDS ORDERED: PIPERACILLIN/TAZOBACTAM 3.375 GM VIAL IVPB ONE ×4 (01:04→21:13)
[2020-06-25] MEDS: PIPERACILLIN/TAZOB 3.375 GM 3.375 GM in DEXTROSE 5%-WATER - 50 ML IVPB SCH ×3 (01:26→18:22)
[2020-06-25] MEDS: HYDROCORTISONE SOD SUCCINATE 100 MG/2 ML VIAL IVPB SCH ×3 (04:30→22:00)
[2020-06-25] MEDS ORDERED: ALTEPLASE 2 MG VIAL IVPB ONE (09:39)
[2020-06-25] MEDS ORDERED: ALTEPLASE 2 MG VIAL NR ONE (10:00)
[2020-06-25] MEDS ORDERED: ALTEPLASE 2 MG VIAL IX ONE (10:00)
[2020-06-25] MEDS: OCULAR LUBRICANT OPHTHALMIC OINTMENT 7 GM TUBE OU SCH ×2 (10:00→22:00)
[2020-06-25] MEDS: MUPIROCIN 2% TOPICAL OINTMENT FOR DECOLONIZATION NS SCH ×2 (10:00→22:00)
[2020-06-25] MEDS: levETIRAcetam 500 MG TABLET (FP) PO SCH ×2 (10:43→22:00)
[2020-06-25 11:42] LABS: BASO % 0.1 % (0-2.0); EOS % 0.5 % (0-4.5); HEMATOCRIT 31.5 % (32.4-45.2); HEMOGLOBIN 9.8 GM/dL (10.7-15.3); LYMPH % 3.8 % (8-40); MCH 25.6 pg (25.7-33.7); MCHC 31.1 g/dl (32.0-36.0); MEAN CELL VOLUME 82.4 fl (80-96); MEAN PLT VOLUME 9.3 fl (7.5-11.1); MONO % 4.9 % (3.8-10.2); NEUT % 90.7 % (42.8-82.8); PLATELET COUNT 109 K/MM3 (134-434); RBC 3.82 M/mm3 (3.60-5.2)
[2020-06-25] MEDS ORDERED: PT OWN MED DRAWER 7, Y5N ONE (12:14)
[2020-06-25 14:49] LABS: ALBUMIN 1.3 g/dl (3.4-5.0); BILIRUBIN,TOTAL 0.5 mg/dL (0.2-1); BLOOD UREA NITROGEN 64.6 mg/dL (7-18); CALCIUM 8.8 mg/dL (8.5-10.1); CREATININE 1.5 mg/dL (0.55-1.3); MAGNESIUM 2.1 mg/dL (1.8-2.4); POTASSIUM 3.9 mmol/L (3.5-5.1); TOT PROT 5.5 g/dl (6.4-8.2)
[2020-06-25] MEDS: CHLORHEXIDINE GLUCONATE 4% CLEANSER FOR DECOLONIZATION TP SCH (22:00)
[2020-06-26] MEDS: PIPERACILLIN/TAZOB 3.375 GM 3.375 GM in DEXTROSE 5%-WATER - 50 ML IVPB SCH ×3 (02:01→17:10)
[2020-06-26] MEDS: HYDROCORTISONE SOD SUCCINATE 100 MG/2 ML VIAL IVPB SCH ×3 (04:34→21:02)
[2020-06-26] MEDS: NOREPINEPHRINE BITARTRATE 8,000 MCG in SODIUM CHLORIDE 492 ML IV SCH (09:00)
[2020-06-26] MEDS ORDERED: DEXTROSE 5%-WATER - 50 ML IVPB ONE ×3 (10:11→20:59)
[2020-06-26] MEDS ORDERED: PIPERACILLIN/TAZOBACTAM 3.375 GM VIAL IVPB ONE ×3 (10:11→20:59)
[2020-06-26] MEDS: levETIRAcetam 500 MG TABLET (FP) PO SCH ×2 (10:17→21:03)
[2020-06-26] MEDS: MUPIROCIN 2% TOPICAL OINTMENT FOR DECOLONIZATION NS SCH ×2 (10:18→21:03)
[2020-06-26] MEDS: OCULAR LUBRICANT OPHTHALMIC OINTMENT 7 GM TUBE OU SCH ×2 (10:21→21:16)
[2020-06-26] MEDS: MIDODRINE HCL 5 MG TABLET PO SCH ×2 (15:53→17:11)
[2020-06-26 17:42] LABS: HEMATOCRIT 27.5 % (32.4-45.2); HEMOGLOBIN 8.5 GM/dL (10.7-15.3); MCH 25.8 pg (25.7-33.7); MEAN CELL VOLUME 83.3 fl (80-96); PLATELET COUNT 90 K/MM3 (134-434); RBC 3.31 M/mm3 (3.60-5.2); WHITE BLOOD COUNT 29.1 K/mm3 (4.0-10.0)
[2020-06-26] MEDS: CHLORHEXIDINE GLUCONATE 4% CLEANSER FOR DECOLONIZATION TP SCH (21:03)
[2020-06-27] MEDS: PIPERACILLIN/TAZOB 3.375 GM 3.375 GM in DEXTROSE 5%-WATER - 50 ML IVPB SCH ×2 (04:17→09:24)
[2020-06-27] MEDS: HYDROCORTISONE SOD SUCCINATE 100 MG/2 ML VIAL IVPB SCH ×3 (04:18→21:08)
[2020-06-27] MEDS ORDERED: DEXTROSE 5%-WATER - 50 ML IVPB ONE (09:18)
[2020-06-27] MEDS ORDERED: PIPERACILLIN/TAZOBACTAM 3.375 GM VIAL IVPB ONE (09:18)
[2020-06-27] MEDS: MIDODRINE HCL 5 MG TABLET PO SCH ×3 (09:25→18:13)
[2020-06-27] MEDS: OCULAR LUBRICANT OPHTHALMIC OINTMENT 7 GM TUBE OU SCH ×2 (09:25→21:09)
[2020-06-27] MEDS: levETIRAcetam 500 MG TABLET (FP) PO SCH ×2 (09:25→21:09)
[2020-06-27] MEDS: MUPIROCIN 2% TOPICAL OINTMENT FOR DECOLONIZATION NS SCH ×2 (09:25→21:09)
[2020-06-27] MEDS: NYSTATIN 100,000 UNIT/GM TOPICAL CREAM 15 GM TUBE TP SCH ×2 (12:40→18:13)
[2020-06-27] MEDS: NOREPINEPHRINE BITARTRATE 8,000 MCG in SODIUM CHLORIDE 492 ML IV SCH (13:00)
[2020-06-27] MEDS ORDERED: METOPROLOL TARTRATE 5 MG/5 ML VIAL IVPUSH ONE ×2 (13:33→15:24)
[2020-06-27 13:36] LABS: POTASSIUM 3.6 mmol/L (3.5-5.1)
[2020-06-27 13:38] LABS: ALBUMIN 1.2 g/dl (3.4-5.0)
[2020-06-27 13:39] LABS: BLOOD UREA NITROGEN 78.1 mg/dL (7-18); MAGNESIUM 2.2 mg/dL (1.8-2.4)
[2020-06-27 13:39] LABS: BASO % 0.2 % (0-2.0); EOS % 0.1 % (0-4.5); HEMATOCRIT 26.2 % (32.4-45.2); HEMOGLOBIN 8.2 GM/dL (10.7-15.3); LYMPH % 2.5 % (8-40); MCH 25.7 pg (25.7-33.7); MCHC 31.2 g/dl (32.0-36.0); MEAN CELL VOLUME 82.5 fl (80-96); MEAN PLT VOLUME 10.2 fl (7.5-11.1); MONO % 4.5 % (3.8-10.2); NEUT % 92.7 % (42.8-82.8); PLATELET COUNT 83 K/MM3 (134-434); RBC 3.18 M/mm3 (3.60-5.2); RDW 18.7 % (11.6-15.6); WHITE BLOOD COUNT 24.6 K/mm3 (4.0-10.0)
[2020-06-27 13:42] LABS: CREATININE 1.9 mg/dL (0.55-1.3); PHOSPHOROUS 3.2 mg/dL (2.5-4.9)
[2020-06-27 13:43] LABS: BILIRUBIN,TOTAL 0.3 mg/dL (0.2-1); TOT PROT 5.3 g/dl (6.4-8.2)
[2020-06-27 14:04] LABS: CALCIUM 6.8 mg/dL (8.5-10.1)
[2020-06-27 14:48] LABS: ANISOCYTOSIS 2+; MACROCYTOSIS 1+; PLATELET ESTIMATE DECREASED; TARGET CELLS 2+
[2020-06-27] MEDS ORDERED: METOPROLOL TARTRATE 25 MG TABLET (FP) PO ONE (15:25)
[2020-06-27] MEDS: CEFTAZIDIME/AVIBACTAM 1.25 GM in DEXTROSE 5%-WATER - 100 ML IVPB SCH ×2 (16:12→18:13)
[2020-06-27] MEDS: CHLORHEXIDINE GLUCONATE 4% CLEANSER FOR DECOLONIZATION TP SCH (21:09)
[2020-06-27] MEDS: METOPROLOL TARTRATE 25 MG TABLET (FP) PO SCH (21:09)
[2020-06-28] MEDS ORDERED: PT OWN MED DRAWER 7, Y5N ONE (01:40)
[2020-06-28] MEDS: CEFTAZIDIME/AVIBACTAM 1.25 GM in DEXTROSE 5%-WATER - 100 ML IVPB SCH ×4 (02:33→17:53)
[2020-06-28] MEDS: NYSTATIN 100,000 UNIT/GM TOPICAL CREAM 15 GM TUBE TP SCH ×4 (02:33→17:53)
[2020-06-28] MEDS: HYDROCORTISONE SOD SUCCINATE 100 MG/2 ML VIAL IVPB SCH ×3 (04:00→14:48)
[2020-06-28 07:27] LABS: BASO % 0.5 % (0-2.0); HEMATOCRIT 26.1 % (32.4-45.2); HEMOGLOBIN 8.3 GM/dL (10.7-15.3); LYMPH % 3.6 % (8-40); MCH 25.8 pg (25.7-33.7); MCHC 31.7 g/dl (32.0-36.0); MEAN CELL VOLUME 81.5 fl (80-96); NEUT % 89.9 % (42.8-82.8); PLATELET COUNT 79 K/MM3 (134-434); RDW 18.5 % (11.6-15.6); WHITE BLOOD COUNT 26.5 K/mm3 (4.0-10.0)
[2020-06-28 07:54] LABS: ALBUMIN 1.1 g/dl (3.4-5.0); BLOOD UREA NITROGEN 81.3 mg/dL (7-18); MAGNESIUM 2.1 mg/dL (1.8-2.4)
[2020-06-28 07:57] LABS: CREATININE 1.7 mg/dL (0.55-1.3)
[2020-06-28 07:59] LABS: BILIRUBIN,TOTAL 0.3 mg/dL (0.2-1); TOT PROT 5.3 g/dl (6.4-8.2)
[2020-06-28 08:33] LABS: POTASSIUM 2.8 mmol/L (3.5-5.1)
[2020-06-28 08:34] LABS: CALCIUM 6.5 mg/dL (8.5-10.1)
[2020-06-28] MEDS ORDERED: KCL 10 MEQ IVPB 10 MEQ/100 ML INFUS.BAG IVPB SCH (08:45)
[2020-06-28] MEDS ORDERED: METOPROLOL TARTRATE 5 MG/5 ML VIAL IVPUSH ONE (09:30)
[2020-06-28] MEDS ORDERED: POTASSIUM CHLORIDE ORAL LIQUID 20 MEQ/15 ML PO ONE ×2 (09:30→12:00)
[2020-06-28] MEDS: levETIRAcetam 500 MG TABLET (FP) PO SCH ×2 (10:20→21:07)
[2020-06-28] MEDS: OCULAR LUBRICANT OPHTHALMIC OINTMENT 7 GM TUBE OU SCH ×2 (10:20→21:14)
[2020-06-28] MEDS: MUPIROCIN 2% TOPICAL OINTMENT FOR DECOLONIZATION NS SCH ×2 (10:20→21:14)
[2020-06-28] MEDS: MIDODRINE HCL 5 MG TABLET PO SCH ×3 (10:21→17:53)
[2020-06-28] MEDS: METOPROLOL TARTRATE 25 MG TABLET (FP) PO SCH ×2 (10:21→21:07)
[2020-06-28 12:18] LABS: ANISOCYTOSIS 0; MACROCYTOSIS 0; PLATELET ESTIMATE DECREASED
[2020-06-28] MEDS: APIXABAN 2.5 MG TABLET PEG SCH (21:07)
[2020-06-28] MEDS: CHLORHEXIDINE GLUCONATE 4% CLEANSER FOR DECOLONIZATION TP SCH (21:07)
[2020-06-29] MEDS ORDERED: ACETYLCYSTEINE 20% 200MG/ML 30 ML VIAL *FOR ORAL / INH USE ONLY NEB SCH (00:27)
[2020-06-29] MEDS ORDERED: PT OWN MED DRAWER 7, Y5N ONE ×2 (01:49→09:40)
[2020-06-29] MEDS: NYSTATIN 100,000 UNIT/GM TOPICAL CREAM 15 GM TUBE TP SCH ×4 (01:50→17:45)
[2020-06-29] MEDS: CEFTAZIDIME/AVIBACTAM 1.25 GM in DEXTROSE 5%-WATER - 100 ML IVPB SCH ×3 (01:53→19:05)
[2020-06-29] MEDS: HYDROCORTISONE SOD SUCCINATE 100 MG/2 ML VIAL IVPB SCH ×2 (01:54→14:30)
[2020-06-29] MEDS ORDERED: POTASSIUM PHOSPHATE 30 MM in DEXTROSE 5%-WATER - 250 ML IVPB ONE (08:12)
[2020-06-29] MEDS ORDERED: POTASSIUM CHLORIDE ORAL LIQUID 20 MEQ/15 ML PO ONE (08:13)
[2020-06-29] MEDS: ACETYLCYSTEINE 20% 200MG/ML 4 ML VIAL *FOR ORAL / INH USE ONLY NEB SCH ×4 (08:42→20:05)
[2020-06-29] MEDS: APIXABAN 2.5 MG TABLET PEG SCH ×2 (09:44→21:57)
[2020-06-29] MEDS: MIDODRINE HCL 5 MG TABLET PO SCH ×3 (09:44→17:45)
[2020-06-29] MEDS: levETIRAcetam 500 MG TABLET (FP) PO SCH ×2 (09:44→21:57)
[2020-06-29] MEDS: METOPROLOL TARTRATE 5 MG/5 ML VIAL IVPUSH PRN (09:44)
[2020-06-29] MEDS: METOPROLOL TARTRATE 25 MG TABLET (FP) PO SCH ×2 (09:44→21:58)
[2020-06-29] MEDS: OCULAR LUBRICANT OPHTHALMIC OINTMENT 7 GM TUBE OU SCH ×2 (12:00→21:58)
[2020-06-29 12:48] LABS: BASO % 0.3 % (0-2.0); HEMATOCRIT 31.5 % (32.4-45.2); HEMOGLOBIN 9.8 GM/dL (10.7-15.3); LYMPH % 4.3 % (8-40); MCH 25.6 pg (25.7-33.7); MEAN CELL VOLUME 82.6 fl (80-96); MEAN PLT VOLUME 10.8 fl (7.5-11.1); MONO % 6.1 % (3.8-10.2); NEUT % 89.3 % (42.8-82.8); PLATELET COUNT 116 K/MM3 (134-434); RBC 3.82 M/mm3 (3.60-5.2); RDW 18.8 % (11.6-15.6)
[2020-06-29 13:06] LABS: POTASSIUM 5.5 mmol/L (3.5-5.1)
[2020-06-29 13:09] LABS: ALBUMIN 1.3 g/dl (3.4-5.0); BLOOD UREA NITROGEN 88.5 mg/dL (7-18)
[2020-06-29 13:10] LABS: MAGNESIUM 2.2 mg/dL (1.8-2.4)
[2020-06-29 13:13] LABS: CREATININE 1.7 mg/dL (0.55-1.3)
[2020-06-29 13:14] LABS: BILIRUBIN,TOTAL 0.4 mg/dL (0.2-1); PHOSPHOROUS 3.7 mg/dL (2.5-4.9); TOT PROT 6.1 g/dl (6.4-8.2)
[2020-06-29 13:29] LABS: CALCIUM 6.6 mg/dL (8.5-10.1)
[2020-06-29 14:45] LABS: ANISOCYTOSIS 0; HELMET CELLS 0; HOWELL-JOLLY BODIES 0; MACROCYTOSIS 0; OVALOCYTE 0; PLATELET ESTIMATE DECREASED; ROULEAU 0; SICKELED CELLS 0; TARGET CELLS 0; TEAR DROP CELLS 0; TOXIC GRANULATION 0
[2020-06-29 16:06] LABS: WHITE BLOOD COUNT 32.7 K/mm3 (4.0-10.0)
[2020-06-29 21:05] LABS: BLOOD UREA NITROGEN 91.4 mg/dL (7-18)
[2020-06-29 21:08] LABS: CREATININE 1.7 mg/dL (0.55-1.3); PHOSPHOROUS 6.1 mg/dL (2.5-4.9)
[2020-06-29 21:32] LABS: POTASSIUM 6.4 mmol/L (3.5-5.1)
[2020-06-29 21:33] LABS: CALCIUM 6.8 mg/dL (8.5-10.1)
[2020-06-29] MEDS: CHLORHEXIDINE GLUCONATE 4% CLEANSER FOR DECOLONIZATION TP SCH (21:59)
[2020-06-29] MEDS ORDERED: SODIUM ZIRCONIUM CYCLOSILICATE (LOKELMA) 5 GM PACKET PO ONE (23:00)
[2020-06-30] MEDS: NYSTATIN 100,000 UNIT/GM TOPICAL CREAM 15 GM TUBE TP SCH ×5 (00:19→23:35)
[2020-06-30] MEDS: HYDROCORTISONE SOD SUCCINATE 100 MG/2 ML VIAL IVPB SCH (01:34)
[2020-06-30] MEDS: CEFTAZIDIME/AVIBACTAM 1.25 GM in DEXTROSE 5%-WATER - 100 ML IVPB SCH ×3 (01:34→17:12)
[2020-06-30] MEDS: ACETYLCYSTEINE 20% 200MG/ML 4 ML VIAL *FOR ORAL / INH USE ONLY NEB SCH ×4 (08:15→21:23)
[2020-06-30] MEDS: MIDODRINE HCL 5 MG TABLET PO SCH ×3 (09:58→19:12)
[2020-06-30] MEDS: levETIRAcetam 500 MG TABLET (FP) PO SCH ×2 (09:58→21:22)
[2020-06-30] MEDS: METOPROLOL TARTRATE 25 MG TABLET (FP) PO SCH ×2 (09:58→21:22)
[2020-06-30] MEDS: OCULAR LUBRICANT OPHTHALMIC OINTMENT 7 GM TUBE OU SCH ×2 (09:59→21:23)
[2020-06-30] MEDS: APIXABAN 2.5 MG TABLET PEG SCH ×2 (09:59→21:22)
[2020-06-30 12:30] LABS: BASO % 0.2 % (0-2.0); HEMATOCRIT 26.6 % (32.4-45.2); HEMOGLOBIN 8.2 GM/dL (10.7-15.3); LYMPH % 2.8 % (8-40); MCH 25.6 pg (25.7-33.7); MCHC 30.7 g/dl (32.0-36.0); MEAN CELL VOLUME 83.6 fl (80-96); MEAN PLT VOLUME 11.2 fl (7.5-11.1); PLATELET COUNT 123 K/MM3 (134-434); RBC 3.18 M/mm3 (3.60-5.2); RDW 18.4 % (11.6-15.6); WHITE BLOOD COUNT 32.4 K/mm3 (4.0-10.0)
[2020-06-30] MEDS: FUROSEMIDE 100 MG/10 ML INJECTABLE VIAL IVPB SCH (12:44)
[2020-06-30 12:50] LABS: ALBUMIN 1.2 g/dl (3.4-5.0)
[2020-06-30 12:56] LABS: TOT PROT 5.4 g/dl (6.4-8.2)
[2020-06-30 12:57] LABS: BILIRUBIN,TOTAL 1.3 mg/dL (0.2-1)
[2020-06-30 12:59] LABS: BLOOD UREA NITROGEN 108.2 mg/dL (7-18); CALCIUM 6.2 mg/dL (8.5-10.1); POTASSIUM 6.4 mmol/L (3.5-5.1)
[2020-06-30] MEDS ORDERED: SODIUM CHLORIDE 250 ML IV PRN (13:06)
[2020-06-30 14:14] LABS: ANISOCYTOSIS 0; HELMET CELLS 0; HOWELL-JOLLY BODIES 0; MACROCYTOSIS 0; OVALOCYTE 0; PLATELET ESTIMATE DECREASED; ROULEAU 0; SICKELED CELLS 0; TARGET CELLS 0; TEAR DROP CELLS 0; TOXIC GRANULATION 0
[2020-06-30] MEDS ORDERED: AMIODARONE IN DEXTROSE,ISO-OSM 150 MG/100 ML BAG IVPB ONE (16:26)
[2020-06-30] MEDS ORDERED: AMIODARONE IN DEXTROSE,ISO-OSM 150 MG/100 ML BAG ONE (16:30)
[2020-06-30] MEDS ORDERED: AMIODARONE IN DEXTROSE,ISO-OSM 360 MG/200 ML BAG ONE (16:39)
[2020-06-30] MEDS ORDERED: AMIODARONE IN DEXTROSE,ISO-OSM 360 MG/200 ML BAG IVPB ONE (17:00)
[2020-06-30] MEDS ORDERED: NOREPINEPHRINE BITARTRATE 4,000 MCG in DEXTROSE 5%-WATER - 496 ML IV SCH (17:15)
[2020-06-30] MEDS: CHLORHEXIDINE GLUCONATE 4% CLEANSER FOR DECOLONIZATION TP SCH (21:22)
[2020-06-30] MEDS ORDERED: AMIODARONE HCL 150 MG/3 ML VIAL IVPUSH ONE (23:00)
[2020-06-30] MEDS: AMIODARONE IN DEXTROSE,ISO-OSM 360 MG/200 ML BAG IVPB SCH (23:25)
[2020-07-01] MEDS: CEFTAZIDIME/AVIBACTAM 1.25 GM in DEXTROSE 5%-WATER - 100 ML IVPB SCH ×3 (02:05→19:34)
[2020-07-01] MEDS: NYSTATIN 100,000 UNIT/GM TOPICAL CREAM 15 GM TUBE TP SCH ×4 (06:42→23:51)
[2020-07-01] MEDS: ACETYLCYSTEINE 20% 200MG/ML 4 ML VIAL *FOR ORAL / INH USE ONLY NEB SCH ×4 (08:18→20:00)
[2020-07-01] MEDS: METOPROLOL TARTRATE 5 MG/5 ML VIAL IVPUSH PRN ×3 (08:41→22:40)
[2020-07-01] MEDS ORDERED: PT OWN MED DRAWER 7, Y5N ONE (09:18)
[2020-07-01] MEDS: AMIODARONE IN DEXTROSE,ISO-OSM 360 MG/200 ML BAG IVPB SCH (09:26)
[2020-07-01] MEDS: OCULAR LUBRICANT OPHTHALMIC OINTMENT 7 GM TUBE OU SCH ×2 (09:27→21:37)
[2020-07-01] MEDS: METOPROLOL TARTRATE 25 MG TABLET (FP) PO SCH ×2 (09:27→21:37)
[2020-07-01] MEDS: APIXABAN 2.5 MG TABLET PEG SCH ×2 (09:27→21:37)
[2020-07-01] MEDS: levETIRAcetam 500 MG TABLET (FP) PO SCH ×2 (09:27→21:37)
[2020-07-01] MEDS: MIDODRINE HCL 5 MG TABLET PO SCH ×3 (09:27→18:09)
[2020-07-01 10:59] LABS: BASO % 0.2 % (0-2.0); HEMATOCRIT 26.3 % (32.4-45.2); HEMOGLOBIN 8.2 GM/dL (10.7-15.3); LYMPH % 4.6 % (8-40); MCH 26.1 pg (25.7-33.7); MCHC 31.3 g/dl (32.0-36.0); MEAN CELL VOLUME 83.3 fl (80-96); MEAN PLT VOLUME 11.1 fl (7.5-11.1); MONO % 5.5 % (3.8-10.2); NEUT % 89.7 % (42.8-82.8); PLATELET COUNT 106 K/MM3 (134-434); RBC 3.16 M/mm3 (3.60-5.2); WHITE BLOOD COUNT 29.1 K/mm3 (4.0-10.0)
[2020-07-01 11:02] LABS: POTASSIUM 4.1 mmol/L (3.5-5.1)
[2020-07-01 11:05] LABS: ALBUMIN 1.1 g/dl (3.4-5.0); MAGNESIUM 1.9 mg/dL (1.8-2.4)
[2020-07-01 11:08] LABS: CREATININE 1.7 mg/dL (0.55-1.3); PHOSPHOROUS 5.5 mg/dL (2.5-4.9)
[2020-07-01 11:09] LABS: TOT PROT 5.3 g/dl (6.4-8.2)
[2020-07-01 11:13] LABS: BILIRUBIN,TOTAL 0.3 mg/dL (0.2-1); BLOOD UREA NITROGEN 78.6 mg/dL (7-18)
[2020-07-01 11:16] LABS: CALCIUM 6.6 mg/dL (8.5-10.1)
[2020-07-01] MEDS: FUROSEMIDE 100 MG/10 ML INJECTABLE VIAL IVPB SCH (12:53)
[2020-07-01] MEDS: INSULIN SLIDING SCALE (NOVOLOG) 1 VIAL SQ SCH ×2 (13:00→23:48)
[2020-07-01 13:37] LABS: ANISOCYTOSIS 0; HELMET CELLS 0; HOWELL-JOLLY BODIES 0; MACROCYTOSIS 0; OVALOCYTE 0; PLATELET ESTIMATE DECREASED; ROULEAU 0; SICKELED CELLS 0; TARGET CELLS 0; TEAR DROP CELLS 0; TOXIC GRANULATION 0
[2020-07-01] MEDS: AMIODARONE HCL 200 MG TABLET NGT SCH ×2 (18:12→21:36)
[2020-07-01] MEDS ORDERED: FENTANYL NS IVPB 500 MCG/100 ML BAG IVPB SCH (19:15)
[2020-07-01] MEDS ORDERED: AMIODARONE HCL 200 MG TABLET NGT SCH (20:00)
[2020-07-01] MEDS: CHLORHEXIDINE GLUCONATE 4% CLEANSER FOR DECOLONIZATION TP SCH (21:37)
[2020-07-02] MEDS: CEFTAZIDIME/AVIBACTAM 1.25 GM in DEXTROSE 5%-WATER - 100 ML IVPB SCH ×3 (01:33→18:30)
[2020-07-02] MEDS: METOPROLOL TARTRATE 5 MG/5 ML VIAL IVPUSH PRN (03:57)
[2020-07-02] MEDS: NYSTATIN 100,000 UNIT/GM TOPICAL CREAM 15 GM TUBE TP SCH ×3 (05:52→18:30)
[2020-07-02] MEDS: INSULIN SLIDING SCALE (NOVOLOG) 1 VIAL SQ SCH ×3 (05:52→22:17)
[2020-07-02] MEDS: AMIODARONE HCL 200 MG TABLET NGT SCH ×3 (05:52→22:13)
[2020-07-02 07:26] LABS: BASO % 0.1 % (0-2.0); HEMATOCRIT 25.6 % (32.4-45.2); LYMPH % 9.3 % (8-40); MCHC 31.2 g/dl (32.0-36.0); MEAN CELL VOLUME 83.4 fl (80-96); MEAN PLT VOLUME 11.5 fl (7.5-11.1); MONO % 3.9 % (3.8-10.2); NEUT % 86.7 % (42.8-82.8); PLATELET COUNT 94 K/MM3 (134-434); RBC 3.07 M/mm3 (3.60-5.2); RDW 18.7 % (11.6-15.6); WHITE BLOOD COUNT 22.8 K/mm3 (4.0-10.0)
[2020-07-02 07:47] LABS: POTASSIUM 3.9 mmol/L (3.5-5.1)
[2020-07-02 07:51] LABS: ALBUMIN 0.9 g/dl (3.4-5.0); BLOOD UREA NITROGEN 88.2 mg/dL (7-18); MAGNESIUM 1.9 mg/dL (1.8-2.4)
[2020-07-02 07:54] LABS: CREATININE 1.7 mg/dL (0.55-1.3); PHOSPHOROUS 6.3 mg/dL (2.5-4.9)
[2020-07-02 07:55] LABS: BILIRUBIN,TOTAL 0.3 mg/dL (0.2-1); TOT PROT 4.8 g/dl (6.4-8.2)
[2020-07-02] MEDS: ACETYLCYSTEINE 20% 200MG/ML 4 ML VIAL *FOR ORAL / INH USE ONLY NEB SCH (08:10)
[2020-07-02 08:23] LABS: CALCIUM 6.9 mg/dL (8.5-10.1)
[2020-07-02] MEDS ORDERED: PT OWN MED DRAWER 7, Y5N ONE ×2 (08:47→16:15)
[2020-07-02] MEDS: MIDODRINE HCL 5 MG TABLET PO SCH ×3 (09:19→18:30)
[2020-07-02] MEDS: METOPROLOL TARTRATE 25 MG TABLET (FP) PO SCH ×2 (09:19→22:15)
[2020-07-02] MEDS: FUROSEMIDE 100 MG/10 ML INJECTABLE VIAL IVPB SCH (09:19)
[2020-07-02] MEDS: OCULAR LUBRICANT OPHTHALMIC OINTMENT 7 GM TUBE OU SCH (09:19)
[2020-07-02] MEDS: APIXABAN 2.5 MG TABLET PEG SCH ×2 (09:19→22:14)
[2020-07-02] MEDS: levETIRAcetam 500 MG TABLET (FP) PO SCH ×2 (09:19→22:14)
[2020-07-02 12:43] LABS: HEMATOCRIT 25.7 % (32.4-45.2); MCH 25.8 pg (25.7-33.7); MCHC 31.2 g/dl (32.0-36.0); MEAN CELL VOLUME 82.9 fl (80-96); MEAN PLT VOLUME 11.9 fl (7.5-11.1); PLATELET COUNT 90 K/MM3 (134-434); RDW 19.1 % (11.6-15.6); WHITE BLOOD COUNT 25.1 K/mm3 (4.0-10.0)
[2020-07-02 12:57] LABS: ANISOCYTOSIS 2+; MACROCYTOSIS 1+; PLATELET ESTIMATE DECREASED
[2020-07-02] MEDS ORDERED: SODIUM CHLORIDE 500 ML IV STA (15:36)
[2020-07-02] MEDS ORDERED: MORPHINE SULFATE 2 MG/ML VIAL IVPUSH PRN (19:03)
[2020-07-02] MEDS ORDERED: METOPROLOL TARTRATE 5 MG/5 ML VIAL IVPUSH PRN (21:40)
[2020-07-02] MEDS ORDERED: CHLORHEXIDINE GLUCONATE 4% CLEANSER FOR DECOLONIZATION TP SCH (22:00)
[2020-07-02] MEDS ORDERED: METOPROLOL TARTRATE 25 MG TABLET (FP) PO SCH (22:00)
[2020-07-03] MEDS: OCULAR LUBRICANT OPHTHALMIC OINTMENT 7 GM TUBE OU SCH ×3 (00:45→22:33)
[2020-07-03] MEDS: CEFTAZIDIME/AVIBACTAM 1.25 GM in DEXTROSE 5%-WATER - 100 ML IVPB SCH ×3 (02:28→17:50)
[2020-07-03] MEDS: NYSTATIN 100,000 UNIT/GM TOPICAL CREAM 15 GM TUBE TP SCH ×3 (02:29→13:02)
[2020-07-03] MEDS: INSULIN SLIDING SCALE (NOVOLOG) 1 VIAL SQ SCH ×3 (05:42→23:00)
[2020-07-03] MEDS: AMIODARONE HCL 200 MG TABLET NGT SCH ×3 (05:55→22:20)
[2020-07-03] MEDS: ACETYLCYSTEINE 20% 200MG/ML 4 ML VIAL *FOR ORAL / INH USE ONLY NEB SCH ×3 (08:34→16:00)
[2020-07-03] MEDS ORDERED: PT OWN MED DRAWER 7, Y5N ONE (09:12)
[2020-07-03] MEDS: METOPROLOL TARTRATE 25 MG TABLET (FP) PO SCH ×3 (09:22→22:34)
[2020-07-03] MEDS: APIXABAN 2.5 MG TABLET PEG SCH (09:23)
[2020-07-03] MEDS: MIDODRINE HCL 5 MG TABLET PO SCH ×3 (09:23→18:22)
[2020-07-03] MEDS: levETIRAcetam 500 MG TABLET (FP) PO SCH ×2 (09:24→22:20)
[2020-07-03] MEDS: FUROSEMIDE 100 MG/10 ML INJECTABLE VIAL IVPB SCH (09:24)
[2020-07-03 09:26] LABS: BASO % 0.3 % (0-2.0); EOS % 0.1 % (0-4.5); HEMATOCRIT 22.6 % (32.4-45.2); HEMOGLOBIN 7.1 GM/dL (10.7-15.3); LYMPH % 3.8 % (8-40); MCH 26.1 pg (25.7-33.7); MCHC 31.4 g/dl (32.0-36.0); MEAN CELL VOLUME 82.9 fl (80-96); MEAN PLT VOLUME 12.4 fl (7.5-11.1); MONO % 2.9 % (3.8-10.2); NEUT % 92.9 % (42.8-82.8); PLATELET COUNT 105 K/MM3 (134-434); RBC 2.72 M/mm3 (3.60-5.2); RDW 19.4 % (11.6-15.6); WHITE BLOOD COUNT 25.3 K/mm3 (4.0-10.0)
[2020-07-03 09:35] VITALS: TEMP 98.1
[2020-07-03 09:51] LABS: POTASSIUM 4.8 mmol/L (3.5-5.1)
[2020-07-03] MEDS ORDERED: ALBUTEROL SO4 0.083% IH SOL 2.5 MG/3 ML VIAL.NEB. NEB ONE (10:15)
[2020-07-03 10:35] LABS: ALBUMIN 0.9 g/dl (3.4-5.0); CALCIUM 7.8 mg/dL (8.5-10.1)
[2020-07-03 10:39] LABS: BILIRUBIN,TOTAL 0.3 mg/dL (0.2-1); CREATININE 2.1 mg/dL (0.55-1.3)
[2020-07-03 10:47] LABS: BLOOD UREA NITROGEN 109.5 mg/dL (7-18)
[2020-07-03 12:14] LABS: ANISOCYTOSIS 1+; MACROCYTOSIS 0; OVALOCYTE 1+; PLATELET ESTIMATE NORMAL; TARGET CELLS 2+
[2020-07-03 14:51] VITALS: BMI 28.1
[2020-07-03] MEDS ORDERED: SODIUM CHLORIDE 250 ML IV PRN (15:05)
[2020-07-03] MEDS: PANTOPRAZOLE SODIUM 40 MG VIAL IVPUSH SCH (15:07)
[2020-07-03] MEDS ORDERED: EPINEPHrine/PF 1 MG/1 ML (1:1,000) AMPULE ONE (16:26)
[2020-07-03] MEDS ORDERED: SODIUM CHLORIDE 250 ML IV STA (16:35)
[2020-07-03] MEDS: PHENYLEPHRINE NS PREMIX 50,000 MCG/500 ML BAG CVP SCH (16:45)
[2020-07-03] MEDS: NOREPINEPHRINE BITARTRATE 8,000 MCG/500 ML BAG IVPB SCH (17:07)
[2020-07-03 17:42] LABS: BASO % 0.1 % (0-2.0); EOS % 0.1 % (0-4.5); HEMATOCRIT 25.3 % (32.4-45.2); HEMOGLOBIN 7.4 GM/dL (10.7-15.3); LYMPH % 10.8 % (8-40); MCH 25.1 pg (25.7-33.7); MCHC 29.4 g/dl (32.0-36.0); MEAN CELL VOLUME 85.4 fl (80-96); MEAN PLT VOLUME 11.8 fl (7.5-11.1); MONO % 3.2 % (3.8-10.2); NEUT % 85.8 % (42.8-82.8); PLATELET COUNT 134 K/MM3 (134-434); RBC 2.97 M/mm3 (3.60-5.2); RDW 19.4 % (11.6-15.6)
[2020-07-03 17:45] LABS: WHITE BLOOD COUNT 31.9 K/mm3 (4.0-10.0)
[2020-07-03 17:59] LABS: POTASSIUM 3.3 mmol/L (3.5-5.1)
[2020-07-03 18:01] LABS: ALBUMIN 0.9 g/dl (3.4-5.0); CALCIUM 7.3 mg/dL (8.5-10.1)
[2020-07-03 18:04] LABS: CREATININE 1.8 mg/dL (0.55-1.3)
[2020-07-03 18:06] LABS: BILIRUBIN,TOTAL 0.2 mg/dL (0.2-1); TOT PROT 5.1 g/dl (6.4-8.2)
[2020-07-03 18:11] LABS: BLOOD UREA NITROGEN 76.1 mg/dL (7-18)
[2020-07-03 18:28] LABS: ANISOCYTOSIS 3+; MACROCYTOSIS 0; PLATELET ESTIMATE DECREASED; TARGET CELLS 2+
[2020-07-03] MEDS ORDERED: PHENYLEPHRINE HCL 10 MG/1 ML SINGLE DOSE VIAL ONE (18:44)
[2020-07-03] MEDS ORDERED: LACTATED RINGERS SOLUTION 1000 ML INFUS.BAG IV ONE (19:02)
[2020-07-03] MEDS: CHLORHEXIDINE GLUCONATE 4% CLEANSER FOR DECOLONIZATION TP SCH (22:20)
[2020-07-03] MEDS: CALCIUM ACETATE 667 MG CAPSULE (FP) PO SCH (22:20)
[2020-07-03] MEDS: MUPIROCIN 2% TOPICAL OINTMENT FOR DECOLONIZATION NS SCH (22:33)
[2020-07-04] MEDS ORDERED: PT OWN MED DRAWER 7, Y5N ONE (00:17)
[2020-07-04] MEDS: NYSTATIN 100,000 UNIT/GM TOPICAL CREAM 15 GM TUBE TP SCH ×3 (01:27→12:00)
[2020-07-04] MEDS: CEFTAZIDIME/AVIBACTAM 1.25 GM in DEXTROSE 5%-WATER - 100 ML IVPB SCH ×3 (02:46→17:08)
[2020-07-04] MEDS: AMIODARONE HCL 200 MG TABLET NGT SCH ×3 (06:47→22:18)
[2020-07-04] MEDS: INSULIN SLIDING SCALE (NOVOLOG) 1 VIAL SQ SCH ×3 (06:47→22:31)
[2020-07-04 07:08] LABS: HEMATOCRIT 26.2 % (32.4-45.2); HEMOGLOBIN 7.8 GM/dL (10.7-15.3); LYMPH % 5.3 % (8-40); MEAN CELL VOLUME 86.8 fl (80-96); MEAN PLT VOLUME 12.3 fl (7.5-11.1); MONO % 3.8 % (3.8-10.2); NEUT % 90.9 % (42.8-82.8); PLATELET COUNT 127 K/MM3 (134-434); RBC 3.02 M/mm3 (3.60-5.2); RDW 19.8 % (11.6-15.6); WHITE BLOOD COUNT 22.4 K/mm3 (4.0-10.0)
[2020-07-04] MEDS ORDERED: PHENYLEPHRINE HCL 10 MG/1 ML SINGLE DOSE VIAL ONE (07:41)
[2020-07-04 07:44] LABS: POTASSIUM 4.7 mmol/L (3.5-5.1)
[2020-07-04] MEDS: ACETYLCYSTEINE 20% 200MG/ML 4 ML VIAL *FOR ORAL / INH USE ONLY NEB SCH ×3 (07:56→13:39)
[2020-07-04 08:09] LABS: ALBUMIN 0.9 g/dl (3.4-5.0); BLOOD UREA NITROGEN 87.5 mg/dL (7-18); CALCIUM 7.7 mg/dL (8.5-10.1)
[2020-07-04 08:14] LABS: BILIRUBIN,TOTAL 0.4 mg/dL (0.2-1); TOT PROT 5.2 g/dl (6.4-8.2)
[2020-07-04] MEDS ORDERED: LACTATED RINGERS SOLUTION 1,000 ML/1,000 ML INFUS.BAG IV ONE (08:19)
[2020-07-04 09:08] LABS: PHOSPHOROUS 9.8 mg/dL (2.5-4.9)
[2020-07-04] MEDS: CALCIUM ACETATE 667 MG CAPSULE (FP) PO SCH ×3 (10:13→17:36)
[2020-07-04] MEDS: levETIRAcetam 500 MG TABLET (FP) PO SCH ×2 (10:14→22:19)
[2020-07-04] MEDS: OCULAR LUBRICANT OPHTHALMIC OINTMENT 7 GM TUBE OU SCH ×2 (10:14→22:19)
[2020-07-04] MEDS ORDERED: VASOPRESSIN 20 UNITS/ML VIAL IV ONE (10:14)
[2020-07-04] MEDS: FUROSEMIDE 100 MG/10 ML INJECTABLE VIAL IVPB SCH (10:14)
[2020-07-04] MEDS: MUPIROCIN 2% TOPICAL OINTMENT FOR DECOLONIZATION NS SCH ×2 (10:14→22:18)
[2020-07-04] MEDS ORDERED: PHENYLEPHRINE NS PREMIX 10,000 MCG/100 ML BAG CVP SCH (10:15)
[2020-07-04] MEDS: MIDODRINE HCL 5 MG TABLET PO SCH ×3 (10:15→17:36)
[2020-07-04] MEDS: PANTOPRAZOLE SODIUM 40 MG VIAL IVPUSH SCH (10:15)
[2020-07-04] MEDS: METOPROLOL TARTRATE 25 MG TABLET (FP) PO SCH ×2 (10:15→22:19)
[2020-07-04 10:57] LABS: HEMATOCRIT 25.8 % (32.4-45.2); HEMOGLOBIN 7.8 GM/dL (10.7-15.3); MCH 26.1 pg (25.7-33.7); MCHC 30.4 g/dl (32.0-36.0); MEAN CELL VOLUME 85.8 fl (80-96); MEAN PLT VOLUME 11.8 fl (7.5-11.1); PLATELET COUNT 159 K/MM3 (134-434); RDW 20.3 % (11.6-15.6); WHITE BLOOD COUNT 27.4 K/mm3 (4.0-10.0)
[2020-07-04] MEDS: VASOPRESSIN 40 UNITS in SODIUM CHLORIDE 98 ML IVPB SCH (11:00)
[2020-07-04 11:10] LABS: ANISOCYTOSIS 2+; MACROCYTOSIS 0; PLATELET ESTIMATE DECREASED; TARGET CELLS 1+
[2020-07-04] MEDS: PHENYLEPHRINE NS PREMIX 50,000 MCG/500 ML BAG CVP SCH (22:18)
[2020-07-04] MEDS: NOREPINEPHRINE BITARTRATE 8,000 MCG/500 ML BAG IVPB SCH (22:18)
[2020-07-04] MEDS: CHLORHEXIDINE GLUCONATE 4% CLEANSER FOR DECOLONIZATION TP SCH (22:19)
[2020-07-05] MEDS: NYSTATIN 100,000 UNIT/GM TOPICAL CREAM 15 GM TUBE TP SCH ×3 (00:30→12:00)
[2020-07-05] MEDS: CEFTAZIDIME/AVIBACTAM 1.25 GM in DEXTROSE 5%-WATER - 100 ML IVPB SCH ×3 (02:04→17:31)
[2020-07-05] MEDS ORDERED: PT OWN MED DRAWER 7, Y5N ONE (02:20)
[2020-07-05] MEDS: AMIODARONE HCL 200 MG TABLET NGT SCH ×3 (07:04→22:24)
[2020-07-05] MEDS: INSULIN SLIDING SCALE (NOVOLOG) 1 VIAL SQ SCH ×3 (07:06→22:25)
[2020-07-05 07:46] LABS: CHLORIDE 106 mmol/L (98-107); POTASSIUM 5.7 mmol/L (3.5-5.1); SODIUM 143 mmol/L (136-145)
[2020-07-05 07:52] LABS: CALCIUM 7.4 mg/dL (8.5-10.1)
[2020-07-05 07:53] LABS: ALBUMIN 0.8 g/dl (3.4-5.0); ANION GAP 27 MMOL/L (8-16); BLOOD UREA NITROGEN 102.7 mg/dL (7-18); CO2 9 mmol/L (21-32); GLUCOSE,RANDOM 133 mg/dL (74-106); MAGNESIUM 2.2 mg/dL (1.8-2.4)
[2020-07-05 07:54] LABS: SGOT/AST 201 U/L (15-37); SGPT/ALT 107 U/L (13-61)
[2020-07-05 07:56] LABS: BILIRUBIN,TOTAL 0.6 mg/dL (0.2-1); CREATININE 2.4 mg/dL (0.55-1.3); TOT PROT 4.6 g/dl (6.4-8.2)
[2020-07-05 08:00] LABS: ALK PHOS 316 U/L (45-117)
[2020-07-05] MEDS: CALCIUM ACETATE 667 MG CAPSULE (FP) PO SCH ×3 (08:00→17:30)
[2020-07-05] MEDS: ACETYLCYSTEINE 20% 200MG/ML 4 ML VIAL *FOR ORAL / INH USE ONLY NEB SCH (08:35)
[2020-07-05 09:02] LABS: BASO % 0.2 % (0-2.0); EOS % 0.8 % (0-4.5); HEMATOCRIT 23.7 % (32.4-45.2); MCHC 28.9 g/dl (32.0-36.0); MEAN PLT VOLUME 11.7 fl (7.5-11.1); MONO % 0.1 % (3.8-10.2); NEUT % 94.9 % (42.8-82.8); PLATELET COUNT 136 K/MM3 (134-434); RBC 2.63 M/mm3 (3.60-5.2); RDW 20.9 % (11.6-15.6)
[2020-07-05 09:16] LABS: HEMOGLOBIN 6.8 GM/dL (10.7-15.3)
[2020-07-05 09:17] LABS: WHITE BLOOD COUNT 35.7 K/mm3 (4.0-10.0)
[2020-07-05] MEDS: MUPIROCIN 2% TOPICAL OINTMENT FOR DECOLONIZATION NS SCH ×2 (11:00→21:25)
[2020-07-05] MEDS: OCULAR LUBRICANT OPHTHALMIC OINTMENT 7 GM TUBE OU SCH ×2 (11:01→21:25)
[2020-07-05] MEDS: levETIRAcetam 500 MG TABLET (FP) PO SCH ×2 (11:01→22:24)
[2020-07-05] MEDS: MIDODRINE HCL 5 MG TABLET PO SCH ×3 (11:04→19:09)
[2020-07-05] MEDS: METOPROLOL TARTRATE 25 MG TABLET (FP) PO SCH ×2 (11:04→22:25)
[2020-07-05] MEDS: PANTOPRAZOLE SODIUM 40 MG VIAL IVPUSH SCH (11:04)
[2020-07-05] MEDS: FUROSEMIDE 100 MG/10 ML INJECTABLE VIAL IVPB SCH (11:04)
[2020-07-05 11:41] LABS: ANISOCYTOSIS 0; PLATELET ESTIMATE DECREASED
[2020-07-05 12:07] VITALS: BP 67/44
[2020-07-05 12:34] LABS: ROULEAU 1+
[2020-07-05 12:40] LABS: PHOSPHOROUS > 9.0 mg/dL (2.5-4.9)
[2020-07-05 13:12] LABS: MACROCYTOSIS 0
[2020-07-05] MEDS: NOREPINEPHRINE BITARTRATE 8,000 MCG/500 ML BAG IVPB SCH (17:31)
[2020-07-05] MEDS: VASOPRESSIN 40 UNITS in SODIUM CHLORIDE 98 ML IVPB SCH (17:55)
[2020-07-05] MEDS: PHENYLEPHRINE NS PREMIX 50,000 MCG/500 ML BAG CVP SCH (17:55)
[2020-07-05] MEDS: APIXABAN 2.5 MG TABLET PEG SCH (22:24)
[2020-07-05] MEDS: CHLORHEXIDINE GLUCONATE 4% CLEANSER FOR DECOLONIZATION TP SCH (22:24)
[2020-07-06] MEDS: CEFTAZIDIME/AVIBACTAM 1.25 GM in DEXTROSE 5%-WATER - 100 ML IVPB SCH ×2 (02:32→09:29)
[2020-07-06] MEDS: INSULIN SLIDING SCALE (NOVOLOG) 1 VIAL SQ SCH (05:30)
[2020-07-06] MEDS: AMIODARONE HCL 200 MG TABLET NGT SCH (05:30)
[2020-07-06] MEDS: NYSTATIN 100,000 UNIT/GM TOPICAL CREAM 15 GM TUBE TP SCH ×2 (05:32)
[2020-07-06] MEDS: ACETYLCYSTEINE 20% 200MG/ML 4 ML VIAL *FOR ORAL / INH USE ONLY NEB SCH (08:39)
[2020-07-06] MEDS: MUPIROCIN 2% TOPICAL OINTMENT FOR DECOLONIZATION NS SCH (09:29)
[2020-07-06 13:02] VITALS: PULSE 36
== END 2020-07-06 10:24 | disposition expired | DRG 870 ==
LOC: JER 01:09 → JERBED 02:11 → JICU 06:16 → J5S 07-02 21:34 → JICU 07-03 17:27
PROVIDERS: ADMIT Internal Medicine Pulmonary Disease; ATTEND Internal Medicine Pulmonary Disease
PROC: 5A1955Z Respiratory Ventilation, Greater than 96 Consecutive Hours (ICD-10-PCS; principal; 2020-06-24)
PROC: 5A1D70Z Performance of Urinary Filtration, Intermittent, Less than 6 Hours Per Day (ICD-10-PCS; 2020-06-30)
PROC: 5A12012 Performance of Cardiac Output, Single, Manual (ICD-10-PCS; 2020-07-03)
DX: A41.89 Other specified sepsis (principal); L89.154 Pressure ulcer of sacral region, stage 4; J96.21 Acute and chronic respiratory failure with hypoxia; R65.21 Severe sepsis with septic shock; J18.9 Pneumonia, unspecified organism; R53.2 Functional quadriplegia; N18.6 End stage renal disease; I24.8 Other forms of acute ischemic heart disease; E87.2 Acidosis; N39.0 Urinary tract infection, site not specified; I48.11 Longstanding persistent atrial fibrillation; I12.0 Hypertensive chronic kidney disease with stage 5 chronic kidney disease or end stage renal disease; E03.9 Hypothyroidism, unspecified; I46.9 Cardiac arrest, cause unspecified; R94.31 Abnormal electrocardiogram [ECG] [EKG]; D63.1 Anemia in chronic kidney disease; G40.909 Epilepsy, unspecified, not intractable, without status epilepticus; F32.9 Major depressive disorder, single episode, unspecified; I95.9 Hypotension, unspecified; R73.9 Hyperglycemia, unspecified; R68.0 Hypothermia, not associated with low environmental temperature; B96.1 Klebsiella pneumoniae [K. pneumoniae] as the cause of diseases classified elsewhere; R13.10 Dysphagia, unspecified; E83.52 Hypercalcemia; Z93.0 Tracheostomy status; Z93.1 Gastrostomy status; Z86.73 Personal history of transient ischemic attack (TIA), and cerebral infarction without residual deficits; Z99.2 Dependence on renal dialysis
CPT/HCPCS: 36415; 71045-TC-FY; 80048; 80053; 81003; 82550; 82553; 82607; 82728; 82962; 83036; 83540; 83550; 83605; 83735; 83880; 84100; 84439; 84443; 84484; 85025; 85027; 85610; 85730; 86140; 86803; 86850; 86900; 86901; 87040; 87086; 87184; 87186; 87804; 93005; 93010; 93971; 94002; 94640; 99285-25; C9803; J0282; J1644; U0003